=== PATIENT | female | born 1945 | race Caucasian/White ===

== ENCOUNTER → 2018-07-17 | Outpatient (CLI) | payer MEDICARE ==
[2018-07-17 17:42] LABS: HEMATOCRIT 35.7 % (36.0-47.0); HEMOGLOBIN 11.3 g/dl (12.0-15.5); MEAN CORPUSCULAR HEMOGLOBIN 26.2 pg (27.0-33.0); MEAN CORPUSCULAR HGB CONC 31.7 g/dl (32.0-36.5); MEAN CORPUSCULAR VOLUME 82.8 fl (80.0-96.0); PLATELET COUNT, AUTOMATED 365 10^3/uL (150-450); RED BLOOD COUNT 4.31 10^6/uL (4.00-5.40); WHITE BLOOD COUNT 11.2 10^3/uL (4.0-10.0)
[2018-07-17 18:04] LABS: CALCIUM LEVEL 9.7 MG/DL (8.8-10.2); CREATININE FOR GFR 1.3 MG/DL (0.55-1.30); GLOMERULAR FILTRATION RATE 42.9 (>39); POTASSIUM SERUM 4.8 MEQ/L (3.5-5.1)
[2018-07-17 18:23] LABS: EOSINOPHILS 4 % (0-5); LYMPHOCYTES 46 % (16-52); MONOCYTES 4 % (0-8); NEUTROPHILS 46 % (35-75); PLATELET ESTIMATE NORMAL (NORMAL)
== END ==
LOC: M LAB 16:28
PROVIDERS: ATTEND Surgery Vascular Surgery
DX: I70.213 Atherosclerosis of native arteries of extremities with intermittent claudication, bilateral legs (principal)

== ENCOUNTER → 2018-08-02 | Outpatient (CLI) | payer MEDICARE ==
[~2018-08-02] MED LIST: HEPARIN 1,000 UNITS/ML 10ML VIAL (FOR RADIOLOGY& DIALYSIS ONLY) As Ordered ONE; ISOVUE-300 61% 50ML VIAL (Q9967) As Ordered ONE; LIDOCAINE 2% MDV 20 ML VIAL As Ordered ONE; MIDAZOLAM INJ 2 MG/2 ML VIAL (J2250) As Ordered ONE; fentaNYL 100 MCG/2 ML INJECTION (J3010) As Ordered ONE
--- NOTE | 2018-08-30 08:07 | REPIR ---
DATE OF PROCEDURE: 08/16/2018 ATTENDING SURGEON: Dr. Madi Peralta CHIEF CLERK: Bouchra Almonte and Hafsa Seth PREOPERATIVE DIAGNOSES: Left lower extremity claudication. Chronic renal insufficiency, stage III. 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 Previous tobacco abuse. POSTOPERATIVE DIAGNOSES: Left lower extremity claudication. Chronic renal insufficiency, stage III. 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 Previous tobacco abuse. PROCEDURE: Aortogram. Iliofemoral angiogram. Selective left common femoral artery catheter placement with left lower extremity angiogram. Selective left superficial femoral artery catheter placement with left lower extremity angiogram. MYNX closure of the right common femoral arteriotomy. INDICATION: Patient is a 73-year-old female with previous angioplasty and stenting of her left superficial femoral artery and popliteal artery who has continued claudication in the left lower extremity. The patient will undergo a left lower extremity angiogram with possible angioplasty, stent and/or atherectomy. Risks, benefits and alternative treatment options were discussed with the patient. ANESTHESIA: Local with 10 mL of 2% lidocaine. FLUORO TIME: 1.7 minutes. CONTRAST: 6 mL of ISOVUE-300. HEPARIN: None. COMPLICATIONS: None. DRAINS: None. SPECIMENS: None. IMPLANTS: Right common femoral arteriotomy. Closure with a MYNX closure device. PROCEDURE: The patient was taken to the angiography suite, placed supine on the angiography room table and then prepped and draped in a standard surgical fashion. The right common femoral artery was cannulated with a micropuncture needle. The micropuncture wire was advanced through the micropuncture needle, which was upsized to a micropuncture sheath. A Bentson wire was advanced through the micropuncture sheath, which was upsized to a #5 [place] sheath. An Omni Flush catheter was placed in the aorta and aortogram performed. Catheter was pulled down to the bifurcation of the iliac arteries and iliofemoral angiogram was performed. Catheter was directed over the bifurcation of the iliac arteries, placed in the left common femoral artery and a left lower extremity angiogram was performed. Catheter was advanced into the left superficial femoral artery and a selective left lower extremity angiogram was performed. Catheters and wires were removed. A MYNX closure device was used to close the arteriotomy in the right common femoral artery with an additional 10 minutes of adjunctive pressure applied for hemostasis. Dressings were then applied. The patient tolerated procedure well. All instrument, sponge, and needle counts were correct at the end of the case. There were no complications. Dr. Peralta was present for directed the entire case. The patient was transferred to the holding area and subsequently discharged in stable condition. RADIOLOGIC SUPERVISION INTERPRETATION: The aortogram showed the aorta be widely patent with good filling of the celiac and superior mesenteric artery. The renal arteries were patent. The infrarenal aorta was patent with good filling of lumbar vessel. The inferior mesenteric artery was not visualized. The common iliac, external, and internal iliac arteries were patent bilaterally. The catheter was advanced into the left common femoral artery and angiogram was performed showing no significant disease with some atherosclerotic plaquing. The catheter was advanced into the superficial femoral artery and an angiogram performed showing the previously stented superficial femoral and popliteal arteries to be patent as well as some diffuse disease in the tibial vessels. A MYNX closure device was used close the arteriotomy in the right common femoral artery.
== END | disposition home or self-care (01) ==
LOC: M IRPRO 07:01
PROVIDERS: ATTEND Surgery Vascular Surgery
DX: I70.212 Atherosclerosis of native arteries of extremities with intermittent claudication, left leg (principal); N18.3 Chronic kidney disease, stage 3 (moderate); Z87.891 Personal history of nicotine dependence
CPT/HCPCS: 36247; 75625; 75716; 75774; C1760; C1769; C1887; C1894; G0269; Q9967

== ENCOUNTER → 2018-08-14 | Outpatient (CLI) | payer MEDICARE ==
[2018-08-14 14:23] LABS: BASO # 0.1 10^3/uL (0.0-0.2); BASO % 0.6 % (0.0-1.0); EOS # 0.2 10^3/uL (0.0-0.50); EOS % 1.7 % (0.0-3.0); HEMATOCRIT 36.7 % (36.0-47.0); HEMOGLOBIN 11.6 g/dl (12.0-15.5); LYMPH # 3.9 10^3/uL (1.5-4.5); MEAN CORPUSCULAR HEMOGLOBIN 26.4 pg (27.0-33.0); MEAN CORPUSCULAR HGB CONC 31.6 g/dl (32.0-36.5); MEAN CORPUSCULAR VOLUME 83.4 fl (80.0-96.0); MONO # 0.6 10^3/uL (0.0-0.8); MONO % 4.8 % (0.0-5.0); NEUTROPHILS # 7.8 10^3/uL (1.8-7.7); NEUTROPHILS % 61.6 % (36.0-66.0); PLATELET COUNT, AUTOMATED 375 10^3/uL (150-450); WHITE BLOOD COUNT 12.7 10^3/uL (4.0-10.0)
[2018-08-14 14:49] LABS: CALCIUM LEVEL 9.8 MG/DL (8.8-10.2); CREATININE FOR GFR 1.53 MG/DL (0.55-1.30); GLOMERULAR FILTRATION RATE 35.5 (>39); POTASSIUM SERUM 5.2 MEQ/L (3.5-5.1)
== END ==
LOC: M LAB 14:00
PROVIDERS: ATTEND Surgery Vascular Surgery
DX: I70.213 Atherosclerosis of native arteries of extremities with intermittent claudication, bilateral legs (principal)

== ENCOUNTER → 2018-08-16 | Outpatient (CLI) | payer MEDICARE ==
[~2018-08-16] MED LIST changes: +PROTAMINE SULF INJ 50 MG/5 ML VIAL (J2720) As Ordered ONE; +diphenhydrAMINE INJ 50MG/ML VIAL (J1200) As Ordered ONE
--- NOTE | 2018-08-30 09:44 | REPIR ---
DATE OF PROCEDURE: 08/16/2018 PREOPERATIVE DIAGNOSES: Left lower extremity claudication, chronic renal insufficiency stage III. POSTOPERATIVE DIAGNOSES: Left lower extremity claudication, chronic renal insufficiency stage III. PROCEDURE: Right common femoral arterial cannulation, selective left common femoral artery catheter placed with angiogram, selective left superficial femoral artery catheter placed with angiogram, selective left popliteal artery catheter placement angiogram, left popliteal artery angioplasty and stent with a 6 x 120 Uma drug-eluding stent postdilated with a 5 x 200 balloon, left superficial femoral artery angioplasty and stent with a 6 x 120 balloon Uma drug-eluding stent postdilated with a 5 x 200 balloon, left common femoral artery angioplasty with a 5 x 200 balloon, MYNX closure of the right common femoral arteriotomy. SURGEON: Dr. Donta Peralta. POWDERMAN: Bouchra Almonte and Hafsa Seth. ANESTHESIA: Local with sedation 1 mg Versed, 50 mcg of fentanyl and 10 mL of 2% lidocaine. SEDATION TIME: From 08:17 a.m. to 09:15 a.m. for a total of 58 minutes. Sedation and cardiopulmonary monitoring were performed under my direct supervision. I was present for and directed the entire case. FLUORO TIME: 5.2 minutes. CONTRAST: 2 mL of Isovue-300. Heparin 6000 units, protamine 50 mg, Benadryl 50 mg. COMPLICATIONS: None. DRAINS: None. SPECIMENS: None. IMPLANTS: Left popliteal artery stent with 6 x 120 Uma drug-eluding stent, left superficial femoral artery stent with a 6 x 120 Uma drug-eluding stent. MYNX closure device used close the arteriotomy in the right common femoral artery. INDICATION: The patient is a 73-year-old female with left lower extremity claudication and atherosclerotic arterial occlusive disease in her left common femoral superficial femoral and popliteal arteries. The patient will undergo a left lower extremity angiogram with possible angioplasty stent and/or atherectomy. Risks, benefits and alternative options were discussed with the patient. DESCRIPTION OF PROCEDURE: The patient was taken to the angiography suite, placed supine on the angiography room table and then prepped and draped in a standard surgical fashion. The right common femoral artery was cannulated. Catheter advanced up over the bifurcation and angiogram performed showing stenosis in the common femoral, superficial femoral and popliteal artery. The popliteal artery was angioplastied and stented with 6 x 120 Uma drug-eluting stent postdilated with 5 x 200 balloon. The superficial femoral artery was angioplastied and stenting with 6 x 120 drug-eluding Uma stent postdilated with a 5 x 200 balloon. The left common femoral artery was angioplastied with a 5 x 200 balloon. A completion angiogram showed resolution of the stenosis with good flow through the common femoral, superficial femoral and popliteal artery into the tibial vessels. A MYNX closure device was used close the arteriotomy in the right common femoral artery.
== END | disposition home or self-care (01) ==
LOC: M IRPRO 06:30
PROVIDERS: ATTEND Surgery Vascular Surgery
DX: I70.212 Atherosclerosis of native arteries of extremities with intermittent claudication, left leg (principal); N18.3 Chronic kidney disease, stage 3 (moderate)
CPT/HCPCS: 37226; 75710; C1725; C1760; C1769; C1874; C1887; C1894; J1200; J2250; J2720; J3010; Q9967

== ENCOUNTER 2019-07-10 14:01 | Inpatient (IN) | payer MEDICARE ==
[~2019-07-10] VITALS: Ht 162.6 cm; Wt 61.7 kg
[2019-07-10] MEDS ORDERED: OMEP-221 PO (14:35)
[2019-07-10] MEDS ORDERED: ATEN50TA2 PO (15:07)
[2019-07-10] MEDS ORDERED: NITR100C2 PO (15:07)
[2019-07-10] MEDS ORDERED: CLOP75TA2 PO (15:07)
[2019-07-10] MEDS ORDERED: AMLO10TA5 PO (15:07)
[2019-07-10] MEDS ORDERED: METF500T13 PO ×2 (15:07→18:18)
[2019-07-10] MEDS ORDERED: PARO20TA4 PO (15:07)
[2019-07-10] MEDS ORDERED: WARF05TA PO (15:07)
[2019-07-10] MEDS ORDERED: CLONI1TA PO (15:07)
[2019-07-10] MEDS ORDERED: METF-877 PO (15:07)
[2019-07-10] MEDS ORDERED: AMIT25TA PO (15:07)
[2019-07-10] MEDS ORDERED: GLIP10TA PO (15:07)
[2019-07-10] MEDS ORDERED: ENAL20TA PO (15:07)
[2019-07-10] MEDS ORDERED: LORA-674 PO (15:07)
[2019-07-10] MEDS ORDERED: LABETALOL HCL 100 MG/20 ML VIAL IV STA (17:14)
[2019-07-10] MEDS ORDERED: HumaLOG INSULIN (NovoLOG) PER UNIT SC STA ×2 (17:48→19:07)
[2019-07-10] MEDS ORDERED: NS 1,000 ML IV ONE (18:00)
--- NOTE | 2019-07-10 18:08 | REP ---
Clinical: Diabetic ketoacidosis . Comparison: None . Findings: The mediastinum and cardiac silhouette are stable and within normal limits for portable technique. The lung mejía are clear without acute consolidation, effusion, or pneumothorax. Skeletal structures are intact. Impression: No acute cardiopulmonary process appreciated. Electronically Signed by Eliseo Tanner MD 07/10/2019 05:59 P
[2019-07-10 18:52] LABS: HEMOGLOBIN A1c 12.8 %
[2019-07-10 18:57] LABS: ACETONE/KETONE 15.41 MG/DL (<2.81); CK-MB VALUE MASS 3.4 NG/ML (<3.6); CPK CREATINE PHOSPHOKINASE 77 U/L (26-192); MB/CK RELATIVE INDEX 4.42 (< OR =4); TROPONIN I < 0.02 NG/ML (< 0.10)
[2019-07-10 19:12] LABS: OSMOLALITY SERUM 302 MOSM/KG (280-301)
[2019-07-10] MEDS ORDERED: niCARdipine IV 40 MG in IV 1 EA IV SCH (21:04)
[2019-07-10] MEDS ORDERED: HEPARIN SOD (PORCINE) 5000 UNITS/ML VIAL (J1644 PER 1000UNITS) SC SCH (21:15)
[2019-07-10] MEDS ORDERED: GLUCOSE 4 GM CHEW TABLET PO PRN (21:15)
[2019-07-10] MEDS ORDERED: OMEPRAZOLE 20 MG CAP PO ONE (21:15)
[2019-07-10] MEDS ORDERED: DEXTROSE 50% 50 ML SYRINGE IV PRN (21:15)
[2019-07-10] MEDS ORDERED: GLUCAGON FOR INJ 1 MG VIAL (J1610) SC PRN (21:15)
[2019-07-10] MEDS ORDERED: LEVEMIR (INSULIN DETEMIR) 1 UNITS/0.01ML SC ONE (21:30)
--- NOTE | 2019-07-10 21:38 | HPEPDOC ---
General Date of Admission 07/10/19 Date of Service: Jul 10, 2019 Chief Complaint The patient is a 74-year-old female admitted with a reason for visit of Low Blood Sugar. Source: Patient Exam Limitations: No limitations, Mild cognitive slowing Timing/Duration: Day(s) Severity: Mild, Moderate History of Present Illness Patient is 74 years old female with past medical history of hypertension, poorly controlled diabetes mellitus type 2 not on the insulin, PVD status post left popliteal stent placement in 2018 presented hospital with left leg discomfort, hyperglycemia and hypertensive emergency. Today in the morning patient was in the vascular surgery office for left leg ischemia. Dr. Finney who is vascular surgeon planned to proceed with CTA, however patient was found to have the high hyperglycemia, hypertensive emergency and acute renal failure. Patient is very poor historian, I couldn't find any previous records to clarify her medical history. In emergency room patient was found to have hypertensive emergency with blood pressure of 220/110, elevated creatinine and glucose level up to 600 with no anion gap elevation. Patient received subcutaneous insulin and IV labetalol. Patient denied fever, chills, nausea, vomiting chest pain, diarrhea or dysuria Home Medications Scheduled Amitriptyline HCl (Amitriptyline HCl) 25 Mg Tablet, 25 MG PO QHS, (Reported) Amlodipine Besylate (Amlodipine Besylate) 10 Mg Tablet, 10 MG PO QHS, (Reported) Atenolol (Atenolol) 50 Mg Tablet, 50 MG PO QHS, (Reported) Clonidine Hcl (Clonidine HCl) 0.1 Mg Tablet, 0.2 MG PO DAILY, (Reported) Clopidogrel Bisulfate (Clopidogrel) 75 Mg Tablet, 75 MG PO QHS, (Reported) Enalapril Maleate (Enalapril Maleate) 20 Mg Tablet, 40 MG PO DAILY, (Reported) Glipizide (Glipizide) 10 Mg Tablet, 15 MG PO BID, (Reported) Loratadine (Loratadine) 10 Mg Tablet, 10 MG PO DAILY for allergy symptoms, (Reported) Metformin HCl (Metformin HCl) 500 Mg Tablet, 1,500 MG PO QHS, (Reported) Metformin HCl (Metformin HCl) 500 Mg Tablet, 1,000 MG PO DAILY, (Reported) Nitrofurantoin Monohyd/M-Cryst (Nitrofurantoin [place]-Mcr 100 mg) 100 Mg Capsule, 100 MG PO BID, (Reported) DAY 5 OF 7 Omeprazole (Omeprazole) 40 Mg Capsule.dr, 40 MG PO DAILY, (Reported) Paroxetine HCl (Paroxetine) 20 Mg Tablet, 20 MG PO DAILY, (Reported) Warfarin Sod (Coumadin) 1 Mg Tablet, 2 MG PO QPM, (Reported) 1700 Allergies Coded Allergies: Sulfa (Sulfonamide Antibiotics) (Verified Allergy, Unknown, hives, 07/10/19) Past Medical History Medical History Hypertension, hyperlipidemia, peripheral vascular diseases, type 2 diabetes Surgical History Left popliteal stent placement in 2018 Family History I personally REVIEWED FAMILY HISTORY AND FOUND NOT PERTINENT Social History * Smoker: Denies Alcohol: Denies Drugs: denies A-FIB/CHADSVASC A-FIB History Current/History of A-Fib/PAF?: Yes Current PO Anticoag Therapy: Yes Review of Systems Constitutional: Denies: Chills, Fever Eyes: Denies: Pain ENT: Denies: Head Aches Skin: Denies: Rash, Lesions Pulmonary: Denies: Dyspnea Cardiovascular: Denies: Chest Pain Gastrointestinal: Denies: Nausea Genitourinary: Denies: Dysuria Hematologic: Denies: Bruising Endocrine: Reports: Polydipsia, Polyuria; Denies: Polyphagia Musculoskeletal: Denies: Neck Pain Neurological: Denies: Numbness Psych: Reports: Mood Normal Physical Examination General Exam: Positive: Alert, Cooperative Eye Exam: Positive: PERRLA ENT Exam: Positive: Atraumatic Neck Exam: Positive: Supple; Negative: JVD Heart Exam: Positive: Irregular Rhythm Telemetry: Positive: Atrial fibrillation Abdomen Exam: Positive: Normal bowel sounds Extremity Exam: Positive: Cyanosis (cyanosis of left toe, absence of dorsalis pedis pulsation); Negative: Clubbing Skin Exam: Positive: Other skin issue (cyanosis of left foot); Negative: Nl turgor and temperature Neuro Exam: Positive: Normal Gait, Strength at 5/5 X4 ext, Cranial Nerves 3-12 NL Psych Exam: Positive: Mental status NL Vital Signs Vital Signs Date Time Temp Pulse Resp B/P (MAP) Pulse Ox O2 Delivery O2 Flow Rate FiO2 07/10/19 21:00 82 220/98 (138) 98 Room Air 07/10/19 19:09 97.9 20 Laboratory Data Labs 24H Laboratory Tests 2 07/10/19 16:03: Urine Color STRAW, Urine Appearance CLEAR, Urine pH 5.0, Urine Specific [place] 1.026, Urine Protein 2+H, Urine Glucose (UA) 3+H, Urine Ketones TRACEH, Urine Blood 1+H, Urine Nitrite NEGATIVE, Urine Bilirubin NEGATIVE, Urine Urobilinogen 0.2, Urine Leukocyte Esterase NEGATIVE, Urine WBC (Auto) 3, Urine RBC (Auto) 3, Urine Hyaline Casts (Auto) 0, Urine Bacteria (Auto) 1+H, Urine Squamous Epithelial Cells 0, Urine Sperm (Auto) 07/10/19 17:58: Estimated Mean Plasma Glucose 321H, Hemoglobin A1c 12.8, Osmolality 302H, Total Creatine Kinase 77, Creatine Kinase MB 3.4, Creatine Kinase MB Relative Index 4.42H, Troponin I < 0.02, B-Hydroxybutyrate 15.41H 07/10/19 18:23: POC Glucose (Misc Panel) 421H, POC Sodium (Misc Panel) 130L, POC Potassium (Misc Panel) 4.9, POC Chloride (Misc Panel) 106, POC Total CO2 (Misc Panel) 16.0L, POC Blood Urea Nitrogen (Misc Panel 25, POC Ionized Calcium (Misc Panel) 4.9, POC Creatinine (Misc Panel) 1.2, POC Hematocrit (Misc Panel) 43.0 07/10/19 19:05: Bedside Glucose (Misc Panel) 412H 07/10/19 20:38: Bedside Glucose (Misc Panel) 310H Assessment/Plan Patient is 74 years old female with past medical history of hypertension, poorly controlled diabetes mellitus type 2 not on the insulin, PVD status post left popliteal stent placement in 2018 presented hospital with left leg discomfort, hyperglycemia and hypertensive emergency. Today in the morning patient was in the vascular surgery office for left leg ischemia. Dr. Finney who is vascular surgeon planned to proceed with CTA, however patient was found to have the high hyperglycemia, hypertensive emergency and acute renal failure. Patient is very poor historian, I couldn't find any previous records to clarify her medical history. In emergency room patient was found to have hypertensive emergency with blood pressure of 220/110, elevated creatinine and glucose level up to 600 with no anion gap elevation. Problems (1) Hypertensive emergency Status: Acute Problem Text: Nicardipine drip with parameters Restarted home meds EKG Echo (2) ARF (acute renal failure) Status: Acute Problem Text: Secondary to dehydration secondary to hyperglycemia continue to monitor Gentle IV fluid (3) Ischemia of left lower extremity Status: Acute Problem Text: Secondary to advanced atherosclerosis or restenosis of previous stents I discussed the case with Dr. Finney, patient is not medical stable for surgery Patient has significantly ischemia of left foot with cyanosis, absence of dorsalis pedis pulsation She will see patient in the morning (4) Type 2 diabetes mellitus Status: Chronic Problem Text: Poorly controlled diabetes Insulin sliding scale and detemir 10 units twice a day Diabetes diet Bmp every 4 hours, glucose level every 2 hours (5) Atrial fibrillation Status: Chronic Problem Text: I did not find history of atrial fibrillation, but patient is on oral anticoagulation. Denied history of PE Heart rate is under control She is a very poor historian EKG Telemetry Plan / VTE VTE Prophylaxis Ordered?: Yes LINDA GOODMAN DO Jul 10, 2019 21:38
[2019-07-10] MEDS ORDERED: NS 1,000 ML IV SCH (21:45)
[2019-07-10] MEDS: CLOPIDOGREL 75 MG TAB PO SCH (21:53)
[2019-07-10] MEDS: amLODIPine 10 MG TAB PO SCH (21:54)
[2019-07-10] MEDS: atenoloL 50 MG TAB PO SCH (21:54)
[2019-07-10] MEDS: HumaLOG INSULIN (NovoLOG) PER UNIT SC SCH (21:55)
[2019-07-10 22:28] VITALS: BP 173/80
[2019-07-10 22:37] LABS: INR 2.42; PROTHROMBIN TIME 26.2 SECONDS (11.8-14.0)
[2019-07-10 22:43] LABS: CALCIUM LEVEL 9.7 MG/DL (8.8-10.2); CREATININE FOR GFR 1.43 MG/DL (0.55-1.30); GLOMERULAR FILTRATION RATE 38.3 (>39)
[2019-07-10 22:45] VITALS: BP 173/80
[2019-07-10 23:00] VITALS: BP 163/71
[2019-07-10 23:30] VITALS: BP 161/74
[2019-07-10] MEDS: WARFARIN SOD 2 MG TAB PO SCH (23:31)
[2019-07-10] MEDS: AMITRIPTYLINE 25 MG TAB PO SCH (23:32)
[2019-07-11] VITALS (34 sets, daily range): BP systolic 117–218; BP diastolic 59–128
[2019-07-11] MEDS ORDERED: HumaLOG INSULIN (NovoLOG) PER UNIT SC ONE ×2 (00:30→02:30)
[2019-07-11 03:09] LABS: CALCIUM LEVEL 9.3 MG/DL (8.8-10.2); CREATININE FOR GFR 1.43 MG/DL (0.55-1.30); GLOMERULAR FILTRATION RATE 38.3 (>39); POTASSIUM SERUM 4.1 MEQ/L (3.5-5.1)
[2019-07-11] MEDS ORDERED: HumaLOG INSULIN (NovoLOG) PER UNIT SC STA (03:43)
[2019-07-11 05:34] LABS: APPEARANCE, URINE CLOUDY (CLEAR); BACTERIA, URINE AUTO 1+ (NEGATIVE); BILIRUBIN, URINE AUTO NEGATIVE (NEGATIVE); BLOOD, URINE BLOOD 1+ (NEGATIVE); COLOR, URINE YELLOW (YELLOW); GLUCOSE, URINE (UA) AUTO 3+ mg/dL (NEGATIVE); KETONE, URINE AUTO NEGATIVE (NEGATIVE); LEUKOCYTE ESTERASE, URINE AUTO 1+ (NEGATIVE); MUCUS, URINE SMALL (NEGATIVE); NITRITE, URINE AUTO NEGATIVE (NEGATIVE); PROTEIN, URINE AUTO 1+ mg/dL (NEGATIVE); RBC, URINE AUTO 3 /HPF (0-3); SPECIFIC GRAVITY URINE AUTO 1.017 (1.002-1.035); SQUAMOUS EPITHELIAL CELL UR AU 0 /HPF (0-6); UROBILINOGEN, URINE AUTO 0.2 mg/dL (0.0-2.0); WBC, URINE AUTO 71 /HPF (0-3)
[2019-07-11] MEDS ORDERED: PNEUMOCOCCAL VACCINE 0.5ML SYRINGE(90732) PNEUMOVAX 23 IM SCH (06:00)
[2019-07-11 06:05] LABS: HEMATOCRIT 37.6 % (36.0-47.0); HEMOGLOBIN 12.3 g/dl (12.0-15.5); MEAN CORPUSCULAR HEMOGLOBIN 26.2 pg (27.0-33.0); MEAN CORPUSCULAR HGB CONC 32.7 g/dl (32.0-36.5); PLATELET COUNT, AUTOMATED 490 10^3/uL (150-450); WHITE BLOOD COUNT 16.6 10^3/uL (4.0-10.0)
[2019-07-11 06:38] LABS: ALBUMIN 3.1 GM/DL (3.2-5.2); BILIRUBIN,TOTAL 0.1 MG/DL (0.2-1.0); CALCIUM LEVEL 9.7 MG/DL (8.8-10.2); CREATININE FOR GFR 1.13 MG/DL (0.55-1.30); GLOMERULAR FILTRATION RATE 50.2 (>39); MAGNESIUM LEVEL 1.4 MG/DL (1.8-2.4); POTASSIUM SERUM 4.1 MEQ/L (3.5-5.1); TOTAL PROTEIN 7.2 GM/DL (6.4-8.2)
[2019-07-11] MEDS: LEVEMIR (INSULIN DETEMIR) 1 UNITS/0.01ML SC SCH ×2 (08:08→20:52)
[2019-07-11] MEDS: HumaLOG INSULIN (NovoLOG) PER UNIT SC SCH ×4 (08:09→20:52)
[2019-07-11] MEDS: PARoxetine 20 MG TAB PO SCH (08:09)
[2019-07-11] MEDS: ENALAPRIL MALEATE 10 MG TAB PO SCH (08:10)
[2019-07-11] MEDS: LORATADINE 10 MG TAB PO SCH (08:10)
[2019-07-11] MEDS: cloNIDine 0.1 MG TAB PO SCH (08:10)
[2019-07-11] MEDS ORDERED: LEVEMIR (INSULIN DETEMIR) 1 UNITS/0.01ML SC SCH (09:00)
--- NOTE | 2019-07-11 11:32 | REP ---
Bilateral lower extremity arterial Doppler ultrasound: History: Peripheral arterial disease. History of stent and angioplasty left lower extremity. Left foot pain. Findings: The ankle brachial indices measurements could not be accomplished due to patient tolerance and pain. Moderate to severe plaquing is noted diffusely. The left superficial femoral artery is seen to be occluded. Monophasic waveforms are noted above and distal to the occlusion. Very slow arterial velocities are observed below the knee on the left. Biphasic waveforms are noted on the right. Arterial Doppler velocity chart right lower extremity: CF A 122 cm/S Profunda 99 Proximal SFA 94 Mid SFA 65 Distal SFA 95 Popliteal 185 Proximal AT A 50 Tibioperoneal trunk 73 Proximal FLIGHT SERVICE AGENT 68 Distal FLIGHT SERVICE AGENT 70 Distal AT A 30 Arterial Doppler velocity chart left lower extremity: CF A 113 cm/S Profunda 127 Proximal SFA 82 Mid SFA occluded Distal SFA occluded Popliteal occluded Proximal AT A seven Tibioperoneal trunk five Proximal FLIGHT SERVICE AGENT eight Distal FLIGHT SERVICE AGENT four Distal AT A 1.3 Electronically Signed by Sam Herring MD 07/11/2019 11:24 A
--- NOTE | 2019-07-11 13:37 | IPNPDOC ---
Subjective Date Seen The patient was seen on 07/11/19. Subjective Chief Complaint/HPI Patient is comfortable in no distress. Offers no new complaints will be transferred to PCU today General: Denies: ROS Unobtainable, Chills, Night Sweats, Fatigue, Malaise, Normal Appetite, Other Symptoms Constitutional: Denies: Chills, Fever, Malaise, Night Sweats, Weakness, Fatigue, Weight Loss, Lethargy, Other Eyes: Denies: Pain, Vision change, Conjunctivae inflammation, Eyelid inflammation, Redness, Other Pulmonary: Denies: Dyspnea, Cough, Pleuritic Chest Pain, Other Symptoms Cardiovascular: Denies: Chest Pain, Palpitations, Orthopnea, Paroxysmal Noc. Dyspnea, Edema, Lt Headedness, Other Symptoms Gastrointestinal: Denies: Nausea, Vomiting, Abdominal Pain, Diarrhea, Constipation, Melena, Hematochezia, Other Symptoms Musculoskeletal: Denies: Neck Pain, Back Pain, Shoulder Pain, Arm Pain, Hand Pain, Leg Pain, Foot Pain, Joint Pain, Muscle Pain, Spasms, Other Symptoms Neurological: Denies: Weakness, Numbness, Incoordination, Change in speech, Confusion, Seizures, Other Symptoms Objective Physical Examination ENT Exam: Positive: Atraumatic Neck Exam: Positive: Supple; Negative: JVD Heart Exam: Positive: Irregular Rhythm Telemetry: Positive: Atrial fibrillation Abdomen Exam: Positive: Normal bowel sounds Extremity Exam: Positive: Cyanosis (cyanosis of left toe, absence of dorsalis pedis pulsation) Skin Exam: Positive: Other skin issue (cyanosis of left foot) Neuro Exam: Positive: Normal Gait, Strength at 5/5 X4 ext, Cranial Nerves 3-12 NL Psych Exam: Positive: Mental status NL Assessment /Plan Problems (1) Hypertensive emergency Status: Acute Problem Text: Blood pressure well under control now systolic is 140 Continue amlodipine visit of August. Metoprolol and clonidine Transfer patient to PCU where she'll be observed for any changes in the meds Continue telemetry monitoring A.m. labs (2) Type 2 diabetes mellitus Status: Chronic Problem Text: Blood sugar is under control at present time Fingerstick blood sugar every before meals and at bedtime with coverage Continue home meds (3) Atrial fibrillation Status: Chronic Problem Text: Atrial fibrillation I did not find history of atrial fibrillation, but patient is on oral anticoagulation. Denied history of PE Heart rate is under control She is a very poor historian Continue telemetry monitoring (4) Ischemia of left lower extremity Status: Acute Problem Text: Patient is scheduled to be seen by Dr. Finney from vascular surgery Further recommendation as per vascular At the present meds (5) ARF (acute renal failure) Status: Acute Problem Text: Secondary to dehydration, which is improving. IV hydration Continue gentle IV hydration Repeat labs in a.m. Plan/VTE VTE Prophylaxis Ordered?: Yes VS, I&O, 24H, Fishbone Vital Signs/I&O Vital Signs Date Time Temp Pulse Resp B/P (MAP) Pulse Ox O2 Delivery O2 Flow Rate FiO2 07/11/19 08:10 144/67 07/11/19 07:50 98.6 66 16 99 Room Air I&O- Last 24 Hours up to 6 AM 07/11/19 06:00 Intake Total 1625 ml Output Total 300 ml Balance 1325 ml Laboratory Data 24H LABS Laboratory Tests 2 07/10/19 16:03: Urine Color STRAW, Urine Appearance CLEAR, Urine pH 5.0, Urine Specific [place] 1.026, Urine Protein 2+H, Urine Glucose (UA) 3+H, Urine Ketones TRACEH, Urine Blood 1+H, Urine Nitrite NEGATIVE, Urine Bilirubin NEGATIVE, Urine Urobilinogen 0.2, Urine Leukocyte Esterase NEGATIVE, Urine WBC (Auto) 3, Urine RBC (Auto) 3, Urine Hyaline Casts (Auto) 0, Urine Bacteria (Auto) 1+H, Urine Squamous Epithelial Cells 0, Urine Sperm (Auto) 07/10/19 17:58: Estimated Mean Plasma Glucose 321H, Hemoglobin A1c 12.8, Osmolality 302H, Total Creatine Kinase 77, Creatine Kinase MB 3.4, Creatine Kinase MB Relative Index 4.42H, Troponin I < 0.02, B-Hydroxybutyrate 15.41H 07/10/19 18:23: POC Glucose (Misc Panel) 421H, POC Sodium (Misc Panel) 130L, POC Potassium (Misc Panel) 4.9, POC Chloride (Misc Panel) 106, POC Total CO2 (Misc Panel) 16.0L, POC Blood Urea Nitrogen (Misc Panel 25, POC Ionized Calcium (Misc Panel) 4.9, POC Creatinine (Misc Panel) 1.2, POC Hematocrit (Misc Panel) 43.0 07/10/19 19:05: Bedside Glucose (Misc Panel) 412H 07/10/19 20:38: Bedside Glucose (Misc Panel) 310H 07/10/19 22:10: Prothrombin Time 26.2H, Prothromb Time International Ratio 2.42, Anion Gap 12, Glomerular Filtration Rate 38.3L, Calcium Level 9.7 07/10/19 22:30: Bedside Glucose (Misc Panel) 373H 07/11/19 00:02: Bedside Glucose (Misc Panel) 379H 07/11/19 02:11: Bedside Glucose (Misc Panel) 379H, Anion Gap 12, Glomerular Filtration Rate 38.3L, Calcium Level 9.3 07/11/19 04:06: Bedside Glucose (Misc Panel) 211H 07/11/19 05:15: Urine Color YELLOW, Urine Appearance CLOUDYH, Urine pH 5.0, Urine Specific [place] 1.017, Urine Protein 1+H, Urine Glucose (Auto)(UA) 3+H, Urine Ketones (Auto) NEGATIVE, Urine Blood 1+H, Urine Nitrite NEGATIVE, Urine Bilirubin NEGATIVE, Urine Urobilinogen 0.2, Urine Leukocyte Esterase (Auto) 1+H, Urine WBC (Auto) 71H, Urine RBC (Auto) 3, Urine Hyaline Casts (Auto) 0, Urine Bacteria (Auto) 1+H, Urine Squamous Epithelial Cells 0, Urine Mucus (Auto) SMALL, Urine Sperm (Auto) 07/11/19 05:44: Anion Gap 9, Glomerular Filtration Rate 50.2, Calcium Level 9.7, Nucleated Red Blood Cells % (auto) 0.0, Magnesium Level 1.4L, Total Bilirubin 0.1L, Aspartate Amino Transf (AST/SGOT) 15, Alanine Aminotransferase (ALT/SGPT) 18, Alkaline Phosphatase 88, Total Protein 7.2, Albumin 3.1L, Albumin/Globulin Ratio 0.76L 07/11/19 11:53: Bedside Glucose (Misc Panel) 475H CBC/BMP Laboratory Tests 07/10/19 22:10 07/11/19 02:11 07/11/19 05:44 JENNIFER LIU MD Jul 11, 2019 13:37
--- NOTE | 2019-07-11 14:42 | CR.PDOC ---
General Date of Consultation: Jul 11, [address] Finney. HPI: 74 year old F with a past medical history significant for PAD, previously followed by Dr. Peralta, last seen in the office 09/11/18, known to have history of left lower extremity angioplasty/stent placement. Angiogram left lower extremity as per Dr. Peralta 08/02/18 with no intervention. Angiogram left lower extremity 08/16/[address] Peralta with popliteal angioplasty/stent, left SFA angioplasty/stent and left common femoral angioplasty. The patient had last had lower extremity arterial ultrasound August [address] [facility]. The patient returned for vascular surgery follow-up appt 07/10/19. She had reported following her last arteriogram she continued to have pain in the left foot however over the past 3-4 weeks her symptoms have been worsening. The patient states initially it began with increasing left foot pain and then achy pain in the lower leg below the knee. Her left foot has been darker in color. She denies any wounds. If she walks for a very short distance she gets pain in the left foot and left lower leg. Her leg feels weak. She has numbness and tingling in the lower leg. Additional testing was planned and in preparation for this a medical profile was requested indicating blood sugar of 601, elevated renal function and the patient was noted to have an elevated blood pressure in the office therefore she was referred to the emergency department for evaluation where she was admitted by Hospitalist with hyperglycemia, acute renal failure and hypertensive emergency. The patient admitted that she had not been taking her medications and she had not taken her blood pressure medications yesterday morning and that she was on a pill for her diabetes which she had also not taken. Vascular surgery is consulted regarding left lower extremity pain. PMHx: PAD Hypertension History of recurrent UTI Diabetes GERD Depression PSHX: Cholecystectomy Hysterectomy Abdominal hernia repair Angiogram lower extremity SOCHX: Former smoker, quit 1965 ROS: As noted in HPI, otherwise 11pt ROS of systems reviewed and remarkable for recent UTI, patient reported she was on antibiotics currently. PE: GEN: 74 yo F, appears stated age. No acute distress. Alert and oriented x 3. HEENT: Normocephalic, atraumatic. Moist mucous membranes. CHEST: Regular rate and rhythm, +S1, +S2 LUNGS: Clear to auscultation bilaterally. ABD: Round, soft, non-tender, non-distended. +Bowel sounds throughout. EXT: Purplish discoloration of the toes of the left foot is less pronounced today. The foot is warmer to touch however her toes are still cool to touch. Faint monophasic signals are obtainable with Doppler left DP/PT. Monophasic left popliteal. Left femoral pulse is palpable. The patient is moving her toes, sensation to light touch is intact. NEURO: Alert and oriented x 3. No focal deficits appreciated. A&P: 1. PAD/history of left common femoral angioplasty, left SFA angioplasty/stent and left popliteal angioplasty/stent 08/16/18. Coolness and discoloration of the left foot is less pronounced this morning. Faint Monophasic DP/PT left foot, monophasic left popliteal with Doppler. Plan to request bilateral lower extremity arterial ultrasound to further assess, results to be reviewed by Dr. Finney for further recommendations. Possibly consider angiogram left lower extremity. Serum creatinine is improved this morning at 1.13, GFR 50.2 status post IV fluids. Thank you for your consultation. We will continue to follow along with you. Vital Signs/I&O Vital Signs Date Time Temp Pulse Resp B/P (MAP) Pulse Ox O2 Delivery O2 Flow Rate FiO2 07/11/19 14:00 98.0 59 19 131/62 (85) 97 Room Air I&O- Last 24 Hours up to 6 AM 07/11/19 05:59 Intake Total 1205 ml Balance 1205 ml Laboratory Data Labs 24H Laboratory Tests 2 07/10/19 16:03: Urine Color STRAW, Urine Appearance CLEAR, Urine pH 5.0, Urine Specific Peculiar 1.026, Urine Protein 2+H, Urine Glucose (UA) 3+H, Urine Ketones TRACEH, Urine Blood 1+H, Urine Nitrite NEGATIVE, Urine Bilirubin NEGATIVE, Urine Urobilinogen 0.2, Urine Leukocyte Esterase NEGATIVE, Urine WBC (Auto) 3, Urine RBC (Auto) 3, Urine Hyaline Casts (Auto) 0, Urine Bacteria (Auto) 1+H, Urine Squamous Epithelial Cells 0, Urine Sperm (Auto) 07/10/19 17:58: Estimated Mean Plasma Glucose 321H, Hemoglobin A1c 12.8, Osmolality 302H, Total Creatine Kinase 77, Creatine Kinase MB 3.4, Creatine Kinase MB Relative Index 4 .42H, Troponin I < 0.02, B-Hydroxybutyrate 15.41H 07/10/19 18:23: POC Glucose (Misc Panel) 421H, POC Sodium (Misc Panel) 130L, POC Potassium (Misc Panel) 4.9, POC Chloride (Misc Panel) 106, POC Total CO2 (Misc Panel) 16.0L, POC Blood Urea Nitrogen (Misc Panel 25, POC Ionized Calcium (Misc Panel) 4.9, POC Creatinine (Misc Panel) 1.2, POC Hematocrit (Misc Panel) 43.0 07/10/19 19:05: Bedside Glucose (Misc Panel) 412H 07/10/19 20:38: Bedside Glucose (Misc Panel) 310H 07/10/19 22:10: Prothrombin Time 26.2H, Prothromb Time International Ratio 2.42, Anion Gap 12, Glomerular Filtration Rate 38.3L, Calcium Level 9.7 07/10/19 22:30: Bedside Glucose (Misc Panel) 373H 07/11/19 00:02: Bedside Glucose (Misc Panel) 379H 07/11/19 02:11: Bedside Glucose (Misc Panel) 379H, Anion Gap 12, Glomerular Filtration Rate 38.3L, Calcium Level 9.3 07/11/19 04:06: Bedside Glucose (Misc Panel) 211H 07/11/19 05:15: Urine Color YELLOW, Urine Appearance CLOUDYH, Urine pH 5.0, Urine Specific Peculiar 1.017, Urine Protein 1+H, Urine Glucose (Auto)(UA) 3+H, Urine Ketones (Auto) NEGATIVE, Urine Blood 1+H, Urine Nitrite NEGATIVE, Urine Bilirubin NEGATIVE, Urine Urobilinogen 0.2, Urine Leukocyte Esterase (Auto) 1+H, Urine WBC (Auto) 71H, Urine RBC (Auto) 3, Urine Hyaline Casts (Auto) 0, Urine Bacteria (Auto) 1+H, Urine Squamous Epithelial Cells 0, Urine Mucus (Auto) SMALL, Urine Sperm (Auto) 07/11/19 05:44: Anion Gap 9, Glomerular Filtration Rate 50.2, Calcium Level 9.7, Nucleated Red Blood Cells % (auto) 0.0, Magnesium Level 1.4L, Total Bilirubin 0.1L, Aspartate Amino Transf (AST/SGOT) 15, Alanine Aminotransferase (ALT/SGPT) 18, Alkaline Phosphatase 88, Total Protein 7.2, Albumin 3.1L, Albumin/Globulin Ratio 0.76L 07/11/19 11:53: Bedside Glucose (Misc Panel) 475H CBC/BMP Laboratory Tests 07/10/19 22:10 07/11/19 02:11 07/11/19 05:44 Allergies Coded Allergies: Sulfa (Sulfonamide Antibiotics) (Verified Allergy, Unknown, hives, 07/10/19) Home Medications Scheduled Amitriptyline HCl (Amitriptyline HCl) 25 Mg Tablet, 25 MG PO QHS, (Reported) Amlodipine Besylate (Amlodipine Besylate) 10 Mg Tablet, 10 MG PO QHS, (Reported) Atenolol (Atenolol) 50 Mg Tablet, 50 MG PO QHS, (Reported) Clonidine Hcl (Clonidine HCl) 0.1 Mg Tablet, 0.2 MG PO DAILY, (Reported) Clopidogrel Bisulfate (Clopidogrel) 75 Mg Tablet, 75 MG PO QHS, (Reported) Enalapril Maleate (Enalapril Maleate) 20 Mg Tablet, 40 MG PO DAILY, (Reported) Glipizide (Glipizide) 10 Mg Tablet, 15 MG PO BID, (Reported) Loratadine (Loratadine) 10 Mg Tablet, 10 MG PO DAILY for allergy symptoms, (Repo rted) Metformin HCl (Metformin HCl) 500 Mg Tablet, 1,500 MG PO QHS, (Reported) Metformin HCl (Metformin HCl) 500 Mg Tablet, 1,000 MG PO DAILY, (Reported) Nitrofurantoin Monohyd/M-Cryst (Nitrofurantoin Jay-Mcr 100 mg) 100 Mg Capsule, 100 MG PO BID, (Reported) DAY 5 OF 7 Omeprazole (Omeprazole) 40 Mg Capsule.dr, 40 MG PO DAILY, (Reported) Paroxetine HCl (Paroxetine) 20 Mg Tablet, 20 MG PO DAILY, (Reported) Warfarin Sod (Coumadin) 1 Mg Tablet, 2 MG PO QPM, (Reported) 1700 Angelina Baumann Jul 11, 2019 14:42
--- NOTE | 2019-07-11 16:25 | IPNPDOC ---
Text Note Date of Service The patient was seen on 07/11/19. NOTE Patient seen this afternoon. She is doing well with some continued pain in the foot but maybe a little improved. Labs and BP are much better with meds. Reviewed the arterial ultrasound. Left SFA stents are occluded as anticipated. Plan for angiogram tomorrow in IR. I did order an INR in the AM. NPO after MN. VS,Fishbone, I+O VS, Fishbone, I+O Laboratory Tests 07/10/19 22:10 07/11/19 02:11 07/11/19 05:44 Vital Signs Date Time Temp Pulse Resp B/P (MAP) Pulse Ox O2 Delivery O2 Flow Rate FiO2 07/11/19 14:00 98.0 59 19 131/62 (85) 97 Room Air I&O- Last 24 Hours up to 6 AM 07/11/19 06:00 Intake Total 1625 ml Output Total 300 ml Balance 1325 ml VENESSA DURAN MD Jul 11, 2019 16:25
[2019-07-11] MEDS: WARFARIN SOD 2 MG TAB PO SCH (17:00)
--- NOTE | 2019-07-11 17:42 | REPVR ---
PROCEDURE INFORMATION: Exam: US Duplex Left Lower Extremity Veins, Limited Exam date and time: 07/11/2019 5:11 PM Age: 74 years old Clinical indication: Other: Need for graft; Additional info: Vein mapping lle TECHNIQUE: Imaging protocol: Real-time Duplex ultrasound of the Left Lower Extremity with 2-D diaz scale, color Doppler flow and spectral waveform analysis with image documentation. Limited exam focused on the left lower extremity veins. COMPARISON: No relevant prior studies available. FINDINGS: Left deep veins: Unremarkable. The common femoral, femoral, proximal profunda femoral and popliteal veins are patent without thrombus. Normal Doppler waveforms. Normal compressibility and/or augmentation response. Left superficial veins: Unremarkable. Saphenofemoral junction is patent without thrombus. Vein mapping: Proximal greater saphenous vein measures 4.3 mm, mid greater saphenous vein measures 3.5 mm, distal greater saphenous vein measures 3.8 mm, proximal infrapopliteal segment of the greater saphenous vein measures 4.3 mm, greater saphenous vein at mid calf level measures 1.2 mm. Lesser saphenous vein in the proximal calf measures 3 mm. Lesser saphenous vein in the mid calf measures 3.1 mm, and distal lesser saphenous vein measures 2.1 mm. Soft tissues: Unremarkable. IMPRESSION: No DVT. Measurements of the greater and lesser saphenous veins have been provided as indicated above. Electronically signed by: Ryan Esqueda On 07/11/2019 17:41:44 PM
[2019-07-11] MEDS: CLOPIDOGREL 75 MG TAB PO SCH (20:47)
[2019-07-11] MEDS: atenoloL 50 MG TAB PO SCH (20:51)
[2019-07-11] MEDS: AMITRIPTYLINE 25 MG TAB PO SCH (20:51)
[2019-07-11] MEDS: amLODIPine 10 MG TAB PO SCH (20:51)
[2019-07-11] MEDS ORDERED: **hydrALAZINE HCL** 25 MG TAB PO ONE (23:00)
[2019-07-11] MEDS ORDERED: PILL CUTTER 1 EACH XX PRN (23:15)
[2019-07-12] VITALS (14 sets, daily range): BP systolic 122–221; BP diastolic 58–102
[2019-07-12 05:07] LABS: BASO # 0.1 10^3/uL (0.0-0.2); BASO % 0.8 % (0.0-1.0); EOS # 0.4 10^3/uL (0.0-0.5); EOS % 3.5 % (0.0-3.0); HEMATOCRIT 36.5 % (36.0-47.0); HEMOGLOBIN 11.6 g/dl (12.0-15.5); LYMPH # 3.9 10^3/uL (1.5-5.0); LYMPH % 31.2 % (24.0-44.0); MEAN CORPUSCULAR HEMOGLOBIN 25.9 pg (27.0-33.0); MEAN CORPUSCULAR HGB CONC 31.8 g/dl (32.0-36.5); MEAN CORPUSCULAR VOLUME 81.5 fl (80.0-96.0); MONO # 0.6 10^3/uL (0.0-0.8); MONO % 5.1 % (0.0-5.0); NEUTROPHILS # 7.3 10^3/uL (1.5-8.5); NEUTROPHILS % 58.5 % (36.0-66.0); RED BLOOD COUNT 4.48 10^6/uL (4.00-5.40); WHITE BLOOD COUNT 12.5 10^3/uL (4.0-10.0)
[2019-07-12 05:17] LABS: PLATELET COUNT, AUTOMATED 386 10^3/uL (150-450)
[2019-07-12 05:18] LABS: INR 2.13; PROTHROMBIN TIME 23.6 SECONDS (11.8-14.0)
[2019-07-12 05:52] LABS: ALBUMIN 2.9 GM/DL (3.2-5.2); BILIRUBIN,TOTAL 0.2 MG/DL (0.2-1.0); CALCIUM LEVEL 9.8 MG/DL (8.8-10.2); CREATININE FOR GFR 1.17 MG/DL (0.55-1.30); GLOMERULAR FILTRATION RATE 48.3 (>39); MAGNESIUM LEVEL 1.4 MG/DL (1.8-2.4); POTASSIUM SERUM 4.7 MEQ/L (3.5-5.1); TOTAL PROTEIN 6.6 GM/DL (6.4-8.2)
[2019-07-12] MEDS ORDERED: HumaLOG INSULIN (NovoLOG) PER UNIT SC ONE (06:15)
--- NOTE | 2019-07-12 06:40 | ECHO ---
DATE OF PROCEDURE: 07/11/2019 DATE OF : 1945 AGE: 74 HEIGHT: 64 inches WEIGHT: 136 pounds BODY SURFACE AREA: 1.67 meters ROOM: 3210 REFERRING PHYSICIAN: Deny Becerril MD INDICATIONS: Congestive heart failure (CHF). MEASUREMENTS: 2-D MEASUREMENTS: RV - 3.4 cm LV - 4.2 cm Septum 1.2 cm Posterior wall 1.2 cm Aortic root 2.6 cm LA - 3.9 cm LVEF 75-80% DOPPLER MEASUREMENTS: AV - 1.56 m/s LVOT - 0.96 m/s LVOT diameter 1.9 cm MV-E 54, A 69, E/A ratio 0.8 Early mitral deceleration time 221 ms E prime medial 5, A prime medial 8.7, E prime lateral 5.1 Average E/E prime ratio 10.7/PCWP 15.7 mmHg PV - 0.8 m/s Pulmonary artery acceleration time 106 ms RVSP 38 mmHg IVC - 1.60 cm COMMENTS: Normal sinus rhythm without intraventricular conduction disturbance. M-mode and two-dimensional echocardiography was performed with pulsed, continuous wave, color flow and tissue Doppler studies. Borderline concentric left ventricle hypertrophy with hyperkinetic wall motion. Borderline left atrial enlargement with grade 1 LV diastolic dysfunction and mildly elevated estimated mean left atrial pressure. Normal right heart chamber sizes and motion with Doppler evidence of mild pulmonary hypertension. Normal IVC size against an elevated central venous pressure. Mild aortic valvular sclerosis without functional abnormality. Normal aortic root and ascending aortic diameters. Mild degenerative changes of her mitral valvular apparatus with very mild insufficiency. Normal appearing tricuspid valve with mild insufficiency. No apparent intracardiac mass or pericardial effusion.
[2019-07-12] MEDS: cloNIDine 0.1 MG TAB PO SCH (07:50)
[2019-07-12] MEDS: ENALAPRIL MALEATE 10 MG TAB PO SCH (07:51)
[2019-07-12] MEDS: LEVEMIR (INSULIN DETEMIR) 1 UNITS/0.01ML SC SCH ×2 (08:46→20:17)
[2019-07-12] MEDS: PARoxetine 20 MG TAB PO SCH (08:47)
[2019-07-12] MEDS: LORATADINE 10 MG TAB PO SCH (08:47)
[2019-07-12] MEDS: HumaLOG INSULIN (NovoLOG) PER UNIT SC SCH ×4 (08:47→20:17)
--- NOTE | 2019-07-12 11:01 | IPNPDOC ---
Subjective Date Seen The patient was seen on 07/12/19. Subjective Chief Complaint/HPI Patient comfortable in no distress. Offers no new complaints at the present time General: Denies: ROS Unobtainable, Chills, Night Sweats, Fatigue, Malaise, Normal Appetite, Other Symptoms Skin: Denies: Rash, Lesions, Jaundice, Bruising, Itching, Dry, Breakdown, Nail Changes, Other Pulmonary: Denies: Dyspnea, Cough, Pleuritic Chest Pain, Other Symptoms Cardiovascular: Denies: Chest Pain, Palpitations, Orthopnea, Paroxysmal Noc. Dyspnea, Edema, Lt Headedness, Other Symptoms Gastrointestinal: Denies: Nausea, Vomiting, Abdominal Pain, Diarrhea, Constipation, Melena, Hematochezia, Other Symptoms Musculoskeletal: Denies: Neck Pain, Back Pain, Shoulder Pain, Arm Pain, Hand Pain, Leg Pain, Foot Pain, Joint Pain, Muscle Pain, Spasms, Other Symptoms Neurological: Denies: Weakness, Numbness, Incoordination, Change in speech, Confusion, Seizures, Other Symptoms Objective Physical Examination ENT Exam: Positive: Atraumatic Neck Exam: Positive: Supple Heart Exam: Positive: Irregular Rhythm Telemetry: Positive: Atrial fibrillation Abdomen Exam: Positive: Normal bowel sounds Extremity Exam: Positive: Cyanosis (cyanosis of left toe, absence of dorsalis pedis pulsation) Skin Exam: Positive: Other skin issue (cyanosis of left foot) Neuro Exam: Positive: Normal Gait, Strength at 5/5 X4 ext, Cranial Nerves 3-12 NL Psych Exam: Positive: Mental status NL Assessment /Plan Problems (1) Hypertensive emergency Status: Acute Problem Text: Patient. Blood pressure this morning was high, but right now is 122/58 Continue amlodipine 10 mg by mouth daily, atenolol 50 mg by mouth daily at bedtime, enalapril 40 mg by mouth daily and change clonidine to clonidine patches 0.2 mg every weekly DC telemetry. Patient can be transferred to [facility] floor Possible discharge in a.m. if blood pressure is under control (2) Type 2 diabetes mellitus Status: Chronic Problem Text: Medication blood sugars are not under tight control We will increase Lantus to 12 units subcutaneous twice a day Monitor the Blood sugar fingerstick blood sugar with coverage (3) Atrial fibrillation Status: Chronic Problem Text: Atrial fibrillation I did not find history of atrial fibrillation, but patient is on oral anticoagulation. Denied history of PE Heart rate is under control DC telemetry. Continue all present home meds (4) Ischemia of left lower extremity Status: Acute Problem Text: Patient is scheduled to be seen by Dr. Finney from vascular surgery Is scheduled for angiogram today Further recommendation as per (5) ARF (acute renal failure) Status: Acute Problem Text: Secondary to dehydration, renal functions improved Continue IV fluids To be labs in a.m. Plan/VTE VTE Prophylaxis Ordered?: Yes VS, I&O, 24H, Fishbone Vital Signs/I&O Vital Signs Date Time Temp Pulse Resp B/P (MAP) Pulse Ox O2 Delivery O2 Flow Rate FiO2 07/12/19 10:00 96.7 56 17 122/58 (79) 97 Room Air I&O- Last 24 Hours up to 6 AM 07/12/19 06:00 Intake Total 1340 ml Balance 1340 ml Laboratory Data 24H LABS Laboratory Tests 2 07/11/19 11:53: Bedside Glucose (Misc Panel) 475H 07/11/19 17:24: Bedside Glucose (Misc Panel) 326H 07/11/19 20:21: Bedside Glucose (Misc Panel) 388H 07/12/19 04:24: Immature Granulocyte % (Auto) 0.9, Neutrophils (%) (Auto) 58.5, Lymphocytes (%) (Auto) 31.2, Monocytes (%) (Auto) 5.1H, Eosinophils (%) (Auto) 3.5H, Basophils (%) (Auto) 0.8, Neutrophils # (Auto) 7.3, Lymphocytes # (Auto) 3.9, Monocytes # (Auto) 0.6, Eosinophils # (Auto) 0.4, Basophils # (Auto) 0.1, Nucleated Red Blood Cells % (auto) 0.0, Prothrombin Time 23.6H, Prothromb Time International Ratio 2.13, Anion Gap 8, Glomerular Filtration Rate 48.3, Calcium Level 9.8, Magnesium Level 1.4L, Total Bilirubin 0.2#, Aspartate Amino Transf (AST/SGOT) 11, Alanine Aminotransferase (ALT/SGPT) 16, Alkaline Phosphatase 84, Total Protein 6.6, Albumin 2.9L, Albumin/Globulin Ratio 0.78L 07/12/19 07:07: Bedside Glucose (Misc Panel) 380H CBC/BMP Laboratory Tests 07/12/19 04:24 JENNIFER LIU MD Jul 12, 2019 11:01
[2019-07-12] MEDS ORDERED: LIDOCAINE 1% MDV 20ML VIAL As Ordered ONE (14:01)
[2019-07-12] MEDS ORDERED: ISOVUE-300 61% 50ML VIAL (Q9967) As Ordered ONE ×2 (14:01→15:04)
[2019-07-12] MEDS ORDERED: fentaNYL 100 MCG/2 ML INJECTION (J3010) As Ordered ONE (14:03)
[2019-07-12] MEDS ORDERED: diphenhydrAMINE INJ 50MG/ML VIAL (J1200) As Ordered ONE (14:03)
[2019-07-12] MEDS ORDERED: HEPARIN 1,000 UNITS/ML 10ML VIAL (FOR RADIOLOGY& DIALYSIS ONLY)(J1644-10) As Ordered ONE (14:04)
[2019-07-12] MEDS ORDERED: MIDAZOLAM INJ 2 MG/2 ML VIAL (J2250) As Ordered ONE (14:04)
--- NOTE | 2019-07-12 16:48 | POST-OPPD ---
Postoperative Procedure Note PREOPERATIVE DIAGNOSIS: [ 1. Peripheral arterial disease 2. Left foot ischemia 3. Uncontrolled Diabetes 4. Uncontrolled hypertension] POSTOPERATIVE DIAGNOSIS: [same] FINDINGS: [ 1. Left common and external iliac arteries are patent without significant disease. No flow limiting stenosis or lesions 2. The common femoral and profunda femoral artery is patent. The SFA occludes about 5-10cm past the origin and the entire stented portion of artery is occlude d. 3. The proximal popliteal artery is occluded but reconstitutes via collaterals from the profunda around the knee joint. The below knee popliteal and TP trunk and tibials are small but patent. 4. There is 2 vessel runoff to the foot but the foot is not heavily perfused likely pertaining to microvascular disease. ] PROCEDURE: [ 1. Right common femoral artery access using ultrasound guidance 2. Left lower extremity angiogram 3. Left tibial artery catherization and angiogram 4. Left SFA and popliteal artery angioplasty with 4mm x 200mm predilation 5. Left SFA stent placement with 6 x 100mm Viabahn stent 6. Left SFA and popliteal artery stent placement with 6 x 150mm Viabahn stent 7. Postdilatation of the SFA and popliteal arteries with 6 x 200mm balloon 8. Completion angiogram left lower extremity] SURGEON: [Sharmin] ANESTHESIA: [local, moderate sedation with Versed 0.5mg, Fentanyl 50mcg and Benedryl 50mg] ESTIMATED BLOOD LOSS: [<5mL] COMPLICATIONS: [none] POSTOPERATIVE CONDITION: [stable to recovery and then to the floor] VENESSA DURAN MD Jul 12, 2019 16:48
[2019-07-12] MEDS: NS 0.45% 1,000 ML IV SCH (17:43)
[2019-07-12] MEDS: WARFARIN SOD 2 MG TAB PO SCH (18:07)
[2019-07-12] MEDS: AMITRIPTYLINE 25 MG TAB PO SCH (20:15)
[2019-07-12] MEDS: amLODIPine 10 MG TAB PO SCH (20:15)
[2019-07-12] MEDS: CLOPIDOGREL 75 MG TAB PO SCH (20:15)
[2019-07-12] MEDS: atenoloL 50 MG TAB PO SCH (20:16)
[2019-07-12] MEDS ORDERED: ACETAMINOPHEN TAB 650MG DOSE (2X325MG) PO PRN (21:45)
[2019-07-13 06:00] VITALS: BP 172/81
[2019-07-13] MEDS: PARoxetine 20 MG TAB PO SCH (08:11)
[2019-07-13] MEDS: ENALAPRIL MALEATE 10 MG TAB PO SCH (08:11)
[2019-07-13] MEDS: LORATADINE 10 MG TAB PO SCH (08:11)
[2019-07-13] MEDS: HumaLOG INSULIN (NovoLOG) PER UNIT SC SCH ×2 (08:12→12:38)
[2019-07-13] MEDS: LEVEMIR (INSULIN DETEMIR) 1 UNITS/0.01ML SC SCH (08:12)
[2019-07-13 08:14] VITALS: BP 161/82
[2019-07-13] MEDS: NS 0.45% 1,000 ML IV SCH (08:20)
[2019-07-13] MEDS ORDERED: cloNIDine HCL 0.2 MG/24 HR PATCH TOP SCH (09:00)
--- NOTE | 2019-07-13 09:48 | IPNPDOC ---
Text Note Date of Service The patient was seen on 07/13/19. NOTE Patient seen this morning lying in bed sleeping. Angiogram performed yesterday afternoon. Was able to open up the occluded SFA and popliteal artery stents and new stents placed. Flow was restored to the foot. This morning she is doing well. States no issues overnight. States her foot feels much better with less pain but still with some numbness present. VS,Fishbone, I+O VS, Fishbone, I+O Vital Signs Date Time Temp Pulse Resp B/P (MAP) Pulse Ox O2 Delivery O2 Flow Rate FiO2 07/13/19 08:14 161/82 07/13/19 06:00 98.1 75 17 99 Room Air 07/12/19 15:50 2 I&O- Last 24 Hours up to 6 AM 07/13/19 06:00 Intake Total 1678 ml Output Total 0 ml Balance 1678 ml PE: Left foot - warm and pink now, toes are still a little cyanotic in color but improving. palpable pulse PT and doppler DP Right groin - soft, no evidence of hematoma Assessment/Plan 1. Left foot critical limb ischemia 2. Peripheral arterial disease 3. Uncontrolled diabetes 4. Uncontrolled hypertension Plan: - may restart coumadin and plavix - would continue to monitor renal function since she was given contrast yesterday - ok for discharge from surgery standpoint once medical issues are stable - discussed the importance of follow up with her this morning. She should follow up in clinic in 2 weeks to get scheduled for ultrasound at 1 month CC TO: Primary Care Provider: PCP,Unknown Referring Provider: Problems: (1) Ischemia of left lower extremity VENESSA DURAN MD Jul 13, 2019 09:48
[2019-07-13] MEDS ORDERED: INSUDET SC ×2 (12:17→14:44)
[2019-07-13] MEDS ORDERED: AMLO10TA5 PO ×2 (12:17→14:57)
[2019-07-13] MEDS ORDERED: INSU1MIS20 SC ×2 (12:17→14:57)
[2019-07-13] MEDS ORDERED: INSUHUMDS SC ×2 (12:17)
[2019-07-13] MEDS ORDERED: ATEN50TA2 PO ×2 (12:17→14:57)
[2019-07-13] MEDS ORDERED: LANC30MI XX ×2 (12:17→14:57)
[2019-07-13] MEDS ORDERED: CLON0.2D6 TOP (12:17)
[2019-07-13] MEDS ORDERED: GLUC1TES2 XX ×2 (12:17→14:57)
[2019-07-13] MEDS ORDERED: BLOOKIT21 XX ×2 (12:17→14:57)
[2019-07-13] MEDS ORDERED: ALCOPAD25 TOP ×2 (12:17→14:57)
--- NOTE | 2019-07-13 13:08 | DS.PDOC ---
Discharge Summary General Date of Admission Jul 10, 2019 at 21:04 Date of Discharge 07/13/19 Discharge Summary PROCEDURES PERFORMED DURING STAY: None. ADMITTING DIAGNOSES: 1. Hypertensive emergency. Uncontrolled diabetes mellitus. Acute renal failure, ischemia of left lower extremity. DISCHARGE DIAGNOSES: 1. Hypertensive emergency. Uncontrolled diabetes mellitus. Acute renal failure, ischemia of left lower extremity. COMPLICATIONS/CHIEF COMPLAINT: Arf;Hypertensive Emergency;Ischemia Of Lle. HISTORY OF PRESENT ILLNESS: Patient is 74 years old female with past medical history of hypertension, poorly controlled diabetes mellitus type 2 not on the insulin, PVD status post left popliteal stent placement in 2018 presented hospital with left leg discomfort, hyperglycemia and hypertensive emergency. Today in the morning patient was in the vascular surgery office for left leg ischemia. Dr. Finney who is vascular surgeon planned to proceed with CTA, however patient was found to have the high hyperglycemia, hypertensive emergency and acute renal failure. Patient is very poor historian, I couldn't find any previous records to clarify her medical history. In emergency room patient was found to have hypertensive emergency with blood pressure of 220/110, elevated creatinine and glucose level up to 600 with no anion gap elevation. Patient received subcutaneous insulin and IV labetalol. Patient denied fever, chills, nausea, vomiting chest pain, diarrhea or dysuria. HOSPITAL COURSE: Hypertensive emergency/poorly controlled hypertension Patient's meds were changed hours were changed. Also formulation was changed, which she has responded very well. Her blood pressure was between 140 160 on discharge, she will probably need further adjustment in her dosage of medication by her PCP once she is discharged home today Continue amlodipine 10 mg by mouth daily, atenolol 50 mg by mouth daily at bedtime, enalapril 40 mg by mouth daily and change clonidine to clonidine patches 0.2 mg every weekly Patient medically stable and cleared to be discharged home today Type 2 diabetes mellitus/poorly controlled diabetes mellitus Medication blood sugars are not under tight control pt will be discharged home on Lantus 20 units subcutaneous twice a day All supplies and fingerstick blood sugar coverage has been ordered and she feel follow with her PCP for the change in dosage and monitoring her fingerstick blood sugar Atrial fibrillation I did not find history of atrial fibrillation, but patient is on oral anticoagulation. Denied history of PE Heart rate is under control Continue all home meds on discharge Critical Ischemia of left lower extremity Patient is scheduled to be seen by Dr. Finney from vascular surgery Angiogram was done yesterday and Dr. Finney was able to open up the occluded SFA and popliteal artery stents and new stents placed. Flow was restored to the foot. This morning she is doing well. States no issues overnight. States her foot feels much better with less pain but still with some numbness present. And has been cleared by vascular surgery for discharge and if she'll follow with Dr. Finney is an outpatient Acute renal failure Secondary to dehydration, renal functions improved Oral hydration recommended on discharge . DISCHARGE MEDICATIONS: Please see below. ALLERGIES: Please see below. PHYSICAL EXAMINATION ON DISCHARGE: VITAL SIGNS: Please see below. GENERAL: Within normal limits HEENT: PERRLA. Extraocular muscles intact NECK: Supple. Negative JVD, negative lymphadenopathy CARDIOVASCULAR EXAMINATION: S1, S2, regular RESPIRATORY EXAMINATION: Clear to A&P ABDOMINAL EXAMINATION: Benign EXTREMITIES: No clubbing, cyanosis, edema SKIN: Normal NEUROLOGICAL EXAMINATION: . No focal motor sensory deficit PSYCHIATRIC EXAMINATION: Normal LABORATORY DATA: Please see below. IMAGING: Vascular sonogram:IMPRESSION: No DVT. Measurements of the greater and lesser saphenous veins have been provided as indicated above. PROGNOSIS: Good ACTIVITY: As tolerated. DIET: Consistent carbohydrate DISCHARGE PLAN: As per discharge instructions and follow with PCP in one week DISPOSITION: .home DISCHARGE INSTRUCTIONS: 1. As per discharge instructions. ITEMS TO FOLLOWUP ON ON OUTPATIENT: 1. Follow PCP in one week. DISCHARGE CONDITION: Stable. TIME SPENT ON DISCHARGE:45 minutes. Vital Signs/I&Os Vital Signs Date Time Temp Pulse Resp B/P (MAP) Pulse Ox O2 Delivery O2 Flow Rate FiO2 07/13/19 08:14 161/82 07/13/19 06:00 98.1 75 17 99 Room Air 07/12/19 15:50 2 I&O- Last 24 Hours up to 6 AM 07/13/19 06:00 Intake Total 1678 ml Output Total 0 ml Balance 1678 ml Laboratory Data Labs 24H Laboratory Tests 2 07/12/19 14:16: Bedside Glucose (Misc Panel) 119H 07/12/19 18:22: Bedside Glucose (Misc Panel) 188H 07/12/19 20:07: Bedside Glucose (Misc Panel) 320H 07/13/19 07:28: Bedside Glucose (Misc Panel) 309H 07/13/19 11:23: Bedside Glucose (Misc Panel) 397H FSBS Laboratory Tests Test 07/12/19 14:16 07/12/19 18:22 07/12/19 20:07 07/13/19 07:28 Range/Units Bedside Glucose (Misc Panel) 119 188 320 309 83-110 MG/DL Test 07/13/19 11:23 Range/Units Bedside Glucose (Misc Panel) 397 83-110 MG/DL Discharge Medications Scheduled Amitriptyline HCl (Amitriptyline HCl) 25 Mg Tablet, 25 MG PO QHS, (Reported) Amlodipine Besylate (Amlodipine Besylate) 10 Mg Tablet, 10 MG PO QHS Atenolol (Atenolol) 50 Mg Tablet, 50 MG PO QHS Blood Sugar Diagnostic (Advanced Glucose Test Strips) 1 Each Strip, 1 STRIP XX ASDIRECTED Clonidine (Clonidine) 0.2 Mg Patch.tdwk, 1 EA TOP Fr@0900 Clopidogrel Bisulfate (Clopidogrel) 75 Mg Tablet, 75 MG PO QHS, (Reported) Enalapril Maleate (Enalapril Maleate) 20 Mg Tablet, 40 MG PO DAILY, (Reported) Insulin Detemir (Levemir) 100 Unit/1 Ml Vial, 12 UNITS SC BID Insulin Human Lispro (Humalog) 100 Unit/1 Ml Vial, 0 UNITS SC AC Insulin Human Lispro (Humalog) 100 Unit/1 Ml Vial, 0 UNITS SC QHS Loratadine (Loratadine) 10 Mg Tablet, 10 MG PO DAILY for allergy symptoms, (Reported) Omeprazole (Omeprazole) 40 Mg Capsule.dr, 40 MG PO DAILY, (Reported) Paroxetine HCl (Paroxetine) 20 Mg Tablet, 20 MG PO DAILY, (Reported) Warfarin Sod (Coumadin) 1 Mg Tablet, 2 MG PO QPM, (Reported) 1700 Allergies Coded Allergies: Sulfa (Sulfonamide Antibiotics) (Verified Allergy, Unknown, hives, 07/10/19) JENNIFER LIU MD Jul 13, 2019 13:08
[2019-07-13 14:00] VITALS: BP 134/95
[2019-07-13] MEDS ORDERED: CLON0.1D3 TOP (14:44)
[2019-07-13] MEDS ORDERED: INSU100V2 SQ (14:57)
--- NOTE | 2019-07-15 15:42 | ROOPDOC ---
[facility] Report Of Operation Report of Operation DATE OF PROCEDURE: 07/15/19 PREOPERATIVE DIAGNOSIS: 1. Peripheral arterial disease 2. Left foot ischemia 3. Uncontrolled Diabetes 4. Uncontrolled hypertension POSTOPERATIVE DIAGNOSIS: same FINDINGS: 1. Left common and external iliac arteries are patent without significant disease. No flow limiting stenosis or lesions 2. The common femoral and profunda femoral artery is patent. The SFA occludes about 5-10cm past the origin and the entire stented portion of artery is occluded. 3. The proximal popliteal artery is occluded but reconstitutes via collaterals from the profunda around the knee joint. The below knee popliteal and TP trunk and tibials are small but patent. 4. There is 2 vessel runoff to the foot but the foot is not heavily perfused likely pertaining to microvascular disease. PROCEDURE: 1. Right common femoral artery access using ultrasound guidance 2. Left lower extremity angiogram 3. Left tibial artery catherization and angiogram 4. Left SFA and popliteal artery angioplasty with 4mm x 200mm predilation 5. Left SFA stent placement with 6 x 100mm Viabahn stent 6. Left SFA and popliteal artery stent placement with 6 x 150mm Viabahn stent 7. Postdilatation of the SFA and popliteal arteries with 6 x 200mm balloon 8. Completion angiogram left lower extremity SURGEON: Sharmin ANESTHESIA: local, moderate sedation with Versed 0.5mg, Fentanyl 50mcg and Benedryl 50mg ESTIMATED BLOOD LOSS: <5mL COMPLICATIONS: none POSTOPERATIVE CONDITION: stable to recovery and then to the floor PROCEDURE IN DETAIL: Informed consent was obtained from the patient prior to bringing her to the IR suite. All risks and benefits of the procedure were explained. She was taken to the interventional suite and placed in the supine position on the table. Moderate sedation was begun and IV sedation was given. Using ultrasound guidance, the right common femoral artery was accessed. A micropuncture needle was placed in the artery and the wire and catheter placed. A 5 Welsh sheath was placed. A Horowitz wire and Omni flush catheter was placed up into the aorta. Using the catheter and wire, the left lower extremity arteries were accessed. The catheter was placed down into the left external iliac artery and an angiogram was performed. Findings listed above. An advantage wire was then placed in the omni flush catheter and placed down into the SFA. The catheter was removed and a 6French destination catheter was placed into the proximal SFA. A V18 wire was then passed through the occluded stents and placed down into the posterior tibial artery. A catheter was placed in the distal popliteal artery. An angiogram was performed insuring placement into the lumen. The wire was introduced back into the posterior tibial artery. Using a 4mm balloon, predilatation of the occlusion was performed. A Viabahn stent was placed proximal to the start of the old stents at the level of the occlusion. An additional Viabahn stent was placed distal to this. This resulted in flow throughout the stented SFA and popliteal. The stents were postdilated with a 6mm balloon. On completion angiogram, there was good flow all the way to the flow with no evidence of emboli. The wire was removed and sheath brought back over to the right side. A final angiogram of the right groin showed good placement of the sheath. A mynx device was used in the arterotomy and pressure was held. Patient tolerated the procedure well. She was transported to recovery and then back to her hospital room. VENESSA DURAN MD Jul 15, 2019 15:42
== END 2019-07-13 16:45 | disposition home health service (06) | DRG 253 ==
LOC: M ED 14:01 → M ED INP 21:04 → ENRESERV 21:24 → M ICU 22:23 → M MSPAV 07-12 06:30
PROVIDERS: ADMIT Internal Medicine; ATTEND Internal Medicine
PROC: 047 Lower Arteries, Dilation (ICD-10-PCS; principal; 2019-07-12 15:00)
DX: T82.856A Stenosis of peripheral vascular stent, initial encounter (principal); I16.1 Hypertensive emergency; N17.9 Acute kidney failure, unspecified; I48.20 Chronic atrial fibrillation, unspecified; I70.202 Unspecified atherosclerosis of native arteries of extremities, left leg; E11.65 Type 2 diabetes mellitus with hyperglycemia; Z79.899 Other long term (current) drug therapy; Z79.4 Long term (current) use of insulin; Z88.2 Allergy status to sulfonamides; Y83.8 Other surgical procedures as the cause of abnormal reaction of the patient, or of later complication, without mention of misadventure at the time of the procedure

== ENCOUNTER → 2019-07-10 | Outpatient (CLI) | payer MEDICARE ==
[~2019-07-10] MED LIST changes: +AMIT25TA PO; +AMLO10TA5 PO; +ATEN50TA2 PO; +CLONI1TA PO; +CLOP75TA2 PO; +ENAL20TA PO; +GLIP10TA PO; -HEPARIN 1,000 UNITS/ML 10ML VIAL (FOR RADIOLOGY& DIALYSIS ONLY) As Ordered ONE; -ISOVUE-300 61% 50ML VIAL (Q9967) As Ordered ONE; -LIDOCAINE 2% MDV 20 ML VIAL As Ordered ONE; +LORA-674 PO; +METF-877 PO; +METF500T13 PO; -MIDAZOLAM INJ 2 MG/2 ML VIAL (J2250) As Ordered ONE; +NITR100C2 PO; +OMEP-221 PO; +PARO20TA4 PO; -PROTAMINE SULF INJ 50 MG/5 ML VIAL (J2720) As Ordered ONE; +WARF05TA PO; -diphenhydrAMINE INJ 50MG/ML VIAL (J1200) As Ordered ONE; -fentaNYL 100 MCG/2 ML INJECTION (J3010) As Ordered ONE
[2019-07-10 12:48] LABS: HEMATOCRIT 42.1 % (36.0-47.0); HEMOGLOBIN 13.7 g/dl (12.0-15.5); MEAN CORPUSCULAR HEMOGLOBIN 26.2 pg (27.0-33.0); MEAN CORPUSCULAR HGB CONC 32.5 g/dl (32.0-36.5); MEAN CORPUSCULAR VOLUME 80.7 fl (80.0-96.0); PLATELET COUNT, AUTOMATED 535 10^3/uL (150-450); RED BLOOD COUNT 5.22 10^6/uL (4.00-5.40); WHITE BLOOD COUNT 13.4 10^3/uL (4.0-10.0)
[2019-07-10 13:33] LABS: CALCIUM LEVEL 10.4 MG/DL (8.8-10.2); CREATININE FOR GFR 1.76 MG/DL (0.55-1.30); GLOMERULAR FILTRATION RATE 30.1 (>39); POTASSIUM SERUM 5.2 MEQ/L (3.5-5.1)
== END ==
LOC: M RAD 12:08
PROVIDERS: ATTEND Physician Assistant
DX: I70.213 Atherosclerosis of native arteries of extremities with intermittent claudication, bilateral legs (principal); M79.606 Pain in leg, unspecified

== ENCOUNTER 2019-08-27 08:38 | Inpatient (IN) | payer MEDICARE ==
[2019-08-27] VITALS (12 sets, daily range): BP systolic 139–208; BP diastolic 62–88
[~2019-08-27] VITALS: Ht 162.6 cm; Wt 66.1 kg
[~2019-08-27 08:38] MED LIST changes: +ALCOPAD25 TOP; +BLOOKIT21 XX; +CLON0.1D3 TOP; +CLON0.2D6 TOP; +GLUC1TES2 XX; +INSU100V2 SQ; +INSU1MIS20 SC; +INSUDET SC; +INSUHUMDS SC; +LANC30MI XX
[2019-08-27] MEDS: OMEPRAZOLE 20 MG CAP PO SCH ×2 (09:00→20:38)
[2019-08-27] MEDS ORDERED: ACET-683 PO (09:24)
[2019-08-27 09:25] LABS: HEMATOCRIT 34.4 % (36.0-47.0); HEMOGLOBIN 10.6 g/dl (12.0-15.5); MEAN CORPUSCULAR HEMOGLOBIN 26.3 pg (27.0-33.0); MEAN CORPUSCULAR HGB CONC 30.8 g/dl (32.0-36.5); MEAN CORPUSCULAR VOLUME 85.4 fl (80.0-96.0); PLATELET COUNT, AUTOMATED 407 10^3/uL (150-450); RED BLOOD COUNT 4.03 10^6/uL (4.00-5.40); WHITE BLOOD COUNT 11.3 10^3/uL (4.0-10.0)
[2019-08-27 09:36] LABS: INR 2.04; PROTHROMBIN TIME 22.8 SECONDS (11.8-14.0)
[2019-08-27 09:44] LABS: CALCIUM LEVEL 9.9 MG/DL (8.8-10.2); CREATININE FOR GFR 1.21 MG/DL (0.55-1.30); GLOMERULAR FILTRATION RATE 46.4 (>39); POTASSIUM SERUM 4.2 MEQ/L (3.5-5.1)
[2019-08-27] MEDS ORDERED: fentaNYL 100 MCG/2 ML INJECTION (J3010) As Ordered ONE ×3 (09:49→11:57)
[2019-08-27] MEDS ORDERED: MIDAZOLAM INJ 2 MG/2 ML VIAL (J2250) As Ordered ONE ×3 (09:49→11:58)
[2019-08-27] MEDS ORDERED: HEPARIN 1,000 UNITS/ML 10ML VIAL (FOR RADIOLOGY& DIALYSIS ONLY)(J1644-10) As Ordered ONE (09:49)
[2019-08-27] MEDS ORDERED: LIDOCAINE 1% MDV 20ML VIAL As Ordered ONE ×2 (09:50→11:57)
[2019-08-27] MEDS ORDERED: ISOVUE-300 61% 50ML VIAL (Q9967) As Ordered ONE ×2 (09:50→11:56)
[2019-08-27] MEDS ORDERED: ALTEPLASE 2 MG/2 ML VIAL (J2997 PER 1MG) As Ordered ONE (10:38)
[2019-08-27] MEDS ORDERED: hydrALAZINE INJ 20 MG/ML VIAL As Ordered ONE ×3 (10:55→11:07)
--- NOTE | 2019-08-27 11:32 | ROOPDOC ---
[facility] Report Of Operation Report of Operation DATE OF PROCEDURE: 08/27/19 PREPROCEDURE DIAGNOSES: Atherosclerosis of the point [place] ir[place] arteries with severe left foot pain POSTPROCEDURE DIAGNOSES: Same PROCEDURE: 1. US guided access right common femoral artery 2. Aortoiliofemoral arteriogram with left lower extremity runoff from SFA and popliteal selections 3. Cross occlusion left SFA stents and administer TPA and angioplasty SFA and popliteal artery with 5 x 200 Tesuque balloon 4. Completion arteriograms 5. Mynx closure right common femoral artery 6. US guided access right common femoral artery 7. Selection left femoral artery and left lower extremity arteriogram 8. Placement of a 40cm TPA thrombolysis infusion catheter 9. US guided access right jugular vein 10. Placement right jugular non tunneled triple lumen catheter SURGEON: Tila Castro MD ANESTHESIA: Local anesthesia 7mL lidocaine. Moderate intravenous conscious sedation was monitored by Dr Castro. The patient was independently monitored by a registered nurse assigned to the department of radiology using automated blood pressure, EKG, an dpulse oximetry. The detailed sedation record is permanently stored in the hospital information system. The following is the brief sedation record: Start time 10:20, stop time 12:58, fentanyl 200 mcg IV, versed 4 mg IV, heparin 5000 units IV + drip, TPA 8mg IV + drip, hydralazine 30mg IV. INDICATION FOR PROCEDURE: Ms. Nichole is a very pleasant 74-year-old patient with a history of bilateral lower extremity arterial disease status post endovascular interventions in the past by other providers, including redo superficial femoral artery stenting with Dr. Finney a month ago on the left. Initially, the patient said she felt a little better after the stent was placed, but subsequently her foot began to have increasing pain. This pain has gotten so bad that over the past week she has not been able to sleep at night. Every time she falls asleep, the pain wakes her up. Her perfusion on exam was poor, and we felt the best option was for a repeat arteriogram to see if there is anything we can provide endovascularly, or at least elicit a plan for a possible open surgical revascularization. Risks benefits and alternatives to a left lower extremity arteriogram potential intervention were explained to the patient. She is agreeable to proceed. Informed consent was obtained. INTERPRETATION: 1. The iliac arteries are calcified but patent. There is good runoff into the left common femoral artery and profunda, but the SFA occludes a few centimeters from its origin just proximal to the most proximal stent. There are stents throu ghout the SFA down to Kirit's canal. All of this is occluded, likely thrombosed. Her popliteal artery and tibials have little flow noted from collateral circulation from the profunda on initial arteriograms. After crossing the occlusion in the SFA and selecting the distal popliteal artery, we see that there is flow through the popliteal artery distally and there is three-vessel ti bial runoff to the foot. The tibial vessels are somewhat diminutive, somewhat ectatic, but overall patent with good flow. 2. After administration of 8 mg TPA and angioplasty of the popliteal and SFA with a 5 x 200 Tesuque balloon, there is flow through the stents with no embolization noted in the tibials and rapid flow in the tibial vessels. 3. After bringing the patient back for repeat arteriogram, we see reocclusion of the entire SFA stent, the popliteal artery, and some embolic thrombus is also noted in all 3 tibial vessels. 4. Successful placement of thrombolysis catheter from the proximal SFA to the peroneal artery. 5. Successful placement of a right jugular non-tunneled triple lumen catheter with the tip freely mobile and the SVC right atrial junction and no pneumothorax present. REPORT OF OPERATION: The patient was brought to the angiographic suite in stable condition. She immediately began complaining of severe pain in her left foot, which she had complained about since arrival. The patient had quite a bit of anxiety about her pain, and we tried to reassure her that after sedation, it may improve. We also assured her that if we could provide better or true flow, that also might help. I do feel some of her pain might be due to her lower back issues and neurogenic in nature, but I also feel this could be exacerbated by her poor arterial flow. Initially, the patient wasn't sure she could even proceed with the arteriogram due to such severe pain in her foot, but eventually she said she did want to proceed. We prepped and draped her bilateral groins in a sterile fashion. A timeout was performed and sedation was administered without complication. The patient was hypertensive with systolic blood pressure in the 200s, but we did not initially treat this thinking that it might somewhat improved with the sedation. However, along with the sedation during the procedure, we also administered hydralazine IV to manage the blood pressure. Local anesthesia was administered to the skin and subcutaneous tissue over the right groin and a microneedle was used to access the artery under ultrasound guidance. A wire was passed through this access under fluoroscopic guidance and 4 B[place] Gleich sheath was placed and flushed with saline. We then advanced a Glidewire and obviously flushed catheter into the aorta and aortoiliofemoral arteriograms were performed. We then went up and over the bifurcation and s elected the left common femoral artery and origin of the superficial femoral artery and left lower extremity arteriograms were performed. Please interpretation above. We did not get good pictures distally due to occlusion of the SFA from a few centimeters distal to the origin all the way to the mid popliteal artery. What collateral flow the patient had did not fill the distal popliteal artery her tibials well. We therefore navigated the Glidewire with a wide cath through to the distal popliteal artery. From this selection, we were able to perform a tibial runoff. Please interpretation above. We exchange the sheath for 6 B[place]an 45 destination sheath over the bifurcation and flushed the sheath with saline. We utilize the glide cath to administer 8 mg of TPA to what I suspected was clot within the SFA stent. We then angioplastied with a 5 x 200 Tesuque balloon along the length of the artery from the origin of the SFA to the mid popliteal artery. This provided luminal flow although not perfect through the stent. At this point, I discussed with the patient an option for thrombolysis procedure to further treat the clot burden and provide a more long lasting solution but the patient said she could not tolerate any further procedure and wanted to be done for the day. She was very anxious despite a large amount of sedation, and it was difficult to help her manage her anxiety and left lower extremity pain. At this point, we had flow through the SFA and tibial outflow, no embolization noted. Her foot was warm and pink and I thought perhaps with her daily doses of Plavix and Coumadin, this might stay open for a week or two while we plan to bypass. I certainly did not think it would stay open for long. I also discussed with the option with the patient to work a little longer to try to improve flow through the popliteal artery which I felt needed angioplasty and stenting in the proximal aspect after our initial angioplasty. The patient was so adamant that she wanted to end the procedure, we agreed and no further intervention was performed. We exchange the sheath for a short 6 B[place]wanan sheath in the Mynx closure device was deployed with good hemostasis and pressure was held and sterile dressings were applied. The patient was taken to recovery in stable condition. A few minutes after this, I went to check her groin access site in her foot, and her left foot appear mottled and cool. This was not the condition it was 1 week end of the procedure nor was it the condition it was then prior to the procedure. I discussed with the patient t jyothi I felt she likely had rethrombosed her SFA, and possibly embolized to the tibial vessels. At that point I discussed with her the need to urgently returned back to the interventional suite to perform imaging and likely thrombolysis. She was agreeable to this plan. Upon returning back to the angiographic suite a second timeout was performed after prepping both groins in a sterile fashion. Local anesthesia was again administered to the skin and subcutaneous tissue over the right common femoral artery and a microneedle was used to access the artery under ultrasound guidance. A wire was passed through this access and a 4 Botswanan sheath was placed and flushed with saline. We then went up and over the bifurcation with a Glidewire and obviously flushed catheter and selected the left superficial femoral artery. We then exchange the sheath for a 7 Botswanan destination sheath, 45 cm, and flushed the sheath with saline. We then navigated the wire through to the distal SFA. Arteriograms were performed and we did in fact find thrombus had recurred within the SFA stent and embolized distally to the origin of the tibial vessels. Over the wire, we placed a 40 cm TPA thrombolysis catheter with the tip in the origin of the peroneal artery and the proximal aspect in the SFA proximal to the area of thrombosis. We flushed the catheter with copious amounts of saline. We secured the sheath and the catheter to the thigh with copious amounts of Tegaderm dressings. Before starting the TPA thrombolysis, we attempted to gain additional IV access. The patient's preprocedure IV was small and tenuous, and I felt additional IV access would be helpful. Unfortunately, the nurses were not able to place additional peripheral IV access due to very small and fragile veins in the bilateral upper extr emities. I examined her arms with ultrasound to see if I might place a PICC line, but I could not identify a basilic or cephalic vein in either upper extremity, and the brachial veins were extremely small. I do not think any of these veins were suitable for PICC line placement. Therefore, I prepped and draped the patient's right neck in a sterile fashion for central line placement. Local anesthesia was administered to the skin over the right jugular vein and a microneedle was used to access the jugular vein under ultrasound guidance. A wire was passed through this access under fluoroscopic guidance and the needle was removed. A dilator was passed over the wire using a Seldinger technique and then exchanged for the catheter over the wire. All 3 ports randall back and flushed easily. The catheter was secured to the neck with silk suture in four places after confirming the tip was freely mobile in the SVC right atrial junction. Sterile dressings were applied. Final imaging confirmed the catheter to be in good position and no pneumothorax present. It is okay to use the catheter for dialysis. We then began a heparin drip through the 7 Botswanan sheath, 400 units an hour with no titration. We then also began to TPA drip through the TPA thrombolysis catheter, 1 mg an hour, to drip over the next 24 hours. The patient was then taken to recovery and then subsequently to the ICU in stable condition. We will closely monitor her CBC and fibrinogen overnight, and plan for a return to the interventional suite tomorrow. ESTIMATED BLOOD LOSS: Approximately 5 mL. COMPLICATIONS: Embolic event and recurrent thrombosis left lower extremity following attempt to revascularize chronic occlusion left SFA. PLAN: ICU for monitoring during thrombolysis, and we appreciate hospitalist assistance with admission. Plan for repeat arteriogram and possible intervention tomorrow, but I think long-term the patient will need a left femoral to below knee popliteal artery bypass for perfusion. She has had multiple stent failures in the left lower extremity by other providers, despite full anticoagulation and coumadin. I discussed this plan with the patient and her daughter, and they are agreeable. Hold Plavix and Coumadin for now. Continue TPA at 1 mg an hour and heparin at 400 units per hour. Closely monitor fibrinogen and CBC overnight, and bleeding precautions with bed rest have been ordered. Okay for a diabetic diet tonight but nothing by mouth after midnight. TILA CASTRO MD Aug 27, 2019 11:32
[2019-08-27] MEDS ORDERED: HEPARIN 25,000 UNITS/250 ML D5W BAG (100 UNITS/ML) (J1644 PER 1000UNITS) As Ordered ONE (11:58)
[2019-08-27] MEDS ORDERED: ceFAZolin 1GM VIAL (J0690 PER 500MG) As Ordered ONE (12:06)
[2019-08-27] MEDS: HEPARIN DRIP 25,000 UNITS in IV 1 EA IV SCH (13:00)
[2019-08-27] MEDS: ALTEPLASE RECOMBINANT 25 MG in NS 225 ML IV SCH ×2 (13:00→15:27)
[2019-08-27] MEDS ORDERED: PERCOCET 5MG/325MG TAB As Ordered ONE (13:41)
[2019-08-27] MEDS ORDERED: diazePAM 5 MG TAB As Ordered ONE (13:41)
[2019-08-27] MEDS: PERCOCET 5MG/325MG TAB PO PRN ×2 (13:45→21:15)
[2019-08-27] MEDS ORDERED: CLOPIDOGREL 75 MG TAB PO ONE (14:00)
[2019-08-27] MEDS ORDERED: PERCOCET 5MG/325MG TAB PO PRN (14:00)
[2019-08-27] MEDS ORDERED: diazePAM 5 MG TAB PO PRN (14:00)
[2019-08-27] MEDS ORDERED: ONDANSETRON 4MG/2ML VIAL (J2405) IV PRN (14:00)
[2019-08-27] MEDS ORDERED: NS 1,000 ML IV SCH (15:00)
[2019-08-27] MEDS ORDERED: MORPHINE 2 MG/ML 1ML VIAL (J2270) IV PRN (15:30)
[2019-08-27] MEDS: ACETAMINOPHEN TAB 650MG DOSE (2X325MG) PO SCH ×3 (15:49→20:38)
[2019-08-27 15:52] LABS: HEMATOCRIT 35.8 % (36.0-47.0); HEMOGLOBIN 11.3 g/dl (12.0-15.5); MEAN CORPUSCULAR HGB CONC 31.6 g/dl (32.0-36.5); MEAN CORPUSCULAR VOLUME 82.3 fl (80.0-96.0); RED BLOOD COUNT 4.35 10^6/uL (4.00-5.40)
[2019-08-27 15:53] LABS: PLATELET COUNT, AUTOMATED 378 10^3/uL (150-450)
--- NOTE | 2019-08-27 15:55 | HPEPDOC ---
General Date of Admission Aug 27, 2019 at 14:55 Date of Service: Aug 27, 2019 Chief Complaint The patient is a 74-year-old female admitted with a reason for visit of Atherosclerosis W/ Claudication Left Leg. Source: Patient Exam Limitations: No limitations Timing/Duration: Day(s) History of Present Illness Patient is 74 years old female with past medical history of hypertension, poorly controlled diabetes mellitus type 2 not on the insulin, PVD status post left popliteal stent placement in 2018, presented to the hospital with left leg discomfort. 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 Dr Bellamy proceeded with aortoiliofemoral arteriogram with left lower extremity runoff from SFA and popliteal selections. Patient was found to have cross occlusion left SFA stents and administer TPA and angioplasty SFA and popliteal artery. After procedure patient was transferred to the ICU. She has had multiple stent failures in the left lower extremity by other providers, despite full anticoagulation and coumadin. When I saw the patient she complains of distal left leg pain. Blood pressure was elevated to 180/90. Patient denies fever, chills, nausea, vomiting, diarrhea or dysuria Home Medications Scheduled Amitriptyline HCl (Amitriptyline HCl) 25 Mg Tablet, 25 MG PO QHS, (Reported) Amlodipine Besylate (Amlodipine Besylate) 10 Mg Tablet, 10 MG PO QHS Amlodipine Besylate (Amlodipine Besylate) 10 Mg Tablet, 1 TAB PO QHS Atenolol (Atenolol) 50 Mg Tablet, 50 MG PO QHS Atenolol (Atenolol) 50 Mg Tablet, 50 MG PO QHS Blood Sugar Diagnostic (Advanced Glucose Test Strips) 1 Each Strip, 1 STRIP XX ASDIRECTED Blood Sugar Diagnostic (Advanced Glucose Test Strips) 1 Each Strip, 1 STRIP XX ASDIRECTED Clopidogrel Bisulfate (Clopidogrel) 75 Mg Tablet, 75 MG PO QHS, (Reported) Enalapril Maleate (Enalapril Maleate) 20 Mg Tablet, 40 MG PO DAILY, (Reported) Insulin Detemir (Levemir) 100 Unit/1 Ml Vial, 12 UNITS SC BID Insulin Detemir (Levemir) 100 Unit/1 Ml Vial, 12 UNITS SC BID Insulin Human Lispro (Humalog) 100 Unit/1 Ml Vial, 0 UNITS SC AC Insulin Human Lispro (Humalog) 100 Unit/1 Ml Vial, 0 UNITS SC QHS Insulin Lispro (Insulin Lispro) 100 Unit/1 Ml Vial, 100 UNIT SQ ASDIRECTED Loratadine (Loratadine) 10 Mg Tablet, 10 MG PO DAILY for allergy symptoms, (Reported) Omeprazole (Omeprazole) 40 Mg Capsule.dr, 40 MG PO DAILY, (Reported) Paroxetine HCl (Paroxetine) 20 Mg Tablet, 20 MG PO DAILY, (Reported) Warfarin Sod (Coumadin) 1 Mg Tablet, 2 MG PO QPM, (Reported) 1700 Scheduled PRN Acetaminophen (Acetaminophen) 500 Mg Tablet, 500 MG PO Q6H PRN for PAIN, (Reported) Allergies Coded Allergies: Sulfa (Sulfonamide Antibiotics) (Verified Allergy, Unknown, hives, 07/10/19) Past Medical History Medical History Hypertension, hyperlipidemia, peripheral vascular diseases, type 2 diabetes Surgical History Surgical History Left popliteal stent placement in 2018 Social History * Smoker: Denies Alcohol: Denies Drugs: denies A-FIB/CHADSVASC A-FIB History Current/History of A-Fib/PAF?: Yes Current PO Anticoag Therapy: Yes Review of Systems Constitutional: Denies: Chills, Fever Eyes: Denies: Pain, Vision change Skin: Reports: Other (cyanotic changes of left foot); Denies: Lesions, Breakdown Pulmonary: Denies: Dyspnea Cardiovascular: Denies: Palpitations Gastrointestinal: Denies: Nausea, Vomiting Genitourinary: Denies: Dysuria, Frequency Hematologic: Denies: Bleeding Excessively Endocrine: Denies: Polydipsia, Polyphagia Musculoskeletal: Reports: Leg Pain; Denies: Neck Pain, Back Pain Neurological: Denies: Weakness, Change in speech Psych: Reports: Mood Normal Physical Examination General Exam: Positive: Alert, Cooperative Eye Exam: Positive: PERRLA, Conjunctiva & lids normal ENT Exam: Positive: Atraumatic Neck Exam: Positive: Supple; Negative: JVD Chest Exam: Positive: Clear to auscultation Heart Exam: Positive: Irregular Rhythm Telemetry: Positive: Atrial fibrillation Abdomen Exam: Positive: Normal bowel sounds Extremity Exam: Positive: Cyanosis (left foot); Negative: Clubbing, Normal pulses Skin Exam: Positive: Other skin issue (cyanotic changes of left foot) Neuro Exam: Positive: Strength at 5/5 X4 ext Psych Exam: Positive: Mental status NL Vital Signs Vital Signs Date Time Temp Pulse Resp B/P (MAP) Pulse Ox O2 Delivery O2 Flow Rate FiO2 08/27/19 14:30 86 26 100 Room Air 08/27/19 13:00 3 08/27/19 09:00 97.3 Laboratory Data Labs 24H Laboratory Tests 2 08/27/19 09:00: Nucleated Red Blood Cells % (auto) 0.0, Prothrombin Time 22.8H, Prothromb Time International Ratio 2.04, Anion Gap 7L, Glomerular Filtration Rate 46.4, Calcium Level 9.9 08/27/19 09:34: Bedside Glucose (Misc Panel) 170H CBC/BMP Laboratory Tests 08/27/19 09:00 Assessment/Plan Patient is 74 years old female with past medical history of hypertension, poorly controlled diabetes mellitus type 2 not on the insulin, PVD status post left popliteal stent placement in 2018, presented to the hospital with left leg discomfort. 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 Dr Bellamy proceeded with aortoiliofemoral arteriogram with left lower extremity runoff from SFA and popliteal selections. Patient was found to have cross occlusion left SFA stents and administer TPA and angioplasty SFA and popliteal artery. After procedure patient was transferred to the ICU. When I saw the patient she complains of distal left leg pain. Blood pressure was elevated to 180/90. Patient denies fever, chills, nausea, vomiting, diarrhea or dysuria Problems (1) Ischemia of left lower extremity Status: Acute Problem Text: Management per vascular surgeon team. Plan for repeat arteriogram and possible intervention tomorrow (2) Type 2 diabetes mellitus Status: Chronic Problem Text: Type 2 diabetes mellitus Insulin sliding scale detemir twice a day Diabetes diet (3) Atrial fibrillation Status: Chronic Problem Text: Cardiac is under control Patient receives anticoagulation per vascular team (4) Hypertensive urgency Status: Acute Problem Text: Will restart her home medications Hydralazine 10 mg IV when necessary Plan / VTE VTE Prophylaxis Ordered?: Yes VTE Exclusion Pharmacological: IV Heparin Therapy LINDA GOODMAN DO Aug 27, 2019 15:55
[2019-08-27] MEDS ORDERED: INSUDET SC (16:18)
[2019-08-27] MEDS ORDERED: ATEN50TA2 PO (16:18)
[2019-08-27] MEDS ORDERED: PARO5TAB PO (16:18)
[2019-08-27] MEDS ORDERED: INSUHUMDS SC (16:18)
[2019-08-27] MEDS ORDERED: CLON0.2T PO (16:18)
[2019-08-27] MEDS ORDERED: AMLO10TA5 PO (16:18)
[2019-08-27] MEDS ORDERED: WARF4TAB51 PO (16:18)
[2019-08-27] MEDS ORDERED: DEXTROSE 50% 50 ML SYRINGE IV PRN (16:45)
[2019-08-27] MEDS ORDERED: GLUCAGON FOR INJ 1 MG VIAL (J1610) SC PRN (16:45)
[2019-08-27] MEDS ORDERED: GLUCOSE 4 GM CHEW TABLET PO PRN (16:45)
[2019-08-27] MEDS ORDERED: MORPHINE 2 MG/ML 1ML VIAL (J2270) IV ONE (17:15)
[2019-08-27] MEDS: hydrALAZINE INJ 20 MG/ML VIAL IV PRN (17:29)
[2019-08-27] MEDS: HumaLOG INSULIN (NovoLOG) PER UNIT SC SCH ×2 (17:30→20:51)
[2019-08-27] MEDS: oxyCODONE 5MG TAB PO PRN (19:03)
[2019-08-27] MEDS: cloNIDine 0.2 MG TAB PO SCH (20:37)
[2019-08-27] MEDS: AMITRIPTYLINE 25 MG TAB PO SCH (20:37)
[2019-08-27] MEDS: diazePAM 5 MG TAB PO PRN (20:38)
[2019-08-27] MEDS: MORPHINE 2 MG/ML 1ML VIAL (J2270) IV PRN (20:39)
[2019-08-27 21:00] LABS: MEAN CORPUSCULAR HEMOGLOBIN 25.9 pg (27.0-33.0); MEAN CORPUSCULAR HGB CONC 31.4 g/dl (32.0-36.5); MEAN CORPUSCULAR VOLUME 82.5 fl (80.0-96.0); PLATELET COUNT, AUTOMATED 394 10^3/uL (150-450); RED BLOOD COUNT 4.24 10^6/uL (4.00-5.40); WHITE BLOOD COUNT 16.2 10^3/uL (4.0-10.0)
[2019-08-27] MEDS: LEVEMIR (INSULIN DETEMIR) 1 UNITS/0.01ML SC SCH (21:03)
[2019-08-27] MEDS ORDERED: PREVNAR 13 VACCINE SYRINGE (CPT CODE:90670) IM PRN (23:30)
[2019-08-28] VITALS (37 sets, daily range): BP systolic 105–209; BP diastolic 53–91
[2019-08-28] MEDS: ACETAMINOPHEN TAB 650MG DOSE (2X325MG) PO SCH ×6 (02:29→22:10)
[2019-08-28] MEDS: PERCOCET 5MG/325MG TAB PO PRN ×2 (02:30→07:18)
[2019-08-28] MEDS: MORPHINE 2 MG/ML 1ML VIAL (J2270) IV PRN ×4 (02:34→22:09)
[2019-08-28 03:36] LABS: HEMATOCRIT 32.3 % (36.0-47.0); MEAN CORPUSCULAR HEMOGLOBIN 25.9 pg (27.0-33.0); MEAN CORPUSCULAR VOLUME 83.7 fl (80.0-96.0); PLATELET COUNT, AUTOMATED 329 10^3/uL (150-450); RED BLOOD COUNT 3.86 10^6/uL (4.00-5.40); WHITE BLOOD COUNT 13.5 10^3/uL (4.0-10.0)
[2019-08-28 04:03] LABS: ALBUMIN 2.8 GM/DL (3.2-5.2); BILIRUBIN,TOTAL 0.2 MG/DL (0.2-1.0); CALCIUM LEVEL 9.2 MG/DL (8.8-10.2); CREATININE FOR GFR 0.97 MG/DL (0.55-1.30); GLOMERULAR FILTRATION RATE 59.9 (>39); MAGNESIUM LEVEL 1.1 MG/DL (1.8-2.4); POTASSIUM SERUM 3.7 MEQ/L (3.5-5.1); TOTAL PROTEIN 6.9 GM/DL (6.4-8.2)
[2019-08-28] MEDS: MAG SULF 1GM/100ML (MAG RUN) 1 GM in IV 1 EA IV SCH ×5 (05:30→16:28)
[2019-08-28] MEDS: diazePAM 5 MG TAB PO PRN (06:27)
[2019-08-28] MEDS: oxyCODONE 5MG TAB PO PRN (06:28)
[2019-08-28] MEDS: hydrALAZINE INJ 20 MG/ML VIAL IV PRN (07:09)
[2019-08-28] MEDS: ALTEPLASE RECOMBINANT 25 MG in NS 225 ML IV SCH (07:13)
[2019-08-28] MEDS ORDERED: MORPHINE 2 MG/ML 1ML VIAL (J2270) IV ONE ×2 (07:30→10:00)
[2019-08-28] MEDS: HumaLOG INSULIN (NovoLOG) PER UNIT SC SCH ×4 (07:30→22:08)
[2019-08-28] MEDS: LEVEMIR (INSULIN DETEMIR) 1 UNITS/0.01ML SC SCH ×2 (07:43→22:08)
[2019-08-28] MEDS: LORATADINE 10 MG TAB PO SCH (08:32)
[2019-08-28] MEDS: OMEPRAZOLE 20 MG CAP PO SCH ×2 (08:32→22:08)
[2019-08-28] MEDS: amLODIPine 10 MG TAB PO SCH (08:32)
[2019-08-28] MEDS: ENALAPRIL MALEATE 10 MG TAB PO SCH (08:32)
[2019-08-28] MEDS: PARoxetine 10MG TABLET PO SCH (08:32)
[2019-08-28] MEDS: cloNIDine 0.2 MG TAB PO SCH ×2 (08:32→22:10)
[2019-08-28] MEDS ORDERED: CLOPIDOGREL 75 MG TAB PO SCH (09:00)
[2019-08-28] MEDS ORDERED: atenoloL 50 MG TAB PO SCH (09:00)
[2019-08-28 09:26] LABS: HEMATOCRIT 33.2 % (36.0-47.0); HEMOGLOBIN 10.5 g/dl (12.0-15.5); MEAN CORPUSCULAR HEMOGLOBIN 26.6 pg (27.0-33.0); MEAN CORPUSCULAR HGB CONC 31.6 g/dl (32.0-36.5); MEAN CORPUSCULAR VOLUME 84.3 fl (80.0-96.0); PLATELET COUNT, AUTOMATED 332 10^3/uL (150-450); RED BLOOD COUNT 3.94 10^6/uL (4.00-5.40); WHITE BLOOD COUNT 16.9 10^3/uL (4.0-10.0)
[2019-08-28] MEDS ORDERED: HEPARIN 1,000 UNITS/ML 10ML VIAL (FOR RADIOLOGY& DIALYSIS ONLY)(J1644-10) As Ordered ONE (11:17)
[2019-08-28] MEDS ORDERED: LIDOCAINE 1% MDV 20ML VIAL As Ordered ONE ×2 (11:17→19:26)
[2019-08-28] MEDS ORDERED: MIDAZOLAM INJ 2 MG/2 ML VIAL (J2250) As Ordered ONE ×3 (11:17→20:44)
[2019-08-28] MEDS ORDERED: fentaNYL 100 MCG/2 ML INJECTION (J3010) As Ordered ONE ×3 (11:17→20:44)
[2019-08-28] MEDS ORDERED: ISOVUE-300 61% 50ML VIAL (Q9967) As Ordered ONE ×3 (11:18→20:19)
[2019-08-28] MEDS ORDERED: ALTEPLASE 2 MG/2 ML VIAL (J2997 PER 1MG) As Ordered ONE ×2 (11:19→12:05)
--- NOTE | 2019-08-28 11:28 | IPNPDOC ---
Date Seen The patient was seen on 08/28/19. Progress Note Pt seen and examined this morning. She still has duskiness of the left foot, but the calf and thigh are warm. She has motor and sensory function in the foot, but I cannot doppler PT or AT signals. The left foot is still warm and well perfused. The RN from overnight said she did have PT signals most of the night with improvement in pain, but it is worse this morning with no signals. Her fibrinogen is slowly declining as expected, but is still 245 with stable Hgb and vital signs, no bleeding episodes and groin access c/d/i, so we can continue thrombolysis a bit longer. We need better tibial recovery, and I discussed with her that instead of waiting until this afternoon for her planned repeat arteriogram, we will try to squeeze her in this morning instead, with possibly another arteriogram this afternoon or in the morning. Risks benefits and alternatives to a planned repeat arteriogram, possible repositioning of the TPA thrombolysis catheter, possible angioplasty, possible stent, possible removal TPA lysis catheter were explained to the patient and she is agreeable to proceed. Informed consent obtained. VS, [facility] V[facility] Signs/I&O Vital Signs Date Time Temp Pulse Resp B/P (MAP) Pulse Ox O2 Delivery O2 Flow Rate FiO2 08/28/19 10:40 18 08/28/19 09:25 90 131/63 (85) 99 Room Air 08/28/19 07:00 98.9 08/27/19 13:00 3 I&O- Last 24 Hours up to 6 AM 08/28/19 06:00 Intake Total 1230 ml Output Total 575 ml Balance 655 ml Laboratory Data 24H LABS Laboratory Tests 2 08/27/19 15:38: Nucleated Red Blood Cells % (auto) 0.0, Fibrinogen 430 08/27/19 17:20: Bedside Glucose (Misc Panel) 106 08/27/19 20:42: Bedside Glucose (Misc Panel) 156H 08/27/19 20:46: Nucleated Red Blood Cells % (auto) 0.0, Fibrinogen 377 08/28/19 03:28: Nucleated Red Blood Cells % (auto) 0.0, Fibrinogen 320, Anion Gap 6L, Glomerular Filtration Rate 59.9, Calcium Level 9.2, Magnesium Level 1.1L, Total Bilirubin 0.2, Aspartate Amino Transf (AST/SGOT) 22, Alanine Aminotransferase (ALT/SGPT) 16, Alkaline Phosphatase 91, Total Protein 6.9, Albumin 2.8L, Albumin/Globulin Ratio 0.68L 08/28/19 09:11: Nucleated Red Blood Cells % (auto) 0.0, Fibrinogen 245 CBC/BMP Laboratory Tests 08/27/19 15:38 08/27/19 20:46 08/28/19 03:28 08/28/19 09:11 HORTENCIA GREENBERG MD Aug 28, 2019 11:28
[2019-08-28] MEDS ORDERED: LR 1,000 ML IV SCH (11:30)
[2019-08-28] MEDS ORDERED: ceFAZolin 1GM VIAL (J0690 PER 500MG) As Ordered ONE (11:53)
--- NOTE | 2019-08-28 12:00 | IPNPDOC ---
Date Seen The patient was seen on 08/28/19. Progress Note SUBJECTIVE: Patient seen and examined at the bedside this morning. She reports that she is still in a lot of pain in her left leg and foot. She describes it as the feeling that her left foot "has rubber bands wrapped around it." . Otherwise, she has no complaints. She was able to eat yesterday and does not have any diarrhea or constipation. She denies any nausea. No shortness of breath or chest pain. She was seen by Dr. Castro this morning who plans to take the patient to IR for further studies given that the patient's left foot pulses are weak and skin appears dusky. In addition, the patient's BP was elevated overnight but has responded to IV antihypertensives this morning. OBJECTIVE PHYSICAL EXAMINATION: VITAL SIGNS: Please see below. GENERAL APPEARANCE: Laying in bed, appears stated age, no acute distress, calm, cooperative HEENT: EOMI, PERRLA, neck is supple with no thyromegaly or lymphadenopathy, central venous catheter in place in neck, area is clean/dry/intact RESPIRATORY: Lungs are clear to auscultation bilaterally with no adventitious breath sounds appreciated CARDIOVASCULAR: no JVD, RRR, no murmurs/rubs/gallops ABDOMEN: Soft, nontender to palpation in all four quadrants, no masses/organomegaly EXTREMITIES: left foot appears dusky compared to R foot. Pulses on Left foot are heard with use of doppler. Posterior tibial pulse is 2+, dorsalis pedis is very faint and 1+. Pulses in R foot are 3+ skin appears warm, well-perfused. GROIN: tpa catheter in place in R groin. Clean/dry/intact NEUROLOGICAL: No obvious focal deficits. Patient moves all extremities well and no decreased sensation on exam PSYCHIATRIC: normal mood/affect Skin: No rashes or ulcers. LN: No significant cervical or inguinal lymphadenopathy LABORATORY DATA, IMAGING STUDIES, MICROBIOLOGY: Please see below. Echocardiogram: none ordered DVT prophylaxis ordered?: patient is on heparin drip ASSESSMENT AND PLAN: This is a 74 YO F with history of HTN, T2DM, PVD and atherosclerosis who presents with left foot pain. She is POD #1 s/p aortofemoral arteriogram found to have occlusion of the SFA and is currently recieving tPA. She will go to IR today for repeat arteriogram and possible angioplasty/stent placement. PROBLEMS: 1. Peripheral vascular disease and acute occlusion of SFA in Left leg: -Dr. Castro consulted. POD #1 s/p thrombolysis of SFA given reocclusion of SFA stent, popliteal artery, and embolic thrombi noted in 3 tibial vessels -Continue heparin drip, tPA -Continue trending fibrinogen, which has been decreasing, but hgb stable -Pain management with Tylenol, Valium, Morphine, Percocet 2. Acute non anion gap metabolic acidosis: -Patient found to have elevated Chloride and low bicarb in setting of recent NS fluid administration -NS IVF changed to LR. Will recheck BMP tomorrow 3. Hypomagnesemia: -Magrun x3 ordered. Will recheck Mg tomorrow 4. Severe asymptomatic hypertension: BP better controlled this AM -Continue IV hydralazine with hold parameters -Continue Norvasc, clonidine 5. T2DM: -Levemir 12U BID + SSI with hypoglycemic protocol 6. Atrial fibrillation: HR controlled at this point in time -Atenolol will be changed to Metoprolol -Currently anticoagulated with heparin drip DISPOSITION: Pending arteriogram and possible repeat procedure today. Recommendations per Vascular surgery team. Attending Addendum: I discussed the care/management of this patient with Resident in detail and agree with the plan above. VS, I&O, 24H, Fishbone Vital Signs/I&O Vital Signs Date Time Temp Pulse Resp B/P (MAP) Pulse Ox O2 Delivery O2 Flow Rate FiO2 08/28/19 10:40 18 08/28/19 09:25 90 131/63 (85) 99 Room Air 08/28/19 07:00 98.9 08/27/19 13:00 3 I&O- Last 24 Hours up to 6 AM 08/28/19 05:59 Intake Total 846 ml Output Total 575 ml Balance 271 ml Laboratory Data 24H LABS Laboratory Tests 2 08/27/19 15:38: Nucleated Red Blood Cells % (auto) 0.0, Fibrinogen 430 08/27/19 17:20: Bedside Glucose (Misc Panel) 106 08/27/19 20:42: Bedside Glucose (Misc Panel) 156H 08/27/19 20:46: Nucleated Red Blood Cells % (auto) 0.0, Fibrinogen 377 08/28/19 03:28: Nucleated Red Blood Cells % (auto) 0.0, Fibrinogen 320, Anion Gap 6L, Glomerular Filtration Rate 59.9, Calcium Level 9.2, Magnesium Level 1.1L, Total Bilirubin 0.2, Aspartate Amino Transf (AST/SGOT) 22, Alanine Aminotransferase (ALT/SGPT) 16, Alkaline Phosphatase 91, Total Protein 6.9, Albumin 2.8L, Albumin/Globulin Ratio 0.68L 08/28/19 09:11: Nucleated Red Blood Cells % (auto) 0.0, Fibrinogen 245 CBC/BMP Laboratory Tests 08/27/19 15:38 08/27/19 20:46 08/28/19 03:28 08/28/19 09:11 GME ATTESTATION GME ATTESTATION My faculty preceptor for this patient encounter was physically present during the encounter and was fully available. All aspects of the patient interview, examination, medical decision making process, and medical care plan development were reviewed and approved by the faculty preceptor. The faculty preceptor is aware and concurs with the plan as stated in the body of this note and will attest to such by his/her cosignature. ERNESTO VILLA MD Aug 28, 2019 11:04 JOSE RAMON WADE MD Aug 29, 2019 20:21
--- NOTE | 2019-08-28 13:27 | ROOPDOC ---
[facility] Report Of Operation Report of Operation DATE OF PROCEDURE: 08/28/19 PREPROCEDURE DIAGNOSES: Atherosclerosis of the [place] and [place] vessels with chronic reocclusion of pre-existing left superficial femoral artery stents and severe worsening rest pain, status post TPA thrombolysis catheter placement POSTPROCEDURE DIAGNOSES: Same PROCEDURE: 1. Left lower extremity arteriogram 2. Selection of left posterior tibial artery and administration of TPA 3. Selection of left anterior tibial artery and administration of TPA 4. Selection of left peroneal artery and administration of TPA 5. Replacement of TPA thrombolysis catheter left posterior tibial artery SURGEON: Hortencia Castro MD ANESTHESIA: Monitored intravenous conscious sedation was supervised by Dr. Castro. The patient was independently monitored by registered nurse assigned to the Department of radiology using automated blood pressure, EKG, and pulse oximetry. The detailed sedation record is probably stored in the hospital information system. The following is a brief sedation record: Start time 11:50, stop time 12:40, Ancef 2 g IV, fentanyl 50 g IV, Versed 1 mg IV, tPA 18 mg IV, heparin 3000 units IV. INDICATION FOR PROCEDURE: Ms. Nichole is a very pleasant 74-year-old patient with severe bilateral peripheral vascular disease with recurrence thrombosis of stents placed in the left SFA by other providers, now 24 hours status post TPA thrombolysis catheter left lower extremity to treat thrombosed stents with tibial embolization. We return for a planned arteriogram of the left lower extremity and potential intervention, potential repositioning of the TPA lysis catheter, possible removal of TPA thrombolysis catheter. The patient was thoroughly counseled about the risks benefits alternatives, including high bleeding risk associated with ongoing TPA use. So far, she has had no signs of bleeding and her right groin access site is clean dry and intact with no significant hematoma or bruising noted. Her mental status has remained clear. She is agreeable to proceed. Informed consent was obtained. INTERPRETATION: 1. The left SFA stent are still occluded despite TPA infusion. I suspect this is due to chronic thrombus rather than acute thrombosis. With injection through the sheath just proximal to the TPA thrombolysis catheter infusion ports, there is no flow through the SFA stents. With injection through the thrombolysis catheter, we see a little bit of contrast exuding into the thrombus through the stents, and much improved flow through the proximal tibial vessels. The peroneal artery is open to the ankle, but the anterior tibial and posterior tibial artery are intermittently occluded by persistent thrombus. 2. After selection of the left posterior tibial artery, contrast injection co nfirmed correct placement and TPA was administered and arteriogram following that showed patency in the vessel. 3. After selection of the left anterior tibial artery, contrast injection showed a small amount of proximal extravasation, but after manual pressure this resolve. We then selected the distal AT near the DP and contrast confirmed we were in the true lumen. After TPA, there was improved flow through the anterior tibial artery but also new thrombus was noted in the posterior tibial artery. 4. After selection of the left peroneal artery, contrast injection confirmed correct placement and after TPA, there is improved flow through the peroneal artery, but recurrent thrombus noted in the other 2 tibials. 5. Selection of the left posterior tibial artery was performed to the TPA thrombolysis catheter was successfully advanced into the distal posterior tibial artery. REPORT OF OPERATION: The patient was brought to the angiographic suite in stable condition. Her right groin, sheath, TPA thrombolysis catheter were all prepped and draped in a sterile fashion. A timeout was performed. Antibiotics and sedation were administered without complication. Through the sheath, a left lower extremity arteriogram was performed, please interpretation above. Through the TPA thrombolysis catheter, a left lower extremity arteriogram was performed, please see interpretation above. Glidewire was advanced through the TPA lysis catheter into the posterior tibial artery under fluoroscopic guidance. After selection of the left posterior tibial artery, contrast injection confirmed we were in the true lumen and 4 mg TPA was directly administered. Following this, there was good flow through the vessel. We then redirected and selected the anterior tibial artery. Initially, we could not navigate the wire distally into the artery and it continued selecting a very small branch. Contrast confirmed there was a small amount of extravasation there. We held pressure for 5 minutes over the area and repeat contrast injection did not show extravasation. We then were able to navigate the wire successfully down into the anterior tibial artery and 4 mg TPA was injected after confirming we were in the true lumen. Following this, we noted improved flow in the anterior tibial artery, but now new thrombus in the posterior tibial artery. Unfortunately, without pentecostal of inflow, and possibly due to ongoing embolic event from above, we continued to struggle to improve patency in the tibial vessels. We then selected the peroneal artery and confirmed we were in the distal true lumen with contrast, and then administered 5 mg of TPA. This did improve flow but we still noted thrombus in the ATN PT. An additional 5 mg of TPA was injected into the distal popliteal artery into all 3 tibials. We then navigated the Glidewire again into the distal posterior tibial artery and advanced the TPA thrombolysis catheter across the posterior tibial artery from ongoing thrombolysis. The posterior tibial artery appears to be the largest and best of the 3 tibials, thus it will be the most important for outflow. I think it is unlikely that we will be able to successfully open all 3 tibials with ongoing issues with occlusion of the SFA above. The patient will definitely need a femoral-popliteal bypass, but she is at risk for limb loss due to the severe end-stage nature of her arterial disease. I think it is worthwhile to try a little more TPA directly into the tibial to see if we can effectively clear and get flow to the foot, even if that flow is only collaterals from the profunda. It is possible we could angioplasty the SFA again, but I feel after we did that yesterday post TPA administration, the patient embolized her tibials and I do not want to repeat that today. Therefore for now, we will continue ongoing TPA thrombolysis until this afternoon or tomorrow morning. ESTIMATED BLOOD LOSS: Approximately 2 mL. COMPLICATIONS: None. PLAN: Continue TPA thrombolysis at 1 mg an hour with 400 units of heparin an hour through the sheath. The tip of the catheter is in the distal posterior tibial artery and the proximal aspect is in the mid SFA. I do not anticipate clearance of the clot in the SFA stents due to chronicity. It is likely too chronic to clear with TPA thrombolysis. We will closely watch the patient's fibrinogen, as it is started to decrease over the last hours. We will try to plan for left lower extremity bypass, possibly on this admission depending on status of her foot. She did have very limited perfusion prior to the procedure, and significant pain in the left lower extremity prior to intervention yesterday, and at this point we have not been able to improve upon that with endovascular efforts. Surgical intervention for left femoral to below-knee popliteal bypass is definitely indicated, but it is just a question of how soon. The patient will need a vein mapping of the lower extremities. HORTENCIA CASTRO MD Aug 28, 2019 13:27
[2019-08-28 15:20] LABS: HEMOGLOBIN 9.4 g/dl (12.0-15.5); MEAN CORPUSCULAR HEMOGLOBIN 26.5 pg (27.0-33.0); MEAN CORPUSCULAR HGB CONC 31.3 g/dl (32.0-36.5); MEAN CORPUSCULAR VOLUME 84.5 fl (80.0-96.0); PLATELET COUNT, AUTOMATED 293 10^3/uL (150-450); RED BLOOD COUNT 3.55 10^6/uL (4.00-5.40); WHITE BLOOD COUNT 14.4 10^3/uL (4.0-10.0)
[2019-08-28] MEDS ORDERED: HEPARIN 25,000 UNITS/250 ML D5W BAG (100 UNITS/ML) (J1644 PER 1000UNITS) As Ordered ONE (19:57)
[2019-08-28] MEDS ORDERED: CLOPIDOGREL 75 MG TAB PO ONE (20:15)
[2019-08-28] MEDS ORDERED: CLOPIDOGREL 75 MG TAB As Ordered ONE (20:20)
[2019-08-28] MEDS: NS 1,000 ML IV SCH (21:15)
--- NOTE | 2019-08-28 21:26 | ROOPDOC ---
[facility] Report Of Operation Report of Operation DATE OF PROCEDURE: 08/28/19 PREPROCEDURE DIAGNOSES: Severe atherosclerosis of the arteries with recurrent thrombosis of left SFA stents status post TPA thrombolysis POSTPROCEDURE DIAGNOSES: Same PROCEDURE: 1. Left lower extremity arteriogram and runoff 2. Angioplasty posterior tibial artery and plantar artery left with 2.5 x 220 Sandoval balloon 3. Angioplasty anterior tibial artery with 2.5 x 220 Sandoval balloon 4. Stenting distal SFA popliteal artery with 5 x 150 Innova stent and post- dilation with 5 x 200 [place] balloon 5. Completion arteriograms 6. Mynx closure right common femoral artery SURGEON: Hortencia Castro MD ANESTHESIA: Monitored anesthesia care was supervised by Dr. Castro. The patient was independently monitored by registered nurse assigned to the Department of radiology using automated blood pressure, EKG, and pulse oximetry. The detailed sedation record is permanently stored in the hospital information system. The following is a brief sedation record: Start time 20:00, stop time 20:55, Versed 3 mg IV, fentanyl 150 g IV, heparin 4000 units IV. CONTRAST: 50 mL Isovue-300 INDICATION FOR PROCEDURE: This very pleasant 74-year-old patient with severe end-stage lower extremity arterial disease status post multiple failed interventions by other providers in the left lower extremity including extensive left SFA stenting. We bring her back today status post TPA thrombolysis for occluded thrombosed stents and tibial embolization. She's had 24 hours of TPA, she is status post 1 repeat arteriogram this morning, and we bring her back tonight to see if there is anything we can do to improve her perfusion and possibly remove the TPA thrombolysis catheter versus reposition it. At this point, I would like to remove it as I believe her fibrinogen on the next check will be less than 150, which is my usual threshold for removing TPA thrombolysis. Risk benefits alternatives to repeat arteriogram potential intervention The patient she is agreeable to proceed. Informed consent was obtained. INTERPRETATION: 1. On imaging this afternoon, the left superficial femoral artery, popliteal artery, and tibial vessels are patent at their baseline. There is some 30% focal stenoses within the distal SFA within the stented areas, and there is diffuse irregular plaque in the proximal popliteal artery with some mild focal dissections noted and ectasia. There is still distal occlusion of the anterior tibial artery with some collateralization to the foot although I do not see reconstitution of the dorsal pedis artery, which I believe is chronic. The main tibial outflow is the posterior tibial artery which is somewhat stenotic distally, but is the main runoff to the foot. 2. After angioplasty of the posterior tibial artery for three-minute inflations along the length of the vessel, there is still some stenosis noted at the distal aspect near the ankle and foot. A repeat angioplasty across the distal posterior tibial artery into the plantar vessel was performed for three-minute inflations and following this there was much improved flow into the foot. 3. After angioplasty of the anterior tibial artery, we still do not have good outflow since the main outflow from this vessel is collaterals. I do not believe this angioplasty made a significant difference, but it was worthwhile to try and see if anything opened up distally that we could connect to the dorsal pedis artery, but this was not the case. 4. After stenting and post-dilating the popliteal artery with a 5 x 150 Innova stent, there is much improved flow through the distal SFA and popliteal artery. Previous areas noted to be mildly stenotic and the SFA and irregular stenotic plaque in the popliteal proximally were now widely patent with no flow-limiting limitations. REPORT OF OPERATION: Patient was brought to the angiographic suite in stable condition and placed supine on the fluoroscopic table. Her right groin including her sheath and TPA catheter were prepped and draped in a sterile fashion. A t imeout was performed. Sedation was administered without complication. A left lower extremity arteriogram was performed, please see findings above. Following this, we advanced an O18 Glidewire advantage into the posterior tibial artery under fluoroscopic guidance. We navigated distally into the distal posterior tibial artery. A 2.5 x 220 Sandoval balloon was advanced over the wire distally first and three-minute inflations was performed, then more proximally to the origin of the vessel in the three-minute inflation was performed. Following this, there was a marked improvement in flow, but still limited flow across the ankle to the foot. We therefore advance the wire into the plantar vessels and angioplasty across the distal posterior tibial artery into the plantar artery for three-minute inflation. Following this the patient had marked improvement to her foot and the foot was warm and pink with the nurse checked. We then attempted to cross through the distal occlusion in the anterior tibial artery and find flow into the dorsal pedis, but were unsuccessful. We were able to cross through the anterior tibial to the ankle. Angioplasty with the Sandoval balloon 2.5 x 220 was performed for three-minute inflation. Following this, the vessel was dilated and more patent, but still had no outflow significant except for some collaterals at the calf and ankle, so flow was limited. The peroneal artery is patent although diminutive. We then turned our attention to the popliteal artery a 5 x 150 Innova stent was selected and placed across the proximal popliteal artery distal SFA. This was postdilated with a 5 x 200 balloon and widely patent flow was noted with no further stenoses or dissections noted. No extravasation was noted. No embolization was noted. Following this, we exchange the sheath over an O35 wire for short 7 Greek sheath and applied a Mynx closure device with good hemostasis. Pressure was held at the right groin for 20 minutes and sterile dressings were applied. The patient tolerated the procedure well. She will return to the ICU on a heparin drip and Plavix tonight, and we will decide future interventions based on her exam tonight and tomorrow. ESTIMATED BLOOD LOSS: Approximately 5 mL. COMPLICATIONS: None. PLAN: The patient is high risk for re-thrombosis of the left SFA stents and embolization to the tibials. She has had this happen multiple times in the past. We will give her Plavix postprocedure and restarted her on her normal dosing at 9 AM. We will start heparin drip and titrate this per protocol. We will follow the patient's exam. I still believe a lot of her pain is neuropathic, as her vascular disease is chronic. Now with improved flow, the patient still has quite a bit of pain, which we would expect to be somewhat resolve her complaints were secondary to vascular insufficiency. Her calf is soft and I do not see signs of compartment syndrome. She has full motor and sensory function of her foot. I believe she will need a left femoral to below-knee popliteal bypass, likely on this admission, but we will see how she does. He would twice a day illicit patient could have some time to recover at home prior to surgery, but unfortunately we may not have that luxury if she rethromboses her stents. Hopefully we'll be able to maintain patency with Plavix and full ant icoagulation, although she has thrombosed or stents despite full anticoagulation and Plavix in the past. HORTENCIA CASTRO MD Aug 28, 2019 21:26
[2019-08-28] MEDS: AMITRIPTYLINE 25 MG TAB PO SCH (22:09)
[2019-08-29] VITALS (34 sets, daily range): BP systolic 84–142; BP diastolic 41–101
[2019-08-29] MEDS: ACETAMINOPHEN TAB 650MG DOSE (2X325MG) PO SCH ×3 (01:14→10:00)
[2019-08-29] MEDS: oxyCODONE 5MG TAB PO PRN (01:16)
[2019-08-29] MEDS: MORPHINE 2 MG/ML 1ML VIAL (J2270) IV PRN ×3 (04:19→20:13)
[2019-08-29 05:44] LABS: HEMATOCRIT 25.8 % (36.0-47.0); MEAN CORPUSCULAR HEMOGLOBIN 26.2 pg (27.0-33.0); MEAN CORPUSCULAR VOLUME 84.6 fl (80.0-96.0); PLATELET COUNT, AUTOMATED 248 10^3/uL (150-450); RED BLOOD COUNT 3.05 10^6/uL (4.00-5.40); WHITE BLOOD COUNT 13.2 10^3/uL (4.0-10.0)
[2019-08-29 05:55] LABS: INR 1.83
[2019-08-29 06:10] LABS: CALCIUM LEVEL 8.6 MG/DL (8.8-10.2); CREATININE FOR GFR 1.03 MG/DL (0.55-1.30); GLOMERULAR FILTRATION RATE 55.9 (>39); MAGNESIUM LEVEL 2.6 MG/DL (1.8-2.4); POTASSIUM SERUM 3.8 MEQ/L (3.5-5.1)
[2019-08-29] MEDS: PERCOCET 5MG/325MG TAB PO PRN ×2 (06:33→19:17)
[2019-08-29 06:45] LABS: PARTIAL THROMBOPLASTIN TIME 183.1 SECONDS (25.0-38.4)
[2019-08-29] MEDS: HumaLOG INSULIN (NovoLOG) PER UNIT SC SCH ×4 (07:30→20:21)
--- NOTE | 2019-08-29 08:06 | IPNPDOC ---
Date Seen The patient was seen on 08/29/19. Progress Note Patient seen and examined. Doing much better today. Her left foot is hot and hyperemic. Her calf is soft. She has intact sensory motor function in the left foot. She has strong PT Doppler signal and monophasic DP Doppler signal. Her right foot perfusion is intact. Her right groin access site has some blood on the dressing but no significant hematoma is noted. We will change that dressing today, and I discussed this with the nurses and they will do it when she returns from ultrasound. I did change the patient's right internal jugular Dressing and no significant bruising is noted, however, I think we will hold the Plavix today since she is still a bit supratherapeutic on her heparin drip until that equalizes and we will likely restart the Plavix tomorrow. The patient will need full anticoagulation and Plavix at discharge. The question now is whether or not to do a femoropopliteal bypass or see how she does with treatment of the popliteal disease noted after thrombolysis. It's possible by treating the popliteal disease, her stents will be able to stay open and not rethrombosed, it is also possible that she will rethrombosed her stents. She has done this multiple times despite full anticoagulation and Plavix. I like to think that by treating the distal disease, we have eliminated that the reason for her clotting, but I am not sure about this. Her outflow is adequate but not perfect, and this also could be contributing. She has been through a lot, and she is a little weak from everything, so ideally if we were going to do a bypass we would wait give her a chance to recover. However, my fear is if she does clot of the stents we may be in the exact same position a week or month from now. I will discuss this with the patient and her daughter later today after I view her vein mapping. We will go over the risks and benefits of doing a bypass now versus waiting and seeing how she does. Further recommendations on this to follow. For now, continue heparin drip and hold Plavix until tomorrow. Continue to monitor right groin and right neck for hematoma. I think it would be helpful to get physical therapy and occupational therapy to see the patient at least for standing at the bedside and transferring to the chair to help her get some of her strength back. I discussed this with the nurses. We appreciate the opportunity to participate in the care of this patient. VS, I&O, 24H, Fishbone Vital Signs/I&O Vital Signs Date Time Temp Pulse Resp B/P (MAP) Pulse Ox O2 Delivery O2 Flow Rate FiO2 08/29/19 07:39 66 24 110/51 Room Air 08/29/19 07:00 98 08/29/19 05:01 99.6 08/28/19 20:15 2 I&O- Last 24 Hours up to 6 AM 08/29/19 06:00 Intake Total 1757.5 ml Output Total 1350 ml Balance 407.5 ml Laboratory Data 24H LABS Laboratory Tests 2 08/28/19 09:11: Nucleated Red Blood Cells % (auto) 0.0, Fibrinogen 245 08/28/19 13:20: Bedside Glucose (Misc Panel) 178H 08/28/19 15:04: Nucleated Red Blood Cells % (auto) 0.0, Fibrinogen 186L 08/28/19 17:57: Bedside Glucose (Misc Panel) 171H 08/28/19 21:58: Bedside Glucose (Misc Panel) 180H 08/28/19 22:00: Activated Partial Thromboplast Time > 240.0*H 08/29/19 05:33: Activated Partial Thromboplast Time 183.1*H, Nucleated Red Blood Cells % (auto) 0.0, Prothrombin Time 21.0H, Prothromb Time International Ratio 1.83, Anion Gap 8, Glomerular Filtration Rate 55.9, Calcium Level 8.6L, Magnesium Level 2.6H CBC/BMP Laboratory Tests 08/28/19 09:11 08/28/19 15:04 08/29/19 05:33 HORTENCIA GREENBERG MD Aug 29, 2019 08:06
[2019-08-29] MEDS: CLOPIDOGREL 75 MG TAB PO SCH (08:07)
[2019-08-29] MEDS: ENALAPRIL MALEATE 10 MG TAB PO SCH (09:00)
[2019-08-29] MEDS: LEVEMIR (INSULIN DETEMIR) 1 UNITS/0.01ML SC SCH ×2 (09:00→20:39)
[2019-08-29] MEDS: amLODIPine 10 MG TAB PO SCH (09:00)
--- NOTE | 2019-08-29 10:09 | REP ---
Duplex extremity venous ultrasound: Bilateral lower extremity. History: Vein mapping study. Preop. Left fem-pop bypass. Findings: The deep veins are anechoic and fully compressible from the groin to the popliteal fossa in the left and right lower extremity. Color flow imaging is homogeneous. Spectral Doppler interrogation demonstrates intact respiratory variation in flow and normal manual augmentation of flow. There is no evidence of deep vein thrombosis. Right lower extremity superficial system vein diameter chart: Greater saphenous vein proximal junction 5.7 mm Proximal thigh 3.5 mm Mid thigh 3.3 mm Distal thigh 3.1 mm Proximal calf 3.2 mm [place] 2.0 mm Lesser saphenous vein proximal calf 2.5 mm Lesser saphenous vein mid calf 2.8 mm Left lower extremity superficial system vein diameter chart: Greater saphenous vein proximal junction 6.0 mm Proximal thigh 4.8 mm Mid thigh 4.4 mm Distal thigh 0.3 mm Proximal calf 3.8 mm [place] 1.3 mm Lesser saphenous vein proximal calf 4.2 mm Lesser saphenous vein midcalf 3.1 mm Impression: Negative bilateral lower extremity duplex venous ultrasound. No evidence of deep vein thrombosis. Saphenous vein diameters as above. Electronically Signed by Sam Herring MD 08/29/2019 10:00 A
[2019-08-29] MEDS: cloNIDine 0.2 MG TAB PO SCH ×2 (10:29→20:16)
[2019-08-29] MEDS: PARoxetine 10MG TABLET PO SCH (10:29)
[2019-08-29] MEDS: LORATADINE 10 MG TAB PO SCH (10:30)
[2019-08-29] MEDS: OMEPRAZOLE 20 MG CAP PO SCH ×2 (10:30→20:17)
[2019-08-29] MEDS: METOPROLOL TART 50 MG TAB PO SCH ×2 (10:30→20:17)
--- NOTE | 2019-08-29 16:05 | IPNPDOC ---
Date Seen The patient was seen on 08/29/19. Progress Note SUBJECTIVE: Patient seen and examined at bedside. Patient still with some left lower extremity pain, but otherwise feeling better. Patient denies fever, chills, chest pain, difficulty breathing, nausea, vomiting, abdominal pain, dysuria, diarrhea. OBJECTIVE PHYSICAL EXAMINATION: VITAL SIGNS: Please see below. GENERAL: Laying in bed in no acute distress, pleasant on interview CARDIOVASCULAR: Irregularly irregular, normal S1, S2, + murmur, no or RG RESPIRATORY: CTA B/L, no W/R/R ABDOMINAL: Soft, nontender, nondistended EXTREMITIES: Nonpalpable distal pulses, + bilateral lower extremity edema SKIN: No rashes, skin breakdown appreciated. NEUROLOGICAL: No focal deficits, normal speech PSYCHOLOGICAL: AAO 3, appropriate LABORATORY DATA, IMAGING STUDIES, MICROBIOLOGY: Please see below. ASSESSMENT AND PLAN: This is a 74 YO F with history of HTN, T2DM, PVD and atherosclerosis who presents with left foot pain. She is POD #2 s/p aortofemoral arteriogram found to have occlusion of the SFA status post tPA. Patient doing well. Plan to discuss possible bypass surgery with patient and family. PROBLEMS: 1. Peripheral vascular disease and acute occlusion of SFA in Left leg: -Dr. Castro consulted. POD #2 s/p thrombolysis of SFA given reocclusion of SFA stent, popliteal artery, and embolic thrombi noted in 3 tibial vessels -Continue heparin drip -Continue trending fibrinogen, which has been decreasing, but hgb stable -Pain management with Tylenol, Valium, Morphine, Percocet 2. Acute non anion gap metabolic acidosis: -Patient found to have elevated Chloride and low bicarb in setting of recent NS fluid administration -NS IVF changed to LR. Trend BMP 3. Hypomagnesemia: Resolved -Mag stable 4. Severe asymptomatic hypertension: Resolved -Continue IV hydralazine with hold parameters -Continue Norvasc, clonidine 5. T2DM: -Levemir 12U BID + SSI with hypoglycemic protocol 6. Atrial fibrillation: HR controlled at this point in time -Continue Metoprolol -Currently anticoagulated with heparin drip DISPOSITION: Pending discussion regarding possible bypass surgery as per vascular surgery VS, I&O, 24H, Fishbone Vital Signs/I&O Vital Signs Date Time Temp Pulse Resp B/P (MAP) Pulse Ox O2 Delivery O2 Flow Rate FiO2 08/29/19 14:00 53 100/51 (67) 08/29/19 12:00 99.6 18 98 Room Air 08/28/19 20:15 2 I&O- Last 24 Hours up to 6 AM 08/29/19 06:00 Intake Total 1757.5 ml Output Total 1350 ml Balance 407.5 ml Laboratory Data 24H LABS Laboratory Tests 2 08/28/19 17:57: Bedside Glucose (Misc Panel) 171H 08/28/19 21:58: Bedside Glucose (Misc Panel) 180H 08/28/19 22:00: Activated Partial Thromboplast Time > 240.0*H 08/29/19 05:33: Activated Partial Thromboplast Time 183.1*H, Nucleated Red Blood Cells % (auto) 0.0, Prothrombin Time 21.0H, Prothromb Time International Ratio 1.83, Anion Gap 8, Glomerular Filtration Rate 55.9, Calcium Level 8.6L, Magnesium Level 2.6H 08/29/19 12:01: Bedside Glucose (Misc Panel) 156H 08/29/19 13:15: Activated Partial Thromboplast Time 69.3H CBC/BMP Laboratory Tests 08/29/19 05:33 CYNTHIA GALLEGOS MD Aug 29, 2019 16:05
[2019-08-29] MEDS: NS 1,000 ML IV SCH (17:35)
[2019-08-29] MEDS ORDERED: WARFARIN SOD 5 MG TAB PO ONE (19:30)
[2019-08-29] MEDS: AMITRIPTYLINE 25 MG TAB PO SCH (20:16)
[2019-08-30] VITALS (24 sets, daily range): BP systolic 87–174; BP diastolic 46–74
[2019-08-30] MEDS: PERCOCET 5MG/325MG TAB PO PRN ×4 (03:46→23:32)
[2019-08-30] MEDS: HEPARIN DRIP 25,000 UNITS in IV 1 EA IV SCH (04:48)
[2019-08-30 05:34] LABS: HEMOGLOBIN 7.1 g/dl (12.0-15.5); MEAN CORPUSCULAR HEMOGLOBIN 26.7 pg (27.0-33.0); MEAN CORPUSCULAR HGB CONC 30.9 g/dl (32.0-36.5); MEAN CORPUSCULAR VOLUME 86.5 fl (80.0-96.0); PLATELET COUNT, AUTOMATED 202 10^3/uL (150-450); RED BLOOD COUNT 2.66 10^6/uL (4.00-5.40)
[2019-08-30 05:47] LABS: CALCIUM LEVEL 8.7 MG/DL (8.8-10.2); CREATININE FOR GFR 1.2 MG/DL (0.55-1.30); GLOMERULAR FILTRATION RATE 46.9 (>39); POTASSIUM SERUM 3.8 MEQ/L (3.5-5.1)
[2019-08-30 05:48] LABS: INR 1.51; PROTHROMBIN TIME 17.9 SECONDS (11.8-14.0)
[2019-08-30] MEDS: MORPHINE 2 MG/ML 1ML VIAL (J2270) IV PRN (06:42)
[2019-08-30] MEDS: HumaLOG INSULIN (NovoLOG) PER UNIT SC SCH ×4 (07:30→20:09)
[2019-08-30] MEDS: OMEPRAZOLE 20 MG CAP PO SCH ×2 (08:03→20:08)
[2019-08-30] MEDS: LORATADINE 10 MG TAB PO SCH (08:04)
[2019-08-30] MEDS: METOPROLOL TART 50 MG TAB PO SCH (08:04)
[2019-08-30] MEDS: cloNIDine 0.2 MG TAB PO SCH (08:04)
[2019-08-30] MEDS: HEPARIN SOD (PORCINE) 5000 UNITS/ML VIAL (J1644 PER 1000UNITS) IV PRN ×2 (08:05→21:05)
[2019-08-30] MEDS: PARoxetine 10MG TABLET PO SCH (08:05)
[2019-08-30] MEDS: amLODIPine 10 MG TAB PO SCH (09:00)
[2019-08-30] MEDS: ENALAPRIL MALEATE 10 MG TAB PO SCH (09:00)
[2019-08-30] MEDS: LEVEMIR (INSULIN DETEMIR) 1 UNITS/0.01ML SC SCH (09:00)
--- NOTE | 2019-08-30 10:00 | IPNPDOC ---
Date Seen The patient was seen on 08/30/19. Progress Note Patient seen and examined. She is doing well today. Her left lower extremity as well perfused, as is her right. Both feet are warm pink and good Doppler signals are noted. On the left, the posterior tibial signals biphasic in the DP is monophasic but both are strong. Her right groin access site has minimal bruising and minimal blood on the dressing. Her right jugular central line is no longer b leeding either. The dressing from yesterday is relatively clean and dry. No signs of active bleeding elsewhere. The patient's hemoglobin has drifted down over the past few days, I think this is multifactorial from the thrombolysis procedure, some bleeding she experienced after the third procedure upon removal of her right sheath and from her jugular access site. Per the nurses these blood losses were not significant, but they were probably I estimate about 100 mL. Additionally, the patient has not had much of an appetite, is somewhat debilitated, and I do not think this is helping either. Hospitalist ordered 1 unit of blood this morning, I ordered a second one to be given as well. I think this will make her feel better and perk her up a bit. She also is a bit short of breath upon any exertion, so I think a second unit will be helpful. Would like her to be a little more active today. I'd like her to get up in the chair for her meals. I think this will help with her low back and left leg pain, which I still feel is largely neurogenic pain and not secondary to arterial insufficiency, although arterial insufficiency certainly contributed to her pain when it was insufficient. We will continue with PT and OT after her transfusions. From a vascular standpoint, it is okay for the patient to transfer to the floor if it is okay with the medical team. Her INR is 1.5 today and we gave 5 mg of Coumadin last night, we will likely restart her at her normal dose of 2 mg today. We will continue the heparin drip until her Coumadin is therapeutic. I like it to be between 2.5 and 3.5 if possible. We will also restart her Plavix today. Further recommendations to follow. VS, I&O, 24H, Fishbone Vital Signs/I&O Vital Signs Date Time Temp Pulse Resp B/P (MAP) Pulse Ox O2 Delivery O2 Flow Rate FiO2 08/30/19 08:44 99.2 60 24 174/70 99 Room Air 08/28/19 20:15 2 I&O- Last 24 Hours up to 6 AM 08/30/19 06:00 Intake Total 1640 ml Output Total 300 ml Balance 1340 ml Laboratory Data 24H LABS Laboratory Tests 2 08/29/19 12:01: Bedside Glucose (Misc Panel) 156H 08/29/19 13:15: Activated Partial Thromboplast Time 69.3H 08/29/19 17:11: Bedside Glucose (Misc Panel) 127H 08/29/19 19:23: Activated Partial Thromboplast Time 70.2H 08/29/19 20:21: Bedside Glucose (Misc Panel) 200H 08/30/19 05:13: Nucleated Red Blood Cells % (auto) 0.0, Prothrombin Time 17.9H, Prothromb Time International Ratio 1.51, Activated Partial Thromboplast Time 56.4H, Anion Gap 6L, Glomerular Filtration Rate 46.9, Calcium Level 8.7L, Magnesium Level 2.0 CBC/BMP Laboratory Tests 08/30/19 05:13 HORTENCIA GREENBERG MD Aug 30, 2019 10:00
[2019-08-30] MEDS: NS 1,000 ML IV SCH (13:15)
[2019-08-30] MEDS: CLOPIDOGREL 75 MG TAB PO SCH (13:28)
--- NOTE | 2019-08-30 14:18 | IPNPDOC ---
Date Seen The patient was seen on 08/30/19. Progress Note SUBJECTIVE: Patient seen and examined at bedside. Patient as well as morning only complaining of ankle and left thigh pain. Denies any fevers, chills, dizziness, chest pain or shortness of breathing, nausea, vomiting, abdominal pain, dysuria, diarrhea. OBJECTIVE PHYSICAL EXAMINATION: VITAL SIGNS: Please see below. GENERAL: Laying in bed in no acute distress, pleasant on interview, IJ line in place CARDIOVASCULAR: Irregularly irregular, normal S1, S2, + murmur, no or RG RESPIRATORY: CTA B/L, no W/R/R ABDOMINAL: Soft, nontender, nondistended EXTREMITIES: Nonpalpable distal pulses, + bilateral lower extremity edema SKIN: No rashes, skin breakdown appreciated. NEUROLOGICAL: No focal deficits, normal speech PSYCHOLOGICAL: AAO 3, appropriate LABORATORY DATA, IMAGING STUDIES, MICROBIOLOGY: Please see below. DVT prophylaxis ordered?: Yes on heparin and Coumadin ASSESSMENT AND PLAN: This is a 74 YO F with history of HTN, T2DM, PVD and atherosclerosis who presents with left foot pain. She is POD #2 s/p aortofemoral arteriogram found to have occlusion of the SFA status post tPA. Patient doing well. Plan discussed with patient regarding bypass surgery and decision made to delay surgery for now. Coumadin and Plavix restarted. Patient will be bridged on heparin drip. Patient also with soft BPs in the setting of HTN medication as well as pain medication. Will adjust HTN medications down and trend BP. Patient also with adequate glucose fingersticks. Therefore, we will transition to Levemir 12 units once daily. PROBLEMS: #Peripheral vascular disease and acute occlusion of SFA in Left leg: -Dr. Castro consulted. POD #3 s/p thrombolysis of SFA given reocclusion of SFA stent, popliteal artery, and embolic thrombi noted in 3 tibial vessels -Continue heparin drip while transitioning to coumadin (goal 2.5-3.5) -Continue trending fibrinogen, which has been decreasing, but hgb stable -Pain management with Tylenol, Valium, Morphine, Percocet -plan to delay bypass surgery until pt stronger #anemia -consider blood loss anemia -transfuse two units -repeat CBC after transfusion to ensure appropriate bump -will cont. to monitor #Hypotension -BPs soft in the setting of BP meds, beta cynthia therapy and pain medications -will stop lisinopril and amlodipine and decrease metoprolol to 25mg BID down from 50mg BID as well as decrease catapres to 0.1 from 0.2 -Trend BP #Acute non anion gap metabolic acidosis: -Patient found to have elevated Chloride and low bicarb in setting of recent NS fluid administration -NS IVF changed to LR. Trend BMP #Hypomagnesemia: Resolved -Mag stable #Severe asymptomatic hypertension: Resolved -Continue IV hydralazine with hold parameters -Continue Norvasc, clonidine #T2DM: - Transition to Levemir 12U qHS + SSI due to consistently in range FSG with only evening doses of levemir. Suspect pt not eating what she eats at home leading to lower blood sugars #Atrial fibrillation: HR controlled at this point in time -Continue Metoprolol -Currently anticoagulated with heparin drip DISPOSITION: Plan to transition to floor likely tomorrow once BPs improved and hemoglobin stable VS, I&O, 24H, Fishbone Vital Signs/I&O Vital Signs Date Time Temp Pulse Resp B/P (MAP) Pulse Ox O2 Delivery O2 Flow Rate FiO2 08/30/19 10:37 97.8 49 14 90/50 96 Room Air 08/28/19 20:15 2 I&O- Last 24 Hours up to 6 AM 08/30/19 06:00 Intake Total 1640 ml Output Total 300 ml Balance 1340 ml Laboratory Data 24H LABS Laboratory Tests 2 08/29/19 17:11: Bedside Glucose (Misc Panel) 127H 08/29/19 19:23: Activated Partial Thromboplast Time 70.2H 08/29/19 20:21: Bedside Glucose (Misc Panel) 200H 08/30/19 05:13: Activated Partial Thromboplast Time 56.4H, Nucleated Red Blood Cells % (auto) 0.0, Prothrombin Time 17.9H, Prothromb Time International Ratio 1.51, Anion Gap 6L, Glomerular Filtration Rate 46.9, Calcium Level 8.7L, Magnesium Level 2.0 08/30/19 12:37: Bedside Glucose (Misc Panel) 211H CBC/BMP Laboratory Tests 08/30/19 05:13 CYNTHIA GALLEGOS MD Aug 30, 2019 14:18
[2019-08-30] MEDS ORDERED: WARFARIN SOD 2 MG TAB PO SCH (17:00)
[2019-08-30] MEDS ORDERED: PERCOCET 5MG/325MG TAB PO PRN (17:15)
[2019-08-30] MEDS: METOPROLOL TART 25 MG TABLET PO SCH (20:07)
[2019-08-30] MEDS: cloNIDine 0.1 MG TAB PO SCH (20:08)
[2019-08-30] MEDS: AMITRIPTYLINE 25 MG TAB PO SCH (20:08)
[2019-08-30 20:30] LABS: HEMATOCRIT 32.9 % (36.0-47.0); MEAN CORPUSCULAR HEMOGLOBIN 27.7 pg (27.0-33.0); MEAN CORPUSCULAR HGB CONC 32.2 g/dl (32.0-36.5); MEAN CORPUSCULAR VOLUME 86.1 fl (80.0-96.0); PLATELET COUNT, AUTOMATED 228 10^3/uL (150-450); RED BLOOD COUNT 3.82 10^6/uL (4.00-5.40); WHITE BLOOD COUNT 12.2 10^3/uL (4.0-10.0)
[2019-08-30 20:33] LABS: HEMOGLOBIN 10.6 g/dl (12.0-15.5)
[2019-08-30] MEDS ORDERED: LEVEMIR (INSULIN DETEMIR) 1 UNITS/0.01ML SC SCH (21:00)
[2019-08-31] VITALS (10 sets, daily range): BP systolic 127–198; BP diastolic 59–91
[2019-08-31] MEDS: ACETAMINOPHEN TAB 650MG DOSE (2X325MG) PO PRN ×2 (01:48→13:08)
[2019-08-31] MEDS: hydrALAZINE INJ 20 MG/ML VIAL IV PRN (02:01)
[2019-08-31 03:40] LABS: HEMATOCRIT 30.5 % (36.0-47.0); HEMOGLOBIN 9.9 g/dl (12.0-15.5); MEAN CORPUSCULAR HEMOGLOBIN 27.4 pg (27.0-33.0); MEAN CORPUSCULAR HGB CONC 32.5 g/dl (32.0-36.5); MEAN CORPUSCULAR VOLUME 84.5 fl (80.0-96.0); PLATELET COUNT, AUTOMATED 228 10^3/uL (150-450); RED BLOOD COUNT 3.61 10^6/uL (4.00-5.40); WHITE BLOOD COUNT 10.4 10^3/uL (4.0-10.0)
[2019-08-31 03:54] LABS: INR 1.92; PROTHROMBIN TIME 21.7 SECONDS (11.8-14.0)
[2019-08-31 03:56] LABS: PARTIAL THROMBOPLASTIN TIME 92.7 SECONDS (25.0-38.4)
[2019-08-31 04:31] LABS: CALCIUM LEVEL 8.8 MG/DL (8.8-10.2); CREATININE FOR GFR 1.01 MG/DL (0.55-1.30); GLOMERULAR FILTRATION RATE 57.2 (>39); POTASSIUM SERUM 4.1 MEQ/L (3.5-5.1)
[2019-08-31] MEDS: HEPARIN DRIP 25,000 UNITS in IV 1 EA IV SCH (06:10)
[2019-08-31] MEDS: PARoxetine 10MG TABLET PO SCH (08:13)
[2019-08-31] MEDS: LORATADINE 10 MG TAB PO SCH (08:14)
[2019-08-31] MEDS: PERCOCET 5MG/325MG TAB PO PRN (08:14)
[2019-08-31] MEDS: METOPROLOL TART 25 MG TABLET PO SCH (08:15)
[2019-08-31] MEDS: CLOPIDOGREL 75 MG TAB PO SCH (08:16)
[2019-08-31] MEDS: OMEPRAZOLE 20 MG CAP PO SCH (08:16)
[2019-08-31] MEDS: cloNIDine 0.1 MG TAB PO SCH (08:16)
[2019-08-31] MEDS: HumaLOG INSULIN (NovoLOG) PER UNIT SC SCH ×2 (08:54→12:32)
--- NOTE | 2019-08-31 09:55 | IPNPDOC ---
Date Seen The patient was seen on 08/31/19. Progress Note Patient seen and examined this morning. She is doing well and her foot is warm hyperemic and well perfused. Biphasic signals are noted at the left PT and DP. Her calf is soft. She still complaining of leg pain, shooting burning down to her foot which we have felt was neurogenic, but exacerbated by arterial insufficiency prior to revascularization. Yesterday, I placed an order for the patient to be out of bed for meals 3 times a day, but she was not gotten up to a chair even one time, so we reiterated with the nurses this morning that this is a very important. I think this might help her lower back as she has been in bed for days, and I think repositioning might help some of her pain. I also think we should continue with physical therapy and other her hemoglobin has improved status post 2 units of blood yesterday. Her platelet count has remained stable throughout in the 200 to 230 range, so I do not think she has had any significant active bleeding, but I do think she was equilibrating after her thrombolysis procedure. We will continue with 2 mg a day of Coumadin since her INR seems to be coming up nicely, with an ultimate goal of 2.5-3.5. Hopefully we'll be able to stop her heparin drip tomorrow if she is greater than 2.2, and she can come up the rest of the way at home. She would like to go home, that I think she needs a little more physical therapy and occupational therapy. The nurses have told me that she is able to walk to the commode and able to stand on her left leg without any difficulties, which is a good sign that she will recover nicely. I do think it is fine to transfer her to the floor today if desired. I do recommend that she see someone for her lower back problems and her neuropathic pain in the left leg as an outpatient now that her arterial deficiency has been removed as a confounding factor, and we talked about that at length again today. Unfortunately, with the coronavirus, this may be put on hold for a bit. We will see how she does overnight, with physical therapy and occupational therapy, getting out of bed to the chair, with pain control, with her INR, and with her left lower extremity perfusion and possibly home tomorrow. VS, I&O, 24H, Fishbone Vital Signs/I&O Vital Signs Date Time Temp Pulse Resp B/P (MAP) Pulse Ox O2 Delivery O2 Flow Rate FiO2 08/31/19 08:54 15 08/31/19 08:16 198/91 08/31/19 08:15 72 08/31/19 08:14 Room Air 08/31/19 08:00 97.7 98 08/28/19 20:15 2 I&O- Last 24 Hours up to 6 AM 08/31/19 05:59 Intake Total 2460 ml Output Total 1275 ml Balance 1185 ml Laboratory Data 24H LABS Laboratory Tests 2 08/30/19 12:37: Bedside Glucose (Misc Panel) 211H 08/30/19 14:12: Activated Partial Thromboplast Time 86.1H 08/30/19 16:59: Bedside Glucose (Misc Panel) 98 08/30/19 20:00: Activated Partial Thromboplast Time 55.3H, Nucleated Red Blood Cells % (auto) 0.0 08/30/19 20:05: Bedside Glucose (Misc Panel) 202H 08/31/19 03:00: Nucleated Red Blood Cells % (auto) 0.0, Prothrombin Time 21.7H, Prothromb Time International Ratio 1.92, Activated Partial Thromboplast Time 92.7H, Anion Gap 5L, Glomerular Filtration Rate 57.2, Calcium Level 8.8 08/31/19 07:29: Bedside Glucose (Misc Panel) 159H 08/31/19 08:47: Activated Partial Thromboplast Time 65.1H CBC/BMP Laboratory Tests 08/30/19 20:00 08/31/19 03:00 HORTENCIA GREENBERG MD Aug 31, 2019 09:55
--- NOTE | 2019-08-31 10:28 | IPNPDOC ---
Date Seen The patient was seen on 08/31/19. Progress Note SUBJECTIVE: She seen examined at bedside. Patient plains of left leg pain but otherwise denies fever, chills, chest pain, difficulty breathing, nausea, vomiting, abdominal pain, dysuria, diarrhea. Patient otherwise feeling well today. OBJECTIVE PHYSICAL EXAMINATION: VITAL SIGNS: Please see below. GENERAL: sitting up in chair in no acute distress, pleasant on interview, LIJ line in place CARDIOVASCULAR: Irregularly irregular, normal S1, S2, + murmur, no or RG RESPIRATORY: CTA B/L, no W/R/R ABDOMINAL: Soft, nontender, nondistended EXTREMITIES: Nonpalpable distal pulses, + bilateral lower extremity edema SKIN: No rashes or skin breakdown appreciated. NEUROLOGICAL: No focal deficits, normal speech PSYCHOLOGICAL: AAO 3, appropriate LABORATORY DATA, IMAGING STUDIES, MICROBIOLOGY: Please see below. DVT prophylaxis ordered?: on heparin drip ASSESSMENT AND PLAN: This is a 74 YO F with history of HTN, T2DM, PVD and atherosclerosis who presents with left foot pain. She is POD #2 s/p aortofemoral arteriogram found to have occlusion of the SFA status post tPA. Patient doing well. Plan discussed with patient regarding bypass surgery and decision made to delay surgery for now. Coumadin and Plavix restarted. Patient will be bridged on heparin drip. Patient also with soft BPs in the setting of HTN medication as well as pain medication. BP meds adjusted with improvement in BP. Pt recieved 2U PRBCs in the setting of blood loss anemia after procedure with good effect. INR elevating n icely so will cont. coumadin with goal 2.5-3.5. Given improvement pt may be able to be discharged home tomorrow pending PT evaluation. PROBLEMS: #Peripheral vascular disease and acute occlusion of SFA in Left leg: - appreciate Dr. Castro consult. POD #4 s/p thrombolysis of SFA given reocclusion of SFA stent, popliteal artery, and embolic thrombi noted in 3 tibial vessels -Continue heparin drip while transitioning to coumadin (goal 2.5-3.5), check INR daily -Pain management with Tylenol, Valium, Morphine, Percocet -plan to delay bypass surgery until pt stronger #blood loss anemia -in the setting of recent procedure -s/p two units PRBCs -repeat CBC shows appropriate bump -will cont. to monitor #Hypotension -BPs had been soft in the setting of BP meds, beta cynthia therapy and pain m edications -BP now elevated therefore will increase catapres back to 0.2 BID and cont. to monitor -Trend BP #Acute non anion gap metabolic acidosis: -Patient found to have elevated Chloride and low bicarb in setting of recent NS fluid administration -NS IVF changed to LR. Trend BMP #Hypomagnesemia: Resolved -Mag stable #Severe asymptomatic hypertension: Resolved -Continue IV hydralazine with hold parameters -Continue Norvasc, clonidine #T2DM: - Transition to Levemir 12U qHS + SSI due to consistently in range FSG with only evening doses of levemir. Suspect pt not eating what she eats at home leading to lower blood sugars #Atrial fibrillation: HR controlled at this point in time -Continue Metoprolol -Currently anticoagulated with heparin drip DISPOSITION: Transition to floor today with plan for possible discharge tomorrow pending evaluation by PT VS, I&O, [facility] Vital Signs/I&O Vital Signs Date Time Temp Pulse Resp B/P (MAP) Pulse Ox O2 Delivery O2 Flow Rate FiO2 08/31/19 08:54 15 08/31/19 08:16 198/91 08/31/19 08:15 72 08/31/19 08:14 Room Air 08/31/19 08:00 97.7 98 08/28/19 20:15 2 I&O- Last 24 Hours up to 6 AM 08/31/19 06:00 Intake Total 2407 ml Output Total 1275 ml Balance 1132 ml Laboratory Data 24H LABS Laboratory Tests 2 08/30/19 12:37: Bedside Glucose (Misc Panel) 211H 08/30/19 14:12: Activated Partial Thromboplast Time 86.1H 08/30/19 16:59: Bedside Glucose (Misc Panel) 98 08/30/19 20:00: Activated Partial Thromboplast Time 55.3H, Nucleated Red Blood Cells % (auto) 0.0 08/30/19 20:05: Bedside Glucose (Misc Panel) 202H 08/31/19 03:00: Nucleated Red Blood Cells % (auto) 0.0, Prothrombin Time 21.7H, Prothromb Time International Ratio 1.92, Activated Partial Thromboplast Time 92.7H, Anion Gap 5L, Glomerular Filtration Rate 57.2, Calcium Level 8.8 08/31/19 07:29: Bedside Glucose (Misc Panel) 159H 08/31/19 08:47: Activated Partial Thromboplast Time 65.1H CBC/BMP Laboratory Tests 08/30/19 20:00 08/31/19 03:00 CYNTHIA GALLEGOS MD Aug 31, 2019 10:28
[2019-08-31] MEDS ORDERED: cloNIDine 0.1 MG TAB PO ONE (10:30)
[2019-08-31] MEDS: NS 1,000 ML IV SCH (11:42)
[2019-08-31] MEDS ORDERED: INSUHUMDS SC (13:10)
[2019-08-31] MEDS ORDERED: DIAZ5TAB PO (13:10)
[2019-08-31] MEDS ORDERED: HEPA1INJ81 IV (13:10)
[2019-08-31] MEDS ORDERED: METO1TAB87 PO (13:10)
[2019-08-31] MEDS ORDERED: PERCOCET PO (13:10)
[2019-08-31] MEDS ORDERED: INSUDET SC (13:10)
[2019-08-31] MEDS ORDERED: PREVINJ2 IM (13:10)
[2019-08-31] MEDS ORDERED: COUM2TAB22 PO (13:10)
[2019-08-31] MEDS ORDERED: cloNIDine 0.2 MG TAB PO SCH (21:00)
[2019-09-04] MEDS ORDERED: OXYC-517 PO (11:31)
[2019-09-04] MEDS ORDERED: AMIT25TA PO (11:31)
[2019-09-04] MEDS ORDERED: OMEP-218 PO (11:31)
[2019-09-04] MEDS ORDERED: ENAL10TA2 PO (11:31)
[2019-09-04] MEDS ORDERED: CATA0.2T PO (11:31)
[2019-09-04] MEDS ORDERED: CLAR10TA7 PO (11:31)
[2019-09-04] MEDS ORDERED: METO1TAB87 PO (11:31)
[2019-09-04] MEDS ORDERED: INSUDET SC (11:31)
[2019-09-04] MEDS ORDERED: ADVA230A INH (11:31)
[2019-09-04] MEDS ORDERED: PARO5TAB PO (11:31)
[2019-09-04] MEDS ORDERED: CLOP75TA2 PO (11:31)
[2019-09-04] MEDS ORDERED: COUM2TAB22 PO (11:31)
[2019-09-04] MEDS ORDERED: INSUHUMDS SC (11:31)
== END 2019-08-31 14:54 | DRG 253 ==
LOC: M IRPRO 08:38 → M ICU 14:55
PROVIDERS: ADMIT Surgery Vascular Surgery; ATTEND Surgery Vascular Surgery
PROC: 047N3ZZ Dilation of Left Popliteal Artery, Percutaneous Approach (ICD-10-PCS; 2019-08-27)
PROC: 3E05317 Introduction of Other Thrombolytic into Peripheral Artery, Percutaneous Approach (ICD-10-PCS; 2019-08-27)
PROC: B41D1ZZ Fluoroscopy of Aorta and Bilateral Lower Extremity Arteries using Low Osmolar Contrast (ICD-10-PCS; 2019-08-27)
PROC: 02HV33Z Insertion of Infusion Device into Superior Vena Cava, Percutaneous Approach (ICD-10-PCS; 2019-08-27)
PROC: B548ZZA Ultrasonography of Superior Vena Cava, Guidance (ICD-10-PCS; 2019-08-27)
PROC: B41D1ZZ Fluoroscopy of Aorta and Bilateral Lower Extremity Arteries using Low Osmolar Contrast (ICD-10-PCS; 2019-08-27)
PROC: 3E05317 Introduction of Other Thrombolytic into Peripheral Artery, Percutaneous Approach (ICD-10-PCS; 2019-08-27)
PROC: 047L3ZZ Dilation of Left Femoral Artery, Percutaneous Approach (ICD-10-PCS; principal; 2019-08-27 09:30)
PROC: 047S3ZZ Dilation of Left Posterior Tibial Artery, Percutaneous Approach (ICD-10-PCS; 2019-08-28)
PROC: 047Q3ZZ Dilation of Left Anterior Tibial Artery, Percutaneous Approach (ICD-10-PCS; 2019-08-28)
PROC: 047L3DZ Dilation of Left Femoral Artery with Intraluminal Device, Percutaneous Approach (ICD-10-PCS; 2019-08-28)
PROC: 047N3DZ Dilation of Left Popliteal Artery with Intraluminal Device, Percutaneous Approach (ICD-10-PCS; 2019-08-28)
PROC: B41G1ZZ Fluoroscopy of Left Lower Extremity Arteries using Low Osmolar Contrast (ICD-10-PCS; 2019-08-28)
PROC: 3E05317 Introduction of Other Thrombolytic into Peripheral Artery, Percutaneous Approach (ICD-10-PCS; 2019-08-28)
PROC: B41G1ZZ Fluoroscopy of Left Lower Extremity Arteries using Low Osmolar Contrast (ICD-10-PCS; 2019-08-28)
PROC: 30233N1 Transfusion of Nonautologous Red Blood Cells into Peripheral Vein, Percutaneous Approach (ICD-10-PCS; 2019-08-30)
DX: T82.856A Stenosis of peripheral vascular stent, initial encounter (principal); I74.3 Embolism and thrombosis of arteries of the lower extremities; E87.2 Acidosis; D62 Acute posthemorrhagic anemia; I10 Essential (primary) hypertension; Z79.01 Long term (current) use of anticoagulants; E11.9 Type 2 diabetes mellitus without complications; Z79.899 Other long term (current) drug therapy; Z79.4 Long term (current) use of insulin; Z88.2 Allergy status to sulfonamides; E78.5 Hyperlipidemia, unspecified; I48.91 Unspecified atrial fibrillation; I16.0 Hypertensive urgency; E83.42 Hypomagnesemia; Y83.8 Other surgical procedures as the cause of abnormal reaction of the patient, or of later complication, without mention of misadventure at the time of the procedure

== ENCOUNTER → 2019-10-19 | Outpatient (CLI) | payer MEDICARE ==
[~2019-10-19] MED LIST changes: +ACET-683 PO; +ADVA230A INH; +CATA0.2T PO; +CLAR10TA7 PO; +CLON0.2T PO; +COUM2TAB22 PO; +DIAZ5TAB PO; +ENAL10TA2 PO; +HEPA1INJ81 IV; +METO1TAB87 PO; +OMEP-218 PO; +OXYC-517 PO; +PARO5TAB PO; +PERCOCET PO; +PREVINJ2 IM; +WARF4TAB51 PO
--- NOTE | 2019-10-19 16:14 | REP ---
REASON: Atherosclerosis with recent stent placement on the left. RIGHT SIDE: The ankle-brachial index is 0.9. 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 ON THE LEFT: The ankle-brachial index is 0.9. PEAK SYSTOLIC VELOCITY PHASICITY RURAL MAIL CONTRACTOR 147.1 cm/s Biphasic SFA proximal 123.7 cm/s Biphasic SFA mid 69.4 cm/s Biphasic SFA distal 51.4 cm/s Biphasic Popliteal 64.8 cm/s Biphasic KT proximal 59.6 cm/s Biphasic Tibioperoneal trunk 64.3 cm/s Biphasic PEDIATRIC DENTAL HYGIENIST proximal 61.8 cm/s Biphasic PEDIATRIC DENTAL HYGIENIST distal 111.3 cm/s Biphasic KT distal 49.6 cm/s Biphasic Stents were seen in the mid and distal superficial femoral artery and in the popliteal artery. The technologist has made note on the worksheet that moderate plaque was seen bilaterally. Electronically Signed by Rafy Sanchez DO 10/19/2019 05:22 P
== END ==
LOC: M RAD 14:32
PROVIDERS: ATTEND Physician Assistant
DX: I70.213 Atherosclerosis of native arteries of extremities with intermittent claudication, bilateral legs (principal)

== ENCOUNTER 2019-12-10 12:45 | Inpatient (IN) | payer MEDICARE ==
[~2019-12-10] VITALS: Ht 162.6 cm; Wt 63.6 kg
[2019-12-10] MEDS ORDERED: D5W/0.45% SODIUM CHLORIDE 1,000 ML IV SCH (15:04)
[2019-12-10] MEDS ORDERED: ACETAMINOPHEN TAB 650MG DOSE (2X325MG) PO PRN (15:15)
--- NOTE | 2019-12-10 15:24 | CR.PDOC ---
General Date of Consultation: Dec 10, [address] Castro HISTORY OF PRESENT ILLNESS: The patient is a 74-year-old female who returns for follow-up of PAD. The patient is S/P Angiogram left lower extremity 08/16/[address] Peralta with popliteal angioplasty/stent, left SFA angioplasty/stent and left common femoral angioplasty. The patient was noted to have recurrent thrombosis of left SFA stents/status post thrombolysis 08/28/[address] 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 The patient returns today for a follow-up appointment with her daughter, she reports she has been having some recurrent left lower extremity pain.. Patient here for aching left leg pain. She states there has been no swelling. Pain tends to radiate to her knee. Sh is concerned about the stents in the left lower extremity. Her daughter states that her foot has been cooler at times than the other. This has been going on for about three weeks now. She states she is taking Tylenol most of the time to manage the pain. The pain does go away when she is laying down, her leg only bothers her when she is up walking around. The pt is a former smoker The pt is on Coumadin/Plavix The pt denies rest pain, TIA, amaurosis fugax, paralysis or paresis of extremities, nausea, vomiting, fever, chills, SOB, chest pain, abdominal pain, back pain. Peripheral Artery Disease /Pad Pulmonary Embolism Anxiety Depression hyperlipidemia Diabetes Hypertension Deep Vein Thrombosis Atrial Fibrillation Surgical Hx: Removal of Gallbladder - 1999 Total Abdominal Hysterectomy - 1995 Hernia Repair - ABDOMINAL 07/30/17 Angiogram - ABDOMINAL [facility] AT [facility] 08/12/17, LEFT LEG 07/2018; LLE 08/28/2019 Arterial Stenting Bilateral Lower Extremities - 07/2017 Left Sfa Stent, Aortoiliofemoral Arteriogram W/ Lle Runoff From Sfa & Popliteal Selec, Angioplasty Sfa And Popliteal Artery FAMILY HISTORY: PAD Hypertension Diabetes SOCIAL HISTORY: Nonsmoker REVIEW OF SYSTEMS: ROS: Const: Denies weight gain and weight loss. Eyes: No vision changes ENMT: Denies hearing loss. Denies congestion. Denies dysphagia. CV: Denies palpitations. Resp: Denies cough and hemoptysis. GI: Denies abdominal pain, constipation, diarrhea, nausea and vomiting. Musculo: Denies myalgia, pain and trouble walking. Skin: Denies skin cancer, rash and wound. Neuro: Denies focal deficit, headache and seizures. Psych: Denies anxiety and depression. Endocrine: Denies change in appetite, hair loss and tremor. Atif/Lymph: Denies anemia and excessive bruising. PHYSICAL EXAMINATION: Exam: Const: Appears healthy and well developed. No signs of apparent distress present. Head/Face: Normal on inspection. ENMT: Tympanic membranes: intact. External nose WNL. Neck: Supple, Resp: No wheezing. Clear to auscultation bilaterally. CV: Rate is regular. Rhythm is regular. Toes of the left foot are slightly cool to touch, there are no wounds. Monophasic DP/PT left lower extremity, popliteal monophasic. Abdomen: Soft, NT, ND, no guarding, rigidity, rebound. No organomegaly or palpable mass/aneurysm. Lymph: No palpable or visible regional lymphadenopathy. Musculo:Gait steady Skin:No rashes or lesions Neuro:Alert and oriented x3, moves all extremities equally, no focal neurologic deficits noted. Psych: Pleasant and cooperative Admission vital signs pending. Admission labs pending. ASSESSMENT/PLAN: Atherosclerosis of [place] arteries of extremities with intermittent claudication, bbilateral legs The patient is S/P Angiogram left lower extremity 08/16/[address] Peralta with popliteal angioplasty/stent, left SFA angioplasty/stent and left common femoral angioplasty. The patient was noted to have recurrent thrombosis of left SFA stents/status post thrombolysis 08/28/[address] 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 Bilateral lower extremity arterial ultrasound 10/19/19 indicated diffusely biphasic waveforms bilaterally, ANGELIC 0.9 bilaterally. Patent stents bilaterally. Over the past few weeks the patient has noted recurrent left lower extremity pain and arranged an appointment today for reevaluation. On exam the patient is noted to have monophasic signals at the left DP/PT and popliteal. Would again recommend consideration of statin therapy, will defer to the patient's PCP. The placenta was sent for stat arterial ultrasound this morning is reviewed with Dr. Castro. This is compared with her last study from 10/19/19 indicating diffusely biphasic waveforms and patent stents in the left lower extremity. Today's study indicates triphasic at the common femoral and profunda, biphasic at the proximal SFA, occlusion at the mid and distal SFA and monophasic from the popliteal distally. This indicates reocclusion of the patient's SFA stents. The patient has been on Coumadin, her daughter states her INR has been therapeutic. Usually her INR runs 2-3, it was up to 5.1 there was a dose adjustment and on 12/04 was 1.5 according to records provided by the patient's daughter. The patient has also been on Plavix. Tentative plan is to arrange for hospitalist admission this afternoon and begin continuous heparin drip. Since the patient is already on Coumadin with therapeutic INR will begin with a lower bolus, 2000 units, then continue with continuous heparin drip per protocol. PTT per protocol. Tentative plan is to proceed with left lower extremity arteriogram this afternoon, possible thrombolysis catheter placement, possible angioplasty/stent. The procedure, risks, benefits and alternatives are reviewed with the patient as per Dr. Castro. Informed consent is obtained and placed with the chart. Transfusion consent is obtained and placed in chart. The patient had a small amount of soup and sandwich for lunch today at [facility] Dr. Castro is aware. NPO currently. Aspirin 81 mg daily. Hold Plavix and Coumadin for now. Admission labs to include CBC, BMP, PTT, INR, type and screen, hemoglobin A1c, ESR, CRP, MOLLY. Vital Signs/I&O Vital signs on admission pending. Laboratory Data Labs 24H Labs on admission pending. Allergies Coded Allergies: Sulfa (Sulfonamide Antibiotics) (Verified Allergy, Unknown, hives, 07/10/19) Home Medications Scheduled Amitriptyline HCl (Amitriptyline HCl) 25 Mg Tablet, 25 MG PO QHS, (Reported) Clonidine HCl (Clonidine HCl) 0.2 Mg Tablet, 0.2 MG PO BID, (Reported) Clopidogrel Bisulfate (Clopidogrel) 75 Mg Tablet, 75 MG PO DAILY, (Reported) Enalapril Maleate (Enalapril Maleate) 10 Mg Tablet, 40 MG PO DAILY, #120 Fluticasone Propion/Salmeterol (Advair Hfa 230-21 Mcg Inhaler) 12 Gm Hfa.aer.ad, 2 PUFF INH BID, #1 Insulin Detemir (Levemir) 100 Unit/1 Ml Vial, 12 UNITS SC QHS for 7 Days, #10 Insulin Human Lispro (Humalog) 100 Unit/1 Ml Vial, 1 DOSE SC AC, (Reported) SLIDING SCALE Loratadine (Loratadine) 10 Mg Tablet, 10 MG PO DAILY for allergy symptoms, (Reported) Metoprolol Tartrate (Metoprolol Tartrate) 25 Mg Tablet, 75 MG PO BID, #180 Omeprazole (Omeprazole) 20 Mg Capsule.dr, 20 MG PO BID, #60 Paroxetine (Paroxetine HCl) 10 Mg Tablet, 10 MG PO DAILY, (Reported) Warfarin Sodium (Coumadin) 2 Mg Tablet, 4.5 MG PO DAILY@1700, #25 Scheduled PRN Acetaminophen (Acetaminophen) 500 Mg Tablet, 500 MG PO Q6H PRN for PAIN, (Reported) Oxycodone HCl (Oxycodone HCl) 5 Mg Tablet, 5 MG PO Q4HP PRN for PAIN, #30 Angelina Baumann Dec 10, 2019 15:24
[2019-12-10] MEDS ORDERED: HEPARIN DRIP 25,000 UNITS in IV 1 EA IV SCH (15:26)
[2019-12-10] MEDS ORDERED: HEPARIN SOD (PORCINE) 5000UNITS/ML VIAL (J1644 PER 1000UNITS) IV ONE (15:30)
[2019-12-10] MEDS ORDERED: HEPARIN SOD (PORCINE) 5000UNITS/ML VIAL (J1644 PER 1000UNITS) IV PRN (15:30)
[2019-12-10 15:57] LABS: HEMATOCRIT 40.3 % (36.0-47.0); HEMOGLOBIN 12.7 g/dl (12.0-15.5); MEAN CORPUSCULAR HEMOGLOBIN 26.4 pg (27.0-33.0); MEAN CORPUSCULAR HGB CONC 31.5 g/dl (32.0-36.5); MEAN CORPUSCULAR VOLUME 83.8 fl (80.0-96.0); PLATELET COUNT, AUTOMATED 320 10^3/uL (150-450); RED BLOOD COUNT 4.81 10^6/uL (4.00-5.40); WHITE BLOOD COUNT 9.8 10^3/uL (4.0-10.0)
[2019-12-10 16:11] LABS: INR 1.6; PARTIAL THROMBOPLASTIN TIME 28.4 SECONDS (25.0-38.4); PROTHROMBIN TIME 18.8 SECONDS (11.8-14.0)
[2019-12-10 16:18] LABS: C REACTIVE PROTEIN QUANTITATIV < 0.30 MG/DL (0.00-0.30)
[2019-12-10] MEDS ORDERED: DEXTROSE 50% 50 ML SYRINGE As Ordered ONE (17:02)
[2019-12-10 17:04] LABS: BLOOD UREA NITROGEN 41 MG/DL (7-18); CALCIUM LEVEL 10.5 MG/DL (8.8-10.2); CARBON DIOXIDE LEVEL 24 MEQ/L (21-32); CHLORIDE LEVEL 109 MEQ/L (98-107); CREATININE FOR GFR 1.31 MG/DL (0.55-1.30); GLOMERULAR FILTRATION RATE 42.4 (>39); GLUCOSE, FASTING 62 MG/DL (70-100); POTASSIUM SERUM 4.4 MEQ/L (3.5-5.1); SODIUM LEVEL 140 MEQ/L (136-145)
[2019-12-10] MEDS ORDERED: LIDOCAINE 1% MDV 20ML VIAL As Ordered ONE ×2 (17:10→17:20)
[2019-12-10] MEDS ORDERED: ISOVUE-300 61% 50ML VIAL As Ordered ONE (17:10)
[2019-12-10] MEDS ORDERED: fentaNYL 100 MCG/2 ML INJECTION (J3010) As Ordered ONE (17:12)
[2019-12-10] MEDS ORDERED: MIDAZOLAM INJ 2MG/2ML VIAL (J2250 PER 1MG) As Ordered ONE (17:12)
[2019-12-10] MEDS ORDERED: VANCOMYCIN 500MG/10ML VIAL As Ordered ONE (18:01)
[2019-12-10] MEDS ORDERED: hydrALAZINE 20MG/ML 1ML VIAL (J0360 PER 20MG) As Ordered ONE (18:05)
[2019-12-10] MEDS: ALTEPLASE RECOMBINANT 25 MG in NS 225 ML IV SCH (18:30)
[2019-12-10] MEDS ORDERED: HEPARIN 25,000 UNITS/250 ML D5W BAG (100 UNITS/ML) (J1644 PER 1000UNITS) As Ordered ONE (18:31)
[2019-12-10] MEDS: HEPARIN DRIP 25,000 UNITS in IV 1 EA IV SCH (18:57)
[2019-12-10] MEDS: NS 1,000 ML IV SCH (19:00)
[2019-12-10] MEDS ORDERED: ONDANSETRON 4MG/2ML VIAL IV PRN (19:15)
--- NOTE | 2019-12-10 19:24 | ROOPDOC ---
[facility] Report Of Operation Report of Operation DATE OF PROCEDURE: 12/10/19 PREPROCEDURE DIAGNOSES: 1. Atherosclerosis of the [place] arteries with recurrent thrombosis left lower extremity 2. Poor IV access POSTPROCEDURE DIAGNOSES: Same PROCEDURE: 1. Ultrasound-guided access left basilic vein 2. Placement of a 42 cm dual lumen PICC line left basilic vein 3. Ultrasound-guided access right common femoral artery 4. Aortoiliofemoral arteriogram 5. Selection left common femoral artery and left lower extremity runoff 6. Selection left popliteal artery and arteriogram 7. Placement of a 50 cm tPA infusion catheter for thrombolysis left common femoral artery to left tibioperoneal trunk SURGEON: Hortencia Castro MD ANESTHESIA: Local anesthesia 19 mL lidocaine. Moderate intravenous conscious sedation was supervised by Dr. Castro. The patient was independent we Mond[place] by registered nurse assigned to the Department of radiology using automated blood pressure, EKG, and pulse oximetry. The details sedation record is permanently stored in the hospital information system. The following is a presedation record: Start time 17:36, stop time 18:39, Versed 1 mg IV, fentanyl 50 g IV, hydralazine 10 mg IV, vancomycin 1 g IV. INDICATION FOR PROCEDURE: This is a very pleasant 74-year-old patient with severe peripheral vascular disease with a history of left lower extremity thrombosis status post thrombolysis, status post angioplasty and stenting, now returning to clinic for follow-up and noted to have occlusion of the left superficial femoral artery. We suspect thrombosis of her stents. Risks benefits and alternatives to a TPA thrombolysis overnight, as well as the PICC line placement for better IV access were explained to the patient. She is agreeable to proceed. Informed consent was obtained. We plan to bring the patient back tomorrow for repeat arteriogram and possible intervention after TPA. INTERPRETATION: 1. Successful placement of left basilic vein PICC line with the tip were freely mobile at the SVC right atrial junction. 2. The aortoiliofemoral segments are widely patent. On the left, the common femoral artery runs off through the profunda, with minimal flow at the origin of the left SFA. The entire SFA is occluded, and reconstitutes below the knee with 3 vessel runoff. The anterior tibial artery does have some thrombus at the origin so runoff is suboptimal through the anterior tibial artery. The main runoff is through the per Posterior tibial artery. REPORT OF OPERATION: The patient was brought to the angiographic suite in stable condition. Her bilateral groins and left upper extremity were prepped and draped in a sterile fashion. A timeout was performed. Sedation and antibiotics were administered without complication. Her left upper extremity was examined with an ultrasound. The basilic vein was selected for PICC line placement. Local anesthesia was a gas station attendant to the skin and subcutaneous tissue. A microneedle was used to access the vein under ultrasound guidance. A wire was passed through this access into the central system under fluoroscopic guidance. Following this, the needle was removed and a peel-away sheath was placed over the wire using a Seldinger technique. The inner cannula was removed after cutting the PICC line to 42 cm. We then placed the PICC line over the wire through the peel-away sheath into the central system under fluoroscopic guidance. The wire was removed and both PICC line ports randall back and flushed easily. They were heparin locked and appropriate caps were placed. The catheter was secured into place and dressed with a sterile dressing. It is okay to use the PICC line. Next, the right groin was anesthetized with local anesthesia and a microneedle was used to access the right common femoral artery under ultrasound guidance. A wire was passed through this access and the needle was removed. A 4 Portuguese sheath was placed and flushed with saline. A Glidewire and flushing catheter were advanced in the distal aorta. And aortoiliofemoral arteriogram was performed. Please see interpretation above. We then went up and over the bifurcation with the Glidewire and the catheter and selected the right common femoral artery. Arteriograms in the left lower extremity were performed. We then exchanged the catheter for a short Gleich cath over the wire and were able to navigate the wire carefully into the origin of the superficial femoral artery. We then utiliz ed a [place] catheter to navigate the wire through to the distal popliteal artery. An arteriogram was performed to confirm we were in the true lumen of the vessel. We then exchanged the sheath for a 45 cm 6 Portuguese destination sheath and flushed the sheath with saline. We then placed a 50 cm infusion catheter over the wire under fluoroscopic guidance until the tip was in the tibioperoneal trunk. Sterile dressings were applied to the catheter and the sheath taking care to secure it in a way that it will not become easily dislodged. We flushed the catheter and began a 1 mg an hour tPA infusion. Through the sheath, we began a 500 units per hour heparin drip infusion. The patient was then taken to the ICU in stable condition. She tolerated the procedure and the sedation well. ESTIMATED BLOOD LOSS: Approximately 5 ML. COMPLICATIONS: None. PLAN: Our plan is to bring the patient back for repeat arteriogram potential intervention tomorrow in the afternoon. We will follow her exam and labs closely. She will have analgesia as needed. She will be on bedrest until her procedure tomorrow. We appreciate the opportunity to participate in the care of this patient. HORTENCIA CASTRO MD Dec 10, 2019 19:24
[2019-12-10] MEDS ORDERED: PILL CUTTER 1 EACH XX PRN (19:45)
[2019-12-10 20:00] VITALS: BP 168/70
[2019-12-10] MEDS ORDERED: GLIP10TA6 PO (20:01)
[2019-12-10] MEDS ORDERED: INSUDET SC (20:01)
[2019-12-10] MEDS ORDERED: WARF4TAB52 PO (20:01)
[2019-12-10] MEDS ORDERED: AMLO10TA5 PO (20:01)
[2019-12-10] MEDS ORDERED: TRUL10IN SC ×2 (20:01)
[2019-12-10] MEDS ORDERED: METO50TA7 PO (20:01)
[2019-12-10] MEDS ORDERED: OMEP1CAP73 PO (20:01)
[2019-12-10] MEDS ORDERED: ENAL20TA PO (20:01)
[2019-12-10] MEDS: HYDROmorphone 2 MG TAB PO PRN (20:04)
--- NOTE | 2019-12-10 20:05 | IPNPDOC ---
Date Seen The patient was seen on 12/10/19. Progress Note POSTOP CHECK: Pt seen and examined. Doing well in ICU. LLE has some pain, pt is getting pain medication now. She was able to urinate no problem with bedpan. No bleeding from catheter sites. She is ready for a snack, and is otherwise doing fine. Went over the orders with the RN and answered all questions. Will check on the patient in the morning. VS, I&O, 24H, Fishbone Vital Signs/I&O Vital Signs Date Time Temp Pulse Resp B/P (MAP) Pulse Ox O2 Delivery O2 Flow Rate FiO2 12/10/19 18:35 63 16 100 Nasal Cannula 2 12/10/19 16:35 97.0 Laboratory Data 24H LABS Laboratory Tests 2 12/10/19 15:40: Nucleated Red Blood Cells % (auto) 0.0, Prothrombin Time 18.8H, Prothromb Time International Ratio 1.60, Activated Partial Thromboplast Time 27.6, Anion Gap 7L, Glomerular Filtration Rate 42.4, Estimated Mean Plasma Glucose 154H, Hemoglobin A1c 7.0, Calcium Level 10.5H, C-Reactive Protein, Quantitative < 0.30 12/10/19 16:57: Bedside Glucose (Misc Panel) 55L 12/10/19 16:59: Bedside Glucose (Misc Panel) 52L CBC/BMP Laboratory Tests 12/10/19 15:40 HORTENCIA GREENBERG MD Dec 10, 2019 20:05
[2019-12-10 21:00] VITALS: BP 153/70
[2019-12-10] MEDS: LEVEMIR (INSULIN DETEMIR) 1 UNITS/0.01ML SC SCH (21:00)
[2019-12-10] MEDS ORDERED: cloNIDine 0.2 MG TAB PO SCH (21:00)
[2019-12-10 22:00] VITALS: BP 179/79
[2019-12-10] MEDS: cloNIDine 0.1 MG TAB PO SCH (22:04)
[2019-12-10] MEDS: diazePAM 5 MG TAB PO PRN (22:04)
[2019-12-10] MEDS: METOPROLOL TART 50 MG TAB PO SCH (22:04)
[2019-12-10] MEDS: AMITRIPTYLINE 25 MG TAB PO SCH (22:10)
[2019-12-10 23:00] VITALS: BP 173/74
[2019-12-10] MEDS ORDERED: GLUCOSE 4GM CHEW TABLET PO PRN (23:15)
[2019-12-10] MEDS ORDERED: DEXTROSE 50% 50 ML SYRINGE IV PRN (23:15)
[2019-12-10] MEDS ORDERED: GLUCAGON INJ 1MG VIAL SC PRN (23:15)
[2019-12-10] MEDS: PERCOCET 5MG/325MG TAB PO PRN (23:30)
[2019-12-10 23:38] LABS: HEMATOCRIT 39.5 % (36.0-47.0); HEMOGLOBIN 12.8 g/dl (12.0-15.5); MEAN CORPUSCULAR HEMOGLOBIN 26.4 pg (27.0-33.0); MEAN CORPUSCULAR HGB CONC 32.4 g/dl (32.0-36.5); MEAN CORPUSCULAR VOLUME 81.4 fl (80.0-96.0); PLATELET COUNT, AUTOMATED 313 10^3/uL (150-450); RED BLOOD COUNT 4.85 10^6/uL (4.00-5.40); WHITE BLOOD COUNT 15.5 10^3/uL (4.0-10.0)
[2019-12-11] VITALS (15 sets, daily range): BP systolic 98–202; BP diastolic 53–86
--- NOTE | 2019-12-11 00:58 | REP ---
LEFT LOWER EXTREMITY DUPLEX DOPPLER ARTERIAL ULTRASOUND: Real-time ultrasound evaluation and duplex Doppler interrogation of left lower extremity arterial system is performed. Moderate plaquing is seen in the left common femoral artery. There is occlusion of the proximal superficial femoral artery just proximal to a stent in place. There is occlusion of the stent to the popliteal region, where there is revascularization via a collateral vessel just before the distal anastomosis with the [place] popliteal artery. Another collateral vessel revascularizes the [place] popliteal artery distal to the stent. There are very small calf arteries with very slow flow velocities. The distal anterior tibial artery is occluded. Posterior tibial artery appears to be the only vessel supplying the left foot. LEFT PEAK SYSTOLIC VELOCITY PHASICITY Common femoral artery 97 cm/s Triphasic Profunda 103 cm/s Triphasic Proximal SFA 37 cm/s Biphasic Mid SFA Occluded Distal SFA Occluded Popliteal 16 cm/s Monophasic Proximal KT 5 cm/s Monophasic Tibioperoneal trunk 16 cm/s Monophasic Proximal SHOTBLASTER 20 cm/s Monophasic Distal SHOTBLASTER 13 cm/s Monophasic Distal KT Occluded Electronically Signed by Master Davila MD 12/11/2019 11:32 P
[2019-12-11] MEDS ORDERED: BISACODYL 10 MG SUPP PR PRN (01:30)
[2019-12-11] MEDS: HYDROmorphone 2 MG TAB PO PRN (04:20)
[2019-12-11 05:42] LABS: HEMATOCRIT 36.4 % (36.0-47.0); HEMOGLOBIN 11.7 g/dl (12.0-15.5); MEAN CORPUSCULAR HEMOGLOBIN 26.8 pg (27.0-33.0); MEAN CORPUSCULAR HGB CONC 32.1 g/dl (32.0-36.5); MEAN CORPUSCULAR VOLUME 83.5 fl (80.0-96.0); PLATELET COUNT, AUTOMATED 282 10^3/uL (150-450); RED BLOOD COUNT 4.36 10^6/uL (4.00-5.40); WHITE BLOOD COUNT 12.1 10^3/uL (4.0-10.0)
[2019-12-11 06:06] LABS: CALCIUM LEVEL 9.7 MG/DL (8.8-10.2); CREATININE FOR GFR 1.16 MG/DL (0.55-1.30); GLOMERULAR FILTRATION RATE 48.8 (>39); POTASSIUM SERUM 4.5 MEQ/L (3.5-5.1)
[2019-12-11] MEDS: amLODIPine 10 MG TAB PO SCH (09:00)
[2019-12-11] MEDS: ENALAPRIL MALEATE 10 MG TAB PO SCH (09:00)
[2019-12-11] MEDS: LEVEMIR (INSULIN DETEMIR) 1 UNITS/0.01ML SC SCH ×2 (09:00→20:44)
[2019-12-11] MEDS: METOPROLOL TART 50 MG TAB PO SCH ×3 (09:00→23:08)
[2019-12-11] MEDS: cloNIDine 0.1 MG TAB PO SCH ×3 (09:00→23:09)
[2019-12-11] MEDS: LORATADINE 10 MG TAB PO SCH (09:07)
[2019-12-11] MEDS: PARoxetine 10MG TABLET PO SCH (09:07)
[2019-12-11] MEDS: ASPIRIN 81 MG ENTERIC TAB PO SCH (09:07)
[2019-12-11] MEDS: OMEPRAZOLE 20 MG CAP PO SCH (09:07)
[2019-12-11] MEDS: NS 1,000 ML IV SCH (09:56)
[2019-12-11 10:56] LABS: HEMATOCRIT 33.9 % (36.0-47.0); HEMOGLOBIN 10.8 g/dl (12.0-15.5); MEAN CORPUSCULAR HEMOGLOBIN 26.8 pg (27.0-33.0); MEAN CORPUSCULAR HGB CONC 31.9 g/dl (32.0-36.5); MEAN CORPUSCULAR VOLUME 84.1 fl (80.0-96.0); PLATELET COUNT, AUTOMATED 243 10^3/uL (150-450); RED BLOOD COUNT 4.03 10^6/uL (4.00-5.40); WHITE BLOOD COUNT 10.5 10^3/uL (4.0-10.0)
--- NOTE | 2019-12-11 13:16 | IPNPDOC ---
Text Note Date of Service The patient was seen on 12/11/19. NOTE Vascular surgery. Dr. Castro The patient is a 74-year-old female with history of Angiogram left lower extremity 08/16/[address] Peralta with popliteal angioplasty/stent, left SFA angioplasty/stent and left common femoral angioplasty. The patient was noted to have recurrent thrombosis of left SFA stents/status post thrombolysis 08/28/[address] Castro with stenting distal SFA, popliteal, angioplasty VP PRODUCTION, plantar artery, and KT. Admitted yesterday with recurrent left lower extremity pain, now undergoing thrombolysis left common femoral artery to left tibioperoneal trunk. Patient states she is having some left heel pain. The toes of the left foot are cool to touch. I'm able to get a Doppler signal at the left PT however I'm unable to obtain DP. Catheter right groin in place with no bleeding. Hemoglobin is 10.8, from baseline of 12.7. Continue to monitor. Plan is for angiogram left lower extremity as per Dr. Castro later today. Aspirin 81 mg. Coumadin/Plavix is on hold. Patient continues on IV heparin/alteplase. VS,Fishbone, I+O VS, Fishbone, I+O Laboratory Tests 12/10/19 15:40 12/10/19 23:19 12/11/19 05:30 12/11/19 10:44 Vital Signs Date Time Temp Pulse Resp B/P (MAP) Pulse Ox O2 Delivery O2 Flow Rate FiO2 12/11/19 12:00 98.0 63 18 118/59 (78) 96 Room Air 12/10/19 20:35 18.0 I&O- Last 24 Hours up to 6 AM 12/11/19 06:00 Intake Total 625 ml Output Total 850 ml Balance -225 ml Angelina Baumann Dec 11, 2019 13:16
[2019-12-11] MEDS ORDERED: ISOVUE-300 61% 50ML VIAL As Ordered ONE (13:40)
[2019-12-11] MEDS ORDERED: LIDOCAINE 1% MDV 20ML VIAL As Ordered ONE (13:40)
--- NOTE | 2019-12-11 13:45 | IPNPDOC ---
Text Note Date of Service The patient was seen on 12/11/19. NOTE Subjective: Patient does not offer any complaints this am. says her leg hurts only when she walks. At rest it feels ok. She did mention that it feels cooler sometimes. No fever ro chills, no chest pain ro sob, no abdominal pain, nausea or vomiting or diarrhea. Physical Exam: Vitals: As below Const: Appears healthy and well developed. No signs of apparent distress present. HEENT: Normocephalic, atraumatic, moist mucous membranes, External nose WNL. Neck: Supple, Resp: No wheezing. Clear to auscultation bilaterally. CV: Rate is regular. Rhythm is regular. Toes of the left foot are slightly cool to touch, there are no wounds. Abdomen: Soft, NT, ND, no guarding, rigidity, rebound. No organomegaly or palpable mass/aneurysm. Lymph: No palpable or visible regional lymphadenopathy. Skin:No rashes or lesions Neuro:Alert and oriented x3, moves all extremities equally, no focal neurologic deficits noted. Psych: Pleasant and cooperative Labs and radiology: reviewed. Assessment and Plan: 74 year old female with PMH of Peripheral Artery Disease with angioplasties and stents in bilateral lower extremities, with recurrent thrombosis of left SFA stents/status post thrombolysis 08/28/[address] Castro with stenting distal SFA, popliteal, angioplasty Post Tibial A, plantar artery, and Ant Tibial A. Also has H/O DVT and Pulmonary Embolism on coumadin, Anxiety, Depression, hyperlipidemia, Diabetes, Hypertension, chronic Atrial Fibrillation with chronic left leg claudication worse over the past 3 weeks with some what cooler left leg than the right. Came to see Dr Lew on 12/10/19 for this new symptoms. Urgent Arterial Doppler study showed triphasic at the common femoral and profunda, biphasic at the proximal SFA, occlusion at the mid and distal SFA and monophasic from the popliteal distally. This indicates reocclusion of the patient's SFA stents. Patient was admitted to the hospitalist service and taken to IR suite on 12/10/19 and had Aortoili ofemoral arteriogram and left leg arteriogram showed occlusion of the entire SFA, anterior tibial artery with some thrombus at the origin so runoff is suboptimal through the anterior tibial artery. She was started on intraarterial thrombolysis left common femoral artery to left tibioperoneal trunk with Plan to be taken back to OR in 24 hours for further intervention. PAD with Left SFA occlusion and an left anterior tibial thrombus on Intraarterial heparin and alteplase. Going to OR today for further intervention Management as per vascular. Hold coumadin percocet, asa. Plavix on hold. DM will hold glipizide and insulin this am as NPO for procedure. monitor FS. Chronic afib continue metoprolol. coumadin on hold. DVT/PE coumadin on hold as on heparin and alteplase will have to bridge with heparin / lovenox when restarting coumadin after cleared by vascular. PT /INR daily. Hypertension BP low normal today amlodipine, clonidine, enalapril on hold. continue metoprolol. Anxiety/depression paroxetine VS,Fishbone, I+O VS, Fishbone, I+O Laboratory Tests 12/10/19 15:40 12/10/19 23:19 12/11/19 05:30 12/11/19 10:44 Vital Signs Date Time Temp Pulse Resp B/P (MAP) Pulse Ox O2 Delivery O2 Flow Rate FiO2 12/11/19 12:00 98.0 63 18 118/59 (78) 96 Room Air 12/10/19 20:35 18.0 I&O- Last 24 Hours up to 6 AM 12/11/19 05:59 Intake Total 565 ml Output Total 750 ml Balance -185 ml GLENDY FLORES MD Dec 11, 2019 13:45
[2019-12-11] MEDS ORDERED: fentaNYL 100 MCG/2 ML INJECTION (J3010) As Ordered ONE (15:47)
[2019-12-11] MEDS ORDERED: MIDAZOLAM INJ 2MG/2ML VIAL (J2250 PER 1MG) As Ordered ONE (15:48)
--- NOTE | 2019-12-11 16:46 | ROOPDOC ---
[facility] Operation Report of Operation DATE OF PROCEDURE: 12/11/19 PREPROCEDURE DIAGNOSES: Atherosclerosis of the [place] arteries with subacute thrombosis of the left superficial femoral artery and proximal popliteal artery status post TPA thrombolysis catheter placement yesterday 12/10/2019 POSTPROCEDURE DIAGNOSES: Same PROCEDURE: 1. Planned repeat arteriogram left lower extremity 2. Continuation of TPA thrombolysis SURGEON: Hortencia Castro MD ANESTHESIA: No anesthesia was used for this procedure. We did the arteriogram through the existing sheath and no new access was placed. INDICATION FOR PROCEDURE: This is a very pleasant 74-year-old patient with a long-standing history of severe lower extremity peripheral vascular disease and a history of many failed revascularizations with other providers in the past, and a few months ago we did a thrombolysis of the left lower extremity with superficial femoral artery stent placement. The patient did very well until 2-3 weeks ago when she started developing increased claudication and pain in the left lower extremity. Unfortunately, she did not seek evaluation until yesterday, and we saw her in clinic and sent her for an urgent arterial duplex. That imaging revealed that the superficial femoral artery was occluded. Arteriogram confirmed this, but didn't give her some hope since the distal popliteal artery and the tibial vessels were patent. We placed a thrombolysis catheter from the left common femoral artery down to the left popliteal artery and she has been undergoing TPA thrombolysis for the past 24 hours. We bring her back today for a planned repeat arteriogram. Unfortunately, her foot does not look much better today than it did yesterday, so we may be only taking an art eriogram and then continuing the TPA thrombolysis. I discussed this with her and she is agreeable. Informed consent was obtained. INTERPRETATION: 1. Left lower extremity arteriogram reveals no improvement in the occlusion of the left superficial femoral artery and proximal popliteal artery, and likely the thrombus is more chronic than we suspected. There is still excellent runoff through the distal popliteal artery and the tibial vessels. REPORT OF OPERATION: The patient was brought to the angiographic suite in stable condition. Her right catheter ports were prepped and draped in a sterile fashion. A timeout was performed. No anesthesia was needed for the procedure. An arteriogram was performed first through the right femoral sheath which has selected the left common femoral artery. We then performed an arteriogram through the TPA thrombolysis catheter itself. Please see interpretation above. We then sterilely cleaned the ports and again hooked up to heparin drip to the sheath and the TPA to the thrombolysis catheter. The patient was then taken back to the ICU in stable condition. ESTIMATED BLOOD LOSS: None. COMPLICATIONS: None. PLAN: We will continue TPA thrombolysis overnight. We will continue to watch the patient's fibrinogen. I suspect the thrombus in her left superficial femoral artery is more chronic than we initially thought. It is possible TPA will not be successful. The patient does have an option for femoral to below-knee popliteal bypass. I discussed with her that if we are not able to open up the superficial femoral artery with thrombolysis, one option would be the bypass, the other option if she wanted to avoid surgery would be to continue with the limited blood flow she has through collateral circulation from her profunda. For now, we are hopeful that a little additional time with TPA thrombolysis will help dissolve the SFA thrombus. We will plan to bring the patient back tomorrow for repeat arteriogram and further recommendations to follow imaging. We appreciate the opportunity to participate in the care of this patient. HORTENCIA CASTRO MD Dec 11, 2019 16:46
[2019-12-11] MEDS: PERCOCET 5MG/325MG TAB PO PRN ×2 (16:55→20:43)
[2019-12-11] MEDS: ALTEPLASE RECOMBINANT 25 MG in NS 225 ML IV SCH (17:18)
[2019-12-11] MEDS: HEPARIN DRIP 25,000 UNITS in IV 1 EA IV SCH (17:19)
[2019-12-11] MEDS: AMITRIPTYLINE 25 MG TAB PO SCH (20:39)
[2019-12-11 23:30] LABS: HEMATOCRIT 34.3 % (36.0-47.0); HEMOGLOBIN 10.9 g/dl (12.0-15.5); MEAN CORPUSCULAR HEMOGLOBIN 26.8 pg (27.0-33.0); MEAN CORPUSCULAR HGB CONC 31.8 g/dl (32.0-36.5); MEAN CORPUSCULAR VOLUME 84.5 fl (80.0-96.0); PLATELET COUNT, AUTOMATED 226 10^3/uL (150-450); RED BLOOD COUNT 4.06 10^6/uL (4.00-5.40); WHITE BLOOD COUNT 10.3 10^3/uL (4.0-10.0)
[2019-12-12] VITALS (18 sets, daily range): BP systolic 142–196; BP diastolic 65–93
[2019-12-12] MEDS: NS 1,000 ML IV SCH (04:43)
[2019-12-12] MEDS: PERCOCET 5MG/325MG TAB PO PRN ×3 (05:29→20:09)
[2019-12-12 05:41] LABS: BASO # 0.1 10^3/uL (0.0-0.2); BASO % 0.7 % (0.0-1.0); EOS # 0.5 10^3/uL (0.0-0.5); EOS % 4.6 % (0.0-3.0); HEMATOCRIT 34.6 % (36.0-47.0); HEMOGLOBIN 10.8 g/dl (12.0-15.5); LYMPH # 4.6 10^3/uL (1.5-5.0); LYMPH % 47.1 % (24.0-44.0); MEAN CORPUSCULAR HEMOGLOBIN 26.5 pg (27.0-33.0); MEAN CORPUSCULAR HGB CONC 31.2 g/dl (32.0-36.5); MEAN CORPUSCULAR VOLUME 84.8 fl (80.0-96.0); MONO # 0.6 10^3/uL (0.0-0.8); MONO % 5.8 % (0.0-5.0); NEUTROPHILS % 41.6 % (36.0-66.0); PLATELET COUNT, AUTOMATED 209 10^3/uL (150-450); RED BLOOD COUNT 4.08 10^6/uL (4.00-5.40); WHITE BLOOD COUNT 9.7 10^3/uL (4.0-10.0)
[2019-12-12 05:56] LABS: INR 1.47; PROTHROMBIN TIME 17.6 SECONDS (11.8-14.0)
[2019-12-12 05:57] LABS: PARTIAL THROMBOPLASTIN TIME 35.9 SECONDS (25.0-38.4)
[2019-12-12 06:02] LABS: BLOOD UREA NITROGEN 22 MG/DL (7-18); CALCIUM LEVEL 9.5 MG/DL (8.8-10.2); CARBON DIOXIDE LEVEL 23 MEQ/L (21-32); CHLORIDE LEVEL 112 MEQ/L (98-107); CREATININE FOR GFR 0.92 MG/DL (0.55-1.30); GLOMERULAR FILTRATION RATE > 60.0 (>39); GLUCOSE, FASTING 116 MG/DL (70-100); POTASSIUM SERUM 4.7 MEQ/L (3.5-5.1); SODIUM LEVEL 143 MEQ/L (136-145)
--- NOTE | 2019-12-12 07:37 | HPE ---
DATE OF ADMISSION: 12/10/2019 CHIEF COMPLAINT: Left leg pain and cold leg. 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 Patient said that the pain never stopped, and about 2 weeks ago she noted that her leg on the left kept bothering her and unable to ambulate without significant pain. She has also noted that the foot and the leg turn very cold and bluish in color. When she gets out of bed, she has a significant amount of pain. She is able to go down stairs. She has been taking Tylenol every 4 hours. Her leg has been cold to touch. She otherwise usually walks unassisted outdoors and usually tends to her garden with her daughter. Her daughter and have recently moved in. She had recently moved in with her daughter and her son-in-law. On routine followup today, vascular surgery was concerned about stenosis of the recent stent. She was emergently admitted and sent to interventional radiology to evaluate for ischemic lower extremity. Patient has no other complaints. PAST MEDICAL HISTORY: 1. Deep vein thrombosis (DVT). 2. Atrial fibrillation. 3. Posterior-anterior (PA). 4. Pulmonary embolism (PE). 5. Anxiety and depression. 6. Hyperlipidemia. 7. Hyperlipidemia. 8. Diabetes. 9. Hypertension. PAST SURGICAL HISTORY: 1. Angioplasty of left lower extremity in July 2018. 2. Popliteal angioplasty and stent placement. 3. Left SFA angioplasty and stent. 4. Left common femoral angioplasty. 5. Total abdominal hysterectomy in 1995. 6. Cholecystectomy in 1999. ALLERGIES: SULFA. HOME MEDICATIONS: - acetaminophen 500 every 6 as needed - Plavix 75 daily - Lispro insulin - warfarin 3.5 every evening - Trulicity 0.75 mg subcutaneous weekly - glipizide 10 mg twice a day - amitriptyline 25 mg at bedtime - amlodipine 10 mg daily - clonidine 0.2 twice a day - enalapril 40 daily - Levemir 8 units subcutaneous twice a day - loratadine 10 daily - metoprolol 50 twice a day - omeprazole 20 daily - paroxetine 10 mg daily SOCIAL HISTORY: Patient said she quit smoking 53 years ago. Only smoked a pack a day for about a year. No alcohol use. She is retired. 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 Took care of her children. Healthcare proxies are daughters Laura and Tennille. Laura's phone number is . FAMILY HISTORY: Mother had breast cancer and at the age of 59. Father in his late 80s. Had problems with his veins. She currently has 11 children. Her sister in her 40s with coronary artery disease (CAD) and myocardial infarction ([place]). One brother got into an accident with a gunshot at the age of 16. Another brother with heart problems. REVIEW OF SYSTEMS: Per history of present illness (HPI). A 12-point system otherwise negative. PHYSICAL EXAMINATION: Temperature 97, pulse 59, respiratory rate 18, 97% on room air, blood pressure 179/79. GENERAL: Patient is awake, alert, oriented to person, place, and time, answering questions appropriately. No jugular venous distention (JVD). No thyromegaly. Poor dentition with missing teeth. Appears disheveled. No cervical lymphadenopathy. LUNGS: Clear to auscultation. No wheezes, rales, or rhonchi. HEART: S1, S2, sinus rhythm. No murmurs, rubs, or gallops. ABDOMEN: Soft, nontender, nondistended. Positive bowel sounds. EXTREMITIES: Patient's left foot is cool to touch. Diminished pulse, dorsalis pedis, posterior tibialis. No venous ulcers. LABORATORY DATA: White count 9.8, hemoglobin 12, hematocrit 40, platelet count 320. INR 1.6. Sodium 140, potassium 4.4, chloride 109, bicarbonate 24, BUN 41, creatinine 1.31, glucose 62. A1c of 7. Calcium of 10.5. C-reactive protein less then 0.3. MOLLY is pending. Glucose is 63. ASSESSMENT AND PLAN: This is a 74-year-old female with peripheral arterial disease who was found to have ischemic foot, brought to interventional radiology (IR) emergently due to concerns for occlusion of the prior stenting to distal SFA, popliteal, and underwent angiogram of the left lower extremity due to ischemia of the left lower extremity, status post ultrasound-guided access of the left basilic vein, placement of a 42 cm peripherally inserted central catheter (PICC) line, left basilic vein, aortofemoral arteriogram, placement of tissue plasminogen activator (tPA) infusion catheter for thrombolysis of the left common femoral artery to left tibioperoneal trunk with 5 mL blood loss and no complications. IMPRESSION: 1. Atherosclerosis of the left lower extremity due to peripheral arterial disease with recurrent thrombosis. Patient is status post PICC line placement of left basilic vein with a 50 cm tPA infusion catheter placement for thrombolysis of left common femoral artery to the left tibioperoneal trunk, managed by vascular surgery. Patient is to have a repeat arteriogram and possible intervention on 12/11/2019. She is on pain medications and bedrest for now. Valium as needed. She is resumed back on her dose of aspirin 81 mg daily, on tPA, hydromorphone, and Valium for pain as well as Percocet. 2. Hypertension, on chronic enalapril, which has been resumed, metoprolol, and clonidine twice a day with holding parameters. 3. Depression on chronic Paxil. 4. Type 2 diabetes, on Levemir insulin with holding parameters, insulin sliding scale, and hypoglycemic protocol.
[2019-12-12] MEDS: LEVEMIR (INSULIN DETEMIR) 1 UNITS/0.01ML SC SCH ×2 (09:00→20:17)
[2019-12-12] MEDS: ENALAPRIL MALEATE 10 MG TAB PO SCH (09:00)
[2019-12-12] MEDS: cloNIDine 0.1 MG TAB PO SCH ×2 (09:00→20:09)
[2019-12-12] MEDS: METOPROLOL TART 50 MG TAB PO SCH ×2 (09:00→20:10)
[2019-12-12] MEDS: amLODIPine 10 MG TAB PO SCH (09:00)
--- NOTE | 2019-12-12 09:08 | IPNPDOC ---
Date Seen The patient was seen on 12/12/19. Progress Note Pt seen and examined. POD#2 s/p thrombolysis catheter placement for subacute LLE SFA occlusion. Still no significant improvement LLE despite TPA. Imaging yesterday shows distal popliteal artery and tibials still patent from collateral circulation from profunda, but no clearance of SFA thrombus. It is likely more chronic than we suspected. We will bring her back this afternoon for a repeat arteriogram, and if no improvement, then we will d/c TPA thrombolysis. We will then plan for LLE fempop bypass, most likely as an outpatient. She has enough flow through colaterals for limb preservation short term, and we would like to have a stress test and clearance prior to open revascularization due to her comorbidities. She was hoping to avoid open surgery, but I feel this will likely be necessary even if we are able to open up the L SFA today. I worry that since her LLE re-thrombosed despite antiplatelet and therapeutic coumadin anticoagulation, she is at risk for the same thing to happen again, even if we can somehow restore patency. I have discussed this with the patient. She is agreeable. Informed consent was obtained for today's procedure. VS, I&O, 24H, Fishbone Vital Signs/I&O Vital Signs Date Time Temp Pulse Resp B/P (MAP) Pulse Ox O2 Delivery O2 Flow Rate FiO2 12/12/19 08:00 98.4 58 20 142/66 (91) 96 Room Air 12/11/19 16:17 2 I&O- Last 24 Hours up to 6 AM 12/12/19 06:00 Intake Total 1670 ml Output Total 800 ml Balance 870 ml Laboratory Data 24H LABS Laboratory Tests 2 12/11/19 10:38: Bedside Glucose (Misc Panel) 145H 12/11/19 10:44: Nucleated Red Blood Cells % (auto) 0.0, Fibrinogen 300 12/11/19 15:36: Bedside Glucose (Misc Panel) 111H 12/11/19 20:37: Bedside Glucose (Misc Panel) 125H 12/11/19 23:11: Nucleated Red Blood Cells % (auto) 0.0, Fibrinogen 322 12/12/19 05:23: Nucleated Red Blood Cells % (auto) 0.0, Fibrinogen 333, Immature Granulocyte % (Auto) 0.2, Neutrophils (%) (Auto) 41.6, Lymphocytes (%) (Auto) 47.1H, Monocytes (%) (Auto) 5.8H, Eosinophils (%) (Auto) 4.6H, Basophils (%) (Auto) 0.7, Neutrophils # (Auto) 4.0, Lymphocytes # (Auto) 4.6, Monocytes # (Auto) 0.6, Eosinophils # (Auto) 0.5, Basophils # (Auto) 0.1, Prothrombin Time 17.6H, Prothromb Time International Ratio 1.47, Activated Partial Thromboplast Time 35.9, Anion Gap 8, Glomerular Filtration Rate > 60.0, Calcium Level 9.5 CBC/BMP Laboratory Tests 12/11/19 10:44 12/11/19 23:11 12/12/19 05:23 Microbiology Microbiology 12/11/19 Stool Occult Blood (JACQUI) - Final, Complete HORTENCIA GREENBERG MD Dec 12, 2019 09:08
[2019-12-12] MEDS: PARoxetine 10MG TABLET PO SCH (09:41)
[2019-12-12] MEDS: ASPIRIN 81 MG ENTERIC TAB PO SCH (09:41)
[2019-12-12] MEDS: LORATADINE 10 MG TAB PO SCH (09:41)
[2019-12-12] MEDS: OMEPRAZOLE 20 MG CAP PO SCH (09:41)
[2019-12-12] MEDS ORDERED: LIDOCAINE 1% MDV 20ML VIAL As Ordered ONE (11:18)
[2019-12-12] MEDS ORDERED: MIDAZOLAM INJ 2MG/2ML VIAL (J2250 PER 1MG) As Ordered ONE ×2 (11:29→13:40)
[2019-12-12] MEDS ORDERED: fentaNYL 100 MCG/2 ML INJECTION (J3010) As Ordered ONE (11:29)
[2019-12-12] MEDS ORDERED: ALTEPLASE 2MG/2ML VIAL As Ordered ONE (11:44)
[2019-12-12] MEDS ORDERED: HEPARIN DRIP 25,000 UNITS in IV 1 EA IV SCH (12:10)
[2019-12-12] MEDS ORDERED: ISOVUE-300 61% 50ML VIAL As Ordered ONE (12:10)
[2019-12-12] MEDS ORDERED: HEPARIN SOD (PORCINE) 5000UNITS/ML VIAL (J1644 PER 1000UNITS) IV PRN (12:15)
--- NOTE | 2019-12-12 12:25 | ROOPDOC ---
[facility] Report Of Operation Report of Operation DATE OF PROCEDURE: 12/12/19 PREPROCEDURE DIAGNOSES: Atherosclerosis of the [place] arteries with subacute thrombosis of the left superficial femoral artery and proximal popliteal artery status post TPA thrombolysis catheter placement 12/10/2019 POSTPROCEDURE DIAGNOSES: Same PROCEDURE: 1. Planned repeat arteriogram left lower extremity 2. Discontinuation of TPA thrombolysis catheter SURGEON: Hortencia Castro MD ANESTHESIA: Monitored intravenous conscious sedation was supervised by Dr. Castro. The patient was independently monitored by registered nurse under the department of radiology using automated blood pressure, EKG, and pulse oximetry. The detailed sedation record is permanently stored in the hospital information system. The following is a brief sedation record: Start time 11:40, stop time 12:01, Versed 1 mg IV, fentanyl 50 g IV. INDICATION FOR PROCEDURE: This is a very pleasant 74-year-old patient with a long-standing history of severe lower extremity peripheral vascular disease and a history of many failed revascularizations with other providers in the past, and a few months ago we did a thrombolysis of the left lower extremity with superficial femoral artery stent placement due to acute thrombosis. The patient did very well until 2-3 weeks ago when she started developing increased claudic ation and pain in the left lower extremity. Unfortunately, she did not seek evaluation until this Tuesday, and we saw her in clinic and sent her for an urgent arterial duplex. That imaging revealed that the left superficial femoral artery was occluded. Arteriogram confirmed this, but the distal popliteal artery and the tibial vessels were patent. We placed a thrombolysis catheter from the left common femoral artery down to the left popliteal artery and she has been undergoing TPA thrombolysis for the past 48 hours. Arteriogram yesterday did not show significant improvement in flow through the SFA after 24 hours of TPA, so we elected to continue TPA overnight. We bring her back today for a planned repeat arteriogram. Unfortunately, her foot does not look much better today than it did yesterday, so I suspect we will only perform an arteriogram and then discontinue the TPA thrombolysis. If further revascularization as needed, it will likely have to be open surgery with the bypass. I discussed this with her and she is agreeable. Informed consent for the arteriogram today was obtained. INTERPRETATION: 1. Left lower extremity arteriogram reveals no improvement in the occlusion of the left superficial femoral artery and proximal popliteal artery, and likely the thrombus is significantly more chronic than we suspected, and there may be a component of intimal hyperplasia as well. There is still good collateral flow from the common femoral artery, proximal SFA, her fundi into the distal popliteal artery and tibial vessels. 2. The tibial outflow is intact through the posterior tibial artery, with a bit thready flow through the anterior tibial artery and peroneal artery today. I'm not sure if this is some thrombus migration versus spasm, but after injection of TPA into the peroneal and anterior tibial artery, there is intact runoff. It does appear there is still some spasm in the vessels, but flow to the foot is intact. REPORT OF OPERATION: The patient was brought to the angiographic suite in stable condition. Her right catheter ports and her right groin were prepped and draped in a sterile fashion. A timeout was performed. Sedation was administered without complication. An arteriogram was performed first through the right femoral sheath which has selected the left common femoral artery. We then performed an arteriogram through the TPA thrombolysis catheter itself. Please see interpretation above. With the assistance of a Glidewire, we're able to navigate the TPA catheter into the anterior tibial artery and 4 mg of additional TPA were injected, and then into the peroneal artery were 4 mg of TPA were injected. Following this, arteriogram showed good flow through the distal popliteal artery and 3 tibial vessels with runoff to the foot. The TPA lysis catheter was removed over the wire, and the sheath was exchanged over the Glidewire for a short 6 [place] sheath. A Mynx closure device was deployed with good hemostasis. Pressure was held for 10 minutes and good hemostasis was noted and sterile dressings were applied. The patient was then taken back to the ICU in stable condition. ESTIMATED BLOOD LOSS: None. COMPLICATIONS: None. PLAN: We will continue TPA thrombolysis overnight. We will continue to watch the patient's fibrinogen. I suspect the thrombus in her left superficial femoral artery is more chronic than we initially thought. It is possible TPA will not be successful. The patient does have an option for femoral to below-knee popliteal bypass. I discussed with her that if we are not able to open up the superficial femoral artery with thrombolysis, one option would be the bypass, the other option if she wanted to avoid surgery would be to continue with the limited blood flow she has through collateral circulation from her profunda. For now, we are hopeful that a little additional time with TPA thrombolysis will help dissolve the SFA thrombus. We will plan to bring the patient back tomorrow for repeat arteriogram and further recommendations to follow imaging. We appreciate the opportunity to participate in the care of this patient. HORTENCIA CASTRO MD Dec 12, 2019 12:25
--- NOTE | 2019-12-12 12:46 | IPNPDOC ---
Text Note Date of Service The patient was seen on 12/12/19. NOTE Subjective: Patient does not offer any complaints this am. says her leg hurts only when she walks. She went back to the IR today and the long thrombolysis catheter was removed and a short sheath was placed. Arteriogram today did not show any improvement. Physical Exam: Vitals: As below Const: Appears healthy and well developed. No signs of apparent distress present. HEENT: Normocephalic, atraumatic, moist mucous membranes, External nose WNL. Neck: Supple, Resp: No wheezing. Clear to auscultation bilaterally. CV: Rate is regular. Rhythm is regular. Toes of the left foot are slightly cool to touch, there are no wounds. Abdomen: Soft, NT, ND, no guarding, rigidity, rebound. No organomegaly or palpable mass/aneurysm. Lymph: No palpable or visible regional lymphadenopathy. Skin:No rashes or lesions Neuro:Alert and oriented x3, moves all extremities equally, no focal neurologic deficits noted. Psych: Pleasant and cooperative Labs and radiology: reviewed. Assessment and Plan: 74 year old female with PMH of Peripheral Artery Disease with angioplasties and stents in bilateral lower extremities, with recurrent thrombosis of left SFA stents/status post thrombolysis 08/28/[address] Castro with stenting distal SFA, popliteal, angioplasty Post Tibial A, p lantar artery, and Ant Tibial A. Also has H/O DVT and Pulmonary Embolism on coumadin, Anxiety, Depression, hyperlipidemia, Diabetes, Hypertension, chronic Atrial Fibrillation with chronic left leg claudication worse over the past 3 weeks with some what cooler left leg than the right. Came to see Dr Lew on 12/10/19 for this new symptoms. Urgent Arterial Doppler study showed triphasic at the common femoral and profunda, biphasic at the proximal SFA, occlusion at the mid and distal SFA and monophasic from the popliteal distally. This indicates reocclusion of the patient's SFA stents. Patient was admitted to the hospitalist service and taken to IR suite on 12/10/19 and had Aortoiliofemoral arteriogram and left leg arteriogram showed occlusion of the entire SFA, anterior tibial artery with some thrombus at the origin so runoff is suboptimal through the anterior tibial artery. She was started on intraarterial thrombolysis left common femoral artery to left tibioperoneal trunk she had the thrombolysis for 48 hours. Repeat Left lower extremity arteriogram reveals no improvement in the occlusion of the left superficial femoral artery and proximal popliteal artery, so Dr Lew felt the thrombus is significantly more chronic than suspected, and there may be a component of intimal hyperplasia as well. There is still good collateral flow from the common femoral artery, proximal SFA, profundi into the distal popliteal artery and tibial vessels. The tibial outflow is intact through the posterior tibial artery, with a bit thready flow through the anterior tibial artery and peroneal artery today felt to be due to spasm in the vessels. PAD with Left SFA and proximal popiteal artery occlusion and an left anterior tibial thrombus s/p Intraarterial thrombolysis Management as per vascular. percocet, asa. Plavix on hold. DM continue glipizide. Chronic afib continue metoprolol. coumadin to be restarted as per vascular on heparin infusion. DVT/PE will have to bridge with heparin / lovenox before restarting coumadin PT /INR daily. Hypertension Bp with some low values in the hospital. amlodipine, clonidine, enalapril on hold. continue metoprolol. Anxiety/depression paroxetine VS,Fishbone, I+O VS, Fishbone, I+O Laboratory Tests 12/11/19 23:11 12/12/19 05:23 Vital Signs Date Time Temp Pulse Resp B/P (MAP) Pulse Ox O2 Delivery O2 Flow Rate FiO2 12/12/19 12:14 74 18 98 Room Air 12/12/19 12:02 2 12/12/19 11:11 98.2 12/12/19 09:00 105/51 I&O- Last 24 Hours up to 6 AM 12/12/19 06:00 Intake Total 1670 ml Output Total 800 ml Balance 870 ml GLENDY FLORES MD Dec 12, 2019 12:46
[2019-12-12] MEDS ORDERED: fentaNYL 250 MCG/5 ML INJECTION (J3010) As Ordered ONE (13:41)
[2019-12-12] MEDS ORDERED: METOCLOPRAMIDE INJ 10MG/2ML VIAL (J2765 PER 1) As Ordered ONE (13:41)
[2019-12-12] MEDS ORDERED: ePHEDrine SULFATE 25 MG/5 ML(5MG/ML) SYRINGE As Ordered ONE (13:41)
[2019-12-12] MEDS ORDERED: dexameTHASONE 4 MG/ML 1ML VIAL (J1100 PER 1MG) As Ordered ONE (13:41)
[2019-12-12] MEDS ORDERED: PHENYLephrine HCL 500 MCG/5 ML (100MCG/ML) SYRINGE (J2370) As Ordered ONE (13:41)
[2019-12-12] MEDS ORDERED: ACETAMINOPHEN 1000MG 100ML IV BTL (OFIRMEV) (J0131 PER 10MG) As Ordered ONE (13:41)
[2019-12-12] MEDS ORDERED: ONDANSETRON 4MG/2ML VIAL As Ordered ONE (13:41)
[2019-12-12] MEDS ORDERED: ROCURONIUM BROMIDE 50 MG/5 ML VIAL As Ordered ONE (13:42)
[2019-12-12] MEDS ORDERED: propofoL 200 MG/20 ML VIAL As Ordered ONE (13:42)
[2019-12-12] MEDS ORDERED: SUGAMMADEX SODIUM 500 MG/5 ML VIAL (BRIDION) As Ordered ONE (13:42)
[2019-12-12] MEDS ORDERED: LIDOCAINE 2% 100MG/5ML SDV (FOR ANES.) As Ordered ONE (13:42)
[2019-12-12 14:13] LABS: ANTINUCLEAR ANTIBODIES DIRECT Negative (Negative)
--- NOTE | 2019-12-12 16:00 | IPNPDOC ---
Text Note Date of Service The patient was seen on 12/12/19. NOTE Spoke with Dr Lew after the procedure. 1 hour post procedure patients left leg was pale and painful. She thinks ther is acute ischemia going on now and patient will need bypass procedure emergently this afternoon to save the leg. She discussed this with patient and her daughter and after much deliberation patient and daughter decided they wanted to see overnight with the full heparin infusion if there is any improvement. If not they will think about procedure tomorrow. it was explained that the delay may lead to amputation of the leg as the leg may not be salvageable tomorrow. Patient said she has been dealing with this for several years and want to try the heparin for now. VS,Uchebone, I+O VS, Uchebone, I+O Laboratory Tests 12/11/19 23:11 12/12/19 05:23 Vital Signs Date Time Temp Pulse Resp B/P (MAP) Pulse Ox O2 Delivery O2 Flow Rate FiO2 12/12/19 15:00 62 18 142/65 (90) 95 Room Air 12/12/19 12:02 2 12/12/19 11:11 98.2 I&O- Last 24 Hours up to 6 AM 12/12/19 07:00 Intake Total 1670 ml Output Total 800 ml Balance 870 ml GLENDY FLORES MD Dec 12, 2019 16:00
--- NOTE | 2019-12-12 16:19 | IPNPDOC ---
Date Seen The patient was seen on 12/12/19. Progress Note Patient seen and examined postprocedure this afternoon. We were unable to open flow through the SFA on the left with TPA thrombolysis, but at the end of the case the patient had a tibial flow patent. However, by the time I saw her an hour later in the ICU, her foot was cool and pale. She could move her toes, but barely. I discussed with her that I was worried that she had thrombosed her tibial flow. We have the patient on a heparin drip, but typically she is on aspirin and Plavix and full Coumadin anticoagulation. And even with such extensive blood thinners, she still managed thrombosed her left superficial femoral artery. Therefore, I suspect she has thrombosed some of her collaterals from the profunda or her tibials. I discussed with her the option for an urgent left femoropopliteal bypass with tibial thrombectomy. 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 However, I do not feel that her foot will be salvageable without some t ype of urgent revascularization. The patient and her daughters were extensively counseled. They are concerned about the risk of vascular surgery for her, the risks that the bypass will not work since she has had multiple failed revascularizations by other providers in the past, and most recently a r ethrombosis of her left superficial femoral artery after thrombolysis by myself a few months ago. She feels that it is likely if she undergoes the bypass, it may not be successful, and she may have a poor outcome from surgery itself. I do not think this is unreasonable. The patient stated that she has made her peace with the thought she may need an amputation. She says she like to wait and see what happens with the blood thinners, but understands her leg might not be salvageable. Her daughters are in agreement with this. Therefore, we will not pursue a left femoropopliteal bypass today. We will see how the patient does with anticoagulation, but I expressed to her that at best she will have the level of malperfusion she had prior to thrombolysis, which was significant with rest pain. At worst, her foot will progress to gangrene. She and her daughters were extensively counseled and all questions were answered. It is okay for the patient to eat, and after 6 PM will be okay for her to get up out of bed with assist. She may not have the ability to bear full weight on her left lower extremity due to ischemia and care should be taken with transfers. We will see how she is doing in the morning and decide from there on possible left AKA. She is agreeable to this plan. We appreciate the hospitalist's excellent care of this patient. VS, I&O, 24H, Fishbone Vital Signs/I&O Vital Signs Date Time Temp Pulse Resp B/P (MAP) Pulse Ox O2 Delivery O2 Flow Rate FiO2 12/12/19 15:00 62 18 142/65 (90) 95 Room Air 12/12/19 12:15 2 12/12/19 11:11 98.2 I&O- Last 24 Hours up to 6 AM 12/12/19 06:00 Intake Total 1670 ml Output Total 800 ml Balance 870 ml Laboratory Data 24H LABS Laboratory Tests 2 12/11/19 20:37: Bedside Glucose (Misc Panel) 125H 12/11/19 23:11: Nucleated Red Blood Cells % (auto) 0.0, Fibrinogen 322 12/12/19 05:23: Nucleated Red Blood Cells % (auto) 0.0, Fibrinogen 333, Immature Granulocyte % (Auto) 0.2, Neutrophils (%) (Auto) 41.6, Lymphocytes (%) (Auto) 47.1H, Monocytes (%) (Auto) 5.8H, Eosinophils (%) (Auto) 4.6H, Basophils (%) (Auto) 0.7, Neutrophils # (Auto) 4.0, Lymphocytes # (Auto) 4.6, Monocytes # (Auto) 0.6, Eosinophils # (Auto) 0.5, Basophils # (Auto) 0.1, Prothrombin Time 17.6H, Prothromb Time International Ratio 1.47, Activated Partial Thromboplast Time 35.9, Anion Gap 8, Glomerular Filtration Rate > 60.0, Calcium Level 9.5 CBC/BMP Laboratory Tests 12/11/19 23:11 12/12/19 05:23 Microbiology Microbiology 12/12/19 Respiratory Virus Panel (PCR) ([facility]ACQUI) - Final, Complete 12/11/19 Stool Occult Blood (JACQUI) - Final, Complete HORTENCIA GREENBERG MD Dec 12, 2019 16:19
[2019-12-12] MEDS: diazePAM 5 MG TAB PO PRN (20:08)
[2019-12-12] MEDS: AMITRIPTYLINE 25 MG TAB PO SCH (20:09)
[2019-12-13] VITALS (7 sets, daily range): BP systolic 135–185; BP diastolic 61–81
[2019-12-13 05:52] LABS: BASO # 0.1 10^3/uL (0.0-0.2); BASO % 0.5 % (0.0-1.0); EOS # 0.6 10^3/uL (0.0-0.5); EOS % 5.5 % (0.0-3.0); HEMATOCRIT 33.4 % (36.0-47.0); HEMOGLOBIN 10.5 g/dl (12.0-15.5); LYMPH # 4.5 10^3/uL (1.5-5.0); LYMPH % 41.9 % (24.0-44.0); MEAN CORPUSCULAR HEMOGLOBIN 26.4 pg (27.0-33.0); MEAN CORPUSCULAR HGB CONC 31.4 g/dl (32.0-36.5); MEAN CORPUSCULAR VOLUME 84.1 fl (80.0-96.0); MONO # 0.7 10^3/uL (0.0-0.8); MONO % 6.1 % (0.0-5.0); NEUTROPHILS # 4.9 10^3/uL (1.5-8.5); NEUTROPHILS % 45.7 % (36.0-66.0); PLATELET COUNT, AUTOMATED 193 10^3/uL (150-450); RED BLOOD COUNT 3.97 10^6/uL (4.00-5.40); WHITE BLOOD COUNT 10.8 10^3/uL (4.0-10.0)
[2019-12-13 06:05] LABS: CALCIUM LEVEL 9.6 MG/DL (8.8-10.2); CREATININE FOR GFR 1.02 MG/DL (0.55-1.30); GLOMERULAR FILTRATION RATE 56.6 (>39); POTASSIUM SERUM 4.1 MEQ/L (3.5-5.1)
--- NOTE | 2019-12-13 07:39 | IPNPDOC ---
Date Seen The patient was seen on 12/13/19. Progress Note Patient seen and examined. Doing much better today. Her foot is warm pink and has excellent capillary refill. Still monophasic faint Doppler signals, but present. Right groin access site is clean dry and intact minimal bruising. I discussed possible discharge with the patient. She would like to go home and says her foot feels well enough to do so. We had a long discussion about an exercise program. Without bypass revascularization, the patient is at risk for limb loss. She has rest pain, and if she develops a wound on the foot and likely will not heal. From my standpoint, I feel like a bypass is a possibility, but because she has failed so many revascularizations in the past, it is possible it will not be successful. She then would have all of the risk without benefit. Because of this, she elected not to do bypass yesterday, but we can revisit this outpatient as an elective case. However, if the patient can commit to 30-60 minutes of lower extremity exercises today, she may be able to improve her collateral circulation enough to get her out of rest pain and improve her quality of life. This would be her best option for long-term limb salvage. We discussed options for a treadmill, ambulation around the house, ambulation outside, and stationary bike, etc. It is a slow process to improve collateral circulation, but the patient has baseline collateral flow from her profunda to the below-knee popliteal artery so with ongoing exercise, her exercise tolerance should improve and her perfusion should improve over the next 6 months. If she can avoid getting a wound or thrombosing what limited flow she has, she may be able to observe her limb. She is agreeable to try this. We like to see her back in a week to check her groin access site make sure she is doing okay with pain. I told her during the day it would be best if she could just manage her pain with Tylenol since she is up and her foot is dependent in her pain is lower. At night, before she goes to sleep, I think a single Percocet is warranted since she has rest pain. We will see how she does with this. We will restart the patient's Plavix, DC the heparin drip, and convert her to Lovenox and Coumadin. She gives herself trulicity shots, so I believe with teaching she will be able to do Lovenox shots twice a day. If she is able to do Lovenox, and if PT clears her to ambulate with a walker safely, I believe she is stable for discharge today. I have discussed this plan with our hospitalist team, and we appreciate the excellent care the hospitalist's have given our patient. VS, I&O, 24H, Fishbone Vital Signs/I&O Vital Signs Date Time Temp Pulse Resp B/P (MAP) Pulse Ox O2 Delivery O2 Flow Rate FiO2 12/13/19 06:00 71 18 148/68 (94) Room Air 12/13/19 04:00 98.0 94 12/12/19 12:15 2 I&O- Last 24 Hours up to 6 AM0 12/13/19 05:59 Intake Total 1460 ml Output Total 1000 ml Balance 460 ml Laboratory Data 24H LABS Laboratory Tests 2 12/12/19 17:50: Activated Partial Thromboplast Time 72.8H 12/12/19 20:05: Bedside Glucose (Misc Panel) 146H 12/12/19 23:40: Activated Partial Thromboplast Time 72.2H 12/13/19 05:30: Activated Partial Thromboplast Time 68.6H, Immature Granulocyte % (Auto) 0.3, Neutrophils (%) (Auto) 45.7, Lymphocytes (%) (Auto) 41.9, Monocytes (%) (Auto) 6.1H, Eosinophils (%) (Auto) 5.5H, Basophils (%) (Auto) 0.5, Neutrophils # (Auto) 4.9, Lymphocytes # (Auto) 4.5, Monocytes # (Auto) 0.7, Eosinophils # (Auto) 0.6H, Basophils # (Auto) 0.1, Nucleated Red Blood Cells % (auto) 0.0, Anion Gap 8, Glomerular Filtration Rate 56.6, Calcium Level 9.6 CBC/BMP Laboratory Tests 12/13/19 05:30 Microbiology Microbiology 12/12/19 Respiratory Virus Panel (PCR) ([facility]) - Final, Complete 12/11/19 Stool Occult Blood ([facility]ACQUI) - Final, Complete HORTENCIA GREENBERG MD Dec 13, 2019 07:39
[2019-12-13] MEDS ORDERED: LOVE0.4I2 SC (07:58)
[2019-12-13] MEDS: PERCOCET 5MG/325MG TAB PO PRN ×2 (08:10→17:12)
[2019-12-13] MEDS ORDERED: CLOPIDOGREL 75 MG TAB PO SCH (09:00)
[2019-12-13] MEDS ORDERED: ENOXAPARIN 60MG/0.6ML SYRINGE (J1650 PER 10MG) SC SCH (09:00)
[2019-12-13] MEDS: LEVEMIR (INSULIN DETEMIR) 1 UNITS/0.01ML SC SCH (09:22)
[2019-12-13] MEDS: PARoxetine 10MG TABLET PO SCH (09:22)
[2019-12-13] MEDS: LORATADINE 10 MG TAB PO SCH (09:22)
[2019-12-13] MEDS: OMEPRAZOLE 20 MG CAP PO SCH (09:23)
[2019-12-13] MEDS: METOPROLOL TART 50 MG TAB PO SCH (09:24)
[2019-12-13] MEDS: amLODIPine 10 MG TAB PO SCH (09:24)
[2019-12-13] MEDS: cloNIDine 0.1 MG TAB PO SCH (09:24)
[2019-12-13] MEDS: ENALAPRIL MALEATE 10 MG TAB PO SCH (09:25)
[2019-12-13] MEDS ORDERED: SODIUM CHLORIDE 0.9% INJ 10 ML SYR IV PRN (14:15)
[2019-12-13] MEDS ORDERED: PERCOCET PO (14:42)
[2019-12-13] MEDS ORDERED: ENOXAPARIN 30MG/0.3ML SYRINGE (J1650 PER 10MG) SC ONE (15:00)
[2019-12-13] MEDS ORDERED: WARFARIN SOD 1MG TAB PO SCH ×2 (17:00)
[2019-12-13] MEDS ORDERED: WARFARIN SOD 2.5MG TAB PO SCH (17:00)
[2019-12-13] MEDS ORDERED: SODIUM CHLORIDE 0.9% INJ 10 ML SYR IV SCH (18:00)
--- NOTE | 2019-12-14 20:56 | DS.PDOC ---
Discharge Summary General Date of Admission Dec 10, 2019 at 15:16 Discharge Summary PROCEDURES PERFORMED DURING STAY: Lower extremity angiogram with preference to left lower extremity x 3 on 12/09, 12/10 and 12/11, intraarterial thrombolysis. 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 SECONDARY DIAGNOSIS: Peripheral Artery Disease with angioplasties and stents in bilateral lower extremities, with recurrent thrombosis of left SFA, DVT and Pulmonary Embolism on coumadin, Anxiety, Depression, hyperlipidemia, Diabetes, Hypertension, chronic Atrial Fibrillation COMPLICATIONS/CHIEF COMPLAINT: Ischemia Of Left Lower Extremity. HOSPITAL COURSE: 74 year old female with PMH of Peripheral Artery Disease with angioplasties and stents in bilateral lower extremities, with recurrent thrombosis of left SFA stents/status post thrombolysis 08/28/[address] Castro with stenting distal SFA, popliteal, angioplasty Post Tibial A, plantar artery, and Ant Tibial A. Also has H/O DVT and Pulmonary Embolism on coumadin, Anxiety, Depression, hyperlipidemia, Diabetes, Hypertension, chronic Atrial Fibrillation with chronic left leg claudication worse over the past 3 weeks with some what cooler left leg than the right. Came to see Dr Lew on 12/10/19 for this new symptoms. Urgent Arterial Doppler study showed triphasic at the common femoral and profunda, biphasic at the proximal SFA, occlusion at the mid and distal SFA and monophasic from the popliteal distally. This indicates reocclusion of the patient's SFA stents. Patient was admitted to the hospitalist service and taken to IR suite on 12/10/19 and had Aortoiliofemoral arteriogram and left leg arteriogram showed occlusion of the entire SFA, anterior tibial artery with some thrombus at the origin so runoff is suboptimal through the anterior tibial artery. She was started on intraarterial thrombolysis left common femoral artery to left tibioperoneal trunk she had the thrombolysis for 48 hours. Repeat Left lower extremity arteriogram after 24 hours revealed no improvement in the occlusion of the left superficial femoral artery and proximal popliteal artery, so Dr Lew felt the thrombus is significantly more chronic than suspected, and there may be a component of intimal hyperplasia as well. The thrombolysis was extended for another 24 hours. After 48 hours of thromolysis still there was no improvement in her leg and arteriogram showed the SFA remained occluded. The catheter was removed. For details please see Dr Edmonds notes. 1 hour after the procedure in the ICU, her foot was cool and pale. She could move her toes, but barely. Dr Lew felt the she may have thrombosed some of her collaterals from the profunda or her tibials. She discussed with her the option for an urgent left femoropopliteal bypass with tibial thrombectomy. Patient did not want surgery then so she was put on full dose IV heparin infusion. Overnight fortunately her leg showed improvement became warm pink with good capillary refill and her pain was better. On the morning of 12/13/19 her left leg looked significantly better and Dr Lew felt as long as she could bear weight and walk she could go home. She was started on lovenox and coumadin and heparin infusion discontinued. She was seen by PT diana grigsby for dischrge. She was discharged home in a stable c ondition. PAD with Left SFA and proximal popiteal artery occlusion and an left anterior tibial thrombus s/p Intraarterial thrombolysis continue plavix, coumadin with lovenox bridging. percocet and tylenol for pain. DM continue glipizide. Chronic afib continue metoprolol. coumadin restarted with lovenox bridging. DVT/PE coumadin with lovenox bridging. Hypertension restarted home medications Anxiety/depression paroxetine DISCHARGE MEDICATIONS: Please see below. ALLERGIES: Please see below. PHYSICAL EXAMINATION ON DISCHARGE: VITAL SIGNS: Please see below. Const: Appears healthy and well developed. No signs of apparent distress present. HEENT: Normocephalic, atraumatic, moist mucous membranes, External nose WNL. Neck: Supple, Resp: No wheezing. Clear to auscultation bilaterally. CV: Rate is regular. Rhythm is regular. Toes of the left foot are slightly cool to touch, there are no wounds. Abdomen: Soft, NT, ND, no guarding, rigidity, rebound. No organomegaly or palpable mass/aneurysm. Lymph: No palpable or visible regional lymphadenopathy. Skin:No rashes or lesions Neuro:Alert and oriented x3, moves all extremities equally, no focal neurologic deficits noted. Psych: Pleasant and cooperative LABORATORY DATA: Please see below. ACTIVITY: [As tolerated]. DIET: Carb consistent DISPOSITION: 01 Home, Self-Care. DISCHARGE INSTRUCTIONS: Dr Lew in 1 week PMD in 2 weeks ITEMS TO FOLLOWUP ON ON OUTPATIENT: INR check in 3 days. DISCHARGE CONDITION: [Stable]. TIME SPENT ON DISCHARGE: 35 minutes. Vital Signs/I&Os Vital Signs Date Time Temp Pulse Resp B/P (MAP) Pulse Ox O2 Delivery O2 Flow Rate FiO2 12/13/19 17:12 18 12/13/19 09:24 64 139/61 12/13/19 09:10 97 Room Air 12/13/19 08:00 97.6 12/12/19 12:15 2 I&O- Last 24 Hours up to 6 AM 12/14/19 06:59 Intake Total 20 ml Balance 20 ml Microbiology Microbiology 12/12/19 Respiratory Virus Panel (PCR) (JACQUI) - Final, Complete 12/11/19 Stool Occult Blood (JACQUI) - Final, Complete Discharge Medications Scheduled Amitriptyline HCl (Amitriptyline HCl) 25 Mg Tablet, 25 MG PO QHS, (Reported) Amlodipine Besylate (Amlodipine Besylate) 10 Mg Tablet, 10 MG PO DAILY, (Reported) Clonidine HCl (Clonidine HCl) 0.2 Mg Tablet, 0.1 MG PO BID, (Reported) Clopidogrel Bisulfate (Clopidogrel) 75 Mg Tablet, 75 MG PO DAILY, (Reported) Dulaglutide (Trulicity) 0.75 Mg/0.5 Ml Pen.injctr, 0.75 MG SC QWEEK, (Reported) TUESDAY Enalapril Maleate (Enalapril Maleate) 20 Mg Tablet, 40 MG PO DAILY, (Reported) Enoxaparin Sodium (Lovenox) 60 Mg/0.6 Ml Syringe, 60 MG SC Q12H Glipizide (Glipizide) 10 Mg Tablet, 10 MG PO BID, (Reported) Insulin Detemir (Levemir) 100 Unit/1 Ml Vial, 8 UNITS SC BID, (Reported) Insulin Human Lispro (Humalog) 100 Unit/1 Ml Vial, 1 DOSE SC AC, (Reported) SLIDING SCALE Loratadine (Loratadine) 10 Mg Tablet, 10 MG PO DAILY, (Reported) Metoprolol Tartrate (Metoprolol Tartrate) 50 Mg Tablet, 50 MG PO BID, (Reported) Omeprazole (Omeprazole) 20 Mg Capsule.dr, 40 MG PO DAILY, (Reported) Paroxetine (Paroxetine HCl) 10 Mg Tablet, 10 MG PO DAILY, (Reported) Warfarin Sodium (Warfarin Sodium) 1 Mg Tablet, 3.5 MG PO QPM, (Reported) Scheduled PRN Acetaminophen (Acetaminophen) 500 Mg Tablet, 500 MG PO Q6H PRN for PAIN, (Reported) Oxycodone/Acetaminophen (Oxycodone-Acetaminophen 5-325) 1 Each Tablet, 1 TAB PO BIDP PRN for MILD/MODERATE PAIN (PS 1-7) Allergies Coded Allergies: Sulfa (Sulfonamide Antibiotics) (Verified Allergy, Unknown, hives, ) GLENDY FLORES MD Dec 14, 2019 20:56
== END 2019-12-13 17:15 | disposition home or self-care (01) | DRG 271 ==
LOC: M RAD 12:45 → M ICU 15:16
PROVIDERS: ADMIT General Practice; ATTEND Internal Medicine Nephrology
PROC: 04CL0ZZ Extirpation of Matter from Left Femoral Artery, Open Approach (ICD-10-PCS; 2019-12-10)
PROC: 04UL0JZ Supplement Left Femoral Artery with Synthetic Substitute, Open Approach (ICD-10-PCS; 2019-12-10)
PROC: 04UJ0JZ Supplement Left External Iliac Artery with Synthetic Substitute, Open Approach (ICD-10-PCS; 2019-12-10)
PROC: 04CJ0ZZ Extirpation of Matter from Left External Iliac Artery, Open Approach (ICD-10-PCS; principal; 2019-12-10 16:11)
DX: T82.868A Thrombosis due to vascular prosthetic devices, implants and grafts, initial encounter (principal); I48.20 Chronic atrial fibrillation, unspecified; E11.51 Type 2 diabetes mellitus with diabetic peripheral angiopathy without gangrene; I10 Essential (primary) hypertension; Z79.899 Other long term (current) drug therapy; Z79.01 Long term (current) use of anticoagulants; E78.5 Hyperlipidemia, unspecified; F41.9 Anxiety disorder, unspecified; F32.9 Major depressive disorder, single episode, unspecified; Z86.711 Personal history of pulmonary embolism; Z86.718 Personal history of other venous thrombosis and embolism; Y83.1 Surgical operation with implant of artificial internal device as the cause of abnormal reaction of the patient, or of later complication, without mention of misadventure at the time of the procedure

== ENCOUNTER 2020-02-25 08:49 | Inpatient (IN) | payer MEDICARE ==
--- NOTE | 2020-02-14 07:59 | HPEPDOC ---
[facility] Medical History & Physical Date of Admission Feb 25, 2020 Date of Service: Feb 25, 2020 History and Physical Vascular surgery. Dr. Castro HISTORY OF PRESENT ILLNESS: This is a very pleasant 74yo patient who was found to have reocclusion of her left superficial femoral artery and popliteal artery stents status post thrombolysis and intervention months ago. Repeat thrombolysis was attempted, but this was unsuccessful at recannulized in the superficial femoral artery. The patient has discussed the option of and wishes to proceed with left femoral below-knee popliteal bypass with Dr. Castro, she understands there are significant risks of failure as multiple revasculari zations with this patient have failed in the past with other providers, and now her interventional procedure recently has also failed. Also, Please refer to office note from Dr. Castro 01/21/20 for additional details. PAST MEDICAL HISTORY: Hypertension Peripheral Artery Disease History of DVT/Pulmonary Embolism Anxiety Depression hyperlipidemia IDDM Atrial Fibrillation, on Coumadin Surgical Hx: Cholecystectomy 1999 Total Abdominal Hysterectomy - 1995 Abdominal Hernia Repair 07/30/17 Multiple angiogram procedures, Arterial Stenting Bilateral Lower Extremities SOCIAL HISTORY: Former smoker 1 pack per day, quit 1965. FAMILY HISTORY: Hypertension, diabetes ALLERGIES: Please see below. REVIEW OF SYSTEMS: As noted in HPI otherwise 12 point review of system unremarkable. HOME MEDICATIONS: Please see below. PHYSICAL EXAMINATION: Const: No signs of apparent distress present. Head/Face: Normal on inspection. ENMT: Tympanic membranes: intact. External nose WNL. Neck: Supple Resp: No wheezing. Clear to auscultation bilaterally. CV: Rate is regular. Rhythm is irregular. Abdomen: Bowel sounds are positive. Abdomen is soft, nontender, and nondistended. Lymph: No palpable or visible regional lymphadenopathy. Musculo:Gait steady, distal pulses weak RLE, not palpable LLE with monophasic signals. Skin:No rashes or lesions Neuro:Alert and oriented x3, moves all extremities equally, no focal neurologic deficits noted. Psych: Pleasant and cooperative LABORATORY DATA: See below. ASSESSMENT/Plan 1. 74yo patient with severe LLE PVD with short distance lifestyle limiting claudication and mild rest pain, plan for left femoral to below-knee popliteal bypass with cadaver vein as per Dr. Castro. Informed consent has been obtained and placed with the chart. Transfusion consent has been obtained and placed with the chart. Medical clearance has been requested and placed with the chart. Cardiac clearance has been requested as well as stress study, this is placed with the chart. The patient was instructed to hold Plavix 5 days prior to surgery. The patient was instructed to hold Coumadin 3 days prior to the surgery. Admission CBC, BMP, INR, PTT, type and screen. Ancef 2 g IV preoperatively. IV fluids as per anesthesia. Vital Signs Admission Vital signs pending. Laboratory Data Labs 24H Admission labs pending. Home Medications Scheduled Amitriptyline HCl (Amitriptyline HCl) 25 Mg Tablet, 25 MG PO QHS Amlodipine Besylate (Amlodipine Besylate) 10 Mg Tablet, 10 MG PO DAILY Clonidine HCl (Clonidine HCl) 0.2 Mg Tablet, 0.1 MG PO BID Clopidogrel Bisulfate (Clopidogrel) 75 Mg Tablet, 75 MG PO DAILY Dulaglutide (Trulicity) 0.75 Mg/0.5 Ml Pen.injctr, 0.75 MG SC QWEEK TUESDAY Enalapril Maleate (Enalapril Maleate) 20 Mg Tablet, 40 MG PO DAILY Glipizide (Glipizide) 10 Mg Tablet, 10 MG PO BID Insulin Detemir (Levemir) 100 Unit/1 Ml Vial, 10 UNITS SC BID Loratadine (Loratadine) 10 Mg Tablet, 10 MG PO DAILY Metoprolol Tartrate (Metoprolol Tartrate) 50 Mg Tablet, 50 MG PO BID Omeprazole (Omeprazole) 20 Mg Capsule.dr, 40 MG PO DAILY Paroxetine (Paroxetine HCl) 10 Mg Tablet, 10 MG PO DAILY Warfarin Sodium (Warfarin Sodium) 1 Mg Tablet, 3.5 MG PO QPM Scheduled PRN Acetaminophen (Acetaminophen) 500 Mg Tablet, 500 MG PO Q6H PRN for PAIN Allergies Coded Allergies: Sulfa (Sulfonamide Antibiotics) (Verified Allergy, Unknown, hives, 07/10/19) A-FIB/CHADSVASC A-FIB History Current/History of A-Fib/PAF?: Yes Current PO Anticoag Therapy: Yes Angelina Baumann Feb 14, 2020 07:59
[~2020-02-25] VITALS: Ht 162.6 cm; Wt 60.8 kg
[2020-02-25] VITALS (8 sets, daily range): BP systolic 139–160; BP diastolic 69–81
[~2020-02-25 08:49] MED LIST changes: -AMLO10TA5 PO; +AMLO1TAB25 PO; +ENAL-36 PO; -ENAL10TA2 PO; -ENAL20TA PO; +ENAL20TA11 PO; +GLIP10TA6 PO; +LOVE0.4I2 SC; +LR 1,000 ML IV ONE; +METO50TA7 PO; +OMEP1CAP73 PO; +TRUL10IN SC; +WARF4TAB52 PO; +ceFAZolin SOD 2 GM in IV 1 EA IV ONE
[2020-02-25] MEDS ORDERED: THROMBIN SOLN 20,000 UNITS KIT As Ordered ONE (08:51)
[2020-02-25] MEDS ORDERED: ISOVUE-300 61% 50ML VIAL As Ordered ONE (08:52)
[2020-02-25] MEDS ORDERED: BUPIVACAINE/EPIN 0.5% 30 ML VIAL As Ordered ONE (08:52)
[2020-02-25] MEDS ORDERED: HEPARIN SOD (PORCINE) 5000UNITS/ML 1ML VIAL/SYRINGE As Ordered ONE ×4 (08:52→13:18)
[2020-02-25 09:18] LABS: HEMOGLOBIN 12.9 g/dl (12.0-15.5); MEAN CORPUSCULAR HEMOGLOBIN 27.4 pg (27.0-33.0); MEAN CORPUSCULAR HGB CONC 31.5 g/dl (32.0-36.5); MEAN CORPUSCULAR VOLUME 87.2 fl (80.0-96.0); PLATELET COUNT, AUTOMATED 406 10^3/uL (150-450); WHITE BLOOD COUNT 13.3 10^3/uL (4.0-10.0)
[2020-02-25] MEDS ORDERED: LOVE1INJ SC (09:25)
[2020-02-25 09:27] LABS: INR 0.94; PROTHROMBIN TIME 12.8 SECONDS (12.5-14.3)
[2020-02-25] MEDS ORDERED: ROCURONIUM BROMIDE 50 MG/5 ML VIAL As Ordered ONE ×2 (09:56→11:54)
[2020-02-25] MEDS ORDERED: LIDOCAINE 2% 100MG/5ML SDV (FOR ANES.) As Ordered ONE (09:56)
[2020-02-25] MEDS ORDERED: dexameTHASONE 4 MG/ML 1ML VIAL (J1100 PER 1MG) As Ordered ONE (09:56)
[2020-02-25] MEDS ORDERED: ONDANSETRON 4MG/2ML VIAL As Ordered ONE (09:56)
[2020-02-25] MEDS ORDERED: propofoL 200 MG/20 ML VIAL As Ordered ONE (09:56)
[2020-02-25] MEDS ORDERED: MIDAZOLAM INJ 2MG/2ML VIAL (J2250 PER 1MG) As Ordered ONE (09:56)
[2020-02-25] MEDS ORDERED: fentaNYL 100 MCG/2 ML INJECTION (J3010) As Ordered ONE ×2 (09:56→11:59)
[2020-02-25] MEDS ORDERED: PHENYLEPHRINE 10MG/ML 1ML VIAL (J2370 PER 1) As Ordered ONE (10:06)
[2020-02-25 10:08] LABS: CALCIUM LEVEL 10.8 MG/DL (8.8-10.2); CREATININE FOR GFR 1.21 MG/DL (0.55-1.30); GLOMERULAR FILTRATION RATE 46.4 (>39); POTASSIUM SERUM 4.8 MEQ/L (3.5-5.1)
[2020-02-25] MEDS ORDERED: SUGAMMADEX SODIUM 500 MG/5 ML VIAL (BRIDION) As Ordered ONE (11:38)
[2020-02-25] MEDS ORDERED: PHENYLephrine HCL 500 MCG/5 ML (100MCG/ML) SYRINGE (J2370) As Ordered ONE (11:59)
[2020-02-25] MEDS ORDERED: ACETAMINOPHEN 1000MG 100ML IV BTL (OFIRMEV) (J0131 PER 10MG) As Ordered ONE (11:59)
[2020-02-25] MEDS ORDERED: ePHEDrine SULFATE 25 MG/5 ML(5MG/ML) SYRINGE As Ordered ONE (11:59)
[2020-02-25] MEDS ORDERED: GLYCOPYRROLATE INJ 0.2 MG/ML 2 ML VIAL As Ordered ONE (12:13)
[2020-02-25] MEDS ORDERED: DESFLURANE 240 ML INHALANT As Ordered ONE (14:23)
--- NOTE | 2020-02-25 15:14 | ROOPDOC ---
[facility] Report Of Operation Report of Operation DATE OF PROCEDURE: 02/25/20 PREPROCEDURE DIAGNOSES: Atherosclerosis of the augustine arteries with lifestyle limiting claudication and rest pain left lower extremity POSTPROCEDURE DIAGNOSES: Same PROCEDURE: 1. Left common femoral endarterectomy with xenosure patch angioplasty 2. Left femoral to below-knee popliteal bypass with cadaver vein SURGEON: Hortencia Castro MD ANESTHESIA: Gen. anesthesia and local anesthesia INDICATION FOR PROCEDURE: This is a very pleasant 74-year-old patient with end- stage long-standing left lower extremity peripheral vascular disease status post multiple endovascular interventions and thrombolysis procedures that have failed, now presents for a left femoral to below-knee bypass with cadaver vein. Unfortunately, the patient does not have suitable autologous vein. We have exp lained to her that the cadaver vein is not quite as good as her own tissue, but it is our best option since her vessels are small and I believe she would have to great a size mismatch with PTFE graft. Risks benefits and alternatives were explained and she is agreeable to proceed. Informed consent was obtained. REPORT OF OPERATION: The patient was brought to the operating room in stable condition and placed supine on your table. General anesthesia and antibiotics were administered without complication. Her left groin and left lower extremity were prepped and draped in a sterile fashion. Ioban was placed over the skin. A timeout was performed. An oblique incision was made over the inguinal ligament carried down to the subcutaneous tissue with Bovie cautery. Bridging veins were suture ligated and divided. Continue Darvocet dissection down to the femoral sheath. This was opened longitudinally and the femoral vessels were skeletonized proximally and distally within the incision. There is a large amount of posteri or wall plaque that was palpable through the vessel. 5000 units of heparin was given and allowed to circulate. Vesseloops were placed her on the SFA, profunda, and the clamp was placed proximally on the common femoral artery. An arteriotomy was made and an endarterectomy was performed. The plaque and loose intima was removed from the common femoral artery, origin of the profunda, and origin of the SFA. This was sent for pathology. We then closed the arteriotomy with a patched with running 6-0 Prolene suture. Before the final sutures to place, we flushed inflow and outflow arteries and irrigated with heparinized saline. The final sutures are placed in good hemostasis was noted. We then turned our attention to the below-knee incision. A longitudinal incision was made on the medial calf and carried down through the subcutaneous tissues Bovie cautery. Bridging veins were suture ligated and divided. We continue down through the fascia and the posterior muscle was retracted to expose the popliteal vein and artery. These were skeletonized proximally and distally within the incision. Vesseloops were placed proximally and distally on the popliteal artery and as well as a medial branch. Additional heparin was given and allowed to circulate. The cadaver vein was appropriately thought and prepared. Was placed from the knee incision up to the groin incision along the medial thigh in the subcutaneou s tissue below the superficial fascia. We then attached the vein with a silk suture to the tunneler, after marking it for orientation. We then tunneled the vein from the groin to the knee and flushed the vein was saline to make sure it was not twisted in correct orientation. Next, the clamp was replaced on the common femoral artery, and the Vesseloops were resecured on the profunda in the SFA. An arteriotomy was made in the patch, and a beveled spatulated proximal end of the graft was anastomosed to the patch in a running fashion with 6-0 Prolene suture. Before the final sutures are placed, a bulldog clamp was placed on the graft and we flushed inflow and outflow arteries. We then irrigated with heparinized saline placed her final sutures and flow was restored. There was excellent flow through the profunda, known occlusion of the SFA is present. We then turned our attention to the distal anastomosis. The vein was again beveled and spatulated. It was cut to appropriate length for a tension-free anastomosis. We then secured the Vesseloops on the popliteal artery. An arteriotomy was made in the vein was anastomosed end-to-side fashion with running 6-0 Prolene suture. Before the final sutures are placed, we flushed inflow and outflow artery and flushed blood through the graft. Good flow was noted and we irrigated with heparinized saline in her final sutures are placed. We then restored flow through the popliteal vessels in the graft and there was an excellent signal distal to the bypass. Good hemostasis was noted. Both incisions were irrigated with copious amounts of saline. Doppler also confirmed good flow in the profunda in the proximal SFA. We then closed the knee incision with 3 layers of 2-0 Vicryl suture taking care not to kink or impede graft. We then approximated the deep dermal layer with interrupted 3-0 Vicryl sutures. The skin was closed with skin adali. Dry gauze and Tegaderm were placed over the incision. At the groin, we irrigated with copious amounts of saline. Local anesthesia was administered to the skin and subcutaneous tissue. The femoral sheath was approximated with Vicryl suture. The fascia was closed in 3 layers with 2-0 Vicryl suture. The deep dermal layer was approximated with 3-0 Vicryl interrupted sutures. The skin was closed with skin adali. Dry gauze and Tegaderm were placed over the incision. We confirmed flow throughout the graft with Doppler and marked this on the skin. We also confirmed flow at the foot and there was less than 1 second capillary refill. The foot was warm and pink. The patient was then allowed to awaken from anesthesia was taken to recovery in stable condition. She tolerated the anesthesia and the procedure well. SPECIMEN: Left femoral plaque sent for pathology ESTIMATED BLOOD LOSS: Approximately 50 mL. COMPLICATIONS: None. PLAN: Bed rest overnight, been out of bed with activity as tolerated with nurse assist starting tomorrow. We'll get PT OT. High-protein diet to help with wound healing. Analgesia when necessary. Hopefully home in 2-3 days. We appreciate the opportunity to purchase the care of this patient. HORTENCIA CASTRO MD Feb 25, 2020 15:14
[2020-02-25] MEDS ORDERED: fentaNYL 100 MCG/2 ML INJECTION (J3010) IV PRN (15:30)
[2020-02-25] MEDS ORDERED: diazePAM 5 MG TAB PO PRN (15:30)
[2020-02-25] MEDS ORDERED: METOCLOPRAMIDE INJ 10MG/2ML VIAL (J2765 PER 1) IV PRN (15:30)
[2020-02-25] MEDS ORDERED: ONDANSETRON 4MG/2ML VIAL IV PRN ×2 (15:30)
[2020-02-25] MEDS ORDERED: LR 1,000 ML IV SCH (15:30)
[2020-02-25] MEDS ORDERED: oxyCODONE 5MG TAB PO PRN (15:30)
[2020-02-25] MEDS: PERCOCET 5MG/325MG TAB PO PRN ×2 (15:44→20:49)
[2020-02-25] MEDS ORDERED: GLUCAGON INJ 1MG VIAL SC PRN (15:45)
[2020-02-25] MEDS ORDERED: GLUCOSE 4GM CHEW TABLET PO PRN (15:45)
[2020-02-25] MEDS ORDERED: DEXTROSE 50% 50 ML SYRINGE IV PRN (15:45)
--- NOTE | 2020-02-25 16:36 | HPEPDOC ---
[facility] Medical History & Physical Date of Admission Feb 25, 2020 Date of Service: Feb 25, 2020 History and Physical Chief complaint: Who presented to [facility] for an elective procedure with vas cular surgery History of present illness: Patient is a 74-year-old female with a PMHx of DVT / PE (2017), A. fib (on Coumadin), HTN, Peripheral vascular disease, DLP, IDDM2, Anxiety / Depression who presented to [facility] for an elective procedure with vascular surgery. Today the patient has received a left femoral endarterectomy with a left vbeirpi-sv-nzdsgayda bypass with Dr. Castro. Patient has received outpatient medical optimization for this procedure. Hospitalist service was called postoperatively. Currently, patient reports that they do not experience any headache, nausea, vomiting, chest pain, shortness breath, palpitations, abdominal pain, cons tipation, diarrhea, or urinary discomfort. Patient does not experience any recent fevers or chills. Reports that her appetite is fairly normal without any changes in her weight. Past Medical History: DVT / PE (2018), A. fib (on Coumadin), HTN, Peripheral vascular disease, DLP, IDDM2, Anxiety / Depression Past Surgical History: Angioplasty of left lower extremity 07/2018 Right popliteal angioplasty and stent placement Left superficial femoral artery angioplasty and stent Left common femoral angioplasty Total abdominal hysterectomy 1995 Cholecystectomy 1999 Partial thyroid resection, 2015 Allergies: See below Medications: See below Family History: - Mother with a history of breast cancer; sisters with a history of heart disease Social History: - Denies the use of alcohol or illicit drugs; patient reports that she quit smoking greater than 50 years ago - Denies recent travel or sick contacts - Lives with her daughterLaura at [phone] Review of Systems: 10 point review of systems complete, all negative otherwise stated in HPI Physical exam: - Vitals: BP [158/76], HR [70], RR [20], Sat [98%RA] Temp [96.8F] - General: Lying in bed, Speaking in full sentences, AAOx3 - HEENT: NC, AT, PERRLA - CVS: RRR, +S1S2 - Lungs: Fair air entry bilaterally, No appreciable wheezing / rales / rhonchi - Abdomen: Soft, Non-distended, Non-tender - Extremities: No lower extremity edema, No calf tenderness - Neuro: No focal motor or sensory deficit - Skin: No visible rashes Assessment and Plan: Left femoral endarterectomy and hbznodd-jj-aelzrkogb bypass (POD#0) - Extensive history of peripheral vascular disease with multiple interventions in the past - Patient has received outpatient medical optimization from their PCP - Patient has been started on pain control; on Percocet and Valium - Will have physical therapy starting tomorrow morning DVT / PE (2018) - c/w Coumadin and Lovenox bridge A. fib - Patient currently appears to be in sinus rhythm - INR subtherapeutic - Will continue with rate control with metoprolol - c/w Coumadin and Lovenox bridge HTN - Blood pressures currently moderately controlled - Continue with amlodipine, clonidine, enalapril and Metoprolol with holding parameters DLP - c/w IDDM2 - Will c/w Levemir and start ISS Anxiety / Depression - c/w Paroxetine and Amitriptyline GERD - c/w Omeprazole DVT prophylaxis - Will c/w full anticoagulation with Coumadin / Lovenox bridge Vital Signs Vital Signs Date Time Temp Pulse Resp B/P (MAP) Pulse Ox O2 Delivery O2 Flow Rate FiO2 02/25/20 16:00 96.8 70 20 158/76 (103) 98 Room Air Laboratory Data Labs 24H Laboratory Tests 2 02/25/20 09:06: Nucleated Red Blood Cells % (auto) 0.0, Prothrombin Time 12.8, Prothromb Time International Ratio 0.94, Anion Gap 3L, Glomerular Filtration Rate 46.4, Calcium Level 10.8H 02/25/20 09:31: Bedside Glucose (Misc Panel) 114H CBC/BMP Laboratory Tests 02/25/20 09:06 Home Medications Scheduled Amitriptyline HCl (Amitriptyline HCl) 25 Mg Tablet, 25 MG PO QHS Amlodipine Besylate (Amlodipine Besylate) 10 Mg Tablet, 10 MG PO DAILY Clonidine HCl (Clonidine HCl) 0.2 Mg Tablet, 0.1 MG PO BID Clopidogrel Bisulfate (Clopidogrel) 75 Mg Tablet, 75 MG PO DAILY Dulaglutide (Trulicity) 0.75 Mg/0.5 Ml Pen.injctr, 0.75 MG SC QWEEK TUESDAY Enalapril Maleate (Enalapril Maleate) 20 Mg Tablet, 40 MG PO DAILY Enoxaparin Sodium (Lovenox) 40 Mg/0.4 Ml Syringe, 0.4 ML SC DAILY Glipizide (Glipizide) 10 Mg Tablet, 10 MG PO BID Insulin Detemir (Levemir) 100 Unit/1 Ml Vial, 10 UNITS SC BID Loratadine (Loratadine) 10 Mg Tablet, 10 MG PO DAILY Metoprolol Tartrate (Metoprolol Tartrate) 50 Mg Tablet, 50 MG PO BID Omeprazole (Omeprazole) 20 Mg Capsule.dr, 40 MG PO DAILY Paroxetine (Paroxetine HCl) 10 Mg Tablet, 10 MG PO DAILY Warfarin Sodium (Warfarin Sodium) 1 Mg Tablet, 3.5 MG PO QPM Scheduled PRN Acetaminophen (Acetaminophen) 500 Mg Tablet, 500 MG PO Q6H PRN for PAIN Allergies Coded Allergies: Sulfa (Sulfonamide Antibiotics) (Verified Allergy, Unknown, hives, 07/10/19) NAVEED JUSTICE MD Feb 25, 2020 16:36
[2020-02-25] MEDS ORDERED: WARFARIN SOD 3MG TAB PO SCH (17:00)
[2020-02-25] MEDS: WARFARIN SOD 2.5MG TAB PO SCH (18:12)
[2020-02-25] MEDS: WARFARIN SOD 1MG TAB PO SCH (18:12)
[2020-02-25] MEDS: HumaLOG INSULIN (NovoLOG) PER UNIT SC SCH ×2 (18:13→20:38)
--- NOTE | 2020-02-25 18:14 | IPNPDOC ---
Date Seen The patient was seen on 02/25/20. Progress Note Patient seen and examined multiple times stay. She had a heroic attempt at endovascular revascularization of her right lower extremity today. She was completely occluded through the right SFA, popliteal, and all 3 tibials. Very little collateral flow provided flow to the leg and foot, but it was minimal and no named vessels were seen on initial arteriogram. She had tissue loss on arrival today with the pretibial wound, blistering of the skin over the pretibial area, cellulitis over the legs from the need of the foot, and dry gangrene over various aspects of the foot. It was unclear to me even if we were able to revascularize her how much success we would have improving this tissue due to late stage ischemia and chronic severe PVD. However, the family felt it was important that we try everything to preserve her limb, and this we underwent the procedure. We were somehow able to cross through the occlusion in the right SFA, popliteal, and all 3 tibials to the mid foot, but despite angioplasty and stenting of the SFA and popliteal and repeated angioplasty of all 3 tibials, there was no runoff at the end of the case. The tibials were heavy with calcified plaque, and re-occluding. Unfortunately, I did not feel that we restored adequate flow to improve her situation. I talked to her family postop about the fact that I felt she would need an above-knee amputation, and we scheduled this for . However, while following the patient postprocedure, her foot was painful and seemed to have further deterioration, and thus we decided to go ahead with the amputation today. Risks benefits and alternatives were explained to the patient's son and daughter who are her healthcare proxy is imperative attorneys, and informed consent was obtained. The patient is a Evangelical and a blood consent was not signed. The family does not wish for her to receive blood products. We will proceed with a right above-knee amputation today. While the patient is in the hospital, we will obtain an arterial duplex of the left lower extremity to evaluate and see if she has a similar situation eminent on the left. We appreciate the opportunity to participate in the care of this patient. VS, I&O, 24H, Fishbone Vital Signs/I&O Vital Signs Date Time Temp Pulse Resp B/P (MAP) Pulse Ox O2 Delivery O2 Flow Rate FiO2 02/25/20 17:00 96.8 67 18 145/70 (95) 97 Room Air Laboratory Data 24H LABS Laboratory Tests 2 02/25/20 09:06: Nucleated Red Blood Cells % (auto) 0.0, Prothrombin Time 12.8, Prothromb Time International Ratio 0.94, Anion Gap 3L, Glomerular Filtration Rate 46.4, Calcium Level 10.8H 02/25/20 09:31: Bedside Glucose (Misc Panel) 114H 02/25/20 16:39: Bedside Glucose (Misc Panel) 158H CBC/BMP Laboratory Tests 02/25/20 09:06 HORTENCIA GREENBERG MD Feb 25, 2020 18:14
[2020-02-25] MEDS: METOPROLOL TART 50 MG TAB PO SCH (18:58)
[2020-02-25] MEDS: AMITRIPTYLINE 25 MG TAB PO SCH (20:46)
[2020-02-25] MEDS: cloNIDine 0.1 MG TAB PO SCH (20:46)
[2020-02-25] MEDS: LEVEMIR (INSULIN DETEMIR) 1 UNITS/0.01ML SC SCH (20:47)
[2020-02-25] MEDS: ENOXAPARIN 40MG/0.4ML SYRINGE (J1650 PER 10MG) SC SCH (20:48)
[2020-02-26] MEDS: PERCOCET 5MG/325MG TAB PO PRN ×2 (01:09→08:51)
[2020-02-26 02:00] VITALS: BP 136/73
[2020-02-26 06:00] VITALS: BP 122/69
[2020-02-26 06:12] LABS: HEMATOCRIT 33.6 % (36.0-47.0); MEAN CORPUSCULAR HEMOGLOBIN 27.4 pg (27.0-33.0); MEAN CORPUSCULAR HGB CONC 32.1 g/dl (32.0-36.5); MEAN CORPUSCULAR VOLUME 85.3 fl (80.0-96.0); PLATELET COUNT, AUTOMATED 309 10^3/uL (150-450); RED BLOOD COUNT 3.94 10^6/uL (4.00-5.40); WHITE BLOOD COUNT 16.3 10^3/uL (4.0-10.0)
[2020-02-26 06:17] LABS: INR 0.98; PROTHROMBIN TIME 13.2 SECONDS (12.5-14.3)
[2020-02-26 06:21] LABS: HEMOGLOBIN 10.8 g/dl (12.0-15.5)
[2020-02-26 06:27] LABS: CALCIUM LEVEL 9.9 MG/DL (8.8-10.2); CREATININE FOR GFR 1.13 MG/DL (0.55-1.30); GLOMERULAR FILTRATION RATE 50.2 (>39); MAGNESIUM LEVEL 1.5 MG/DL (1.8-2.4); POTASSIUM SERUM 4.9 MEQ/L (3.5-5.1)
[2020-02-26] MEDS: HumaLOG INSULIN (NovoLOG) PER UNIT SC SCH ×4 (08:42→22:09)
[2020-02-26] MEDS: LEVEMIR (INSULIN DETEMIR) 1 UNITS/0.01ML SC SCH ×2 (08:43→22:10)
[2020-02-26] MEDS: ENOXAPARIN 40MG/0.4ML SYRINGE (J1650 PER 10MG) SC SCH ×2 (08:43→22:10)
[2020-02-26] MEDS ORDERED: fentaNYL 100 MCG/2 ML INJECTION (J3010) IV ONE (08:45)
[2020-02-26] MEDS ORDERED: PERCOCET 5MG/325MG TAB PO ONE (08:45)
[2020-02-26] MEDS: OMEPRAZOLE 20 MG CAP PO SCH (08:48)
[2020-02-26] MEDS: PARoxetine 10MG TABLET PO SCH (08:48)
[2020-02-26] MEDS: ENALAPRIL MALEATE 10 MG TAB PO SCH (08:50)
[2020-02-26] MEDS: cloNIDine 0.1 MG TAB PO SCH ×2 (08:50→22:08)
[2020-02-26] MEDS: LORATADINE 10 MG TAB PO SCH (08:51)
[2020-02-26] MEDS: CLOPIDOGREL 75 MG TAB PO SCH (08:52)
[2020-02-26] MEDS: METOPROLOL TART 50 MG TAB PO SCH ×2 (08:52→22:09)
[2020-02-26] MEDS: amLODIPine 10 MG TAB PO SCH (08:52)
[2020-02-26] MEDS ORDERED: MAG SULF 1GM/100ML (MAG RUN) 1 GM in IV 1 EA IV ONE (09:00)
[2020-02-26] MEDS ORDERED: MORPHINE 4 MG/ML 1ML VIAL/SYRINGE (J2270) IV ONE (09:30)
[2020-02-26 10:00] VITALS: BP 117/56
--- NOTE | 2020-02-26 11:47 | IPNPDOC ---
Date Seen The patient was seen on 02/26/20. Progress Note Hospitalist Attending Physician 02/26/20 Progress note dictated. Dictation job#[id number] If urgent written documentation is needed, please 1) call [facility] [phone] for STAT reclamation engineer, and 2)Medical Records [phone] to STAT scan into EMR. thank you. VS, I&O, 24H, Fishbone Vital Signs/I&O Vital Signs Date Time Temp Pulse Resp B/P (MAP) Pulse Ox O2 Delivery O2 Flow Rate FiO2 02/26/20 10:16 18 02/26/20 10:00 99.4 65 117/56 (76) 92 Room Air I&O- Last 24 Hours up to 6 AM 02/26/20 06:00 Intake Total 1720 ml Output Total 375 ml Balance 1345 ml Laboratory Data 24H LABS Laboratory Tests 2 02/25/20 16:39: Bedside Glucose (Misc Panel) 158H 02/25/20 19:43: Bedside Glucose (Misc Panel) 150H 02/26/20 05:44: Nucleated Red Blood Cells % (auto) 0.0, Prothrombin Time 13.2, Prothromb Time International Ratio 0.98, Anion Gap 6L, Glomerular Filtration Rate 50.2, Calcium Level 9.9, Magnesium Level 1.5L CBC/BMP Laboratory Tests 02/26/20 05:44 JEFF MCCARTHY MD Feb 26, 2020 11:39
[2020-02-26 14:00] VITALS: BP 121/55
--- NOTE | 2020-02-26 14:44 | IPNPDOC ---
Date Seen The patient was seen on 02/26/20. Progress Note Patient seen and examined postoperative day one status post left femoral to popliteal bypass. She is doing very well. She does complain of some soreness in her groin and her knee, but this is to be expected postoperative day one. Her pain is controlled with analgesia. She said she did not sleep well last night, but is can try a Valium tonight to help her rest. I think this is a good idea. She is tolerating a diet okay. She's been up to the chair with PTOT, but will need to ambulate tomorrow. On exam, she has an excellent signal over the bypass and the profunda. Her incisions are clean dry and intact. They were thoroughly cleaned and redressed with dry gauze and paper tape. Her foot is warm and well- perfused with biphasic signals. Her capillary refill is less than 1 second. She says her foot feels well-perfused. Continue with activity with assist as tolerated. Encourage high-protein diet to help with healing of her incisions. We appreciate the opportunity to participate in the care of this patient. VS, I&O, 24H, Fishbone Vital Signs/I&O Vital Signs Date Time Temp Pulse Resp B/P (MAP) Pulse Ox O2 Delivery O2 Flow Rate FiO2 02/26/20 14:00 98.1 58 16 121/55 (77) 94 Room Air I&O- Last 24 Hours up to 6 AM 02/26/20 06:00 Intake Total 1720 ml Output Total 375 ml Balance 1345 ml Laboratory Data 24H LABS Laboratory Tests 2 02/25/20 16:39: Bedside Glucose (Misc Panel) 158H 02/25/20 19:43: Bedside Glucose (Misc Panel) 150H 02/26/20 05:44: Nucleated Red Blood Cells % (auto) 0.0, Prothrombin Time 13.2, Prothromb Time International Ratio 0.98, Anion Gap 6L, Glomerular Filtration Rate 50.2, Calcium Level 9.9, Magnesium Level 1.5L 02/26/20 11:37: Bedside Glucose (Misc Panel) 128H CBC/BMP Laboratory Tests 02/26/20 05:44 HORTENCIA GREENBERG MD Feb 26, 2020 14:44
[2020-02-26] MEDS: MORPHINE 4 MG/ML 1ML VIAL/SYRINGE (J2270) IV PRN (16:46)
[2020-02-26] MEDS: WARFARIN SOD 2.5MG TAB PO SCH (17:53)
[2020-02-26] MEDS: WARFARIN SOD 1MG TAB PO SCH (17:53)
[2020-02-26 22:00] VITALS: BP 105/56
[2020-02-26] MEDS: AMITRIPTYLINE 25 MG TAB PO SCH (22:04)
[2020-02-26] MEDS ORDERED: RAMELTEON 8 MG TAB (ROZEREM) PO PRN (22:15)
[2020-02-27] MEDS: PERCOCET 5MG/325MG TAB PO PRN ×3 (00:18→22:35)
[2020-02-27] MEDS: MORPHINE 4 MG/ML 1ML VIAL/SYRINGE (J2270) IV PRN ×5 (01:45→18:34)
[2020-02-27 02:00] VITALS: BP 133/60
[2020-02-27 06:00] VITALS: BP 131/61
[2020-02-27 06:36] LABS: HEMATOCRIT 34.4 % (36.0-47.0); HEMOGLOBIN 10.7 g/dl (12.0-15.5); MEAN CORPUSCULAR HEMOGLOBIN 27.4 pg (27.0-33.0); MEAN CORPUSCULAR HGB CONC 31.1 g/dl (32.0-36.5); MEAN CORPUSCULAR VOLUME 88.2 fl (80.0-96.0); PLATELET COUNT, AUTOMATED 291 10^3/uL (150-450); WHITE BLOOD COUNT 13.1 10^3/uL (4.0-10.0)
[2020-02-27 06:47] LABS: INR 0.99; PROTHROMBIN TIME 13.3 SECONDS (12.5-14.3)
[2020-02-27 06:59] LABS: CALCIUM LEVEL 10.1 MG/DL (8.8-10.2); CREATININE FOR GFR 1.16 MG/DL (0.55-1.30); GLOMERULAR FILTRATION RATE 48.8 (>39); MAGNESIUM LEVEL 1.7 MG/DL (1.8-2.4); POTASSIUM SERUM 4.3 MEQ/L (3.5-5.1)
[2020-02-27] MEDS: LEVEMIR (INSULIN DETEMIR) 1 UNITS/0.01ML SC SCH ×2 (08:12→22:32)
[2020-02-27] MEDS: cloNIDine 0.1 MG TAB PO SCH ×2 (08:12→20:20)
[2020-02-27] MEDS: HumaLOG INSULIN (NovoLOG) PER UNIT SC SCH ×4 (08:13→21:00)
[2020-02-27] MEDS: PARoxetine 10MG TABLET PO SCH (08:13)
[2020-02-27] MEDS: ENOXAPARIN 40MG/0.4ML SYRINGE (J1650 PER 10MG) SC SCH ×2 (08:14→20:19)
[2020-02-27] MEDS: amLODIPine 10 MG TAB PO SCH (08:14)
[2020-02-27] MEDS: CLOPIDOGREL 75 MG TAB PO SCH (08:14)
[2020-02-27] MEDS: OMEPRAZOLE 20 MG CAP PO SCH (08:18)
[2020-02-27] MEDS: ENALAPRIL MALEATE 10 MG TAB PO SCH (08:19)
[2020-02-27] MEDS: METOPROLOL TART 50 MG TAB PO SCH ×2 (08:19→20:21)
[2020-02-27] MEDS: LORATADINE 10 MG TAB PO SCH (08:19)
--- NOTE | 2020-02-27 08:26 | IPNPDOC ---
Text Note Date of Service The patient was seen on 02/27/20. NOTE Vascular Surgery Dr. Castro Patient seen and examined POD2 status post left femoral to popliteal bypass. She reports she had sharp pain in the left leg and left foot last evening, she had been sitting on the side of the bed and then out of bed to the commode. She states the pain also woke her out of her sleep last evening. She states it is a intense aching throbbing pain. She states if she takes pain medication the pain is controlled and currently she does not have pain in the leg. She received morphine 3 mg IV at 5 AM. Yesterday it appears she did not take much for pain medication. She took 2 tablets of Percocet 10/25 at 8:51 AM and then it looks like she did not take any additional pain medication until 1645 when she took 3 mg IV morphine. I have encouraged her to take pain medication as needed for the discomfort and discussed with her that the first 1-2 days is the worst as far as pain. On exam today the left groin wound and left calf wound have no drainage on the dressings, no surrounding erythema or tenderness. Robin are intact. The areas were cleaned and dry dressing is reapplied. I am able to get biphasic signal over the left femoral and the bypass this AM. I am able to Doppler strong monophasic signal at the left BROADCAST CHIEF ENGINEER. I am unable to Doppler left DP, this is unchanged. The left foot is warm to touch, there is brisk capillary refill, it appears well-perfused at this time. Continue with activity with assist as tolerated. Encourage high-protein diet to help with healing of her incisions. Continue pain control. Continue PT/OT. Plavix/Coumadin. Would recommend consideration of statin. Continue to closely monitor. We appreciate the opportunity to participate in the care of this patient. VS,Fishbone, I+O VS, Fishbone, I+O Laboratory Tests 02/27/20 06:07 Vital Signs Date Time Temp Pulse Resp B/P (MAP) Pulse Ox O2 Delivery O2 Flow Rate FiO2 02/27/20 06:00 99.7 70 19 131/61 (84) 94 Room Air I&O- Last 24 Hours up to 6 AM 02/27/20 06:00 Intake Total 1470 ml Output Total 0 ml Balance 1470 ml Angelina Baumann Feb 27, 2020 08:26
[2020-02-27 10:20] VITALS: BP 139/72
[2020-02-27] MEDS ORDERED: MAG SULF 1GM/100ML (MAG RUN) 1 GM in IV 1 EA IV ONE (11:00)
[2020-02-27 13:40] VITALS: BP 128/69
[2020-02-27] MEDS: WARFARIN SOD 1MG TAB PO SCH (17:20)
[2020-02-27] MEDS: WARFARIN SOD 2.5MG TAB PO SCH (17:20)
[2020-02-27] MEDS: AMITRIPTYLINE 25 MG TAB PO SCH (20:20)
[2020-02-27 22:00] VITALS: BP 129/67
[2020-02-28 02:00] VITALS: BP 117/63
[2020-02-28 06:00] VITALS: BP 124/64
[2020-02-28 07:03] LABS: HEMATOCRIT 37.3 % (36.0-47.0); HEMOGLOBIN 11.6 g/dl (12.0-15.5); MEAN CORPUSCULAR HEMOGLOBIN 27.6 pg (27.0-33.0); MEAN CORPUSCULAR HGB CONC 31.1 g/dl (32.0-36.5); MEAN CORPUSCULAR VOLUME 88.6 fl (80.0-96.0); PLATELET COUNT, AUTOMATED 296 10^3/uL (150-450); RED BLOOD COUNT 4.21 10^6/uL (4.00-5.40)
[2020-02-28 07:14] LABS: INR 1.08; PROTHROMBIN TIME 14.2 SECONDS (12.5-14.3)
[2020-02-28 07:34] LABS: CALCIUM LEVEL 10.5 MG/DL (8.8-10.2); CREATININE FOR GFR 1.12 MG/DL (0.55-1.30); GLOMERULAR FILTRATION RATE 50.8 (>39); POTASSIUM SERUM 5.1 MEQ/L (3.5-5.1)
[2020-02-28] MEDS: PARoxetine 10MG TABLET PO SCH (09:22)
[2020-02-28] MEDS: OMEPRAZOLE 20 MG CAP PO SCH (09:22)
[2020-02-28] MEDS: LORATADINE 10 MG TAB PO SCH (09:22)
[2020-02-28] MEDS: CLOPIDOGREL 75 MG TAB PO SCH (09:24)
[2020-02-28] MEDS: cloNIDine 0.1 MG TAB PO SCH ×2 (09:24→21:00)
[2020-02-28] MEDS: amLODIPine 10 MG TAB PO SCH (09:25)
[2020-02-28] MEDS: ENALAPRIL MALEATE 10 MG TAB PO SCH (09:25)
[2020-02-28] MEDS: METOPROLOL TART 50 MG TAB PO SCH ×2 (09:26→21:00)
[2020-02-28] MEDS: ENOXAPARIN 40MG/0.4ML SYRINGE (J1650 PER 10MG) SC SCH ×2 (09:26→20:40)
[2020-02-28] MEDS: LEVEMIR (INSULIN DETEMIR) 1 UNITS/0.01ML SC SCH ×2 (09:27→20:41)
[2020-02-28] MEDS: HumaLOG INSULIN (NovoLOG) PER UNIT SC SCH ×4 (09:27→21:00)
[2020-02-28 10:00] VITALS: BP 124/67
[2020-02-28] MEDS ORDERED: MIRALAX *UNIT DOSE* 17GM PACKET PO PRN (10:00)
[2020-02-28] MEDS ORDERED: MOM 30ML SUSPENSION UDC PO PRN (10:00)
[2020-02-28] MEDS ORDERED: SENNA 8.6 MG TAB (SENOKOT) PO PRN (10:00)
--- NOTE | 2020-02-28 11:12 | IPNPDOC ---
Text Note Date of Service The patient was seen on 02/28/20. NOTE Vascular Surgery Dr. Castro Patient seen and examined POD3 status post left femoral to popliteal bypass. She reports pain has been reasonably controlled. Had vomitting x 1 this AM but states feels OK now, advised to eat something before taking pain meds on an empty stomach. On exam today the left groin wound and left calf wound have no drainage on the dressings, no surrounding erythema or tenderness. [place] are intact. The areas were cleaned and dry dressing is reapplied. I am able to get signal over the left femoral and the bypass. I am able to Doppler monophasic signal at the left ORAL SURGERY TECHNICIAN. I am unable to Doppler left DP, this is unchanged. The left foot is warm to touch, there is brisk capillary refill, it appears well-perfused at this time. Continue with activity with assist as tolerated. Encourage high-protein diet to help with healing of her incisions. Continue pain control. Continue PT/OT. Pt can shower today. Plavix/Coumadin. Would recommend consideration of statin. Continue to closely monitor. Possible D/C 02/29/20. We appreciate the opportunity to participate in the care of this patient. VS,Fishbone, I+O VS, Fishbone, I+O Laboratory Tests 02/28/20 06:34 Vital Signs Date Time Temp Pulse Resp B/P (MAP) Pulse Ox O2 Delivery O2 Flow Rate FiO2 02/28/20 10:00 97.4 75 19 124/67 (86) 97 Room Air I&O- Last 24 Hours up to 6 AM 02/28/20 06:00 Intake Total 300 ml Output Total 0 ml Balance 300 ml Angelina Baumann Feb 28, 2020 11:12
[2020-02-28] MEDS: PERCOCET 5MG/325MG TAB PO PRN ×2 (12:21→23:31)
[2020-02-28 14:00] VITALS: BP 88/50
[2020-02-28] MEDS ORDERED: NS 500 ML IV ONE (14:00)
[2020-02-28] MEDS: WARFARIN SOD 2.5MG TAB PO SCH (17:23)
[2020-02-28] MEDS: WARFARIN SOD 1MG TAB PO SCH (17:24)
--- NOTE | 2020-02-28 17:46 | IPN ---
DATE: 02/26/2020 SUBJECTIVE: Patient complains of 10/10 pain of the left lower extremity, however upon reevaluation by nursing at the bedside the patient says her pain is 3/10 when she does not move. No fever or chills over night. PHYSICAL EXAMINATION: VITAL SIGNS: Temperature 99.4, pulse 65, respiratory rate 20, blood pressure 117/56, 92% on room air. GENERAL: The patient appears her stated age, no respiratory distress. No cyanosis. No icterus or jaundice. HEENT: Dry mucous membranes. LUNGS: Clear to auscultation. No wheezes, rales or rhonchi. HEART: S1 and S2, sinus rhythm. No murmurs, rubs or gallops. ABDOMEN: Soft, nontender and nondistended. Positive bowel sounds x4 quadrants. No rebound or guarding. EXTREMITIES: No pitting edema. Postop changes noted with no signs of cellulitis, some erythema but no induration, slightly tender. LABORATORY DATA: White count 16.3, hemoglobin 10, hematocrit 33, platelet count 309,000. Sodium 137, potassium 4.9, chloride 106, bicarbonate 25, BUN 23, creatinine 1.13, glucose 120, magnesium of 1.5. Input of 1600, output of 375. CURRENT HOSPITAL MEDICATIONS: Plavix, Norvasc, Vasotec, loratadine, Prilosec, Paxil, Lovenox, Elavil, Clonidine, Levemir insulin, insulin sliding scale, metoprolol, warfarin, Humalog insulin sliding scale q. h.c. h.s., hypoglycemic protocol, Valium, Percocet, Zofran, ASSESSMENT AND PLAN: This is a 74-year-old female admitted on 02/14/2020 with a history of hypertension, peripheral arterial disease, anxiety, depression, hyperlipidemia, chronic atrial fibrillation, insulin dependent diabetes, found to have re-occlusion of the left superficial femoral and popliteal artery stents status post thrombolysis and intervention months ago with unsuccessful recannulization in the superficial femoral artery. The patient underwent left femoral below the knee popliteal bypass, left femoral endarterectomy with patching on 02/25/2020, angioplasty and stenting to the SFA and popliteal and repeated angioplasty of three tibials had no run-off at the end. Dr. Castro of Vascular Surgery did not feel that flow was restored post-procedure with a persistent painful foot. Has planned for amputation. Health care proxy is the daughter and the patients son have given consent. The patient is a Jehovah Witness and blood consent was not signed. Arterial Duplex of the left lower extremity to be done. IMPRESSION: 1. Peripheral arterial disease, left femoral endarterectomy, femoral to popliteal bypass, defer to Dr. Castro for further management, currently on Percocet and Valium with severe breakthrough pain, started on IV Morphine. 2. History of DVT, PE and chronic coumadin with Lovenox as a bridge. 3. Chronic atrial fibrillation, on metoprolol, Lovenox and coumadin. Once INR is therapeutic discontinue Lovenox. 4. Hypertension, holding parameters placed on her blood pressure medications. 5. Insulin dependent diabetes, on Levemir insulin, consistent carbohydrate diet and sliding scale with coverage. 6. Anxiety and depression, on paroxetine, amitriptyline. 7. Reflux, on Prilosec. 8. Dyslipidemia, chronic. MTDD
[2020-02-28] MEDS: AMITRIPTYLINE 25 MG TAB PO SCH (20:40)
[2020-02-28 22:00] VITALS: BP 101/50
[2020-02-29 02:00] VITALS: BP 105/62
[2020-02-29] MEDS: PERCOCET 5MG/325MG TAB PO PRN ×2 (04:36→20:37)
[2020-02-29 06:00] VITALS: BP 110/65
[2020-02-29] MEDS: LEVEMIR (INSULIN DETEMIR) 1 UNITS/0.01ML SC SCH ×2 (08:52→20:38)
[2020-02-29] MEDS: HumaLOG INSULIN (NovoLOG) PER UNIT SC SCH ×4 (08:53→20:29)
[2020-02-29] MEDS: ENOXAPARIN 40MG/0.4ML SYRINGE (J1650 PER 10MG) SC SCH ×2 (08:54→20:38)
[2020-02-29] MEDS: PARoxetine 10MG TABLET PO SCH (08:54)
[2020-02-29] MEDS: OMEPRAZOLE 20 MG CAP PO SCH (08:54)
[2020-02-29] MEDS: METOPROLOL TART 50 MG TAB PO SCH ×2 (08:54→21:00)
[2020-02-29] MEDS: CLOPIDOGREL 75 MG TAB PO SCH (08:54)
[2020-02-29] MEDS: LORATADINE 10 MG TAB PO SCH (08:55)
[2020-02-29] MEDS: amLODIPine 10 MG TAB PO SCH (08:55)
[2020-02-29] MEDS: cloNIDine 0.1 MG TAB PO SCH ×2 (08:55→20:38)
[2020-02-29] MEDS: ENALAPRIL MALEATE 10 MG TAB PO SCH (08:56)
[2020-02-29 10:00] VITALS: BP 128/57
--- NOTE | 2020-02-29 10:27 | IPN ---
DATE: 02/27/2020 SUBJECTIVE: Patient is seen and examined at the bedside. Chart has been reviewed. Patient says she does not feel well today, pain is 10/10. Unable to ambulate independently, usually requires 1-2 person assistance in getting up, even walking to the commode. No nausea, vomiting, chest pain, pressure, or tightness. OBJECTIVE: PHYSICAL EXAMINATION: Vital signs: Temperature 98.9, pulse 74, respiratory rate 16, blood pressure 139/72, 94% on room air. Generally: Patient is awake, alert, oriented to person, place, and time, answering questions appropriately, no respiratory distress. No jugular venous distension (JVD), thyromegaly, or cervical lymphadenopathy. Moist mucous membranes. Lungs: Clear to auscultation. No wheezing, rales, or rhonchi. Heart: S1, S2, sinus rhythm. Abdomen: Soft, nontender, nondistended. Normoactive bowel sounds. Extremities: No cyanosis or clubbing. Patients left lower extremity clean dressing. Pulses noted in the left medial thigh by Doppler. Patient has diminished pulses in the dorsum of the left foot, pink in color, no edema. LABORATORY DATA: White count 13, hemoglobin 10, hematocrit 34, platelet count 291, sodium 137, potassium 4.2, chloride 107, bicarbonate 25, BUN 23, creatinine 1.16, magnesium of 1.7. ASSESSMENT AND PLAN: This is a 74-year-old female admitted on 02/25/2020 status post left femoral-popliteal bypass with history of peripheral arterial disease, deep venous thrombosis (DVT), pulmonary embolus (PE), atrial fibrillation, hypertension, dyslipidemia, insulin-dependent diabetes, anxiety and depression status post left femoral endarterectomy, left femoral-popliteal bypass. IMPRESSION: 1. Peripheral arterial disease status post left femoral-popliteal bypass. 2. Chronic atrial fibrillation. 3. History of deep venous thrombosis (DVT) and pulmonary embolus (PE). 4. Peripheral vascular disease. 5. Dyslipidemia. 6. Anxiety and depression. 7. Insulin-dependent type 2 diabetes. PLAN: Postoperative management per vascular surgery, Dr. Castro. Patient was noted to have diminished pulses in the dorsum of the left foot, the color is pink. Per Dr. Castor, she had good collateral vessels and should be continued on her home dose of Plavix, warfarin. She is on Lopressor 50 twice a day for rate control atrial fibrillation, on 1-2 tablets of Percocet every 4 hours, and Valium for severe pain. Working with physical therapy but requiring one person assistance. Also, on morphine IV for severe pain. MTDD
--- NOTE | 2020-02-29 10:30 | IPN ---
DATE: 02/28/2020 SUBJECTIVE: Patient seen and examined at the bedside. Chart has been reviewed. Patient reports 7/10 pain, left lower extremity when she tries to ambulate and has been avoiding bearing weight on it, limiting her ambulation. She is currently requiring at least 1-person assistance on moving from bed to the bedside commode and with her walker. Has not cleared physical therapy. Patient has been encouraged to take advantage of her every 4 hour pain medications and has taken two tablets this morning. No fever or chills. No other issues per nursing overnight. OBJECTIVE: PHYSICAL EXAMINATION: VITAL SIGNS: Temperature 97.4, pulse 75, respiratory rate 19, blood pressure 124/67, 97% on room air. GENERAL: Awake, alert, oriented to person, place, and time, answering questions appropriately. LUNGS: Clear to auscultation. No wheezing, rales, or rhonchi. HEART: S1, S2, sinus rhythm. ABDOMEN: Soft, nontender, nondistended. Positive bowel sounds. EXTREMITIES: Left lower extremity: Surgical sites clean, dry, pink color, warm to touch. Left lower extremity dorsum of the foot has no palpable pulses, but skin is pink and well perfused. LABORATORY DATA: White count 13, hemoglobin 11, hematocrit 37, platelet count 296. Sodium 136, potassium 5, chloride 104, bicarbonate 29, BUN 21, creatinine 1.12, glucose 119, magnesium 2. ASSESSMENT AND PLAN: This is a 74-year-old female with peripheral arterial disease, admitted on 02/25/2020, status post left femoral-popliteal bypass, postoperative day #4 with the following acute issues. 1. Peripheral arterial disease, status post left femoral-popliteal bypass. Patient is not tolerating the pain well despite two tablets of Percocet every 4 hours as needed. She has been resumed back on her home dose of warfarin, Plavix. Postoperative management per vascular surgery. Patient has not passed home safety evaluation to be discharged home. Current INR is 1.08, target of 2-3. 2. Chronic atrial fibrillation, currently on warfarin and Coumadin. 3. Hypertension, currently controlled on her home medications. 4. Dyslipidemia, stable. DISPOSITION: Awaiting physical therapy (PT) clearance. [facility]
--- NOTE | 2020-02-29 11:05 | IPNPDOC ---
Text Note Date of Service The patient was seen on 02/29/20. NOTE Vascular Surgery Dr. Castro Patient seen and examined POD4 status post left femoral to popliteal bypass. She reports pain has been reasonably controlled. On exam today the left groin wound and left calf wound have no drainage on the dressings, no surrounding erythema or tenderness. [place] are intact. The areas were cleaned and dry dressing is reapplied. I am able to get signal over the left femoral. Signal over the bypass is diminished today as confirmed by Dr Castro as well. I am able to Doppler s mary monophasic signal at the left HONING MACHINE OPERATOR TOOL. I am unable to Doppler left DP, this is unchanged. The left foot is warm to touch, there is brisk capillary refill, it appears well-perfused at this time. Continue with activity with assist as tolerated. Encourage high-protein diet to help with healing of her incisions. Continue pain control. Continue PT/OT. Not safe for DC per last note. ARU approval pending, from vascular standpoint OK to transfer to ARU today. Pt can shower. Plavix/Coumadin. Would recommend consideration of statin. Continue to closely monitor. Dr Castro did discuss previously with the pt that there were significant risks of bypass failure as multiple revascularizations with this patient have failed in the past with other providers, and now her interventional procedure recently has also failed. It is possible that there is decreased flow through the bypass as she is known to have one vessel runoff, which may or may not be adequate to preserve flows from the bypass. Plaque was removed from the common femoral artery, origin of the profunda, and origin of the SFA and so we are hopeful that this will help to provide enough perfusion. Dr Castro also plans to discuss with the Pt's dtr Laura. We appreciate the opportunity to participate in the care of this patient. VS,Fishbone, I+O VS, Fishbone, I+O Vital Signs Date Time Temp Pulse Resp B/P (MAP) Pulse Ox O2 Delivery O2 Flow Rate FiO2 02/29/20 10:00 98.2 71 18 128/57 (80) 94 Room Air I&O- Last 24 Hours up to 6 AM 02/29/20 06:00 Intake Total 995 ml Output Total 1050 ml Balance -55 ml Angelina Baumann Feb 29, 2020 11:05
[2020-02-29 11:24] LABS: INR 1.13; PROTHROMBIN TIME 14.8 SECONDS (12.5-14.3)
--- NOTE | 2020-02-29 13:02 | IPNPDOC ---
Date Seen The patient was seen on 02/29/20. Progress Note SUBJECTIVE: Patient seen and examined at the bedside. Chart has been reviewed. Patient has been encouraged to take advantage of the every 4 hourly pain m edications. She continued to complain of discomfort of the left lower extremity. Unable to fully work with physical therapy. She is however saying that the pain is significantly improved when she takes pain medications. She is able to sleep well at night. She is currently being evaluated by acute rehabilitation unit. She was requiring now 1-2 person assistance. 2 days ago, but has improved since she otherwise denies any fever, chills, no signs of cellulitis at the incision site of the bypass. OBJECTIVE: PHYSICAL EXAMINATION: VITAL SIGNS:SEE BELOW GENERAL: Awake, alert, oriented to person, place, and time, answering questions appropriately. , No respiratory distress. HEENT: Face is symmetric. Tongue is midline. No cervical lymphadenopathy or thyromegaly LUNGS: Clear to auscultation. No wheezing, rales, or rhonchi. AIR ENTRY equal bilaterally, adventitious breath HEART: S1, S2, sinus rhythm. Nondisplaced point of maximal impulse. No murmurs noted ABDOMEN: Soft, nontender, nondistended. Positive bowel sounds. EXTREMITIES: Left lower extremity: Surgical sites clean, dry, pink color, warm to touch. Left lower extremity dorsum of the foot has no palpable pulses, but skin is pink and well perfused. LABORATORY DATA: See below ASSESSMENT AND PLAN: This is a 74-year-old female with peripheral arterial disease, admitted on 02/25/2020, status post left femoral-popliteal bypass, postoperative day #5 withthe following acute issues. 1. Peripheral arterial disease, status post left femoral-popliteal bypass. 2. Chronic atrial fibrillation. 3. Hypertension PLAN: Patient is currently medically stable. She is resume back on her antiplatelet and anticoagulant therapy and awaiting therapeutic level of warfarin to target goal of 2-3, at which point patient's Lovenox will be discontinued. Patient is currently being evaluated by acute rehabilitation unit. If she is not a candidate for the acute rehabilitation unit. Patient will be discharged home with home services. Postoperative instructions have been made by Dr. Lewis, as well as follow-up appointment. VS, I&O, 24H, Fishbone Vital Signs/I&O Vital Signs Date Time Temp Pulse Resp B/P (MAP) Pulse Ox O2 Delivery O2 Flow Rate FiO2 02/29/20 10:00 98.2 71 18 128/57 (80) 94 Room Air I&O- Last 24 Hours up to 6 AM 02/29/20 06:00 Intake Total 995 ml Output Total 1050 ml Balance -55 ml Laboratory Data 24H LABS Laboratory Tests 2 02/28/20 16:24: Bedside Glucose (Misc Panel) 111H 02/28/20 19:50: Bedside Glucose (Misc Panel) 148H 02/29/20 06:14: Bedside Glucose (Misc Panel) 139H 02/29/20 10:39: Prothrombin Time 14.8H, Prothromb Time International Ratio 1.13 02/29/20 11:36: Bedside Glucose (Misc Panel) 138H JEFF MCCARTHY MD Feb 29, 2020 13:02
--- NOTE | 2020-02-29 13:33 | IPNPDOC ---
Date Seen The patient was seen on 02/29/20. Progress Note Patient seen and examined. Long discussion with her and her daughter today regarding tenuous left lower extremity bypass due to limited tibial vessel ru noff due to chronic tibial disease with occlusion of the posterior tibial and anterior tibial artery, but reconstitution of the posterior tibial artery through collaterals from the peroneal artery which is diminutive in size and the only named blood vessel runoff in the lower leg. It's possible that bypass will stay open for a while, but I don't anticipate it to last long-term. The patient knew this was a risk when we did the surgery, but she felt she needed to try every possible option. I did encourage her somewhat by letting her know that we also did a femoral endarterectomy and profundoplasty at the time of the bypass which should somatically improve inflow through the profunda collaterals to the lower leg, which were the only runoff present prior to revascularization. With this additional blood flow, it may be enough to get the patient out of rest pain, even if the bypass were to fail at some point. I discussed with the patient and her daughter that this is kind of a [id number] process. Her foot is warm and perfused, better than before certainly, and we will see how she does over the next few weeks. We appreciate the hospitalist's excellent care of this patient. She has not cleared physical therapy, and may be going to acute rehabilitation, but if that doesn't happen and she goes home over the weekend, discharge instructions are as follows: Incision care- is okay for the patient to shower with dressings off. We would prefer her to shower every day. If she does not shower, she will need the old dressings removed, the incisions thoroughly cleaned and dried, and replaced dry gauze and paper tape. Activity-activity as tolerated with assistance. No lifting greater than 10 pounds for 2 weeks. No strenuous exercise, but okay to ambulate go up and down stairs and light activity as tolerated. Diet- resume Pre-Op diet, but we encourage high-protein to help with healing of her incisions. [id number] like to see the patient back in 1-2 weeks to discuss stable removal and check her incisions. Continue Plavix and warfarin daily. Encourage statin if the patient can tolerate. We appreciate the opportunity to participate in the care of this patient. VS, I&O, 24H, Julio Vital Signs/I&O Vital Signs Date Time Temp Pulse Resp B/P (MAP) Pulse Ox O2 Delivery O2 Flow Rate FiO2 02/29/20 10:00 98.2 71 18 128/57 (80) 94 Room Air I&O- Last 24 Hours up to 6 AM 02/29/20 06:00 Intake Total 995 ml Output Total 1050 ml Balance -55 ml Laboratory Data 24H LABS Laboratory Tests 2 02/28/20 16:24: Bedside Glucose (Misc Panel) 111H 02/28/20 19:50: Bedside Glucose (Misc Panel) 148H 02/29/20 06:14: Bedside Glucose (Misc Panel) 139H 02/29/20 10:39: Prothrombin Time 14.8H, Prothromb Time International Ratio 1.13 02/29/20 11:36: Bedside Glucose (Misc Panel) 138H HORTENCIA GREENBERG MD Feb 29, 2020 13:33
[2020-02-29 14:00] VITALS: BP 107/56
[2020-02-29] MEDS: WARFARIN SOD 2.5MG TAB PO SCH (17:14)
[2020-02-29] MEDS: WARFARIN SOD 1MG TAB PO SCH (17:15)
[2020-02-29 18:00] VITALS: BP 142/55
[2020-02-29] MEDS: AMITRIPTYLINE 25 MG TAB PO SCH (20:38)
[2020-02-29 22:00] VITALS: BP 135/57
[2020-03-01 02:00] VITALS: BP 127/63
[2020-03-01 06:00] VITALS: BP 145/64
[2020-03-01 07:13] LABS: INR 1.17; PROTHROMBIN TIME 15.1 SECONDS (12.5-14.3)
[2020-03-01] MEDS: OMEPRAZOLE 20 MG CAP PO SCH (08:17)
[2020-03-01] MEDS: amLODIPine 10 MG TAB PO SCH (08:19)
[2020-03-01] MEDS: cloNIDine 0.1 MG TAB PO SCH ×2 (08:19→21:29)
[2020-03-01] MEDS: CLOPIDOGREL 75 MG TAB PO SCH (08:20)
[2020-03-01] MEDS: METOPROLOL TART 50 MG TAB PO SCH ×2 (08:20→21:29)
[2020-03-01] MEDS: ENALAPRIL MALEATE 10 MG TAB PO SCH (08:20)
[2020-03-01] MEDS: LORATADINE 10 MG TAB PO SCH (08:20)
[2020-03-01] MEDS: ENOXAPARIN 40MG/0.4ML SYRINGE (J1650 PER 10MG) SC SCH ×2 (08:21→21:28)
[2020-03-01] MEDS: PARoxetine 10MG TABLET PO SCH (08:21)
[2020-03-01] MEDS: LEVEMIR (INSULIN DETEMIR) 1 UNITS/0.01ML SC SCH ×2 (08:22→21:29)
[2020-03-01] MEDS: HumaLOG INSULIN (NovoLOG) PER UNIT SC SCH ×4 (08:22→21:00)
[2020-03-01 10:00] VITALS: BP 135/57
--- NOTE | 2020-03-01 10:32 | IPNPDOC ---
Date Seen The patient was seen on 03/01/20. Progress Note SUBJECTIVE: Patient seen and examined at the bedside. Chart has been reviewed. Patient says that her pain is controlled with her current regimen of pain medications. She is cooperative with physical therapy were awaiting acceptance to that acute rehabilitation unit. She is currently back on her antiplatelet and anticoagulants. 4. Peripheral detail disease. No other issues per nursing overnight. No fevers or chills. No new complaints. OBJECTIVE: PHYSICAL EXAMINATION: VITAL SIGNS:SEE BELOW GENERAL: Awake, alert, oriented to person, place, and time, answering questions appropriately. , No respiratory distress. . Face is symmetric HEENT extraocular muscles are intact Tongue is midline. No cervical lymphadenopathy or thyromegaly LUNGS: No kyphosis Clear to auscultation. No wheezing, rales, or rhonchi. AIR ENTRY equal bilaterally, NO adventitious breath HEART: No rub S1, S2, sinus rhythm. Nondisplaced point of maximal impulse. No murmurs noted ABDOMEN: Soft, nontender, nondistended. Positive bowel sounds 4 quadrants. No rebound, guarding, no hepatosplenomegaly. EXTREMITIES: Left lower extremity: Surgical sites clean, dry, pink color, warm to touch. Left lower extremity dorsum of the foot has no palpable pulses, but skin is pink and well perfused. LABORATORY DATA: See below ASSESSMENT AND PLAN: This is a 74-year-old female with peripheral arterial disease, admitted on 02/25/2020, status post left femoral-popliteal bypass, postoperative day #5 withthe following acute issues. 1. Peripheral arterial disease, status post left femoral-popliteal bypass. 2. Chronic atrial fibrillation. 3. Hypertension PLAN: Patient has not had any acute medical issues. Her pain is well-controlled. Her atrial fibrillation is rate controlled. She is currently bridged with Lovenox and warfarin until we reach a therapeutic INR of 2-3. She is back ON her antiplatelet medications and currently has no complaints and does not want her pain medications to be changed where awaiting ARU acceptance if she passes physical therapy. She may be discharged home with services at any time VS, I&O, 24H, Fishbone Vital Signs/I&O Vital Signs Date Time Temp Pulse Resp B/P (MAP) Pulse Ox O2 Delivery O2 Flow Rate FiO2 03/01/20 08:19 91 145/72 03/01/20 06:00 98.6 15 95 Room Air 02/29/20 18:00 2.0 I&O- Last 24 Hours up to 6 AM 03/01/20 06:00 Intake Total 510 ml Output Total 750 ml Balance -240 ml Laboratory Data 24H LABS Laboratory Tests 2 02/29/20 10:39: Prothrombin Time 14.8H, Prothromb Time International Ratio 1.13 02/29/20 11:36: Bedside Glucose (Misc Panel) 138H 02/29/20 16:54: Bedside Glucose (Misc Panel) 147H 02/29/20 19:53: Bedside Glucose (Misc Panel) 136H 03/01/20 05:59: Prothrombin Time 15.1H, Prothromb Time International Ratio 1.17 03/01/20 06:36: Bedside Glucose (Misc Panel) 136H JEFF MCCARTHY MD Mar 01, 2020 10:27
[2020-03-01] MEDS: PERCOCET 5MG/325MG TAB PO PRN ×2 (11:03→20:59)
[2020-03-01 14:00] VITALS: BP 140/60
[2020-03-01] MEDS ORDERED: WARFARIN SOD 5MG TAB PO SCH (17:00)
[2020-03-01] MEDS: AMITRIPTYLINE 25 MG TAB PO SCH (21:30)
[2020-03-01 22:00] VITALS: BP 126/61
[2020-03-02 02:00] VITALS: BP 133/58
[2020-03-02 06:00] VITALS: BP 124/61
[2020-03-02 06:08] LABS: INR 1.21; PROTHROMBIN TIME 15.6 SECONDS (12.5-14.3)
[2020-03-02] MEDS: CLOPIDOGREL 75 MG TAB PO SCH (08:34)
[2020-03-02] MEDS: PARoxetine 10MG TABLET PO SCH (08:34)
[2020-03-02] MEDS: OMEPRAZOLE 20 MG CAP PO SCH (08:34)
[2020-03-02] MEDS: LORATADINE 10 MG TAB PO SCH (08:34)
[2020-03-02 08:35] VITALS: BP 150/71
[2020-03-02] MEDS: amLODIPine 10 MG TAB PO SCH (08:35)
[2020-03-02] MEDS: ENALAPRIL MALEATE 10 MG TAB PO SCH (08:35)
[2020-03-02] MEDS: cloNIDine 0.1 MG TAB PO SCH (08:36)
[2020-03-02] MEDS: METOPROLOL TART 50 MG TAB PO SCH (08:36)
[2020-03-02] MEDS: ENOXAPARIN 40MG/0.4ML SYRINGE (J1650 PER 10MG) SC SCH (08:36)
[2020-03-02] MEDS: LEVEMIR (INSULIN DETEMIR) 1 UNITS/0.01ML SC SCH (08:37)
[2020-03-02] MEDS: HumaLOG INSULIN (NovoLOG) PER UNIT SC SCH (08:37)
[2020-03-02 10:00] VITALS: BP 144/71
[2020-03-02] MEDS ORDERED: PERCOCET PO (10:03)
[2020-03-02] MEDS ORDERED: SENN18TA PO (10:03)
[2020-03-02] MEDS: PERCOCET 5MG/325MG TAB PO PRN (10:08)
--- NOTE | 2020-03-02 10:18 | DS.PDOC ---
Discharge Summary General Date of Admission Feb 25, 2020 at 08:49 Date of Discharge 03/02/20 Discharge Summary DISCHARGE DIAGNOSES: Peripheral arterial disease, status post femoral-popliteal bypass. Chronic atrial fibrillation on warfarin. Uncontrolled hypertension secondary to pain. DISCHARGE MEDICATIONS: See below HOSPITAL COURSE: 74-year-old female with history of severe peripheral arterial disease, chronic atrial fibrillation on warfarin and Plavix, hypertension, admitted for left femoral popliteal bypass. She has been resumed and her home dose of warfarin bridged with Lovenox to obtain therapeutic INR of 2-3. She has had significant difficulty with pain control and required several days of hospitalization in order to reach an adequate level of pain control and physical therapy clearance. Per vascular surgeon, Dr. Gonzales, "left lower extremity bypass due to limited tibial vessel runoff due to chronic tibial disease with occlusion of the posterior tibial and anterior tibial artery, but reconstitution of the posterior tibial artery through collaterals from the peroneal artery which is diminutive in size and the only named blood vessel runoff in the lower leg. It's possible that bypass will stay open for a while, but I don't anticipate it to last long- term. The patient knew this was a risk when we did the surgery, but she felt she needed to try every possible option. I did encourage her somewhat by letting her know that we also did a femoral endarterectomy and profundoplasty at the time of the bypass which should somatically improve inflow through the profunda collaterals to the lower leg, which were the only runoff present prior to revascularization. With this additional blood flow, it may be enough to get the patient out of rest pain, even if the bypass were to fail at some point." Discha thompsone instructions per vascular surgery, "Incision care- is okay for the patient to shower with dressings off. We would prefer her to shower every day. If she does not shower, she will need the old dressings removed, the incisions thoroughly cleaned and dried, and replaced dry gauze and paper tape. Activity-activity as tolerated with assistance. No lifting greater than 10 pounds for 2 weeks. No strenuous exercise, but okay to ambulate go up and down stairs and light activity as tolerated. Diet- resume Pre-Op diet, but we encourage high-protein to help with healing of her incisions. [id number] like to see the patient back in 1-2 weeks to discuss stable removal and check her incisions. Continue Plavix and warfarin daily. Encourage statin if the patient can t olerate." DISCHARGE PHYSICAL EXAMINATION: VITAL SIGNS:SEE BELOW GENERAL: Awake, alert, oriented to person, place, and time, answering questions appropriately. , No respiratory distress. . Face is symmetric HEENT extraocular muscles are intact Tongue is midline. No cervical lymphadenopathy or thyromegaly LUNGS: No kyphosis Clear to auscultation. No wheezing, rales, or rhonchi. AIR ENTRY equal bilaterally, NO adventitious breath HEART: No rub S1, S2, sinus rhythm. Nondisplaced point of maximal impulse. No murmurs noted ABDOMEN: Soft, nontender, nondistended. Positive bowel sounds 4 quadrants. No rebound, guarding, no hepatosplenomegaly. EXTREMITIES: Left lower extremity: Surgical sites clean, dry, pink color, warm to touch. Left lower extremity dorsum of the foot has no palpable pulses, but skin is pink and well perfused. DISCHARGE LABORATORY DATA: See below IMAGING STUDIES: LEFT LOWER EXTREMITY DUPLEX DOPPLER ARTERIAL ULTRASOUND: Real-time ultrasound evaluation and duplex Doppler interrogation of left lower extremity arterial system is performed. Moderate plaquing is seen in the left common femoral artery. There is occlusion of the proximal superficial femoral artery just proximal to a stent in place. There is occlusion of the stent to the popliteal region, where there is revascularization via a collateral vessel just before the distal anastomosis with the [place] popliteal artery. Another collateral vessel revascularizes the [place] popliteal artery distal to the stent. There are very small calf arteries with very slow flow velocities. The distal anterior tibial artery is occluded. Posterior tibial artery appears to be the only vessel supplying the left foot. LEFT PEAK SYSTOLIC VELOCITY PHASICITY Common femoral artery 97 cm/s Triphasic Profunda 103 cm/s Triphasic Proximal SFA 37 cm/s Biphasic Mid SFA Occluded Distal SFA Occluded Popliteal 16 cm/s Monophasic Proximal KT 5 cm/s Monophasic Tibioperoneal trunk 16 cm/s Monophasic Proximal TABLEAU DEVELOPER 20 cm/s Monophasic Distal TABLEAU DEVELOPER 13 cm/s Monophasic Distal KT Occluded Electronically Signed by Master Davila MD 12/11/2019 11:32 P TIME SPENT ON DISCHARGE: 30 MIN Vital Signs/I&Os Vital Signs Date Time Temp Pulse Resp B/P (MAP) Pulse Ox O2 Delivery O2 Flow Rate FiO2 03/02/20 10:08 18 03/02/20 08:35 150/71 03/02/20 08:35 72 03/02/20 06:00 97.7 99 Room Air 02/29/20 18:00 2.0 I&O- Last 24 Hours up to 6 AM 03/02/20 06:00 Intake Total 1620 ml Output Total 250 ml Balance 1370 ml Laboratory Data Labs 24H Laboratory Tests 2 03/01/20 11:36: Bedside Glucose (Misc Panel) 184H 03/01/20 16:27: Bedside Glucose (Misc Panel) 98 03/01/20 20:23: Bedside Glucose (Misc Panel) 124H 03/02/20 05:37: Prothrombin Time 15.6H, Prothromb Time International Ratio 1.21 03/02/20 06:46: Bedside Glucose (Misc Panel) 125H FSBS Laboratory Tests Test 03/01/20 11:36 03/01/20 16:27 03/01/20 20:23 03/02/20 06:46 Range/Units Bedside Glucose (Misc Panel) 184 98 124 125 83-110 MG/DL Discharge Medications Scheduled Amitriptyline HCl (Amitriptyline HCl) 25 Mg Tablet, 25 MG PO QHS, (Reported) Amlodipine Besylate (Amlodipine Besylate) 10 Mg Tablet, 10 MG PO DAILY, (Reported) Clonidine HCl (Clonidine HCl) 0.2 Mg Tablet, 0.1 MG PO BID, (Reported) Clopidogrel Bisulfate (Clopidogrel) 75 Mg Tablet, 75 MG PO DAILY, (Reported) Dulaglutide (Trulicity) 0.75 Mg/0.5 Ml Pen.injctr, 0.75 MG SC QWEEK, (Reported) TUESDAY Enalapril Maleate (Enalapril Maleate) 20 Mg Tablet, 40 MG PO DAILY, (Reported) Enoxaparin Sodium (Lovenox) 40 Mg/0.4 Ml Syringe, 0.4 ML SC DAILY, (Reported) Glipizide (Glipizide) 10 Mg Tablet, 10 MG PO BID, (Reported) Insulin Detemir (Levemir) 100 Unit/1 Ml Vial, 10 UNITS SC BID, (Reported) Loratadine (Loratadine) 10 Mg Tablet, 10 MG PO DAILY, (Reported) Metoprolol Tartrate (Metoprolol Tartrate) 50 Mg Tablet, 50 MG PO BID, (Reported) Omeprazole (Omeprazole) 20 Mg Capsule.dr, 40 MG PO DAILY, (Reported) Paroxetine (Paroxetine HCl) 10 Mg Tablet, 10 MG PO DAILY, (Reported) Warfarin Sodium (Warfarin Sodium) 1 Mg Tablet, 3.5 MG PO QPM, (Reported) Scheduled PRN Acetaminophen (Acetaminophen) 500 Mg Tablet, 500 MG PO Q6H PRN for PAIN, (Reported) Oxycodone/Acetaminophen (Oxycodone-Acetaminophen 5-325) 1 Each Tablet, 1 TAB PO Q4HP PRN for MILD/MODERATE PAIN (PS 1-7) Senna (Senna Lax) 8.6 Mg Tablet, 2 TAB PO BIDP PRN for BOWEL CARE Allergies Coded Allergies: Sulfa (Sulfonamide Antibiotics) (Verified Allergy, Unknown, hives, 07/10/19) JEFF MCCARTHY MD Mar 02, 2020 10:13
--- NOTE | 2020-03-02 10:19 | IPNPDOC ---
Date Seen The patient was seen on 03/02/20. Progress Note stable for discharge. pls see discharge summary. VS, I&O, 24H, Fishbone Vital Signs/I&O Vital Signs Date Time Temp Pulse Resp B/P (MAP) Pulse Ox O2 Delivery O2 Flow Rate FiO2 03/02/20 08:35 150/71 03/02/20 08:35 72 03/02/20 06:00 97.7 16 99 Room Air 02/29/20 18:00 2.0 I&O- Last 24 Hours up to 6 AM 03/02/20 06:00 Intake Total 1620 ml Output Total 250 ml Balance 1370 ml Laboratory Data 24H LABS Laboratory Tests 2 03/01/20 11:36: Bedside Glucose (Misc Panel) 184H 03/01/20 16:27: Bedside Glucose (Misc Panel) 98 03/01/20 20:23: Bedside Glucose (Misc Panel) 124H 03/02/20 05:37: Prothrombin Time 15.6H, Prothromb Time International Ratio 1.21 03/02/20 06:46: Bedside Glucose (Misc Panel) 125H JEFF MCCARTHY MD Mar 02, 2020 10:07
== END 2020-03-02 11:43 | disposition home health service (06) | DRG 253 ==
LOC: M OR 08:49 → M MSPAV 15:55
PROVIDERS: ADMIT Surgery Vascular Surgery; ATTEND General Practice
PROC: 04UL0KZ Supplement Left Femoral Artery with Nonautologous Tissue Substitute, Open Approach (ICD-10-PCS; 2020-02-25)
PROC: 041L0KL Bypass Left Femoral Artery to Popliteal Artery with Nonautologous Tissue Substitute, Open Approach (ICD-10-PCS; 2020-02-25)
PROC: 04CL0ZZ Extirpation of Matter from Left Femoral Artery, Open Approach (ICD-10-PCS; principal; 2020-02-25 10:00)
DX: I70.212 Atherosclerosis of native arteries of extremities with intermittent claudication, left leg (principal); I48.20 Chronic atrial fibrillation, unspecified; I70.222 Atherosclerosis of native arteries of extremities with rest pain, left leg; Z79.01 Long term (current) use of anticoagulants; I10 Essential (primary) hypertension; Z79.899 Other long term (current) drug therapy; Z88.2 Allergy status to sulfonamides; Z86.718 Personal history of other venous thrombosis and embolism; Z86.711 Personal history of pulmonary embolism; E78.5 Hyperlipidemia, unspecified; F41.9 Anxiety disorder, unspecified; F32.9 Major depressive disorder, single episode, unspecified; E11.9 Type 2 diabetes mellitus without complications; Z87.891 Personal history of nicotine dependence; K21.9 Gastro-esophageal reflux disease without esophagitis; Z79.4 Long term (current) use of insulin

== ENCOUNTER 2020-03-14 19:31 | Emergency (ER) | payer MEDICARE ==
[~2020-03-14] VITALS: Ht 162.6 cm; Wt 61.8 kg
[~2020-03-14 19:31] MED LIST changes: +LOVE1INJ SC; -LR 1,000 ML IV ONE; +SENN18TA PO; -ceFAZolin SOD 2 GM in IV 1 EA IV ONE
--- NOTE | 2020-03-14 20:02 | REPVR ---
PROCEDURE INFORMATION: Exam: CT Head Without Contrast Exam date and time: 03/14/2020 7:53 PM Age: 74 years old Clinical indication: Injury or trauma; Fall; Blunt trauma (contusions or hematomas); Additional info: Fall on blood thinner TECHNIQUE: Imaging protocol: Computed tomography of the head without contrast. Radiation optimization: All CT scans at this facility use at least one of these dose optimization techniques: automated exposure control; mA and/or kV adjustment per patient size (includes targeted exams where dose is matched to clinical indication); or iterative reconstruction. Other technique: STROKE PROTOCOL was implemented. COMPARISON: No relevant prior studies available. FINDINGS: Brain: There is age-related volume loss. There is white matter lucency consistent with chronic microvascular disease. There are old basal ganglia lacunar infarcts. No acute infarct is identified. There is no hemorrhage or extra-axial collection. There is no mass. Cerebral ventricles: No ventriculomegaly. Bones/joints: Unremarkable. No acute fracture. Paranasal sinuses: Visualized sinuses are unremarkable. No fluid levels. Mastoid air cells: Visualized mastoid air cells are well aerated. Soft tissues: Unremarkable. IMPRESSION: 1. 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 2. No acute intracranial lesion or injury. ASSESSMENT: ASPECTS ([place] Stroke Program Early CT Score) is 10. Electronically signed by: Kyle rOantes On 03/14/2020 20:02:20 PM
[2020-03-14 20:31] VITALS: BP 122/56
--- NOTE | 2020-03-17 11:00 | ED PDOC ---
Post-Departure Follow-Up ct head faxed to [facility] for [facility] Demond Fink MD Mar 17, 2020 11:00
== END 2020-03-14 20:47 | disposition home or self-care (01) ==
LOC: M ED 19:31
DX: S00.03XA Contusion of scalp, initial encounter (principal); W01.198A Fall on same level from slipping, tripping and stumbling with subsequent striking against other object, initial encounter; Y92.002 Bathroom of unspecified non-institutional (private) residence as the place of occurrence of the external cause; Y93.9 Activity, unspecified; M79.605 Pain in left leg; D32.9 Benign neoplasm of meninges, unspecified; I70.322 Atherosclerosis of unspecified type of bypass graft(s) of the extremities with rest pain, left leg; I48.91 Unspecified atrial fibrillation; E11.9 Type 2 diabetes mellitus without complications; I10 Essential (primary) hypertension; E78.5 Hyperlipidemia, unspecified; F33.9 Major depressive disorder, recurrent, unspecified; F41.9 Anxiety disorder, unspecified; Z79.02 Long term (current) use of antithrombotics/antiplatelets; Z79.899 Other long term (current) drug therapy

== ENCOUNTER 2020-03-17 11:07 | Inpatient (IN) | payer MEDICARE ==
[~2020-03-17] VITALS: Ht 162.6 cm; Wt 57.2 kg
[2020-03-17] MEDS: cloNIDine 0.1 MG TAB PO SCH ×2 (09:00→20:35)
[2020-03-17] MEDS: LEVEMIR (INSULIN DETEMIR) 1 UNITS/0.01ML SC SCH ×2 (09:00→20:35)
--- NOTE | 2020-03-17 11:31 | CR.PDOC ---
General Date of Consultation: Mar 17, 2020 Consultation REASON FOR CONSULTATION/CHIEF COMPLAINT: Chronic end-stage peripheral vascular disease, severe left lower extremity pain. HISTORY OF PRESENT ILLNESS: This is a very pleasant 74-year-old patient with severe peripheral vascular disease, end-stage, who has had multiple failed revascularizations with other providers prior to being seen at our practice, now with multiple failed revascularizations here as well. We have tried and exhausted every endovascular options, and eventually the patient elected to proceed with a tenuous left lower extremity bypass, despite my lack of optimism for success, due to very limited tibial vessel runoff. The patient has severe chronic tibial disease with occlusion of the posterior tibial and anterior tibial artery, but reconstitution of the posterior tibial artery through collaterals from the peroneal artery which is diminutive in size, and the only named blood vessel runoff in the lower leg. We were hopeful that bypass, performed at the end of January a few weeks ago, would be successful and stay open for a while, but I was completely transparent with the patient that I did not anticipate it to last long-term due to severe tibial disease and limited outflow. The patient knew this was a risk when we did the surgery, but she felt she needed to try every possible option to stave off potential amputation for worsening rest pain and tissue ischemia. I did encourage her somewhat by letting her know that we also did a femoral endarterectomy and profundoplasty at the time of the bypass which should somewhat improve inflow through the profunda collaterals to the lower leg, which were the only runoff present prior to revascularization. With this additional blood flow, it may be enough to get the patient out of rest pain, even if the bypass were to fail at some point. I discussed with the patient and her daughter that this is kind of a [id number] process. After her surgery, her foot was warm and perfused, better than before certainly, and she was discharged with an unclear prognosis for the bypass. She returns to clinic today, rest pain is now severe again, and I'm not able to Doppler flow over the bypass. She does have dopplerable signals in the popliteal artery, likely from collaterals from the profunda, but based on her symptoms, it is not enough to get her out of rest pain without the bypass. I do not think it is worthwhile to try ATP thrombolysis of the bypass, because I believe the reason it failed was due to inadequate tibial runoff, which was a concern preoperatively. Nevertheless, the patient was adamant she wanted everything done, and I feel we have exhausted all open surgical options for revascularization as well at this point. Her calf incision has purple ischemic changes on the posterior medial aspect, and I do not suspect she has enough blood flow to heal this incision now that the bypass has failed. She also has worsening ischemic changes of her left first toe, present before the bypass, now appearing somewhat worse. She had a recent fall from standing, which required an emergency room visit, and I suspect this was due to both pain and worsening ischemia making it challenging to bear weight and ambulate on the left leg. After a long discussion with the patient and her daughter, I have recommended a left above-knee amputation. I do not think waiting and seeing will be helpful. I think the patient is at risk for more tissue loss, which could deteriorate into an infection, which could make her prognosis significantly worse. I think we should admit her for pain control, as well as a monitored reversal of her anticoagulation since she is on Coumadin and Plavix. She did not take her Plavix today, we will hold it the next 2 days, and we will see if her INR comes down on its own, or we may need to give a unit of FFP prior to surgery if her INR remains elevated. Tentatively, we will plan for surgery on Tuesday. We will admit the patient to the hospitalist service, and we appreciate their assistance with this patient. ALLERGIES: Please see below. HOME MEDICATIONS: Please see below. PAST MEDICAL HISTORY: HTN, PAD, DVT, PE, anxiety and depression, HLD, DM, A. fib on Coumadin SURGICAL HISTORY: Cholecystectomy 1999 Total Abdominal Hysterectomy - 1995 Abdominal Hernia Repair 07/30/17 Multiple angiogram procedures, Arterial Stenting Bilateral Lower Extremities Left femoral to below-knee popliteal bypass with cadaver vein January 2020 SOCIAL HISTORY: Former smoker 1 pack per day, quit 1965. Denies alcohol or illicit drug use. Lives with her daughter. FAMILY HISTORY: HTN, DM, PAD REVIEW OF SYSTEMS: CONSTITUTIONAL: Denies fevers or chills positive malaise positive poor sleeping HEENT: Denies vision changes or acute hearing loss CARDIOVASCULAR: Positive palpitations positive hypertension positive A. fib RESPIRATORY: Denies shortness of breath or cough GENITOURINARY: Denies dysuria or hematuria MUSCULOSKELETAL: Positive left leg pain GASTROINTESTINAL: Denies nausea vomiting diarrhea or blood in her stool SKIN: Denies rashes positive ischemic changes left foot and left calf NEUROLOGICAL: Denies stroke or TIA denies focal deficits headache or seizure PSYCHIATRIC: Positive anxiety depression ENDOCRINE: Positive diabetes HEMATOLOGIC/LYMPHATIC: Positive easy bruising secondary to blood thinners ALLERGIC/IMMUNOLOGIC: Denies PHYSICAL EXAMINATION: VITAL SIGNS: Please see below. GENERAL APPEARANCE: Medically stable no acute distress HEENT: Normocephalic, vision grossly intact, wears glasses, hearing intact RESPIRATORY: Clear to auscultation CARDIOVASCULAR: Irregular ABDOMEN: Soft nontender EXTREMITIES: Left lower extremity toes dusky on the plantar aspect, left first toe over the metatarsal head and the distal toe has superficial ischemic changes, incision left calf has ischemic changes in the posterior medial aspect and a thin layer of erythema surrounding. Left lower extremity Doppler signal at the posterior tibial is monophasic. Monophasic flow also noted in the left popliteal artery. Triphasic flow noted at the left common femoral artery and profunda. Right lower extremity Doppler signals monophasic. NEUROLOGICAL: Alert and oriented 3, no focal deficits noted PSYCHIATRIC: Pleasant and cooperative LABORATORY DATA: Please see below. ASSESSMENT/PLAN: Very pleasant 74-year-old patient with severe end-stage left lower extremity peripheral vascular disease, with no further options for endovascular or open revascularization, worsening rest pain and ischemic changes, and planned admission for pain control, reversal of anticoagulation if needed, and above-knee amputation left lower extremity this coming Tuesday. 1. Hold Plavix. Hold Coumadin. Okay for Lovenox bridge if desired. We will follow INR. We would prefer not to give FFP if possible, but if her INR is greater than 1.5 on the day of surgery, we may consider FFP. 2. Analgesia as necessary. We appreciate the opportunity to produce speech care this patient. Allergies Coded Allergies: Sulfa (Sulfonamide Antibiotics) (Verified Allergy, Unknown, hives, 07/10/19) Home Medications Scheduled Amitriptyline HCl (Amitriptyline HCl) 25 Mg Tablet, 25 MG PO QHS, (Reported) Amlodipine Besylate (Amlodipine Besylate) 10 Mg Tablet, 10 MG PO DAILY, (Reported) Clonidine HCl (Clonidine HCl) 0.2 Mg Tablet, 0.1 MG PO BID, (Reported) Clopidogrel Bisulfate (Clopidogrel) 75 Mg Tablet, 75 MG PO DAILY, (Reported) Dulaglutide (Trulicity) 0.75 Mg/0.5 Ml Pen.injctr, 0.75 MG SC QWEEK, (Reported) TUESDAY Enalapril Maleate (Enalapril Maleate) 20 Mg Tablet, 40 MG PO DAILY, (Reported) Glipizide (Glipizide) 10 Mg Tablet, 10 MG PO BID, (Reported) Insulin Detemir (Levemir) 100 Unit/1 Ml Vial, 10 UNITS SC BID, (Reported) Loratadine (Loratadine) 10 Mg Tablet, 10 MG PO DAILY, (Reported) Metoprolol Tartrate (Metoprolol Tartrate) 50 Mg Tablet, 50 MG PO BID, (Reported) Omeprazole (Omeprazole) 20 Mg Capsule.dr, 40 MG PO DAILY, (Reported) Paroxetine (Paroxetine HCl) 10 Mg Tablet, 10 MG PO DAILY, (Reported) Warfarin Sodium (Warfarin Sodium) 1 Mg Tablet, 3.5 MG PO QPM, (Reported) Scheduled PRN Acetaminophen (Acetaminophen) 500 Mg Tablet, 500 MG PO Q6H PRN for PAIN, (Reported) Oxycodone/Acetaminophen (Oxycodone-Acetaminophen 5-325) 1 Each Tablet, 1 TAB PO Q4HP PRN for MILD/MODERATE PAIN (PS 1-7) for 4 Days, #24 HORTENCIA GREENBERG MD Mar 17, 2020 11:31
[2020-03-17 11:35] VITALS: BP 176/106
[2020-03-17] MEDS ORDERED: GLUCAGON INJ 1MG VIAL SC PRN (12:30)
[2020-03-17] MEDS ORDERED: DEXTROSE 50% 50 ML SYRINGE IV PRN (12:30)
[2020-03-17] MEDS ORDERED: GLUCOSE 4GM CHEW TABLET PO PRN (12:30)
[2020-03-17] MEDS ORDERED: GNP8.6TA PO (12:31)
[2020-03-17] MEDS ORDERED: CLONI1TA PO (12:31)
[2020-03-17 13:05] LABS: BASO # 0.1 10^3/uL (0.0-0.2); BASO % 0.8 % (0.0-1.0); EOS # 0.1 10^3/uL (0.0-0.5); EOS % 0.5 % (0.0-3.0); HEMATOCRIT 36.8 % (36.0-47.0); HEMOGLOBIN 11.4 g/dl (12.0-15.5); LYMPH # 2.1 10^3/uL (1.5-5.0); LYMPH % 16.6 % (24.0-44.0); MEAN CORPUSCULAR HEMOGLOBIN 26.8 pg (27.0-33.0); MEAN CORPUSCULAR VOLUME 86.6 fl (80.0-96.0); MONO # 0.4 10^3/uL (0.0-0.8); NEUTROPHILS # 9.8 10^3/uL (1.5-8.5); NEUTROPHILS % 78.6 % (36.0-66.0); PLATELET COUNT, AUTOMATED 543 10^3/uL (150-450); RED BLOOD COUNT 4.25 10^6/uL (4.00-5.40); WHITE BLOOD COUNT 12.4 10^3/uL (4.0-10.0)
[2020-03-17] MEDS: DOCUSATE SODIUM 100 MG CAP PO SCH ×2 (13:07→20:36)
[2020-03-17] MEDS: PERCOCET 5MG/325MG TAB PO PRN ×2 (13:08→20:36)
[2020-03-17 13:16] LABS: INR 2.12; PROTHROMBIN TIME 24.2 SECONDS (12.5-14.3)
[2020-03-17 13:31] LABS: ALBUMIN 3.6 GM/DL (3.2-5.2); BILIRUBIN,TOTAL 0.3 MG/DL (0.2-1.0); CREATININE FOR GFR 1.22 MG/DL (0.55-1.30); POTASSIUM SERUM 4.6 MEQ/L (3.5-5.1); TOTAL PROTEIN 8.4 GM/DL (6.4-8.2)
[2020-03-17 14:00] VITALS: BP 182/102
[2020-03-17] MEDS: OMEPRAZOLE 20 MG CAP PO SCH (15:12)
[2020-03-17] MEDS: amLODIPine 10 MG TAB PO SCH (15:13)
[2020-03-17] MEDS: LORATADINE 10 MG TAB PO SCH (15:13)
[2020-03-17] MEDS: PARoxetine 10MG TABLET PO SCH (15:13)
[2020-03-17] MEDS: MORPHINE 2 MG/ML 1ML VIAL (J2270) IV PRN ×2 (15:28→22:28)
--- NOTE | 2020-03-17 16:12 | HPEPDOC ---
General Date of Admission Mar 17, 2020 at 11:33 Date of Service: Mar 17, 2020 Chief Complaint The patient is a 74-year-old female admitted with a reason for visit of Failed Graft. Source: Patient, RN/MD History of Present Illness This is a 74-year-old patient with severe peripheral vascular disease, end- stage, who has had multiple failed revascularizations particularly of the left leg with left leg bypass in Jan 2020 was seen at the vascular clinic today with complaints of recurrence of severe rest pain. There was no dopplerable flow over the bypass. Dr Lew felt that she has exhausted all open surgical options for revascularization as well at this point. Her calf incision has purple ischemic changes on the posterior medial aspect, also has worsening ischemic changes of her left first toe, present before the bypass, now appearing somewhat worse. She had a recent fall from standing, which required an emergency room visit, which was probably both due to pain and worsening ischemia making it challenging to bear weight and ambulate on the left leg. At this point her only option to avoid further tissues loss and progressive infection is Left Above knee amputation. She is being admitted for pain control, reversal of coumadin with heparin bridging if needed and preparation for Left above knee amputation. Home Medications Scheduled Amitriptyline HCl (Amitriptyline HCl) 25 Mg Tablet, 25 MG PO QHS, (Reported) Amlodipine Besylate (Amlodipine Besylate) 10 Mg Tablet, 10 MG PO DAILY, (Reported) Clopidogrel Bisulfate (Clopidogrel) 75 Mg Tablet, 75 MG PO DAILY, (Reported) Dulaglutide (Trulicity) 0.75 Mg/0.5 Ml Pen.injctr, 0.75 MG SC QWEEK, (Reported) TUESDAY Enalapril Maleate (Enalapril Maleate) 20 Mg Tablet, 20 MG PO BID, (Reported) Glipizide (Glipizide) 10 Mg Tablet, 10 MG PO BID, (Reported) Insulin Detemir (Levemir) 100 Unit/1 Ml Vial, 10 UNITS SC BID, (Reported) Loratadine (Loratadine) 10 Mg Tablet, 10 MG PO DAILY, (Reported) Metoprolol Tartrate (Metoprolol Tartrate) 50 Mg Tablet, 50 MG PO BID, (Reported) Omeprazole (Omeprazole) 20 Mg Capsule.dr, 40 MG PO DAILY, (Reported) Paroxetine (Paroxetine HCl) 10 Mg Tablet, 10 MG PO DAILY, (Reported) Tramadol HCl (Tramadol HCl) 50 Mg Tablet, 50 MG PO BID Warfarin Sodium (Warfarin Sodium) 1 Mg Tablet, 3.5 MG PO QPM, (Reported) Scheduled PRN Acetaminophen (Acetaminophen) 500 Mg Tablet, 500 MG PO Q6H PRN for PAIN, (Reported) Oxycodone/Acetaminophen (Oxycodone-Acetaminophen 5-325) 1 Each Tablet, 1 TAB PO Q4HP PRN for MILD/MODERATE PAIN (PS 1-7) Sennosides (Senna Lax) 8.6 Mg Tablet, 8.6 MG PO BID PRN for CONSTIPATION, (Reported) Allergies Coded Allergies: Sulfa (Sulfonamide Antibiotics) (Verified Allergy, Unknown, hives, 07/10/19) Past Medical History Medical History Severe Peripheral Artery Disease with angioplasties and stents in bilateral lower extremities, Persistent Left leg ischemia with failed Bypass , DVT and Pulmonary Embolism on coumadin, Anxiety, Depression, hyperlipidemia, Diabetes, Hypertension, chronic Atrial Fibrillation Surgical History Cholecystectomy 1999 Total Abdominal Hysterectomy - 1995 Abdominal Hernia Repair 07/30/17 Multiple angiogram procedures, Arterial Stenting Bilateral Lower Extremities Left femoral to below-knee popliteal bypass with cadaver vein January 2020 Partial thyroid resection, 2015 Family History Mother with a history of breast cancer; sisters with a history of heart disease Social History * Smoker: former Smoker (quit 50 years ago.) Alcohol: Denies Drugs: denies A-FIB/CHADSVASC A-FIB History Current/History of A-Fib/PAF?: Yes Current PO Anticoag Therapy: Yes Review of Systems Constitutional: Reports: Weakness, Fatigue; Denies: Chills, Fever, Night Sweats Eyes: Denies: Pain, Vision change ENT: Denies: Head Aches, Ear Pain, Dysphagia Skin: Reports: Lesions, Bruising, Nail Changes Pulmonary: Denies: Dyspnea, Cough Cardiovascular: Denies: Chest Pain, Palpitations, Orthopnea, Paroxysmal Noc. Dyspnea, Lt Headedness Gastrointestinal: Denies: Nausea, Vomiting, Abdominal Pain, Diarrhea Genitourinary: Denies: Dysuria, Frequency, Incontinence, Retention Musculoskeletal: Reports: Leg Pain Neurological: Denies: Weakness, Numbness, Change in speech, Confusion Psych: Reports: Anxiety Physical Examination General Exam: Positive: Alert, Cooperative, No Acute Distress Eye Exam: Positive: PERRLA, Conjunctiva & lids normal, EOMI; Negative: Sclera icteric ENT Exam: Positive: Atraumatic, Mucous membr. moist/pink, Pharynx Normal Neck Exam: Positive: Supple; Negative: JVD, thyromegaly Chest Exam: Positive: Clear to auscultation, Normal air movement Heart Exam: Positive: Rate Normal, Regular Rhythm, Normal S1, Normal S2; Negative: Murmurs, Rubs Abdomen Exam: Positive: Normal bowel sounds, Soft; Negative: Tenderness, Hepatospenomegaly Extremity Exam: Positive: Tenderness (left leg), Other (left leg surgical incision black ); Negative: Clubbing, Cyanosis, Edema Skin Exam: Positive: Other skin issue (left toe red and early ulcer at the lat aspect of base of left first toe. Left groin incision with adali healing well. ) Neuro Exam: Positive: Normal Speech, Strength at 5/5 X4 ext, Normal Tone Vital Signs Vital Signs Label Value Date Time Patient Temperature 99.1 degrees F 03/17/20 1400 Temperature Source Oral 03/17/20 1400 Pulse 105 03/17/20 1400 Respiratory Rate 18 bpm 03/17/20 1400 Blood Pressure Assessment 182/102 (128) 03/17/20 1400 Bedside Pulse Oximetry 100 % 03/17/20 1400 Item Value Date Time Oxygen Delivery Method Room Air 03/17/20 1400 Assessment/Plan This is a 74-year-old patient with severe peripheral vascular disease, end- stage, who has had multiple failed revascularizations particularly of the left leg with left leg bypass in Jan 2020 was seen at the vascular clinic today with complaints of recurrence of severe rest pain. There was no dopplerable flow over the bypass. Dr Lew felt that she has exhausted all open surgical options for revascularization as well at this point. Her calf incision has purple ischemic changes on the posterior medial aspect, also has worsening ischemic changes of her left first toe, present before the bypass, now appearing somewhat worse. She had a recent fall from standing, which required an emergency room visit, which was probably both due to pain and worsening ischemia making it challenging to bear weight and ambulate on the left leg. At this point her only option to avoid further tissues loss and progressive infection is Left Above knee amputation. She is being admitted for pain control, reversal of coumadin with heparin bridging if needed and preparation for Left above knee amputation. Severe Left leg ischemia with failed recent Bypass planned for left above knee amputation on 03/19/20 pain control with percocet and morphine. hold plavix and coumadin. DVT and Pulmonary Embolism on coumadin will hold coumadin Once INR < 1.8 will start heparin gtt. Anxiety, Depression amitryptilline, paroxetine hyperlipidemia diet controlled. Diabetes FS, AC and HS, carb consistent diet. levemir and lispro will hold glipizide till after surgery Hypertension cont amlodipine, clonidine, enalapril, metoprolol will hold enalapril from tomorrow night in prep for surgery. Chronic Atrial Fibrillation metoprolol. GERD omeprazole Plan / VTE VTE Prophylaxis Ordered?: Yes GLENDY FLORES MD Mar 17, 2020 12:32
[2020-03-17] MEDS: HumaLOG INSULIN (NovoLOG) PER UNIT SC SCH ×2 (18:20→20:26)
[2020-03-17 20:00] VITALS: BP 172/97
[2020-03-17] MEDS: AMITRIPTYLINE 25 MG TAB PO SCH (20:36)
[2020-03-17] MEDS: METOPROLOL TART 50 MG TAB PO SCH (20:37)
[2020-03-17] MEDS: ENALAPRIL MALEATE 10 MG TAB PO SCH (20:37)
[2020-03-17 23:00] VITALS: BP 168/96
[2020-03-18 06:00] VITALS: BP 147/87
[2020-03-18] MEDS: HumaLOG INSULIN (NovoLOG) PER UNIT SC SCH ×4 (08:29→21:00)
[2020-03-18] MEDS: DOCUSATE SODIUM 100 MG CAP PO SCH ×2 (08:29→21:17)
[2020-03-18] MEDS: LEVEMIR (INSULIN DETEMIR) 1 UNITS/0.01ML SC SCH ×2 (08:29→21:17)
[2020-03-18] MEDS: PERCOCET 5MG/325MG TAB PO PRN ×2 (08:30→21:18)
[2020-03-18] MEDS: cloNIDine 0.1 MG TAB PO SCH ×3 (08:32→21:00)
[2020-03-18] MEDS: OMEPRAZOLE 20 MG CAP PO SCH (08:33)
[2020-03-18] MEDS: ENALAPRIL MALEATE 10 MG TAB PO SCH (08:33)
[2020-03-18] MEDS: METOPROLOL TART 50 MG TAB PO SCH ×2 (08:33→21:18)
[2020-03-18] MEDS: amLODIPine 10 MG TAB PO SCH (08:33)
[2020-03-18] MEDS: LORATADINE 10 MG TAB PO SCH (08:34)
[2020-03-18] MEDS: PARoxetine 10MG TABLET PO SCH (08:34)
[2020-03-18 08:50] LABS: BASO # 0.1 10^3/uL (0.0-0.2); EOS # 0.3 10^3/uL (0.0-0.5); EOS % 1.9 % (0.0-3.0); HEMATOCRIT 38.5 % (36.0-47.0); HEMOGLOBIN 12.3 g/dl (12.0-15.5); LYMPH # 4.8 10^3/uL (1.5-5.0); LYMPH % 35.6 % (24.0-44.0); MEAN CORPUSCULAR HEMOGLOBIN 27.5 pg (27.0-33.0); MEAN CORPUSCULAR HGB CONC 31.9 g/dl (32.0-36.5); MEAN CORPUSCULAR VOLUME 86.1 fl (80.0-96.0); MONO % 7.4 % (0.0-5.0); NEUTROPHILS # 7.2 10^3/uL (1.5-8.5); NEUTROPHILS % 53.7 % (36.0-66.0); PLATELET COUNT, AUTOMATED 629 10^3/uL (150-450); RED BLOOD COUNT 4.47 10^6/uL (4.00-5.40); WHITE BLOOD COUNT 13.4 10^3/uL (4.0-10.0)
[2020-03-18 09:12] LABS: INR 2.41; PROTHROMBIN TIME 26.8 SECONDS (12.5-14.3)
[2020-03-18 09:13] LABS: PARTIAL THROMBOPLASTIN TIME 43.5 SECONDS (24.2-38.5)
[2020-03-18 09:16] LABS: CALCIUM LEVEL 11.2 MG/DL (8.8-10.2); CREATININE FOR GFR 1.23 MG/DL (0.55-1.30); GLOMERULAR FILTRATION RATE 45.6 (>39); POTASSIUM SERUM 4.8 MEQ/L (3.5-5.1)
--- NOTE | 2020-03-18 09:39 | IPNPDOC ---
Text Note Date of Service The patient was seen on 03/18/20. NOTE Subjective: Pain is controlled at present. Patient reports that she was able to sleep well last night. Had a low grade fever last night. Physical Exam: Vitals: As below General Exam: Positive: Alert, Cooperative, No Acute Distress Eye Exam: Positive: PERRLA, Conjunctiva & lids normal, EOMI; Negative: Sclera icteric ENT Exam: Positive: Atraumatic, Mucous membr. moist/pink, Pharynx Normal Neck Exam: Positive: Supple; Negative: JVD, thyromegaly Chest Exam: Positive: Clear to auscultation, Normal air movement Heart Exam: Positive: Rate Normal, Regular Rhythm, Normal S1, Normal S2; Negative: Murmurs, Rubs Abdomen Exam: Positive: Normal bowel sounds, Soft; Negative: Tenderness, Hepatospenomegaly Extremity Exam: Positive: Tenderness (left leg), Other (left leg surgical incision black ); Negative: Clubbing, Cyanosis, Edema Skin Exam: Positive: Other skin issue (left toe red and early ulcer at the lat aspect of base of left first toe. Left groin incision with adali healing well. ) Neuro Exam: Positive: Normal Speech, Strength at 5/5 X4 ext, Normal Tone Labs and radiology: reviewed Assessment and plan: This is a 74-year-old patient with severe peripheral vascular disease, end-stage, who has had multiple failed revascularizations particularly of the left leg with left leg bypass in Jan 2020 was seen at the vascular clinic today with complaints of recurrence of severe rest pain. There was no dopplerable flow over the bypass. Dr Lew felt that she has exhausted all open surgical options for revascularization as well at this point. Her calf incision has purple ischemic changes on the posterior medial aspect, also has worsening ischemic changes of her left first toe, present before the bypass, now appearing somewhat worse. She had a recent fall from standing, which required an emergency room visit, which was probably both due to pain and worsening ischemia making it challenging to bear weight and ambulate on the left leg. At this point her only option to avoid further tissues loss and progressive infection is Left Above knee amputation. She is being admitted for pain control, reversal of coumadin with heparin bridging if needed and preparation for Left above knee amputation. Severe Left leg ischemia with failed recent Bypass planned for left above knee amputation on 03/19/20 pain control with percocet and morphine. hold plavix and coumadin. DVT and Pulmonary Embolism on coumadin DVT/UT> 5 years ago. will hold coumadin Once INR < 1.8 will start heparin gtt. Anxiety, Depression amitriptyline, paroxetine hyperlipidemia diet controlled. Diabetes FS, AC and HS, carb consistent diet. levemir and lispro will hold glipizide till after surgery Hypertension cont amlodipine, clonidine, metoprolol with hold parameters. will hold enalapril in prep for surgery. Chronic Atrial Fibrillation metoprolol. GERD omeprazole VS,Fishbone, I+O VS, Fishbone, I+O Laboratory Tests 03/17/20 12:38 03/18/20 08:31 Vital Signs Date Time Temp Pulse Resp B/P (MAP) Pulse Ox O2 Delivery O2 Flow Rate FiO2 03/18/20 09:03 18 Room Air 03/18/20 08:33 88 116/75 03/18/20 06:00 99.0 97 I&O- Last 24 Hours up to 6 AM 03/18/20 06:00 Intake Total 1060 ml Balance 1060 ml GLENDY FLORES MD Mar 18, 2020 09:39
--- NOTE | 2020-03-18 13:24 | IPNPDOC ---
Text Note Date of Service The patient was seen on 03/18/20. NOTE Vascular surgery. Dr. Castro The patient is a 74-year-old female with severe end-stage left lower extremity peripheral vascular disease, with no further options for endovascular or open revascularization, worsening rest pain and ischemic changes, and planned admission for pain control, reversal of anticoagulation if needed, and above- knee amputation left lower extremity 03/19/20. Plavix and Coumadin on hold. INR 2.41 this a.m. We would prefer not to give FFP if possible, but if her INR is greater than 1.5 on the day of surgery, we may consider FFP. Continue Analgesia as necessary, patient states pain is controlled. COVID screen requested. Nothing by mouth after midnight tonight for OR tomorrow. Ancef 2 g IV preoperatively. The procedure, risks, benefits and alternatives have been reviewed with the patient and her daughter, Informed consent for left AKA is placed with the chart. Transfusion consent is obtained and placed with the chart. Continue to follow. VS,[place], I+O VS, Fishbone, I+O Laboratory Tests 03/18/20 08:31 Vital Signs Date Time Temp Pulse Resp B/P (MAP) Pulse Ox O2 Delivery O2 Flow Rate FiO2 03/18/20 09:03 18 Room Air 03/18/20 08:33 88 116/75 03/18/20 06:00 99.0 97 I&O- Last 24 Hours up to 6 AM 03/18/20 06:00 Intake Total 1060 ml Balance 1060 ml Angelina Baumann Mar 18, 2020 13:24
[2020-03-18 14:00] VITALS: BP 136/72
[2020-03-18] MEDS: MORPHINE 2 MG/ML 1ML VIAL (J2270) IV PRN ×2 (14:18→23:54)
[2020-03-18] MEDS: AMITRIPTYLINE 25 MG TAB PO SCH (21:17)
[2020-03-18 22:00] VITALS: BP 141/75
[2020-03-19] VITALS (8 sets, daily range): BP systolic 142–168; BP diastolic 78–91
[2020-03-19] MEDS ORDERED: ceFAZolin SOD 2 GM in IV 1 EA IV ONE (06:00)
[2020-03-19 06:58] LABS: HEMATOCRIT 38.3 % (36.0-47.0); MEAN CORPUSCULAR HEMOGLOBIN 26.7 pg (27.0-33.0); MEAN CORPUSCULAR HGB CONC 31.3 g/dl (32.0-36.5); MEAN CORPUSCULAR VOLUME 85.3 fl (80.0-96.0); PLATELET COUNT, AUTOMATED 613 10^3/uL (150-450); RED BLOOD COUNT 4.49 10^6/uL (4.00-5.40)
[2020-03-19 07:08] LABS: INR 2.03; PROTHROMBIN TIME 23.4 SECONDS (12.5-14.3)
[2020-03-19 07:25] LABS: CALCIUM LEVEL 11.1 MG/DL (8.8-10.2); CREATININE FOR GFR 1.06 MG/DL (0.55-1.30); GLOMERULAR FILTRATION RATE 54.1 (>39); POTASSIUM SERUM 4.9 MEQ/L (3.5-5.1)
[2020-03-19] MEDS: HumaLOG INSULIN (NovoLOG) PER UNIT SC SCH ×5 (07:30→21:00)
[2020-03-19] MEDS: cloNIDine 0.1 MG TAB PO SCH ×2 (08:08→20:17)
[2020-03-19] MEDS: DOCUSATE SODIUM 100 MG CAP PO SCH ×2 (08:09→20:15)
[2020-03-19] MEDS: PARoxetine 10MG TABLET PO SCH (08:09)
[2020-03-19] MEDS: LEVEMIR (INSULIN DETEMIR) 1 UNITS/0.01ML SC SCH ×2 (08:09→23:52)
[2020-03-19] MEDS: LORATADINE 10 MG TAB PO SCH (08:09)
[2020-03-19] MEDS: METOPROLOL TART 50 MG TAB PO SCH ×2 (08:09→20:16)
[2020-03-19] MEDS: amLODIPine 10 MG TAB PO SCH (08:09)
[2020-03-19] MEDS: OMEPRAZOLE 20 MG CAP PO SCH (08:09)
--- NOTE | 2020-03-19 08:43 | IPNPDOC ---
Text Note Date of Service The patient was seen on 03/19/20. NOTE Vascular surgery. Dr. Castro The patient is a 74-year-old female with severe end-stage left lower extremity peripheral vascular disease, with no further options for endovascular or open revascularization, worsening rest pain and ischemic changes, and planned admission for pain control, reversal of anticoagulation if needed, and above- knee amputation left lower extremity 03/19/20. Plavix and Coumadin on hold. INR 2.03 this a.m. d/w Dr Castro, will order 1 u FFP. Recheck INR prior to OR. Continue Analgesia as necessary, patient states pain is controlled. COVID screen -03/18/20 Patient is currently nothing by mouth. Ancef 2 g IV preoperatively ordered. The procedure, risks, benefits and alternatives have been reviewed with the patient and her daughter, Informed consent for left AKA is placed with the chart. Transfusion consent is obtained and placed with the chart. Continue to follow. VS,Fishbone, I+O VS, Fishbone, I+O Laboratory Tests 03/18/20 08:31 03/19/20 06:37 Vital Signs Date Time Temp Pulse Resp B/P (MAP) Pulse Ox O2 Delivery O2 Flow Rate FiO2 03/19/20 00:04 18 03/18/20 22:00 99.5 82 141/75 (97) 97 Room Air I&O- Last 24 Hours up to 6 AM 03/19/20 06:00 Intake Total 1500 ml Output Total 0 ml Balance 1500 ml Angelina Baumann Mar 19, 2020 07:58
[2020-03-19] MEDS: NS 1,000 ML IV SCH (10:05)
[2020-03-19] MEDS: MORPHINE 2 MG/ML 1ML VIAL (J2270) IV PRN ×2 (10:06→20:15)
[2020-03-19] MEDS ORDERED: fentaNYL 100 MCG/2 ML INJECTION (J3010) As Ordered ONE ×4 (10:56→15:38)
[2020-03-19] MEDS ORDERED: LIDOCAINE 2% 100MG/5ML SDV (FOR ANES.) As Ordered ONE (10:57)
[2020-03-19] MEDS ORDERED: ROCURONIUM BROMIDE 50 MG/5 ML VIAL As Ordered ONE (10:58)
[2020-03-19] MEDS ORDERED: propofoL 200 MG/20 ML VIAL As Ordered ONE ×2 (11:01→14:30)
[2020-03-19] MEDS ORDERED: METOCLOPRAMIDE INJ 10MG/2ML VIAL (J2765 PER 1) As Ordered ONE (11:03)
--- NOTE | 2020-03-19 12:11 | IPNPDOC ---
Date Seen The patient was seen on 03/19/20. Progress Note Patient seen and examined this morning. We again discussed the indications for left above-knee amputation, as we have exhausted all options for left lower extremity revascularization, and the patient does not have adequate distal perfusion for a below-knee amputation. She has constant rest pain at this point, and thus after a long discussion with the patient and her family, all agree it is time to proceed with amputation. Risks benefits and alternatives have been explained and consent is in the chart. We admitted her on Tuesday for reversal of INR and her Coumadin has been held since then, but her INR was still greater than 2 today, we prefer to be approximately 1.5 for surgery, thus 1 unit of FFP was ordered. We will restart anticoagulation postoperative day 1 if no significant leading or hematoma is noted at her stump postop. The patient was extensively counseled today, her left leg has been marked, and all questions were answered. We'll proceed for left AKA. VS, I&O, 24H, Fishbone Vital Signs/I&O Vital Signs Date Time Temp Pulse Resp B/P (MAP) Pulse Ox O2 Delivery O2 Flow Rate FiO2 03/19/20 11:27 98.8 88 20 159/79 98 Room Air I&O- Last 24 Hours up to 6 AM 03/19/20 06:00 Intake Total 1500 ml Output Total 0 ml Balance 1500 ml Laboratory Data 24H LABS Laboratory Tests 2 03/18/20 16:56: Bedside Glucose (Misc Panel) 112H 03/18/20 19:36: Bedside Glucose (Misc Panel) 144H 03/19/20 06:37: Nucleated Red Blood Cells % (auto) 0.0, Prothrombin Time 23.4H, Prothromb Time International Ratio 2.03, Anion Gap 9, Glomerular Filtration Rate 54.1, Calcium Level 11.1H CBC/BMP Laboratory Tests 03/19/20 06:37 HORTENCIA GREENBERG MD Mar 19, 2020 12:11
--- NOTE | 2020-03-19 13:07 | IPNPDOC ---
Text Note Date of Service The patient was seen on 03/19/20. NOTE Subjective: Pain is controlled at present. No fever overnight. planned for OR today. Physical Exam: Vitals: As below General Exam: Positive: Alert, Cooperative, No Acute Distress Eye Exam: Positive: PERRLA, Conjunctiva & lids normal, EOMI; Negative: Sclera icteric ENT Exam: Positive: Atraumatic, Mucous membr. moist/pink, Pharynx Normal Neck Exam: Positive: Supple; Negative: JVD, thyromegaly Chest Exam: Positive: Clear to auscultation, Normal air movement Heart Exam: Positive: Rate Normal, Regular Rhythm, Normal S1, Normal S2; Negative: Murmurs, Rubs Abdomen Exam: Positive: Normal bowel sounds, Soft; Negative: Tenderness, Hepatospenomegaly Extremity Exam: Positive: Tenderness (left leg), Other (left leg surgical incision black ); Negative: Clubbing, Cyanosis, Edema Skin Exam: Positive: Other skin issue (left toe red and early ulcer at the lat aspect of base of left first toe. Left groin incision with adali healing well. ) Neuro Exam: Positive: Normal Speech, Strength at 5/5 X4 ext, Normal Tone Labs and radiology: reviewed Assessment and plan: This is a 74-year-old patient with severe peripheral vascular disease, end-stage, who has had multiple failed revascularizations particularly of the left leg with left leg bypass in Jan 2020 was seen at the vascular clinic today with complaints of recurrence of severe rest pain. There was no dopplerable flow over the bypass. Dr Lew felt that she has exhausted all open surgical options for revascularization as well at this point. Her calf incision has purple ischemic changes on the posterior medial aspect, also has worsening ischemic changes of her left first toe, present before the bypass, now appearing somewhat worse. She had a recent fall from standing, which required an emergency room visit, which was probably both due to pain and worsening ischemia making it challenging to bear weight and ambulate on the left leg. At this point her only option to avoid further tissues loss and progressive infection is Left Above knee amputation. She is being admitted for pain control, reversal of coumadin with heparin bridging if needed and preparation for Left above knee amputation. Severe Left leg ischemia with failed recent Bypass planned for left above knee amputation on 03/19/20 INR still > 1.5. FFP prior to surgery. Decision as per Dr Lew. pain control with percocet and morphine. hold plavix and coumadin. DVT and Pulmonary Embolism on coumadin DVT/AK> 5 years ago. will hold coumadin Last INR was at 2.0 Post op may need to be on heparin bridging. Anxiety, Depression amitriptyline, paroxetine hyperlipidemia diet controlled. Diabetes FS, AC and HS, carb consistent diet. levemir and lispro will hold glipizide till after surgery Hypertension cont amlodipine, clonidine, metoprolol with hold parameters. will hold enalapril in prep for surgery. Chronic Atrial Fibrillation metoprolol. GERD omeprazole DVT prophylaxis was on coumadin VS,Fishbone, I+O VS, Fishbone, I+O Laboratory Tests 03/18/20 08:31 Vital Signs Date Time Temp Pulse Resp B/P (MAP) Pulse Ox O2 Delivery O2 Flow Rate FiO2 03/19/20 00:04 18 03/18/20 22:00 99.5 82 141/75 (97) 97 Room Air I&O- Last 24 Hours up to 6 AM 03/19/20 07:00 Intake Total 1500 ml Output Total 0 ml Balance 1500 ml GLENDY FLORES MD Mar 19, 2020 06:52
[2020-03-19] MEDS ORDERED: BUPIVACAINE/EPIN 0.5% 30 ML VIAL As Ordered ONE (13:15)
[2020-03-19] MEDS ORDERED: ceFAZolin 2 GM/D5W 50 ML IV BAG (J0690 PER 500MG) As Ordered ONE (13:40)
[2020-03-19] MEDS ORDERED: PHENYLephrine HCL 500 MCG/5 ML (100MCG/ML) SYRINGE (J2370) As Ordered ONE (13:56)
[2020-03-19] MEDS ORDERED: ONDANSETRON 4MG/2ML VIAL As Ordered ONE (14:05)
[2020-03-19] MEDS ORDERED: SUGAMMADEX SODIUM 500 MG/5 ML VIAL (BRIDION) As Ordered ONE (14:05)
[2020-03-19] MEDS ORDERED: LABETALOL 100MG/20ML VIAL As Ordered ONE ×2 (14:57→15:32)
[2020-03-19] MEDS: LABETALOL 100MG/20ML VIAL IV SCH ×5 (15:30→16:15)
--- NOTE | 2020-03-19 15:32 | ROOPDOC ---
[facility] Report Of Operation Report of Operation DATE OF PROCEDURE: 03/19/20 PREPROCEDURE DIAGNOSES: End-stage peripheral vascular disease with ischemic rest pain left lower extremity POSTPROCEDURE DIAGNOSES: Same PROCEDURE: Left above-knee amputation SURGEON: Hortencia Castro MD ANESTHESIA: Gen. anesthesia and local anesthesia INDICATION FOR PROCEDURE: This is a very pleasant 74-year-old patient with severe peripheral vascular disease status post multiple failed revascu larizations in the left lower extremity with myself, now with no further options for left lower extremity revascularization and failure of most recent femoropopliteal bypass to relieve rest pain symptoms due to limited runoff, mostly collateral circulation below the knee, and preoperative ischemic changes. At this point, the patient is a near constant rest pain in the left lower ex tremity. We discussed the risks benefits and alternatives to a left above-knee amputation. She does not have adequate blood flow below the knee for a below- knee amputation. She is agreeable to this plan. Informed consent was obtained. REPORT OF OPERATION: Patient was brought to the operating room in stable condition. Anesthesia and antibiotics were administered without complication. Her left lower extremity was prepped and draped in a sterile fashion. A timeout was performed. The leg was exsanguinated with an Esmarch. A tourniquet was inflated to 275 mmHg pressure. A skin knife was used to make a fishmouth incision was fashioned at the knee with a longer posterior flap behind the knee. This was carried down to the subcutaneous tissue with Bovie cautery's. Bridging veins and vessels were suture ligated and divided. The left femoropopliteal bypass was suture ligated and divided. We continued the dissection to circumferentially free the periosteum from the femur. The popliteal artery and vein were suture ligated and divided. The majority of the superficial femoral artery stent was removed. Next, we continued dissection through the posterior soft tissue. We transected the femur high and beveled the anterior aspect slightly. A rasp was used to smooth the bone. Nerve structures were high ligated. The perineural tissues were injected with local anesthesia. The tourniquet was released. Bovie cautery was used for hemostasis. A stump was thoroughly irrigated with saline. The deep tissues were approximated over the bone with [id number] Vicryl sutures. The muscle fascia anteriorly and posteriorly were approximated with ebiddh-ly-nrhne Vicryl sutures. The fascia superficially was closed around the entire incision with uttafv-[id number] Vicryl sutures making sure there were in the suture. We then irrigated the subcutaneous tissue with saline. The skin edges were approximated with nylon mattress rios tures. We then closed between the mattress sutures with adali. The incision was clean and dry. Xeroform fluffs kerlix and a 4 inch Ranjan wrap replaced as the final dressing. The patient was allowed to awaken from anesthesia and taken to recovery in stable condition. She tolerated the procedure well. ESTIMATED BLOOD LOSS: Approximately 20 mL. COMPLICATIONS: None. SPECIMEN: Left leg sent for pathology. PLAN: We will resume the patient's preoperative diet and medications per the primary team. Physical and occupational therapy can begin in the morning, and we will work towards a rehabilitation admission postop. We will restart the patient's anticoagulation for atrial fibrillation tomorrow. We will hold the Plavix for a few days postop. Okay for aspirin daily. Okay to start full dose Lovenox in the morning to bridge Coumadin. INR checks daily. We appreciate the opportunity to participate in the care of this patient. HORTENCIA CASTRO MD Mar 19, 2020 15:32
[2020-03-19] MEDS: fentaNYL 100 MCG/2 ML INJECTION (J3010) IV PRN ×4 (15:35→15:55)
[2020-03-19] MEDS: oxyCODONE 5MG TAB PO PRN ×2 (15:35→16:24)
[2020-03-19] MEDS ORDERED: oxyCODONE 5MG TAB As Ordered ONE ×2 (15:38→16:22)
[2020-03-19] MEDS ORDERED: HYDROMORPHONE HCL 0.5 MG/ 0.5 ML SYRINGE (J1170 PER 1) IV PRN (15:45)
[2020-03-19] MEDS ORDERED: ONDANSETRON 4MG/2ML VIAL IV PRN ×2 (15:45)
[2020-03-19] MEDS: hydrALAZINE 20MG/ML 1ML VIAL (J0360 PER 20MG) IV SCH ×4 (15:45→16:00)
[2020-03-19] MEDS: PERCOCET 5MG/325MG TAB PO PRN (17:35)
[2020-03-19] MEDS: AMITRIPTYLINE 25 MG TAB PO SCH (20:16)
[2020-03-19 20:54] LABS: INR 1.57; PROTHROMBIN TIME 19.1 SECONDS (12.5-14.3)
[2020-03-20] MEDS: PERCOCET 5MG/325MG TAB PO PRN ×4 (01:35→22:21)
[2020-03-20 02:00] VITALS: BP 139/75
[2020-03-20] MEDS: MORPHINE 2 MG/ML 1ML VIAL (J2270) IV PRN ×2 (03:30→23:22)
[2020-03-20 06:00] VITALS: BP 121/81
[2020-03-20 06:30] LABS: HEMATOCRIT 37.2 % (36.0-47.0); HEMOGLOBIN 11.8 g/dl (12.0-15.5); MEAN CORPUSCULAR HEMOGLOBIN 27.2 pg (27.0-33.0); MEAN CORPUSCULAR HGB CONC 31.7 g/dl (32.0-36.5); MEAN CORPUSCULAR VOLUME 85.7 fl (80.0-96.0); RED BLOOD COUNT 4.34 10^6/uL (4.00-5.40); WHITE BLOOD COUNT 14.7 10^3/uL (4.0-10.0)
[2020-03-20 06:42] LABS: INR 1.35
[2020-03-20 07:01] LABS: PLATELET COUNT, AUTOMATED 430 10^3/uL (150-450)
[2020-03-20] MEDS: LEVEMIR (INSULIN DETEMIR) 1 UNITS/0.01ML SC SCH ×2 (08:15→20:58)
[2020-03-20] MEDS: HumaLOG INSULIN (NovoLOG) PER UNIT SC SCH ×4 (08:16→20:48)
[2020-03-20] MEDS: OMEPRAZOLE 20 MG CAP PO SCH (08:17)
[2020-03-20] MEDS: DOCUSATE SODIUM 100 MG CAP PO SCH ×2 (08:17→21:00)
[2020-03-20] MEDS: cloNIDine 0.1 MG TAB PO SCH ×2 (08:17→21:00)
[2020-03-20] MEDS: PARoxetine 10MG TABLET PO SCH (08:17)
[2020-03-20] MEDS: METOPROLOL TART 50 MG TAB PO SCH ×2 (08:18→21:00)
[2020-03-20] MEDS: LORATADINE 10 MG TAB PO SCH (08:18)
[2020-03-20] MEDS: ENALAPRIL MALEATE 10 MG TAB PO SCH ×2 (08:18→20:59)
[2020-03-20] MEDS: NS 1,000 ML IV SCH (08:25)
[2020-03-20] MEDS: diazePAM 5 MG TAB PO PRN ×2 (08:31→21:00)
--- NOTE | 2020-03-20 08:45 | IPNPDOC ---
Date Seen The patient was seen on 03/20/20. Progress Note Patient seen and examined postoperative day one status post left lower extremity above-knee amputation. Doing well. Complained of appropriate postop pain, well controlled with analgesia. Left AKA stump is clean dry and intact. Minimal serosanguineous drainage noted on the dressing. Cleaned thoroughly, Xeroform fluffs Kerlix and Ranjan wrap replaced. Patient tolerated dressing change well. Plan to start PT OT today. They are U consult pending. Encourage high-protein diabetic diet. High-protein will help with wound healing. We'll restart Coumadin today. We will add daily aspirin instead of Plavix for now, and will start Lovenox DVT prophylaxis. If the patient does not have significant sanguinous drainage with Lovenox prophylaxis dose, will increase to bridging dose tomorrow. We appreciate the hospitalist excellent care of this patient. Will follow closely. VS, I&O, 24H, Fishbone Vital Signs/I&O Vital Signs Date Time Temp Pulse Resp B/P (MAP) Pulse Ox O2 Delivery O2 Flow Rate FiO2 03/20/20 08:20 86 18 160/84 98 Room Air 03/20/20 06:00 97.8 0.5 I&O- Last 24 Hours up to 6 AM 03/20/20 06:00 Intake Total 1680 ml Output Total 850 ml Balance 830 ml Laboratory Data 24H LABS Laboratory Tests 2 03/19/20 16:42: Bedside Glucose (Misc Panel) 183H 03/19/20 20:05: Prothrombin Time 19.1H, Prothromb Time International Ratio 1.57 03/19/20 20:43: Bedside Glucose (Misc Panel) 210H 03/20/20 06:04: Prothrombin Time 17.0H, Prothromb Time International Ratio 1.35, Nucleated Red Blood Cells % (auto) 0.0 03/20/20 07:52: Bedside Glucose (Misc Panel) 172H CBC/BMP Laboratory Tests 03/20/20 06:04 HORTENCIA GREENBERG MD Mar 20, 2020 08:45
[2020-03-20] MEDS ORDERED: amLODIPine 5 MG TAB PO SCH (09:00)
[2020-03-20 10:00] VITALS: BP 132/70
[2020-03-20] MEDS: ASPIRIN 81 MG ENTERIC TAB PO SCH (10:53)
[2020-03-20] MEDS: ENOXAPARIN 40MG/0.4ML SYRINGE (J1650 PER 10MG) SC SCH ×2 (10:54→20:57)
--- NOTE | 2020-03-20 13:09 | IPNPDOC ---
Text Note Date of Service The patient was seen on 03/20/20. NOTE Subjective: Pain is controlled at present. No fever overnight. Post op day #1 Physical Exam: Vitals: As below General Exam: Positive: Alert, Cooperative, No Acute Distress Eye Exam: Positive: PERRLA, Conjunctiva & lids normal, EOMI; Negative: Sclera icteric ENT Exam: Positive: Atraumatic, Mucous membr. moist/pink, Pharynx Normal Neck Exam: Positive: Supple; Negative: JVD, thyromegaly Chest Exam: Positive: Clear to auscultation, Normal air movement Heart Exam: Positive: Rate Normal, Regular Rhythm, Normal S1, Normal S2; Negative: Murmurs, Rubs Abdomen Exam: Positive: Normal bowel sounds, Soft; Negative: Tenderness, Hepatospenomegaly Extremity Exam: Positive: Tenderness (left leg), Other (left leg surgical incision black ); Negative: Clubbing, Cyanosis, Edema Skin Exam: Positive: Other skin issue (left toe red and early ulcer at the lat aspect of base of left first toe. Left groin incision with adali healing well. ) Neuro Exam: Positive: Normal Speech, Strength at 5/5 X4 ext, Normal Tone Labs and radiology: reviewed Assessment and plan: This is a 74-year-old patient with severe peripheral vascular disease, end-stage, who has had multiple failed revascularizations particularly of the left leg with left leg bypass in Jan 2020 was seen at the vascular clinic today with complaints of recurrence of severe rest pain. There was no dopplerable flow over the bypass. Dr Lew felt that she has exhausted all open surgical options for revascularization as well at this point. Her calf incision has purple ischemic changes on the posterior medial aspect, also has worsening ischemic changes of her left first toe, present before the by pass, now appearing somewhat worse. She had a recent fall from standing, which required an emergency room visit, which was probably both due to pain and worsening ischemia making it challenging to bear weight and ambulate on the left leg. At this point her only option to avoid further tissues loss and progressive infection is Left Above knee amputation. She is being admitted for pain control, reversal of coumadin with heparin bridging if needed and preparation for Left above knee amputation. Severe Left leg ischemia with failed recent Bypass knee amputation on 03/19/20 pain control with percocet and morphine. hold plavix Restarted on coumadin with lovenox bridging and also ASA. DVT and Pulmonary Embolism on coumadin DVT/RI> 5 years ago. started on lovenox and coumadin bridging. Anxiety, Depression amitriptyline, paroxetine hyperlipidemia diet controlled. Diabetes FS, AC and HS, carb consistent diet. levemir and lispro will start glipizide Hypertension cont amlodipine, clonidine, metoprolol with hold parameters. restarted lower dose of enalapril. Has not been gtting any clonidine. Chronic Atrial Fibrillation metoprolol. GERD omeprazole DVT prophylaxis was on coumadin VS,Fishbone, I+O VS, Fishbone, I+O Laboratory Tests 03/20/20 06:04 Vital Signs Date Time Temp Pulse Resp B/P (MAP) Pulse Ox O2 Delivery O2 Flow Rate FiO2 03/20/20 10:33 18 Room Air 03/20/20 10:00 98.3 92 132/70 (90) 98 0.5 I&O- Last 24 Hours up to 6 AM 03/20/20 07:00 Intake Total 1680 ml Output Total 850 ml Balance 830 ml GLENDY FLORES MD Mar 20, 2020 13:09
[2020-03-20 14:00] VITALS: BP 145/84
[2020-03-20] MEDS ORDERED: WARFARIN SOD 5MG TAB PO ONE (17:00)
[2020-03-20] MEDS: AMITRIPTYLINE 25 MG TAB PO SCH (20:59)
[2020-03-20 22:00] VITALS: BP 145/84
[2020-03-21] VITALS (7 sets, daily range): BP systolic 130–162; BP diastolic 76–85
[2020-03-21] MEDS ORDERED: MORPHINE 2 MG/ML 1ML VIAL (J2270) IV ONE (01:15)
[2020-03-21] MEDS: diazePAM 5 MG TAB PO PRN ×3 (03:04→18:58)
[2020-03-21] MEDS: PERCOCET 5MG/325MG TAB PO PRN ×3 (05:18→23:33)
[2020-03-21 06:37] LABS: HEMATOCRIT 34.3 % (36.0-47.0); HEMOGLOBIN 10.9 g/dl (12.0-15.5); MEAN CORPUSCULAR HEMOGLOBIN 27.7 pg (27.0-33.0); MEAN CORPUSCULAR HGB CONC 31.8 g/dl (32.0-36.5); MEAN CORPUSCULAR VOLUME 87.3 fl (80.0-96.0); PLATELET COUNT, AUTOMATED 412 10^3/uL (150-450); RED BLOOD COUNT 3.93 10^6/uL (4.00-5.40); WHITE BLOOD COUNT 14.6 10^3/uL (4.0-10.0)
[2020-03-21 06:47] LABS: INR 1.66
[2020-03-21 07:01] LABS: BLOOD UREA NITROGEN 11 MG/DL (7-18); CALCIUM LEVEL 9.8 MG/DL (8.8-10.2); CARBON DIOXIDE LEVEL 24 MEQ/L (21-32); CHLORIDE LEVEL 105 MEQ/L (98-107); CREATININE FOR GFR 0.79 MG/DL (0.55-1.30); GLOMERULAR FILTRATION RATE > 60.0 (>39); GLUCOSE, FASTING 128 MG/DL (70-100); POTASSIUM SERUM 4.3 MEQ/L (3.5-5.1); SODIUM LEVEL 137 MEQ/L (136-145)
[2020-03-21] MEDS: ENOXAPARIN 40MG/0.4ML SYRINGE (J1650 PER 10MG) SC SCH ×2 (08:23→21:15)
[2020-03-21] MEDS: ASPIRIN 81 MG ENTERIC TAB PO SCH (08:23)
[2020-03-21] MEDS: LORATADINE 10 MG TAB PO SCH (08:23)
[2020-03-21] MEDS: PARoxetine 10MG TABLET PO SCH (08:23)
[2020-03-21] MEDS: OMEPRAZOLE 20 MG CAP PO SCH (08:23)
[2020-03-21] MEDS: ENALAPRIL MALEATE 10 MG TAB PO SCH ×2 (08:24→21:16)
[2020-03-21] MEDS: DOCUSATE SODIUM 100 MG CAP PO SCH ×2 (08:24→21:15)
[2020-03-21] MEDS: cloNIDine 0.1 MG TAB PO SCH ×2 (08:24→21:00)
[2020-03-21] MEDS: LEVEMIR (INSULIN DETEMIR) 1 UNITS/0.01ML SC SCH ×2 (08:25→21:15)
[2020-03-21] MEDS: METOPROLOL TART 50 MG TAB PO SCH ×2 (08:25→21:15)
[2020-03-21] MEDS: HumaLOG INSULIN (NovoLOG) PER UNIT SC SCH ×4 (08:26→21:00)
[2020-03-21] MEDS: MORPHINE 2 MG/ML 1ML VIAL (J2270) IV PRN ×2 (08:27→15:19)
[2020-03-21] MEDS: amLODIPine 5 MG TAB PO SCH (08:38)
--- NOTE | 2020-03-21 08:40 | IPNPDOC ---
Text Note Date of Service The patient was seen on 03/21/20. NOTE Vascular Surgery. Dr Castro. Patient seen and examined POD2 status post left lower extremity above-knee amputation. Doing well. Pain controlled with analgesia. Left AKA stump is clean dry and intact. No drainage noted on the dressing. Cleaned thoroughly, Xeroform fluffs Kerlix and Ranjan wrap replaced. Patient tolerated dressing change well. Robin removed from Left groin incision, healing well, cleaned and dry dressing placed. PT/OT, ARU CLt Encourage high-protein diabetic diet. High-protein will help with wound healing. Coumadin restarted. ASA 81mg, Lovenox DVT prophylaxis. We appreciate the hospitalist excellent care of this patient. Will follow closely. VS,Fishbone, I+O VS, Fishbone, I+O Laboratory Tests 03/21/20 06:17 Vital Signs Date Time Temp Pulse Resp B/P (MAP) Pulse Ox O2 Delivery O2 Flow Rate FiO2 03/21/20 08:27 18 03/21/20 08:25 88 166/93 03/21/20 06:09 96.7 95 Room Air I&O- Last 24 Hours up to 6 AM 03/21/20 05:59 Intake Total 550 ml Output Total 1225 ml Balance -675 ml Angelina Baumann Mar 21, 2020 08:39
--- NOTE | 2020-03-21 15:03 | IPNPDOC ---
Text Note Date of Service The patient was seen on 03/21/20. NOTE Subjective: Pain is controlled at present. No fever overnight. Post op day #2. waiting to hear from Insurance about ARU coverage. Physical Exam: Vitals: As below General Exam: Positive: Alert, Cooperative, No Acute Distress Eye Exam: Positive: PERRLA, Conjunctiva & lids normal, EOMI; Negative: Sclera icteric ENT Exam: Positive: Atraumatic, Mucous membr. moist/pink, Pharynx Normal Neck Exam: Positive: Supple; Negative: JVD, thyromegaly Chest Exam: Positive: Clear to auscultation, Normal air movement Heart Exam: Positive: Rate Normal, Regular Rhythm, Normal S1, Normal S2; Negative: Murmurs, Rubs Abdomen Exam: Positive: Normal bowel sounds, Soft; Negative: Tenderness, Hepatosplenomegaly Extremity Exam: Positive: left above knee amputation, stup with surgical dressing. Negative: Clubbing, Cyanosis, Edema Skin Exam: Positive: Other skin issue (left toe red and early ulcer at the lat aspect of base of left first toe. Left groin incision healing well. ) Neuro Exam: Positive: Normal Speech, Strength at 5/5 X4 ext, Normal Tone Labs and radiology: reviewed Assessment and plan: This is a 74-year-old patient with severe peripheral vascular disease, end-stage, who has had multiple failed revascularizations particularly of the left leg with left leg bypass in Jan 2020 was seen at the vascular clinic today with complaints of recurrence of severe rest pain. There was no dopplerable flow over the bypass. Dr Lew felt that she has exhaust ed all open surgical options for revascularization as well at this point. Her calf incision has purple ischemic changes on the posterior medial aspect, also has worsening ischemic changes of her left first toe, present before the bypass, now appearing somewhat worse. She had a recent fall from standing, which required an emergency room visit, which was probably both due to pain and worsening ischemia making it challenging to bear weight and ambulate on the left leg. At this point her only option to avoid further tissues loss and progressive infection is Left Above knee amputation. She is being admitted for pain control, reversal of coumadin with heparin bridging if needed and preparation for Left above knee amputation. Severe Left leg ischemia with failed recent Bypass S/P above knee amputation on 03/19/20 pain control with percocet and morphine. hold plavix Restarted on coumadin with lovenox bridging and also ASA. DVT and Pulmonary Embolism on coumadin DVT/MS> 5 years ago. started on lovenox and coumadin bridging. Anxiety, Depression amitriptyline, paroxetine hyperlipidemia diet controlled. Diabetes FS, AC and HS, carb consistent diet. levemir and lispro Stevie and glucerna Hypertension cont amlodipine, clonidine, metoprolol with hold parameters. restarted lower dose of enalapril. Has not been gtting any clonidine. Chronic Atrial Fibrillation metoprolol. GERD omeprazole DVT prophylaxis was on coumadin VS,Fishbone, I+O VS, Fishbone, I+O Laboratory Tests 03/21/20 06:17 Vital Signs Date Time Temp Pulse Resp B/P (MAP) Pulse Ox O2 Delivery O2 Flow Rate FiO2 03/21/20 14:00 98.2 79 16 130/76 (94) 95 Room Air 03/21/20 06:09 I&O- Last 24 Hours up to 6 AM 03/21/20 06:00 Intake Total 490 ml Output Total 1225 ml Balance -735 ml GLENDY FLORES MD Mar 21, 2020 15:03
[2020-03-21] MEDS: WARFARIN SOD 1MG TAB PO SCH (17:17)
[2020-03-21] MEDS: AMITRIPTYLINE 25 MG TAB PO SCH (21:15)
[2020-03-22 02:00] VITALS: BP 146/83
[2020-03-22 06:00] VITALS: BP 139/83
[2020-03-22 06:42] LABS: HEMATOCRIT 36.4 % (36.0-47.0); HEMOGLOBIN 11.4 g/dl (12.0-15.5); MEAN CORPUSCULAR HEMOGLOBIN 27.4 pg (27.0-33.0); MEAN CORPUSCULAR HGB CONC 31.3 g/dl (32.0-36.5); MEAN CORPUSCULAR VOLUME 87.5 fl (80.0-96.0); PLATELET COUNT, AUTOMATED 465 10^3/uL (150-450); RED BLOOD COUNT 4.16 10^6/uL (4.00-5.40); WHITE BLOOD COUNT 14.7 10^3/uL (4.0-10.0)
[2020-03-22 06:56] LABS: INR 1.77
[2020-03-22 06:59] LABS: BLOOD UREA NITROGEN 16 MG/DL (7-18); CALCIUM LEVEL 10.9 MG/DL (8.8-10.2); CARBON DIOXIDE LEVEL 26 MEQ/L (21-32); CHLORIDE LEVEL 106 MEQ/L (98-107); CREATININE FOR GFR 0.83 MG/DL (0.55-1.30); GLOMERULAR FILTRATION RATE > 60.0 (>39); GLUCOSE, FASTING 156 MG/DL (70-100); POTASSIUM SERUM 4.6 MEQ/L (3.5-5.1); SODIUM LEVEL 138 MEQ/L (136-145)
[2020-03-22] MEDS: LEVEMIR (INSULIN DETEMIR) 1 UNITS/0.01ML SC SCH ×2 (08:02→21:35)
[2020-03-22] MEDS: ENOXAPARIN 40MG/0.4ML SYRINGE (J1650 PER 10MG) SC SCH (08:02)
[2020-03-22] MEDS: MOM 30ML SUSPENSION UDC PO PRN (08:02)
[2020-03-22] MEDS: HumaLOG INSULIN (NovoLOG) PER UNIT SC SCH ×4 (08:03→21:00)
[2020-03-22] MEDS: PARoxetine 10MG TABLET PO SCH (08:04)
[2020-03-22] MEDS: LORATADINE 10 MG TAB PO SCH (08:04)
[2020-03-22] MEDS: cloNIDine 0.1 MG TAB PO SCH ×2 (08:04→21:00)
[2020-03-22] MEDS: DOCUSATE SODIUM 100 MG CAP PO SCH ×2 (08:04→21:35)
[2020-03-22] MEDS: ASPIRIN 81 MG ENTERIC TAB PO SCH (08:04)
[2020-03-22] MEDS: OMEPRAZOLE 20 MG CAP PO SCH (08:05)
[2020-03-22] MEDS: amLODIPine 5 MG TAB PO SCH (08:06)
[2020-03-22] MEDS: ENALAPRIL MALEATE 10 MG TAB PO SCH ×2 (08:06→21:00)
[2020-03-22] MEDS: PERCOCET 5MG/325MG TAB PO PRN ×3 (08:07→22:51)
[2020-03-22] MEDS: METOPROLOL TART 50 MG TAB PO SCH ×2 (08:08→21:36)
[2020-03-22] MEDS ORDERED: MORPHINE 2 MG/ML 1ML VIAL (J2270) IV PRN (09:30)
[2020-03-22 10:00] VITALS: BP 136/81
[2020-03-22] MEDS: traMADol 50 MG TAB PO SCH ×3 (10:43→21:35)
[2020-03-22] MEDS: diazePAM 5 MG TAB PO PRN (12:25)
[2020-03-22 14:00] VITALS: BP 136/79
--- NOTE | 2020-03-22 14:52 | IPNPDOC ---
Date Seen The patient was seen on 03/22/20. Progress Note Patient seen and examined postoperative day 3 status post left above-knee amputation. She is doing well today. Pain is well controlled. She got out of bed with physical therapy and felt chair for a while. Her incision is clean dry and intact today. I thoroughly cleaned and redressed the stump with Xeroform, 4 x 4's, Kerlix, and an Ranjan wrap. The patient tolerated this well. Continue to encourage high-protein diet and nutrition for wound healing. Continue checking INRs until Coumadin is therapeutic. It is slowly increasing daily. The patient is not having any bleeding or hematoma at her left stomach, so we can convert her twice a day DVT prophylaxis Lovenox to a full dose bridge with therapeutic Lovenox until her Coumadin is therapeutic. Continue aspirin instead of Plavix for now. Continue PT/OT and work towards a RU admission. We appreciate the opportunity to participate in the care of this patient. VS, I&O, 24H, Fishbone Vital Signs/I&O Vital Signs Date Time Temp Pulse Resp B/P (MAP) Pulse Ox O2 Delivery O2 Flow Rate FiO2 03/22/20 14:35 18 03/22/20 10:00 98.5 74 136/81 (99) 97 Room Air 03/21/20 06:09 I&O- Last 24 Hours up to 6 AM 03/22/20 06:00 Intake Total 690 ml Output Total 800 ml Balance -110 ml Laboratory Data 24H LABS Laboratory Tests 2 03/21/20 16:38: Bedside Glucose (Misc Panel) 113H 03/21/20 21:04: Bedside Glucose (Misc Panel) 167H 03/22/20 06:07: Nucleated Red Blood Cells % (auto) 0.0, Prothrombin Time 21.0H, Prothromb Time International Ratio 1.77, Anion Gap 6L, Glomerular Filtration Rate > 60.0, Calcium Level 10.9H 03/22/20 12:01: Bedside Glucose (Misc Panel) 111H CBC/BMP Laboratory Tests 03/22/20 06:07 HORTENCIA GREENBERG MD Mar 22, 2020 14:52
[2020-03-22] MEDS ORDERED: BISACODYL 10 MG SUPP PR ONE (16:00)
[2020-03-22] MEDS: WARFARIN SOD 1MG TAB PO SCH (17:32)
[2020-03-22] MEDS ORDERED: FLEET ENEMA PR PRN (18:45)
[2020-03-22] MEDS ORDERED: ENOXAPARIN 60MG/0.6ML SYRINGE (J1650 PER 10MG) SC SCH (21:00)
[2020-03-22] MEDS: AMITRIPTYLINE 25 MG TAB PO SCH (21:36)
[2020-03-22 22:00] VITALS: BP 130/79
[2020-03-23] MEDS: diazePAM 5 MG TAB PO PRN (01:28)
[2020-03-23 02:00] VITALS: BP 132/76
[2020-03-23] MEDS: PERCOCET 5MG/325MG TAB PO PRN ×3 (05:49→23:15)
[2020-03-23 06:00] VITALS: BP 138/78
[2020-03-23 06:18] LABS: HEMATOCRIT 35.1 % (36.0-47.0); HEMOGLOBIN 10.9 g/dl (12.0-15.5); MEAN CORPUSCULAR HEMOGLOBIN 26.8 pg (27.0-33.0); MEAN CORPUSCULAR HGB CONC 31.1 g/dl (32.0-36.5); MEAN CORPUSCULAR VOLUME 86.2 fl (80.0-96.0); PLATELET COUNT, AUTOMATED 481 10^3/uL (150-450); RED BLOOD COUNT 4.07 10^6/uL (4.00-5.40); WHITE BLOOD COUNT 17.3 10^3/uL (4.0-10.0)
[2020-03-23 06:29] LABS: INR 2.24; PROTHROMBIN TIME 25.3 SECONDS (12.5-14.3)
[2020-03-23 06:42] LABS: CALCIUM LEVEL 10.6 MG/DL (8.8-10.2); CREATININE FOR GFR 1.02 MG/DL (0.55-1.30); GLOMERULAR FILTRATION RATE 56.6 (>39); POTASSIUM SERUM 4.7 MEQ/L (3.5-5.1)
[2020-03-23] MEDS ORDERED: diazePAM 5 MG TAB PO PRN (07:45)
[2020-03-23] MEDS: amLODIPine 10 MG TAB PO SCH (08:01)
[2020-03-23] MEDS: LEVEMIR (INSULIN DETEMIR) 1 UNITS/0.01ML SC SCH ×2 (08:01→20:19)
[2020-03-23] MEDS: HumaLOG INSULIN (NovoLOG) PER UNIT SC SCH ×4 (08:01→21:00)
--- NOTE | 2020-03-23 08:01 | IPNPDOC ---
Text Note Date of Service The patient was seen on 03/22/20. NOTE Subjective: Pain is controlled at present. No fever overnight. Post op day #3. Waiting to hear from Insurance about ARU coverage. Physical Exam: Vitals: As below General Exam: Positive: Alert, Cooperative, No Acute Distress Eye Exam: Positive: PERRLA, Conjunctiva & lids normal, EOMI; Negative: Sclera icteric ENT Exam: Positive: Atraumatic, Mucous membr. moist/pink, Pharynx Normal Neck Exam: Positive: Supple; Negative: JVD, thyromegaly Chest Exam: Positive: Clear to auscultation, Normal air movement Heart Exam: Positive: Rate Normal, Regular Rhythm, Normal S1, Normal S2; Negative: Murmurs, Rubs Abdomen Exam: Positive: Normal bowel sounds, Soft; Negative: Tenderness, Hepatosplenomegaly Extremity Exam: Positive: left above knee amputation, stump with surgical dressing. Negative: Clubbing, Cyanosis, Edema Skin Exam: Positive: Other skin issue (left toe red and early ulcer at the lat aspect of base of left first toe. Left groin incision healing well. ) Neuro Exam: Positive: Normal Speech, Strength at 5/5 X4 ext, Normal Tone Labs and radiology: reviewed Assessment and plan: This is a 74-year-old patient with severe peripheral vascular disease, end-stage, who has had multiple failed revascularizations particularly of the left leg with left leg bypass in Jan 2020 was seen at the vascular clinic today with complaints of recurrence of severe rest pain. There was no dopplerable flow over the bypass. Dr Lew felt that she has exhaus emma all open surgical options for revascularization as well at this point. Her calf incision has purple ischemic changes on the posterior medial aspect, also has worsening ischemic changes of her left first toe, present before the bypass, now appearing somewhat worse. She had a recent fall from standing, which required an emergency room visit, which was probably both due to pain and worsening ischemia making it challenging to bear weight and ambulate on the left leg. At this point her only option to avoid further tissues loss and progressive infection is Left Above knee amputation. She is being admitted for pain control, and preparation for Left above knee amputation. She underwent Left above knee amputation on 03/19/20 and now awaiting to go to Rehab. Severe Left leg ischemia with failed recent Bypass S/P above knee amputation on 03/19/20 pain control with percocet and morphine. hold plavix Restarted on coumadin with lovenox bridging and also ASA. DVT and Pulmonary Embolism on coumadin DVT/CA> 5 years ago. started on lovenox and coumadin bridging. Anxiety, Depression amitriptyline, paroxetine hyperlipidemia diet controlled. Diabetes FS, AC and HS, carb consistent diet. levemir and lispro Stevie and glucerna Hypertension cont amlodipine, clonidine, metoprolol with hold parameters. restarted lower dose of enalapril. Chronic Atrial Fibrillation metoprolol. GERD omeprazole DVT prophylaxis in place VS,Fishbone, I+O VS, Fishbone, I+O Laboratory Tests 03/22/20 06:07 Vital Signs Date Time Temp Pulse Resp B/P (MAP) Pulse Ox O2 Delivery O2 Flow Rate FiO2 03/22/20 06:00 98.1 75 20 139/83 (101) 94 Room Air 03/21/20 06:09 I&O- Last 24 Hours up to 6 AM 03/22/20 07:00 Intake Total 690 ml Output Total 800 ml Balance -110 ml GLENDY FLORES MD Mar 22, 2020 07:52
[2020-03-23] MEDS: METOPROLOL TART 50 MG TAB PO SCH ×2 (08:02→20:17)
[2020-03-23] MEDS: PARoxetine 10MG TABLET PO SCH (08:02)
[2020-03-23] MEDS: ASPIRIN 81 MG ENTERIC TAB PO SCH (08:02)
[2020-03-23] MEDS: SENOKOT S TAB PO SCH ×2 (08:02→20:15)
[2020-03-23] MEDS: OMEPRAZOLE 20 MG CAP PO SCH (08:02)
[2020-03-23] MEDS: LORATADINE 10 MG TAB PO SCH (08:02)
[2020-03-23] MEDS: ENALAPRIL MALEATE 10 MG TAB PO SCH ×2 (08:03→20:16)
[2020-03-23] MEDS: cloNIDine 0.1 MG TAB PO SCH ×2 (08:03→20:16)
[2020-03-23] MEDS: traMADol 50 MG TAB PO SCH ×3 (09:00→20:18)
[2020-03-23 10:00] VITALS: BP 125/86
--- NOTE | 2020-03-23 11:32 | IPNPDOC ---
Text Note Date of Service The patient was seen on 03/23/20. NOTE Subjective: Pain is controlled at present. No fever overnight. Post op day #3. Waiting to hear from Insurance about ARU coverage. Had a bowel movement last night. As per nurses often falling asleep while talking, will reduce pain meds and diazepam. Physical Exam: Vitals: As below General Exam: Positive: Alert, Cooperative, No Acute Distress Eye Exam: Positive: PERRLA, Conjunctiva & lids normal, EOMI; Negative: Sclera icteric ENT Exam: Positive: Atraumatic, Mucous membr. moist/pink, Pharynx Normal Neck Exam: Positive: Supple; Negative: JVD, thyromegaly Chest Exam: Positive: Clear to auscultation, Normal air movement Heart Exam: Positive: Rate Normal, Regular Rhythm, Normal S1, Normal S2; Negative: Murmurs, Rubs Abdomen Exam: Positive: Normal bowel sounds, Soft; Negative: Tenderness, Hepatosplenomegaly Extremity Exam: Positive: left above knee amputation, stump with surgical dressing. Negative: Clubbing, Cyanosis, Edema Skin Exam: Positive: Other skin issue (left toe red and early ulcer at the lat aspect of base of left first toe. Left groin incision healing well. ) Neuro Exam: Positive: Normal Speech, Strength at 5/5 X4 ext, Normal Tone Labs and radiology: reviewed Assessment and plan: This is a 74-year-old patient with severe peripheral vascular disease, end-stage, who has had multiple failed revascularizations particularly of the left leg with left leg bypass in Jan 2020 was seen at the vascular clinic today with complaints of recurrence of severe rest pain. There was no dopplerable flow over the bypass. Dr Lew felt that she has exhausted all open surgical options for revascularization as well at this point. Her calf incision has purple ischemic changes on the posterior medial aspect, also has worsening ischemic changes of her left first toe, present before the bypass, now appearing somewhat worse. She had a recent fall from standing, which required an emergency room visit, which was probably both due to pain and worsening ischemia making it challenging to bear weight and ambulate on the left leg. At this point her only option to avoid further tissues loss and progressive infection is Left Above knee amputation. She is being admitted for pain control, and preparation for Left above knee amputation. She underwent Left above knee amputation on 03/19/20 and now awaiting to go to Rehab. Severe Left leg ischemia with failed recent Bypass S/P above knee amputation on 03/19/20 pain control with percocet, tramadol, diazepam prn for muscle spasms. stopped plavix Continue Coumadin and ASA. Stevie for wound healing. Dr Lew following. DVT and Pulmonary Embolism on coumadin DVT/VT> 5 years ago. Coumadin Anxiety, Depression amitriptyline, paroxetine hyperlipidemia diet controlled. Diabetes FS, AC and HS, carb consistent diet. levemir and lispro Stevie and glucerna Hypertension cont amlodipine, clonidine, metoprolol with hold parameters. restarted lower dose of enalapril. Chronic Atrial Fibrillation metoprolol. GERD omeprazole DVT prophylaxis in place VS,Julio, I+O VS, Julio, I+O Laboratory Tests 03/23/20 05:51 Vital Signs Date Time Temp Pulse Resp B/P (MAP) Pulse Ox O2 Delivery O2 Flow Rate FiO2 03/23/20 08:03 142/79 03/23/20 08:02 89 03/23/20 06:19 18 03/23/20 06:00 98.5 94 Room Air 03/21/20 06:09 I&O- Last 24 Hours up to 6 AM 03/23/20 06:00 Intake Total 690 ml Output Total 300 ml Balance 390 ml GLENDY FLORES MD Mar 23, 2020 08:47
--- NOTE | 2020-03-23 12:13 | IPNPDOC ---
Date Seen The patient was seen on 03/23/20. Progress Note Patient seen and examined postoperative day 4 status post left above-knee amputation. She is doing well today. Pain is well controlled by my assessment of her during our conversation despite her complaints of 10 out of 10 pain. She is calm, pleasantly conversive, does not wince or drawback when I change her dressing, so I think tapering down her analgesia is appropriate. She got out of bed with physical therapy and set her right leg is still pretty weak, thus I believe she will definitely benefit from a rehabilitation admission at discharge. Her incision is clean dry and intact today. I thoroughly cleaned and redressed the stump with Xeroform, 4 x 4's, Kerlix, and an Ranjan wrap. The patient tolerated this well. Continue to encourage high-protein diet and nutrition for wound healing. She is not eating very much per the nurses. We will continue to encourage nutrition to help with healing. Coumadin is therapeutic and Lovenox has been discontinued appropriately. Okay to resume Plavix instead of aspirin at this point. Continue PT/OT and work towards a RU admission. We appreciate the op portunity to participate in the care of this patient. VS, I&O, 24H, Fishbone Vital Signs/I&O Vital Signs Date Time Temp Pulse Resp B/P (MAP) Pulse Ox O2 Delivery O2 Flow Rate FiO2 03/23/20 11:34 18 03/23/20 10:00 97.8 76 125/86 (99) 98 Room Air 03/21/20 06:09 I&O- Last 24 Hours up to 6 AM 03/23/20 06:00 Intake Total 690 ml Output Total 300 ml Balance 390 ml Laboratory Data 24H LABS Laboratory Tests 2 03/22/20 17:12: Bedside Glucose (Misc Panel) 134H 03/22/20 19:54: Bedside Glucose (Misc Panel) 116H 03/23/20 05:51: Nucleated Red Blood Cells % (auto) 0.0, Prothrombin Time 25.3H, Prothromb Time International Ratio 2.24, Anion Gap 7L, Glomerular Filtration Rate 56.6, Calcium Level 10.6H CBC/BMP Laboratory Tests 03/23/20 05:51 HORTENCIA GREENBERG MD Mar 23, 2020 12:13
[2020-03-23 14:00] VITALS: BP 122/85
[2020-03-23] MEDS: WARFARIN SOD 1MG TAB PO SCH (17:16)
[2020-03-23 18:00] VITALS: BP 127/83
[2020-03-23] MEDS: AMITRIPTYLINE 25 MG TAB PO SCH (20:16)
[2020-03-23 22:00] VITALS: BP 167/88
[2020-03-24 02:00] VITALS: BP 135/78
[2020-03-24 06:00] VITALS: BP 137/78
[2020-03-24 06:23] LABS: HEMATOCRIT 35.9 % (36.0-47.0); HEMOGLOBIN 11.3 g/dl (12.0-15.5); MEAN CORPUSCULAR HEMOGLOBIN 27.4 pg (27.0-33.0); MEAN CORPUSCULAR HGB CONC 31.5 g/dl (32.0-36.5); MEAN CORPUSCULAR VOLUME 86.9 fl (80.0-96.0); PLATELET COUNT, AUTOMATED 453 10^3/uL (150-450); RED BLOOD COUNT 4.13 10^6/uL (4.00-5.40); WHITE BLOOD COUNT 13.2 10^3/uL (4.0-10.0)
[2020-03-24 06:40] LABS: CALCIUM LEVEL 10.4 MG/DL (8.8-10.2); CREATININE FOR GFR 0.98 MG/DL (0.55-1.30); GLOMERULAR FILTRATION RATE 59.2 (>39); POTASSIUM SERUM 4.6 MEQ/L (3.5-5.1)
[2020-03-24 06:43] LABS: INR 2.2; PROTHROMBIN TIME 24.9 SECONDS (12.5-14.3)
[2020-03-24] MEDS: SENOKOT S TAB PO SCH (08:31)
[2020-03-24] MEDS: cloNIDine 0.1 MG TAB PO SCH (08:32)
[2020-03-24] MEDS: LORATADINE 10 MG TAB PO SCH (08:32)
[2020-03-24 08:33] VITALS: BP 147/78
[2020-03-24] MEDS: PARoxetine 10MG TABLET PO SCH (08:33)
[2020-03-24] MEDS: METOPROLOL TART 50 MG TAB PO SCH (08:33)
[2020-03-24] MEDS: traMADol 50 MG TAB PO SCH (08:33)
[2020-03-24] MEDS: ENALAPRIL MALEATE 10 MG TAB PO SCH (08:34)
[2020-03-24] MEDS: OMEPRAZOLE 20 MG CAP PO SCH (08:34)
[2020-03-24] MEDS: amLODIPine 10 MG TAB PO SCH (08:34)
[2020-03-24] MEDS: HumaLOG INSULIN (NovoLOG) PER UNIT SC SCH ×2 (08:35→12:00)
[2020-03-24] MEDS: LEVEMIR (INSULIN DETEMIR) 1 UNITS/0.01ML SC SCH (08:35)
[2020-03-24] MEDS ORDERED: MIRALAX *UNIT DOSE* 17GM PACKET PO SCH (09:00)
[2020-03-24] MEDS ORDERED: CLOPIDOGREL 75 MG TAB PO SCH (09:00)
[2020-03-24] MEDS ORDERED: TRAM50TA2 PO (10:16)
[2020-03-24] MEDS: MOM 30ML SUSPENSION UDC PO PRN (12:00)
--- NOTE | 2020-03-24 13:08 | DS.PDOC ---
Discharge Summary General Date of Admission Mar 17, 2020 at 11:33 Date of Discharge 03/24/20 Discharge Summary PROCEDURES PERFORMED DURING STAY: [None]. DISCHARGE DIAGNOSES: S/p Left above knee amputation for persistent left leg ischemia with failed Bypass. SECONDARY DIAGNOSIS: Severe Peripheral Artery Disease with angioplasties and stents in bilateral lower extremities and Left femoral to below-knee popliteal bypass with cadaver vein January 2020 DVT and Pulmonary Embolism on coumadin, Anxiety, Depression, hyperlipidemia, Diabetes, Hypertension, chronic Atrial Fibrillation COMPLICATIONS/CHIEF COMPLAINT: Failed Graft,Atherosclerosis [place] Vessels.... HOSPITAL COURSE: This is a 74-year-old patient with severe peripheral vascular disease, end-stage, who has had multiple failed revascularizations particularly of the left leg with left leg bypass in Jan 2020 was seen at the vascular clinic today with complaints of recurrence of severe rest pain. There was no dopplerable flow over the bypass. Dr Lew felt that she has exhausted all open surgical options for revascularization as well at this point. Her calf incision has purple ischemic changes on the posterior medial aspect, also has worsening ischemic changes of her left first toe, present before the bypass, now appearing somewhat worse. She had a recent fall from standing, which required an emergency room visit, which was probably both due to pain and worsening ischemia making it challenging to bear weight and ambulate on the left leg. At this point her only option to avoid further tissues loss and progressive inf ection is Left Above knee amputation. She is being admitted for pain control, and preparation for Left above knee amputation. She underwent Left above knee amputation on 03/19/20 and now awaiting to go to Rehab. Severe Left leg ischemia with failed recent Bypass S/P above knee amputation on 03/19/20 pain control with percocet, tramadol. Continue Coumadin and plavix Stevie for wound healing. Dr Lew following. DVT and Pulmonary Embolism on coumadin DVT/PE> 5 years ago. Coumadin Anxiety, Depression amitriptyline, paroxetine hyperlipidemia diet controlled. Diabetes FS, AC and HS, carb consistent diet. levemir and lispro Stevie and glucerna Hypertension cont amlodipine, metoprolol and enalapril clonidine stopped Chronic Atrial Fibrillation metoprolol. GERD omeprazole DVT prophylaxis in place DISCHARGE MEDICATIONS: Please see below. ALLERGIES: Please see below. PHYSICAL EXAMINATION ON DISCHARGE: VITAL SIGNS: Please see below. General Exam: Positive: Alert, Cooperative, No Acute Distress Eye Exam: Positive: PERRLA, Conjunctiva & lids normal, EOMI; Negative: Sclera icteric ENT Exam: Positive: Atraumatic, Mucous membr. moist/pink, Pharynx Normal Neck Exam: Positive: Supple; Negative: JVD, thyromegaly Chest Exam: Positive: Clear to auscultation, Normal air movement Heart Exam: Positive: Rate Normal, Regular Rhythm, Normal S1, Normal S2; Negative: Murmurs, Rubs Abdomen Exam: Positive: Normal bowel sounds, Soft; Negative: Tenderness, Hepatosplenomegaly Extremity Exam: Positive: left above knee amputation, stump with surgical dressing. Negative: Clubbing, Cyanosis, Edema Skin Exam: Positive: Other skin issue (left toe red and early ulcer at the lat aspect of base of left first toe. Left groin incision healing well. ) Neuro Exam: Positive: Normal Speech, Strength at 5/5 X4 ext, Normal Tone LABORATORY DATA: Please see below. ACTIVITY: [As tolerated]. DIET: As tolerated. DISPOSITION: ARU DISCHARGE INSTRUCTIONS: Follow up Dr Lew. DISCHARGE CONDITION: [Stable]. TIME SPENT ON DISCHARGE: 35 minutes. Vital Signs/I&Os Vital Signs Date Time Temp Pulse Resp B/P (MAP) Pulse Ox O2 Delivery O2 Flow Rate FiO2 03/24/20 08:33 77 16 147/78 Room Air 03/24/20 06:00 96.7 90 03/21/20 06:09 I&O- Last 24 Hours up to 6 AM 03/24/20 05:59 Intake Total 1200 ml Output Total 775 ml Balance 425 ml Laboratory Data Labs 24H Laboratory Tests 2 03/23/20 16:35: Bedside Glucose (Misc Panel) 132H 03/23/20 19:39: Bedside Glucose (Misc Panel) 151H 03/24/20 06:00: Nucleated Red Blood Cells % (auto) 0.0, Prothrombin Time 24.9H, Prothromb Time International Ratio 2.20, Anion Gap 8, Glomerular Filtration Rate 59.2, Calcium Level 10.4H 03/24/20 11:22: Bedside Glucose (Misc Panel) 166H CBC/BMP Laboratory Tests 03/24/20 06:00 FSBS Laboratory Tests Test 03/23/20 16:35 03/23/20 19:39 03/24/20 11:22 Range/Units Bedside Glucose (Misc Panel) 132 151 166 83-110 MG/DL Discharge Medications Scheduled Amitriptyline HCl (Amitriptyline HCl) 25 Mg Tablet, 25 MG PO QHS, (Reported) Amlodipine Besylate (Amlodipine Besylate) 10 Mg Tablet, 10 MG PO DAILY, (Reported) Clopidogrel Bisulfate (Clopidogrel) 75 Mg Tablet, 75 MG PO DAILY, (Reported) Dulaglutide (Trulicity) 0.75 Mg/0.5 Ml Pen.injctr, 0.75 MG SC QWEEK, (Reported) TUESDAY Enalapril Maleate (Enalapril Maleate) 20 Mg Tablet, 20 MG PO BID, (Reported) Glipizide (Glipizide) 10 Mg Tablet, 10 MG PO BID, (Reported) Insulin Detemir (Levemir) 100 Unit/1 Ml Vial, 10 UNITS SC BID, (Reported) Loratadine (Loratadine) 10 Mg Tablet, 10 MG PO DAILY, (Reported) Metoprolol Tartrate (Metoprolol Tartrate) 50 Mg Tablet, 50 MG PO BID, (Reported) Omeprazole (Omeprazole) 20 Mg Capsule.dr, 40 MG PO DAILY, (Reported) Paroxetine (Paroxetine HCl) 10 Mg Tablet, 10 MG PO DAILY, (Reported) Tramadol HCl (Tramadol HCl) 50 Mg Tablet, 50 MG PO BID Warfarin Sodium (Warfarin Sodium) 1 Mg Tablet, 3.5 MG PO QPM, (Reported) Scheduled PRN Acetaminophen (Acetaminophen) 500 Mg Tablet, 500 MG PO Q6H PRN for PAIN, (Reported) Oxycodone/Acetaminophen (Oxycodone-Acetaminophen 5-325) 1 Each Tablet, 1 TAB PO Q4HP PRN for MILD/MODERATE PAIN (PS 1-7) Sennosides (Senna Lax) 8.6 Mg Tablet, 8.6 MG PO BID PRN for CONSTIPATION, (Reported) Allergies Coded Allergies: Sulfa (Sulfonamide Antibiotics) (Verified Allergy, Unknown, hives, 07/10/19) GLENDY FLORES MD Mar 24, 2020 13:08
--- NOTE | 2020-03-24 13:12 | IPNPDOC ---
Text Note Date of Service The patient was seen on 03/24/20. NOTE Vascular surgery. Dr. Castro Patient seen and examined postoperative day 5 status post left above-knee amputation. She states pain has been reasonably controlled. Her incision is clean dry and intact today. The incision was thoroughly cleaned and redressed the stump with Xeroform, 4 x 4's, Kerlix, and an Ranjan wrap. The patient tolerated this well. Continue to encourage high-protein diet and nutrition for wound healing. She is not eating very much per the nurses. We will continue to encourage nutrition to help with healing. Coumadin with therapeutic INR. Plavix has been restarted. Continue PT/OT and work towards ARU admission. Continue with daily dressing changes. Plan to remove adali in 2 weeks, sutures in 3 weeks. We appreciate the opportunity to participate in the care of this patient. VS,Fishbone, I+O VS, Fishbone, I+O Laboratory Tests 03/24/20 06:00 Vital Signs Date Time Temp Pulse Resp B/P (MAP) Pulse Ox O2 Delivery O2 Flow Rate FiO2 03/24/20 08:33 77 16 147/78 Room Air 03/24/20 06:00 96.7 90 03/21/20 06:09 I&O- Last 24 Hours up to 6 AM 03/24/20 06:00 Intake Total 1200 ml Output Total 625 ml Balance 575 ml Angelina Baumann Mar 24, 2020 13:12 HORTENCIA CASTRO MD Mar 25, 2020 13:33
== END 2020-03-24 14:30 | DRG 240 ==
LOC: M MSPAV 11:33
PROVIDERS: ADMIT Internal Medicine Nephrology; ATTEND Internal Medicine Nephrology
PROC: 0Y6J0Z1 Detachment at Left Lower Leg, High, Open Approach (ICD-10-PCS; principal; 2020-03-19 12:45)
DX: T82.898A Other specified complication of vascular prosthetic devices, implants and grafts, initial encounter (principal); I48.20 Chronic atrial fibrillation, unspecified; I70.322 Atherosclerosis of unspecified type of bypass graft(s) of the extremities with rest pain, left leg; E78.5 Hyperlipidemia, unspecified; E11.51 Type 2 diabetes mellitus with diabetic peripheral angiopathy without gangrene; I10 Essential (primary) hypertension; Z79.01 Long term (current) use of anticoagulants; F41.9 Anxiety disorder, unspecified; F32.9 Major depressive disorder, single episode, unspecified; Z79.899 Other long term (current) drug therapy; Z79.4 Long term (current) use of insulin; Z88.2 Allergy status to sulfonamides; Z86.711 Personal history of pulmonary embolism; Z86.718 Personal history of other venous thrombosis and embolism; K21.9 Gastro-esophageal reflux disease without esophagitis; Y83.2 Surgical operation with anastomosis, bypass or graft as the cause of abnormal reaction of the patient, or of later complication, without mention of misadventure at the time of the procedure

== ENCOUNTER 2020-03-24 10:54 | Inpatient (IN) | payer MEDICARE ==
[~2020-03-24] VITALS: Ht 162.6 cm; Wt 52.7 kg
[~2020-03-24 10:54] MED LIST changes: +GNP8.6TA PO; +TRAM50TA2 PO
[2020-03-24 15:00] VITALS: BP 119/74
[2020-03-24 16:19] LABS: INR 2.11; PROTHROMBIN TIME 24.1 SECONDS (12.5-14.3)
[2020-03-24] MEDS ORDERED: PERCOCET 5MG/325MG TAB PO ONE (16:30)
[2020-03-24] MEDS ORDERED: FLEET OIL RETENTION ENEMA PR ONE (16:45)
[2020-03-24] MEDS ORDERED: PILL CUTTER 1 EACH XX PRN (18:00)
[2020-03-24] MEDS ORDERED: FLEET OIL RETENTION ENEMA PR PRN (18:15)
--- NOTE | 2020-03-24 18:43 | HPEPDOC ---
Mother Helper Note DATE OF ADMISSION: 03/24/2020 DATE OF SERVICE: 03/24/2020 TIME OF ADMISSION: Please refer to physician's admission order. SOURCE OF ADMISSION INFORMATION: Medical chart and patient adequate historian ADMITTING DIAGNOSES: Status post Left above knee amputation. Severe peripheral vascular disease, status post multiple revascularization procedures History of DVT and PE on Coumadin. Hyperlipidemia. Diabetes. Hypertension. Chronic atrial fibrillation. Anxiety with depression Contusion right hip CHIEF COMPLAINT: Left AKA, postoperative pain, right hip pain, generalized weakness. HISTORY OF PRESENT ILLNESS: This is a 74-year-old patient with history of severe peripheral vascular disease, end-stage, status post multiple failed revascularizations including left leg bypass in Jan 2020, who was admitted for severe ischemic lower extremity pain at rest and no evidence of circulation in the distal extremity, noted during an outpatient evaluation. Patient had failed conservative measures and had recently fallen due to the increasing pain and inability to weight bear on the affected extremity. Due to severe compromise of the limb, aggressive treatment in the form of left above knee amputation ensued, 03/19/2020. Postoperatively, she has remained stable bridging from Lovenox to Coumadin underway as well as coordination of her complex medical care including diabetes, hyperlipidemia, hypertension, chronic A. fib, GERD and anxiety and depression. Patient is now felt stable to admit to the acute rehabilitation unit for comprehensive rehabilitation services. She has some grief over loss of her limb, coupled with recent loss of her of 55 years earlier this year, but is resigned to proceed as best she can to regain as much function as she can. REVIEW OF SYSTEMS: The following is a completed review of systems and has been reviewed. PAIN: Is able to tolerate a 7 running from 7-10 at this time EYES: No recent vision changes. EARS, NOSE, & THROAT: No throat pain, or dysphagia, or rhinorrhea. CARDIOVASCULAR: Denies chest pain or palpitations. PULMONARY: Denies shortness of breath. GASTROINTESTINAL: No severe constipation, requesting enema GENITOURINARY: Continent. MUSCULOSKELETAL: .Occasional mild right shoulder pain NEUROLOGICAL:. History noted for a peripheral neuropathy HEMATOLOGICAL: Easily bruises SKIN: Healing wound, otherwise intact PSYCHIATRIC: Notable for anxiety and depression on long-standing amitriptyline and paroxetine All other review of systems found to be negative. PAST MEDICAL HISTORY Severe Peripheral Artery Disease with angioplasties and stents in bilateral lower extremities, Persistent Left leg ischemia with failed Bypass leading to left AKA 03.19.2020 Hypertension, hyperlipidemia, Chronic Atrial Fibrillation History of DVT and Pulmonary Embolism on coumadin, Anxiety, Depression, Diabetes, History of Thyroid disorder , status post removal of nodule, nonmalignant PAST SURGICAL HISTORY Cholecystectomy 1999 Total Abdominal Hysterectomy - 1995 Abdominal Hernia Repair 2017 Multiple angiogram procedures, Arterial Stenting Bilateral Lower Extremities Left femoral to below-knee popliteal bypass with cadaver vein January 2020 Partial thyroid resection, 2016 ALLERGIES: Sulfa Please see below. MEDICATIONS: Please see below. FAMILY HISTORY: Mother at 59 with history of CHF, diabetes. Father in his 80s with history of peripheral vascular disease SOCIAL HISTORY: Former remote history Smoker, quit 50 years ago, no EtOH, lives in a 2 step entrance 1 story home with her daughter and son-in-law, apparently accessible bathroom available on the first floor. DIET: Regular. PHYSICAL EXAMINATION: VITAL SIGNS: Please see below. GENERAL: Pleasant and cooperative. Mild distress. Alert and oriented times three. HEENT: PERRL. Extraocular movements intact. Clear conjunctiva, no adenopathy or thyromegaly. Full cervical range of motion without tenderness or spasm. Poor dentition. CARDIOVASCULAR: Regular rate and rhythm. No murmurs, rubs, or gallops. LUNGS: Clear to auscultation bilaterally. No wheezes. No rhonchi. ABDOMEN: Soft, nontender, nondistended. Healed midline scar. Healing left inguinal diagonal scar femoral region. Positive bowel sounds. Normal active bowel sounds, no organomegaly. NEUROLOGICAL:. Cranial nerves II through XII intact. Sensation grossly intact. Sensation intact. Both upper extremities, right lower extremity EXTREMITIES: 5/5 immunohematologist, elbow flexion, elbow extension, right knee extension, foot dorsiflexion, eversion, plantar flexion. Right lower extremity, no increased pain on compression, Nuha, negative, straight leg raising to 60, dorsalis pedis faint, however obtainable with Doppler and the posterior tibialis, 1+. Toes cool but pink with good capillary refill. Skin intact. SKIN: Healing left above-knee amputation with 11 sutures multiple adali somewhat swollen, loosely wrapped. Rewrapped.Firm and indurated 4 x 5. Ecchymosis right tibial region. Tender. LABORATORY DATA: Please see below. FUNCTIONAL STATUS: Premorbid: Independent with all activities of daily life as well as mobility. On Admission: Total assistance for lower body dressing, toilet and shower transfers, stairs. Moderate assistance for bathing, upper body dressing, bed chair and wheelchair transfers. Minimum assistance for grooming. Supervision for memory and problem solving. Continent of bowel and bladder GOALS: Resumption of complete independence in self-care, mobility, activities, initially at a wheelchair level. Ultimately as a successful AKA prosthetic wearer. ASSESSMENT: 74-year-old hypertensive diabetic lady with past medical history of severe peripheral vascular disease. Failing conservative therapies who presents status post left above-knee amputation, for wound management, pain control, mobility and self-care skills. She also has grief reaction, pain and will require supportive counseling as well as comprehensive rehabilitative care to achieve goals of resumption of optimal functional capacity. PLAN: Cardio Vascular Status post right BKA for severe PVD Hypertension hyperlipidemia Important to obtain optimal postoperative and phantom limb pain control with appropriate medications to minimize strain on the cardio vascular system. Continue antihypertensives adjusted as indicated History of A.fib and prior DVT, now cleared to resume careful anticoagulation while monitoring wound healing. Education and maintenance of optimal dietary strategies for both cardiovascular and diabetic issues Anxiety, Depression Addition to chronic complex medical conditions now grief reaction of loss of limb. Continue with supportive counseling and focus on functional ventilatory strategies. Continue current medications consider change from amitryptilline to 2 different agent due to possible cardiac or other adverse side effects, continue paroxetine, will add low dose Ativan for agitated Depressive features,discussed with pharmacy, will monitor for interactions. Diabetes./Endocrine Monitor BS, low CHO diet, education. Usual med coverage Reassess decision on resuming glipizide based on level of intake, activity, and glucose monitoring . History of prior thyroid procedure. Well monitor GERD Omeprazole Dietary adjustments 1. Rehab- PT/OT pre-prosthetic residual limb care, wrapping, wound management, gait and ADls, strengthen/stretch/maintain ROM all 4 limbs 2. Neuro- History neuropathy, precautions for proprioceptive abnormalities, compensatory strategies 4. Cardiac- hx of PVD,CAD, maintain close observation of RLE, signs/symptoms of CP, or distress, continue medications for -HTN-Enalapril, meds, dietary adjustments -HLD- dietary adjustments 5. Resp -incentive spirometry, monitor for infection or distress as needed 6. Endo- hx of DM c/u insulin and ISS dietary education 7. GI ppx- protonix, Stevie,to help fluid and nutritional supplementation POST ADMISSION PHYSICIAN EVALUATION: Medical and functional status: Description of medical status, medical assess ment: As above. Rehabilitation diagnosis and current and prior cold morbid medical conditions as above. Risk of complications and plans to mitigate them as above. Description of functional status current status is as above. Prior status as above. Status compared to preadmission: There are no clinically significant differences between the patient's current status and the information described on the preadmission screening document. Treatment plan anticipated: Treatment plan is as described above. Required di sciplines including physical therapy, occupational therapy, others as noted above. Intensity of services: 3 hours a day, 6-7 days a week. Special considerations: There are no specific special or safety considerations that would likely preclude immediate implementation of an intensive rehabilitation program or subsequently influence the plan of care. ATTESTATION: Considering all the information above, it is my best judgment that this patient requires intensive rehabilitation therapy as described above and an inpatient hospital environment due to the complexity of nursing, medical, and rehabilitation needs required by the patient. Furthermore, this patient can reasonably be expected to participate in an benefit from an inpatient rehabilitation stay with an interdisciplinary team approach to the delivery of rehabilitation care under the direction and supervision of rehabilitation phys ician. PROGNOSIS: Excellent. ESTIMATED LENGTH OF STAY:10-14 days. PROJECTED DISCHARGE DESTINATION: Home with family support and any durable medical equipment required to increase functional safety and mobility. TIME SPENT COUNSELING AND COORDINATING INITIAL CARE: Greater than 60 minutes. Vital Signs Vital Sign - Last 24 Hours 03/24/20 03/24/20 03/24/20 15:00 16:30 17:00 Temp 96.9 Pulse 77 Resp 18 18 18 B/P (MAP) 119/74 (89) Pulse Ox 100 95 97 O2 Delivery Room Air Room Air Room Air Laboratory Data Labs 24H Laboratory Tests 2 03/24/20 15:52: Prothrombin Time 24.1H, Prothromb Time International Ratio 2.11 03/24/20 17:49: Bedside Glucose (Misc Panel) 136H FSBS Laboratory Tests Test 03/24/20 17:49 Range/Units Bedside Glucose (Misc Panel) 136 83-110 MG/DL Home Medications Scheduled Amitriptyline HCl (Amitriptyline HCl) 25 Mg Tablet, 25 MG PO QHS, (Reported) Amlodipine Besylate (Amlodipine Besylate) 10 Mg Tablet, 10 MG PO DAILY, (Reported) Clopidogrel Bisulfate (Clopidogrel) 75 Mg Tablet, 75 MG PO DAILY, (Reported) Dulaglutide (Trulicity) 0.75 Mg/0.5 Ml Pen.injctr, 0.75 MG SC QWEEK, (Reported) TUESDAY Enalapril Maleate (Enalapril Maleate) 20 Mg Tablet, 20 MG PO BID, (Reported) Glipizide (Glipizide) 10 Mg Tablet, 10 MG PO BID, (Reported) Insulin Detemir (Levemir) 100 Unit/1 Ml Vial, 10 UNITS SC BID, (Reported) Loratadine (Loratadine) 10 Mg Tablet, 10 MG PO DAILY, (Reported) Metoprolol Tartrate (Metoprolol Tartrate) 50 Mg Tablet, 50 MG PO BID, (Reported) Omeprazole (Omeprazole) 20 Mg Capsule.dr, 40 MG PO DAILY, (Reported) Paroxetine (Paroxetine HCl) 10 Mg Tablet, 10 MG PO DAILY, (Reported) Tramadol HCl (Tramadol HCl) 50 Mg Tablet, 50 MG PO BID Warfarin Sodium (Warfarin Sodium) 1 Mg Tablet, 3.5 MG PO QPM, (Reported) Scheduled PRN Acetaminophen (Acetaminophen) 500 Mg Tablet, 500 MG PO Q6H PRN for PAIN, (Reported) Oxycodone/Acetaminophen (Oxycodone-Acetaminophen 5-325) 1 Each Tablet, 1 TAB PO Q4HP PRN for MILD/MODERATE PAIN (PS 1-7) Sennosides (Senna Lax) 8.6 Mg Tablet, 8.6 MG PO BID PRN for CONSTIPATION, (Reported) Allergies Coded Allergies: Sulfa (Sulfonamide Antibiotics) (Verified Allergy, Unknown, hives, 07/10/19) A-FIB/CHADSVASC A-FIB History Current/History of A-Fib/PAF?: No Current PO Anticoag Therapy: Yes Age/Risk Factor Scoring CHADSVASC: CHADSVASC Response (Comments) Value Age Risk Factor Age < 65 years old 0 Hx of HTN Yes 1 Hx of Diabetes Yes 1 Hx of Vascular Disease Yes 1 Total 3 OUMAR PEDRO MD Mar 24, 2020 18:43
[2020-03-24] MEDS: WARFARIN SOD 1MG TAB PO SCH (18:50)
[2020-03-24 20:15] VITALS: BP 147/73
[2020-03-24] MEDS: LEVEMIR (INSULIN DETEMIR) 1 UNITS/0.01ML SC SCH (21:42)
[2020-03-24] MEDS: ENALAPRIL MALEATE 10 MG TAB PO SCH (21:43)
[2020-03-24] MEDS: AMITRIPTYLINE 25 MG TAB PO SCH (21:43)
[2020-03-24] MEDS: METOPROLOL TART 50 MG TAB PO SCH (21:43)
[2020-03-24] MEDS: traMADol 50 MG TAB PO SCH (21:44)
[2020-03-25] MEDS: PERCOCET 5MG/325MG TAB PO PRN ×3 (00:40→13:37)
[2020-03-25] MEDS: ACETAMINOPHEN 500 MG TAB PO PRN (02:04)
[2020-03-25] MEDS: clonazePAM 0.5 MG TAB PO PRN ×2 (04:44→15:04)
[2020-03-25 05:49] VITALS: BP 148/70
[2020-03-25 07:20] LABS: BASO # 0.1 10^3/uL (0.0-0.2); BASO % 0.8 % (0.0-1.0); EOS # 1.4 10^3/uL (0.0-0.5); EOS % 9.7 % (0.0-3.0); HEMOGLOBIN 11.4 g/dl (12.0-15.5); LYMPH # 5.7 10^3/uL (1.5-5.0); LYMPH % 39.6 % (24.0-44.0); MEAN CORPUSCULAR HEMOGLOBIN 26.6 pg (27.0-33.0); MEAN CORPUSCULAR HGB CONC 30.8 g/dl (32.0-36.5); MEAN CORPUSCULAR VOLUME 86.4 fl (80.0-96.0); MONO # 0.9 10^3/uL (0.0-0.8); MONO % 6.3 % (0.0-5.0); NEUTROPHILS # 6.2 10^3/uL (1.5-8.5); PLATELET COUNT, AUTOMATED 488 10^3/uL (150-450); RED BLOOD COUNT 4.28 10^6/uL (4.00-5.40)
[2020-03-25 07:41] LABS: WHITE BLOOD COUNT 14.4 10^3/uL (4.0-10.0)
[2020-03-25 07:46] LABS: ALT/SGPT 10 U/L (12-78); BILIRUBIN,TOTAL 0.2 MG/DL (0.2-1.0); BLOOD UREA NITROGEN 25 MG/DL (7-18); CALCIUM LEVEL 10.6 MG/DL (8.8-10.2); CARBON DIOXIDE LEVEL 25 MEQ/L (21-32); CHLORIDE LEVEL 104 MEQ/L (98-107); CREATININE FOR GFR 0.92 MG/DL (0.55-1.30); GLOMERULAR FILTRATION RATE > 60.0 (>39); GLUCOSE, FASTING 136 MG/DL (70-100); POTASSIUM SERUM 4.7 MEQ/L (3.5-5.1); SODIUM LEVEL 137 MEQ/L (136-145); TOTAL PROTEIN 7.2 GM/DL (6.4-8.2)
[2020-03-25] MEDS ORDERED: metFORMIN (GLUCOPHAGE) 500 MG TAB PO SCH (08:00)
--- NOTE | 2020-03-25 08:47 | IPNPDOC ---
PM&R Progress Note DATE OF SERVICE: Mar 25, 2020 Roller Stainer Progress Note DATE OF ADMISSION: Mar 24, 2020 at 15:00 INPATIENT REHABILITATION ADMISSION DAY: #1 CHIEF COMPLAINT: Left AKA, postoperative pain, right hip pain, generalized weakness. HISTORY OF PRESENT ILLNESS: This is a 74-year-old patient with history of severe peripheral vascular disease, end-stage, status post multiple failed revascularizations including left leg bypass in Jan 2020, who was admitted for severe ischemic lower extremity pain at rest and no evidence of circulation in the distal extremity, noted during an outpatient evaluation. Patient had failed conservative measures and had recently fallen due to the increasing pain and inability to weight bear on the affected extremity. Due to severe compromise of circulation despite attempts to revascularize the limb, aggressive treatment in the form of left above knee amputation ensued, 03/19/2020. Postoperatively, she has remained stable bridging from Lovenox to Coumadin underway as well as coordination of her complex medical care including diabetes, hyperlipidemia, hypertension, chronic A. fib, GERD and anxiety and depression. She has some grief over loss of her limb, coupled with recent loss of her of 55 years earlier this year, but is resigned to proceed as best she can to regain as much function as she can. Some evening altered mental status, pulling at dressings, general anxiety noted last night, additional anxiolytics added with improvement in symptoms per nursing. REVIEW OF SYSTEMS: The following is a completed review of systems and has been reviewed. PAIN: Is able to tolerate a 7 running from 7-10 at this time, increased greatly during therapy EYES: No recent vision changes. EARS, NOSE, & THROAT: No throat pain, or dysphagia, or rhinorrhea. CARDIOVASCULAR: Denies chest pain or palpitations. PULMONARY: Denies shortness of breath. GASTROINTESTINAL: No severe constipation, requesting enema GENITOURINARY: Continent. MUSCULOSKELETAL: .Occasional mild right shoulder pain NEUROLOGICAL:. History noted for a peripheral neuropathy HEMATOLOGICAL: Easily bruises SKIN: Healing wound, otherwise intact PSYCHIATRIC: Notable for anxiety and depression on long-standing amitriptyline and paroxetine All other review of systems found to be negative. FUNCTIONAL STATUS: Patient discussed in team rounds requiring minimal assistance for sit to stand using walker, has significant complaints of pain during therapy ALLERGIES: See Below MEDICATIONS: Reviewed, see below. OBJECTIVE: VITAL SIGNS: Please see below. PHYSICAL EXAMINATION: VITAL SIGNS: Please see below. GENERAL: Pleasant and cooperative. Mild distress. Alert and oriented times three. HEENT: PERRL. Extraocular movements intact. Clear conjunctiva, no adenopathy or thyromegaly. Full cervical range of motion without tenderness or spasm. Poor dentition. CARDIOVASCULAR: Regular rate and rhythm. No murmurs, rubs, or gallops. LUNGS: Clear to auscultation bilaterally. No wheezes. No rhonchi. ABDOMEN: Soft, nontender, nondistended. Healed midline scar. Healing left inguinal diagonal scar femoral region. Positive bowel sounds. Normal active bowel sounds, no organomegaly. NEUROLOGICAL:. Cranial nerves II through XII intact. Sensation grossly intact. Sensation intact. Both upper extremities, right lower extremity EXTREMITIES: 5/5 fuse maker, elbow flexion, elbow extension, right knee extension, foot dorsiflexion, eversion, plantar flexion. Right lower extremity, dorsalis pedis faint, posterior tibialis, 1+. Toes cool but pink with good capillary refill. Skin intact. SKIN: Healing left above-knee amputation with 11 sutures multiple adali yesterday somewhat swollen, loosely wrapped. .Firm and indurated 4 x 5. Ecchymosis right gluteal region. Tender. LABORATORY DATA: Reviewed. Please see below. MICROBIOLOGY: Please see below. ASSESSMENT: 74-year-old hypertensive diabetic lady with past medical history of severe peripheral vascular disease. Failing conservative therapies who presents status post left above-knee amputation, for wound management, pain control, mobility and self-care skills. She also has grief reaction, pain and will require supportive counseling as well as comprehensive rehabilitative care to achieve goals of resumption of optimal functional capacity. PLAN: Cardio Vascular/Pain Status post right BKA for severe PVD Hypertension hyperlipidemia Important to obtain optimal postoperative and phantom limb pain control with appropriate medications to minimize strain on the cardio vascular system. May be having altered mental status, possibly related to tramadol observed last night and during the day, will change to as needed and put on scheduled Percocet during the first week to optimize ability to participate in therapy with good pain management, adjust medications as healing progresses. Continue antihypertensives adjusted as indicated History of A.fib and prior DVT, now cleared to resume careful anticoagulation while monitoring wound healing. Education and maintenance of optimal dietary strategies for both cardiovascular and diabetic issues Anxiety, Depression Addition to chronic complex medical conditions now grief reaction of loss of limb. Continue with supportive counseling and focus on functional ventilatory strategies. Continue current medications consider change from amitryptilline to 2 different agent due to possible cardiac or other adverse side effects, continue paroxetine, will add low dose Ativan for agitated Depressive features,discussed with pharmacy, will monitor for interactions. Diabetes./Endocrine Monitor BS, low CHO diet, education. Usual med coverage Reassess decision on resuming glipizide based on level of intake, activity, and glucose monitoring . History of prior thyroid procedure. Well monitor GERD Omeprazole Dietary adjustments 1. Rehab- PT/OT pre-prosthetic residual limb care, wrapping, wound management, gait and ADls, strengthen/stretch/maintain ROM all 4 limbs 2. Neuro- History neuropathy, precautions for proprioceptive abnormalities, compensatory strategies 4. Cardiac- hx of PVD,CAD, maintain close observation of RLE, signs/symptoms of CP, or distress, continue medications for -HTN-Enalapril, meds, dietary adjustments -HLD- dietary adjustments 5. Resp -incentive spirometry, monitor for infection or distress as needed 6. Endo- hx of DM c/u insulin and ISS dietary education 7. GI ppx- protonix, Stevie,to help fluid and nutritional supplementation 8. PROJECTED DISCHARGE DESTINATION: Home with family support and any durable medical equipment required to increase functional safety and mobility. Time Spent evaulation, re evaluation, charting 35min Allergies Coded Allergies: Sulfa (Sulfonamide Antibiotics) (Verified Allergy, Unknown, hives, 07/10/19) Vital Signs Vital Signs Date Time Temp Pulse Resp B/P (MAP) Pulse Ox O2 Delivery O2 Flow Rate FiO2 03/25/20 05:49 97.3 70 17 148/70 (96) 97 Room Air Laboratory Data CBC/BMP Laboratory Tests 03/25/20 06:33 Labs 24H Laboratory Tests 2 03/24/20 15:52: Prothrombin Time 24.1H, Prothromb Time International Ratio 2.11 03/24/20 17:49: Bedside Glucose (Misc Panel) 136H 03/24/20 19:35: Bedside Glucose (Misc Panel) 185H 03/25/20 05:38: Bedside Glucose (Misc Panel) 129H 03/25/20 06:33: Immature Granulocyte % (Auto) 0.6, Neutrophils (%) (Auto) 43.0, Lymphocytes (%) (Auto) 39.6, Monocytes (%) (Auto) 6.3H, Eosinophils (%) (Auto) 9.7H, Basophils (%) (Auto) 0.8, Neutrophils # (Auto) 6.2, Lymphocytes # (Auto) 5.7H, Monocytes # (Auto) 0.9H, Eosinophils # (Auto) 1.4H, Basophils # (Auto) 0.1, Nucleated Red Blood Cells % (auto) 0.0, Anion Gap 8, Glomerular Filtration Rate > 60.0, Calcium Level 10.6H, Total Bilirubin 0.2, Aspartate Amino Transf (AST/SGOT) 11, Alanine Aminotransferase (ALT/SGPT) 10L, Alkaline Phosphatase 91, Total Protein 7.2, Albumin 3.0L, Albumin/Globulin Ratio 0.7L Current Medications Current Medications Current Medications Medications (Trade) Dose Ordered Sig/Shankar Route PRN Reason Start Time Stop Time Status Last Admin Dose Admin Acetaminophen (Tylenol Tab) 500 mg Q6H PRN PO PAIN 03/24/20 15:30 03/25/20 02:04 Amitriptyline HCl (Elavil) 25 mg QHS PO 03/24/20 21:00 03/24/20 21:43 Amlodipine Besylate (Norvasc) 10 mg DAILY PO 03/25/20 09:00 Clonazepam (KlonoPIN) 0.25 mg Q8H PRN PO ANXIETY/AGITATION 03/24/20 17:45 03/25/20 04:44 Clopidogrel Bisulfate (PLAVix) 75 mg DAILY PO 03/25/20 09:00 Enalapril Maleate (Vasotec) 10 mg BID PO 03/24/20 21:00 03/24/20 21:43 Glipizide (Glucotrol) 5 mg DAILY@0730 PO 03/25/20 07:30 Home Med (Med Rec Complete!) ASDIRECTED XX 03/24/20 11:30 03/24/20 15:19 DC Insulin Detemir (Levemir Insulin) 10 units BID SC 03/24/20 21:00 03/24/20 21:42 Loratadine (Claritin) 10 mg DAILY PO 03/25/20 09:00 Metformin HCl (Glucophage) 500 mg DAILY@08 PO 03/25/20 08:00 03/24/20 17:08 DC Metoprolol Tartrate (Lopressor) 50 mg BID PO 03/24/20 21:00 03/24/20 21:43 Mineral Oil (Fleet Oil Retention Enema) IF NO BM IN THREE DAYS DAILYPRN PRN NM CONSTIPATION 03/24/20 18:15 Omeprazole (PriLOSEC) 40 mg DAILY PO 03/25/20 09:00 Omeprazole (PriLOSEC) 40 mg DAILY PO 03/25/20 09:00 UNV Ondansetron HCl (Zofran) 4 mg Q6HP PRN PO NAUSEA 03/24/20 11:30 Oxycodone/ Acetaminophen (Percocet 5mg/ 325mg Tablet) 1 tab Q4HP PRN PO MILD/MODERATE PAIN (PS 1-7) 03/24/20 15:30 03/25/20 04:42 Paroxetine HCl (PAXil) 10 mg DAILY PO 03/25/20 09:00 Polyethylene Glycol (Miralax) 1 pkt DAILY PO 03/25/20 09:00 Senna (Senokot) 1 tab BID PRN PO CONSTIPATION 03/24/20 15:30 Tramadol HCl (Ultram) 50 mg BID PO 03/24/20 21:00 03/24/20 21:44 Warfarin Sodium (Coumadin) 3.5 mg DAILY@1700 PO 03/24/20 17:00 03/24/20 18:50 OUMAR PEDRO MD Mar 25, 2020 08:47
[2020-03-25] MEDS ORDERED: OMEPRAZOLE 20 MG CAP PO SCH (09:00)
[2020-03-25] MEDS ORDERED: FLUBLOK(EGG FREE)(QUAD)INFLUENZA VACC 0.5ML SYRINGE 18YRS & OLDER IM ONE (09:00)
[2020-03-25] MEDS ORDERED: PREVNAR 13 VACCINE SYRINGE IM ONE (09:00)
[2020-03-25] MEDS: MIRALAX *UNIT DOSE* 17GM PACKET PO SCH (09:17)
[2020-03-25] MEDS: OMEPRAZOLE 20 MG CAP PO SCH (09:17)
[2020-03-25] MEDS: PARoxetine 10MG TABLET PO SCH (09:17)
[2020-03-25] MEDS: LEVEMIR (INSULIN DETEMIR) 1 UNITS/0.01ML SC SCH ×2 (09:18→20:35)
[2020-03-25] MEDS: glipiZIDE (GLUCOTROL) 5 MG TAB PO SCH (09:18)
[2020-03-25] MEDS: amLODIPine 10 MG TAB PO SCH (09:20)
[2020-03-25] MEDS: LORATADINE 10 MG TAB PO SCH (09:21)
[2020-03-25] MEDS: ENALAPRIL MALEATE 10 MG TAB PO SCH ×2 (09:21→20:36)
[2020-03-25] MEDS: METOPROLOL TART 50 MG TAB PO SCH ×2 (09:21→20:37)
[2020-03-25] MEDS: traMADol 50 MG TAB PO SCH (09:22)
[2020-03-25] MEDS: CLOPIDOGREL 75 MG TAB PO SCH (09:22)
[2020-03-25] MEDS ORDERED: PERCOCET 5MG/325MG TAB PO ONE (10:45)
[2020-03-25 14:00] VITALS: BP 150/79
[2020-03-25] MEDS: WARFARIN SOD 1MG TAB PO SCH (17:23)
--- NOTE | 2020-03-25 18:44 | IPNPDOC ---
Text Note Date of Service The patient was seen on 03/25/20. NOTE Subjective: No any acute events overnight. Patient denied fever, chills, nausea, vomiting, diarrhea or dysuria Objective: GENERAL APPEARANCE: NAD HEENT: no scleral icterus, no JVD, EOMI CARDIOVASCULAR: S1S2 LUNGS: CTA ABDOMEN: soft & not tender w palpitation MUSCULOSKELETAL: no cyanosis, no swelling INTEGUMENT: no generalized palor NEUROLOGICAL: cranial nerve function from 2-12 intact intact, follows commands, speech not dysarthric Assessment and plan Patient is 74 years old female with past mental history of diabetes, hypertension, peripheral vascular diseases therapies who presents status post left above-knee amputation, for wound management, pain control, mobility and self-care skills Status post right BKA for severe PVD Pain management Continue sliding, continue Plavix Hypertension Blood pressure under control Continue home cardioprotective medications Hyperlipidemia Continue statin Anxiety/depression Continue home meds Follow-up with psychiatrist in the outpatient settings Diabetes type 2 Diabetes diet Glucose level under control Continue glipizide GERD Continue PPI Chronic Atrial Fibrillation/History of DVT and Pulmonary Embolism on coumadin INR therapeutic Heart rate under control Continue Coumadin Monitor INR VS,Fishbone, I+O VS, Fishbone, I+O Laboratory Tests 03/25/20 06:33 Vital Signs Date Time Temp Pulse Resp B/P (MAP) Pulse Ox O2 Delivery O2 Flow Rate FiO2 03/25/20 14:58 20 03/25/20 14:00 97.0 78 150/79 (102) 96 Room Air I&O- Last 24 Hours up to 6 AM 03/25/20 06:00 Intake Total 490 ml Output Total 275 ml Balance 215 ml LINDA GOODMAN DO Mar 25, 2020 18:44
[2020-03-25 20:00] VITALS: BP 140/70
[2020-03-25] MEDS: AMITRIPTYLINE 25 MG TAB PO SCH (20:35)
[2020-03-25] MEDS: PERCOCET 5MG/325MG TAB PO SCH (20:36)
[2020-03-26] MEDS: clonazePAM 0.5 MG TAB PO PRN (01:03)
[2020-03-26] MEDS: traMADol 50 MG TAB PO PRN (01:03)
[2020-03-26] MEDS: PERCOCET 5MG/325MG TAB PO SCH ×3 (05:38→20:16)
[2020-03-26 06:00] VITALS: BP 130/60
[2020-03-26] MEDS: PARoxetine 10MG TABLET PO SCH (07:45)
[2020-03-26] MEDS: LORATADINE 10 MG TAB PO SCH (07:45)
[2020-03-26] MEDS: CLOPIDOGREL 75 MG TAB PO SCH (07:45)
[2020-03-26] MEDS: OMEPRAZOLE 20 MG CAP PO SCH (07:45)
[2020-03-26] MEDS: glipiZIDE (GLUCOTROL) 5 MG TAB PO SCH (07:45)
[2020-03-26] MEDS: MIRALAX *UNIT DOSE* 17GM PACKET PO SCH (07:46)
[2020-03-26] MEDS: LEVEMIR (INSULIN DETEMIR) 1 UNITS/0.01ML SC SCH ×2 (07:46→20:15)
[2020-03-26] MEDS: ENALAPRIL MALEATE 10 MG TAB PO SCH ×2 (07:50→20:18)
[2020-03-26] MEDS: amLODIPine 10 MG TAB PO SCH (07:50)
[2020-03-26] MEDS: METOPROLOL TART 50 MG TAB PO SCH ×2 (07:51→20:18)
[2020-03-26] MEDS: PERCOCET 5MG/325MG TAB PO PRN ×3 (07:58→23:21)
--- NOTE | 2020-03-26 09:27 | IPNPDOC ---
PM&R Progress Note DATE OF SERVICE: Mar 26, 2020 Pharmacist Aide Progress Note DATE OF ADMISSION: Mar 24, 2020 at 15:00 INPATIENT REHABILITATION ADMISSION DAY: #2 CHIEF COMPLAINT: Left AKA, postoperative pain, right hip pain, generalized weakness. HISTORY OF PRESENT ILLNESS: This is a 74-year-old patient with history of severe peripheral vascular disease, end-stage, status post multiple failed revascularizations including left leg bypass in Jan 2020, who was admitted for severe ischemic lower extremity pain at rest and no evidence of circulation in the distal extremity, noted during an outpatient evaluation. Patient had failed conservative measures and had recently fallen due to the increasing pain and inability to weight bear on the affected extremity. Due to severe compromise of circulation despite attempts to revascularize the limb, aggressive treatment in the form of left above knee amputation ensued, 03/19/2020. Postoperatively, she has remained stable bridging from Lovenox to Coumadin underway as well as coordination of her complex medical care including diabetes, hyperlipidemia, hypertension, chronic A. fib, GERD and anxiety and depression. She has some grief over loss of her limb, coupled with recent loss of her of 55 years earlier this year, but is resigned to proceed as best she can to regain as much function as she can. Some evening altered mental status, pulling at dressings, general anxiety noted last night, additional anxiolytics added with improvement in symptoms per nursing. This morning notes difficult night with pain, will continue to adjust regimen balancing optimal pain control while attempting to minimize adverse side effects. REVIEW OF SYSTEMS: The following is a completed review of systems and has been reviewed. PAIN: Is able to tolerate a 7 running from 6-10 at this time, increased greatly during therapy EYES: No recent vision changes. EARS, NOSE, & THROAT: No throat pain, or dysphagia, or rhinorrhea. CARDIOVASCULAR: Denies chest pain or palpitations. PULMONARY: Denies shortness of breath. GASTROINTESTINAL: No severe constipation, requesting enema GENITOURINARY: Continent. MUSCULOSKELETAL: .Occasional mild right shoulder pain NEUROLOGICAL:. History noted for a peripheral neuropathy HEMATOLOGICAL: Easily bruises SKIN: Healing wound, otherwise intact PSYCHIATRIC: Notable for anxiety and depression on long-standing amitriptyline and paroxetine All other review of systems found to be negative. FUNCTIONAL STATUS: Gait training with RW x 11", Min to CGA, working on sidelying exercises, no complaints of chest pain, shortness of breath. Patient discussed yesterday in team rounds requiring minimal assistance for sit to stand using walker, has significant complaints of pain during therapy. ALLERGIES: See Below MEDICATIONS: Reviewed, see below. OBJECTIVE: VITAL SIGNS: Please see below. PHYSICAL EXAMINATION: VITAL SIGNS: Please see below. GENERAL: Pleasant and cooperative. Mild distress. Alert and oriented times thre e. HEENT: PERRL. Extraocular movements intact. Clear conjunctiva, no adenopathy or thyromegaly. Full cervical range of motion without tenderness or spasm. Poor dentition. CARDIOVASCULAR: Regular rate and rhythm. No murmurs, rubs, or gallops. LUNGS: Clear to auscultation bilaterally. No wheezes. No rhonchi. ABDOMEN: Soft, nontender, nondistended. Healed midline scar. Healing left i nguinal diagonal scar femoral region. Positive bowel sounds. Normal active bowel sounds, no organomegaly. NEUROLOGICAL:. Cranial nerves II through XII intact. Sensation grossly intact. Sensation intact. Both upper extremities, right lower extremity EXTREMITIES: 5/5 drill bit sharpener, elbow flexion, elbow extension, right knee extension, foot dorsiflexion, eversion, plantar flexion. Right lower extremity, dorsalis pedis faint, posterior tibialis, 1+. Toes cool but pink with good capillary refill. Skin intact. SKIN: Healing left above-knee amputation, wrapped. .Firm and indurated 4 x 5. Ecchymosis right gluteal region. Tender. LABORATORY DATA: Reviewed. Please see below. MICROBIOLOGY: Please see below. ASSESSMENT: 74-year-old hypertensive diabetic lady with past medical history of severe peripheral vascular disease. Failing conservative therapies who presents status post left above-knee amputation, for wound management, pain control, mobility and self-care skills. She also has grief reaction, pain and will require supportive counseling as well as comprehensive rehabilitative care to achieve goals of resumption of optimal functional capacity. PLAN: Cardio Vascular/Pain Status post right BKA for severe PVD Hypertension hyperlipidemia Important to obtain optimal postoperative and phantom limb pain control with appropriate medications to minimize strain on the cardio vascular system. May be having altered mental status, possibly related to tramadol observed last night and during the day, will change from as needed and put on scheduled Percocet during the first week with breakthrough doses of Tramadol/Additional percocet to optimize ability to participate in therapy with good pain management, adjust medications as healing progresses. Continue antihypertensives adjusted as indicated History of A.fib and prior DVT, now cleared to resume careful anticoagulation while monitoring wound healing. Education and maintenance of optimal dietary strategies for both cardiovascular and diabetic issues Anxiety, Depression Addition to chronic complex medical conditions now grief reaction of loss of limb. Continue with supportive counseling and focus on functional ventilatory strategies. Continue current medications consider change from amitryptilline to 2 different agent due to possible cardiac or other adverse side effects, continue paroxetine, will add low dose Ativan for agitated Depressive features,discussed with pharmacy, will monitor for interactions. Diabetes./Endocrine Monitor BS, low CHO diet, education. Usual med coverage Reassess decision on resuming glipizide based on level of intake, activity, and glucose monitoring . History of prior thyroid procedure. Well monitor GERD Omeprazole Dietary adjustments 1. Rehab- PT/OT pre-prosthetic residual limb care, wrapping, wound management, gait and ADls, strengthen/stretch/maintain ROM all 4 limbs 2. Neuro- History neuropathy, precautions for proprioceptive abnormalities, compensatory strategies 4. Cardiac- hx of PVD,CAD, maintain close observation of RLE, signs/symptoms of CP, or distress, continue medications for -HTN-Enalapril, meds, dietary adjustments -HLD- dietary adjustments 5. Resp -incentive spirometry, monitor for infection or distress as needed 6. Endo- hx of DM c/u insulin and ISS dietary education 7. GI ppx- protonix, Stevie,to help fluid and nutritional supplementation 8. PROJECTED DISCHARGE DESTINATION: Home with family support and any durable m edical equipment required to increase functional safety and mobility. Time Spent evaluation, re evaluation, charting 35min OBJECTIVE: VITAL SIGNS: Please see below. PHYSICAL EXAMINATION: GENERAL: [Cachectic, well developed, sitting up in bed, no acute distress]. HEENT: [Normocephalic, atraumatic]. [No facial droop]. [Poor dentition, missing teeth. PERRL, EOMI]. CARDIOVASCULAR: [S1, S2, irregular rate]. [No lower limb edema or calf tenderness]. LUNGS: [Decreased breath sounds, coarse throughout]. ABDOMEN: [Soft, nontender, nondistended. Normoactive bowel sounds throughout]. MUSCULOSKELETAL: MMT: /5 strength proximally bilateral shoulder abduction, forward flexion and bilateral hip flexion. /5 strength bilateral elbow flexion, knee flexion, /5 bilateral elbow extension and knee extension. /5 drill bit sharpener, dorsiflexion, plantar flexion. NEUROLOGICAL: [Alert and oriented times three]. [Answers all question appropriately]. SKIN: . LABORATORY DATA: Reviewed. Please see below. MICROBIOLOGY: Please see below. IMAGING: ASSESSMENT AND PLAN: 1. . 2. . 3. . TIME SPENT: Chart Review, examination and documentation minutes. Allergies Coded Allergies: Sulfa (Sulfonamide Antibiotics) (Verified Allergy, Unknown, hives, 07/10/19) Vital Signs Vital Signs Date Time Temp Pulse Resp B/P (MAP) Pulse Ox O2 Delivery O2 Flow Rate FiO2 03/26/20 08:46 20 03/26/20 07:51 76 140/80 03/26/20 06:00 96.1 98 Room Air Laboratory Data Labs 24H Laboratory Tests 2 03/25/20 11:16: Bedside Glucose (Misc Panel) 198H 03/25/20 16:19: Bedside Glucose (Misc Panel) 134H 03/25/20 20:14: Bedside Glucose (Misc Panel) 168H 03/26/20 06:34: Bedside Glucose (Misc Panel) 146H Current Medications Current Medications Current Medications Medications (Trade) Dose Ordered Sig/Shankar Route PRN Reason Start Time Stop Time Status Last Admin Dose Admin Acetaminophen (Tylenol Tab) 500 mg Q6H PRN PO PAIN 03/24/20 15:30 03/25/20 02:04 Amitriptyline HCl (Elavil) 25 mg QHS PO 03/24/20 21:00 03/25/20 20:35 Amlodipine Besylate (Norvasc) 10 mg DAILY PO 03/25/20 09:00 03/26/20 07:50 Clonazepam (KlonoPIN) 0.25 mg Q8H PRN PO ANXIETY/AGITATION 03/24/20 17:45 03/26/20 01:03 Clopidogrel Bisulfate (PLAVix) 75 mg DAILY PO 03/25/20 09:00 03/26/20 07:45 Enalapril Maleate (Vasotec) 10 mg BID PO 03/24/20 21:00 03/26/20 07:50 Glipizide (Glucotrol) 5 mg DAILY@0730 PO 03/25/20 07:30 03/26/20 07:45 Home Med (Med Rec Complete!) ASDIRECTED XX 03/24/20 11:30 03/24/20 15:19 DC Insulin Detemir (Levemir Insulin) 10 units BID SC 03/24/20 21:00 03/26/20 07:46 Loratadine (Claritin) 10 mg DAILY PO 03/25/20 09:00 03/26/20 07:45 Metformin HCl (Glucophage) 500 mg DAILY@08 PO 03/25/20 08:00 03/24/20 17:08 DC Metoprolol Tartrate (Lopressor) 50 mg BID PO 03/24/20 21:00 03/26/20 07:51 Mineral Oil (Fleet Oil Retention Enema) IF NO BM IN THREE DAYS DAILYPRN PRN [place] CONSTIPATION 03/24/20 18:15 Omeprazole (PriLOSEC) 40 mg DAILY PO 03/25/20 09:00 03/26/20 07:45 Omeprazole (PriLOSEC) 40 mg DAILY PO 03/25/20 09:00 UNV Ondansetron HCl (Zofran) 4 mg Q6HP PRN PO NAUSEA 03/24/20 11:30 Oxycodone/ Acetaminophen (Percocet 5mg/ 325mg Tablet) 1 tab Q4HP PRN PO MILD/MODERATE PAIN (PS 1-7) 03/24/20 15:30 03/26/20 07:58 Oxycodone/ Acetaminophen (Percocet 5mg/ 325mg Tablet) 2 tab TID@0600,1200,2000 PO 03/25/20 20:00 03/26/20 05:38 Paroxetine HCl (PAXil) 10 mg DAILY PO 03/25/20 09:00 03/26/20 07:45 Polyethylene Glycol (Miralax) 1 pkt DAILY PO 03/25/20 09:00 03/26/20 07:46 Senna (Senokot) 1 tab BID PRN PO CONSTIPATION 03/24/20 15:30 Tramadol HCl (Ultram) 50 mg BID PO 03/24/20 21:00 03/25/20 10:45 DC 03/25/20 09:22 Tramadol HCl (Ultram) 50 mg BID PRN PO PAIN LEVEL 4-7 03/25/20 21:00 04/02/20 20:59 03/26/20 01:03 Warfarin Sodium (Coumadin) 3.5 mg DAILY@1700 PO 03/24/20 17:00 03/25/20 17:23 OUMAR PEDRO MD Mar 26, 2020 09:27
--- NOTE | 2020-03-26 12:42 | IPNPDOC ---
Date Seen The patient was seen on 03/26/20. Progress Note Patient seen and examined. Doing well today. Says her stump is healing well and she is getting around pretty well with physical therapy and that they are treating her like a Ahn. She says her dressings on her left stump have been a little tight at times, including today. I removed the dressing, clean the incision with alcohol prep pad, and replaced Kerlix and Ranjan wrap. At this point, I think we can forego the Xeroform. I recommend cleaning the incision daily with wound aircraft cabin cleaner or alcohol prep pad, and placing dry gauze Kerlix and Ranjan wrap not too tight. Okay for paper tape to help hold on the Ranjan wrap if it falls off easily during therapy. It is also okay for the patient to shower with her dressing off, soap and water is okay, but no tub baths or swimming. Just replace the dry dressing following the shower. We appreciate the opportunity to participate in the care of this patient. VS, I&O, 24H, Fishbone Vital Signs/I&O Vital Signs Date Time Temp Pulse Resp B/P (MAP) Pulse Ox O2 Delivery O2 Flow Rate FiO2 03/26/20 11:49 16 03/26/20 07:51 76 140/80 03/26/20 06:00 96.1 98 Room Air I&O- Last 24 Hours up to 6 AM 03/26/20 06:00 Intake Total 950 ml Output Total 665 ml Balance 285 ml Laboratory Data 24H LABS Laboratory Tests 2 03/25/20 16:19: Bedside Glucose (Misc Panel) 134H 03/25/20 20:14: Bedside Glucose (Misc Panel) 168H 03/26/20 06:34: Bedside Glucose (Misc Panel) 146H 03/26/20 12:29: Bedside Glucose (Misc Panel) 103 HORTENCIA GREENBERG MD Mar 26, 2020 12:42
[2020-03-26 14:00] VITALS: BP 134/72
[2020-03-26] MEDS: WARFARIN SOD 1MG TAB PO SCH (17:27)
[2020-03-26 20:00] VITALS: BP 131/71
[2020-03-26] MEDS: AMITRIPTYLINE 25 MG TAB PO SCH (20:18)
[2020-03-26 20:20] VITALS: BP 150/70
[2020-03-27] MEDS: clonazePAM 0.5 MG TAB PO PRN (02:07)
[2020-03-27 06:00] VITALS: BP 144/72
[2020-03-27] MEDS: PERCOCET 5MG/325MG TAB PO SCH ×3 (06:08→20:23)
[2020-03-27] MEDS: MIRALAX *UNIT DOSE* 17GM PACKET PO SCH (08:11)
[2020-03-27] MEDS: glipiZIDE (GLUCOTROL) 5 MG TAB PO SCH (08:11)
[2020-03-27] MEDS: OMEPRAZOLE 20 MG CAP PO SCH (08:11)
[2020-03-27] MEDS: LEVEMIR (INSULIN DETEMIR) 1 UNITS/0.01ML SC SCH ×2 (08:11→20:21)
[2020-03-27] MEDS: amLODIPine 10 MG TAB PO SCH (08:12)
[2020-03-27] MEDS: PARoxetine 10MG TABLET PO SCH (08:12)
[2020-03-27] MEDS: ENALAPRIL MALEATE 10 MG TAB PO SCH ×2 (08:12→20:24)
[2020-03-27] MEDS: LORATADINE 10 MG TAB PO SCH (08:13)
[2020-03-27] MEDS: METOPROLOL TART 50 MG TAB PO SCH ×2 (08:13→20:22)
[2020-03-27] MEDS: ACETAMINOPHEN 500 MG TAB PO PRN (08:13)
[2020-03-27] MEDS: CLOPIDOGREL 75 MG TAB PO SCH (08:13)
--- NOTE | 2020-03-27 08:54 | IPNPDOC ---
PM&R Progress Note DATE OF SERVICE: Mar 27, 2020 Solidworks Mechanical Designer Progress Note DATE OF ADMISSION: Mar 24, 2020 at 15:00 DATE OF ADMISSION: Mar 24, 2020 at 15:00 INPATIENT REHABILITATION ADMISSION DAY: #3 CHIEF COMPLAINT: Left AKA, postoperative pain, right hip pain, generalized weakness. HISTORY OF PRESENT ILLNESS: This is a 74-year-old patient with history of severe peripheral vascular disease, end-stage, status post multiple failed revascularizations including left leg bypass in Jan 2020, who was admitted for severe ischemic lower extremity pain at rest and no evidence of circulation in the distal extremity, noted during an outpatient evaluation. Patient had failed conservative measures and had recently fallen due to the increasing pain and inability to weight bear on the affected extremity. Due to severe compromise of circulation despite attempts to revascularize the limb, aggressive treatment in the form of left above knee amputation ensued, 03/19/2020. Postoperatively, she has remained stable requiring coordination of her complex medical care including diabetes, hyperlipidemia, hypertension, chronic A. fib, GERD and anxiety and depression. She has some grief over loss of her limb, coupled with recent loss of her of 55 years earlier this year, but is resigned to proceed as best she can to regain as much function as she can. Still with general anxiety noted last night, additional anxiolytics added with slight improvement in symptoms per nursing. Scheduled pain medication yesterday permitted better control with pain, will continue to adjust regimen balancing optimal pain control while attempting to minimize adverse side effects. REVIEW OF SYSTEMS: The following is a completed review of systems and has been reviewed. PAIN: Is able to tolerate a 7 running from 6-10 at this time, increased greatly during therapy EYES: No recent vision changes. EARS, NOSE, & THROAT: No throat pain, or dysphagia, or rhinorrhea. CARDIOVASCULAR: Denies chest pain or palpitations. PULMONARY: Denies shortness of breath. GASTROINTESTINAL: No severe constipation, requesting enema GENITOURINARY: Continent. MUSCULOSKELETAL: .Occasional mild right shoulder pain NEUROLOGICAL:. History noted for a peripheral neuropathy HEMATOLOGICAL: Easily bruises SKIN: Healing wound, otherwise intact PSYCHIATRIC: Notable for anxiety and depression on long-standing amitriptyline and paroxetine All other review of systems found to be negative. FUNCTIONAL STATUS: Gait training with RW x 11", Min to CGA, working on sidelying exercises, no complaints of chest pain, shortness of breath. Patient discussed yesterday in team rounds requiring minimal assistance for sit to stand using walker, has significant complaints of pain during therapy. ALLERGIES: See Below MEDICATIONS: Reviewed, see below. OBJECTIVE: VITAL SIGNS: Please see below. PHYSICAL EXAMINATION: VITAL SIGNS: Please see below. GENERAL: Pleasant and cooperative. Mild distress. Alert and oriented times three. HEENT: PERRL. Extraocular movements intact. Clear conjunctiva, no adenopathy or thyromegaly. Full cervical range of motion without tenderness or spasm. Poor dentition. CARDIOVASCULAR: Regular rate and rhythm. No murmurs, rubs, or gallops. LUNGS: Clear to auscultation bilaterally. No wheezes. No rhonchi. ABDOMEN: Soft, nontender, nondistended. Healed midline scar. Healing left inguinal diagonal scar femoral region. Positive bowel sounds. Normal active bowel sounds, no organomegaly. NEUROLOGICAL:. Cranial nerves II through XII intact. Sensation grossly intact. Sensation intact. Both upper extremities, right lower extremity EXTREMITIES: 5/5 video game engineer, elbow flexion, elbow extension, right knee extension, foot dorsiflexion, eversion, plantar flexion. Right lower extremity, dorsalis pedis faint, posterior tibialis, 1+. Toes cool but pink with good capillary refill. Skin intact. SKIN: Healing left above-knee amputation, wrapped. .Firm and indurated 3 x 4. ecchymosis right gluteal region. Tender. LABORATORY DATA: Reviewed. Please see below. MICROBIOLOGY: Please see below. ASSESSMENT: 74-year-old hypertensive diabetic lady with past medical history of severe peripheral vascular disease. Failing conservative therapies who presents status post left above-knee amputation, for wound management, pain control, mobility and self-care skills. She also has grief reaction, pain and will require supportive counseling as well as comprehensive rehabilitative care to achieve goals of resumption of optimal functional capacity. PLAN: Cardio Vascular/Pain Status post right BKA for severe PVD Hypertension hyperlipidemia Important to obtain optimal postoperative and phantom limb pain control with appropriate medications to minimize strain on the cardio vascular system. May be having altered mental status, possibly related to tramadol observed last night and during the day, have changed to as needed. Now on scheduled Percocet during the first week with breakthrough doses of Tylenol, Tramadol/Additional percocet to optimize ability to participate in therapy with good pain management, adjust medications as healing progresses. Continue antihypertensives adjusted as indicated History of A.fib, NSR clinically, history prior DVT, now cleared to resume careful anticoagulation while monitoring wound healing. Education and maintenance of optimal dietary strategies for both cardiovascular and diabetic issues Anxiety, Depression Addition to chronic complex medical conditions now grief reaction of loss of limb. Continue with supportive counseling and focus on functional mobility strategies. Continue current medications consider change from amitryptilline to 2 different agent due to possible cardiac or other adverse side effects, continue paroxetine. Low dose Klonopin not as helpful, will try Buspar for anxiety and dc Amitryptiline, switch to Pamelor which sometimes has better effect, will monitor for interactions, add TraZOdone to see if we can get her sleeping better at night and then probably DC Pamelor and Buspar as pain management, functional improvement progresses. Diabetes./Endocrine Monitor BS, low CHO diet, education. Usual med coverage Reassess decision on resuming glipizide based on level of intake, activity, and glucose monitoring . History of prior thyroid procedure. Well monitor GERD Omeprazole Dietary adjustments 1. Rehab- PT/OT pre-prosthetic residual limb care, wrapping, wound management, gait and ADls, strengthen/stretch/maintain ROM all 4 limbs 2. Neuro- History neuropathy, precautions for proprioceptive abnormalities, c ompensatory strategies 4. Cardiac- hx of PVD,CAD, maintain close observation of RLE, signs/symptoms of CP, or distress, continue medications for -HTN-Enalapril, meds, dietary adjustments -HLD- dietary adjustments 5. Resp -incentive spirometry, monitor for infection or distress as needed 6. Endo- hx of DM c/u insulin and ISS dietary education 7. GI ppx- protonix, Stevie,to help fluid and nutritional supplementation 8. PROJECTED DISCHARGE DESTINATION: Home with family support and any durable medical equipment required to increase functional safety and mobility. Time Spent evaluation, re evaluation, charting 35min Allergies Coded Allergies: Sulfa (Sulfonamide Antibiotics) (Verified Allergy, Unknown, hives, 07/10/19) Vital Signs Vital Signs Date Time Temp Pulse Resp B/P (MAP) Pulse Ox O2 Delivery O2 Flow Rate FiO2 03/27/20 08:13 76 144/72 03/27/20 06:08 17 03/27/20 06:00 98.3 97 Room Air Laboratory Data Labs 24H Laboratory Tests 2 03/26/20 12:29: Bedside Glucose (Misc Panel) 103 03/26/20 16:45: Bedside Glucose (Misc Panel) 154H 03/26/20 19:43: Bedside Glucose (Misc Panel) 191H 03/27/20 07:06: Bedside Glucose (Misc Panel) 154H Current Medications Current Medications Current Medications Medications (Trade) Dose Ordered Sig/Shankar Route PRN Reason Start Time Stop Time Status Last Admin Dose Admin Acetaminophen (Tylenol Tab) 500 mg Q6H PRN PO PAIN 03/24/20 15:30 03/27/20 08:13 Amitriptyline HCl (Elavil) 25 mg QHS PO 03/24/20 21:00 03/26/20 20:18 Amlodipine Besylate (Norvasc) 10 mg DAILY PO 03/25/20 09:00 03/27/20 08:12 Clonazepam (KlonoPIN) 0.25 mg Q8H PRN PO ANXIETY/AGITATION 03/24/20 17:45 03/27/20 02:07 Clopidogrel Bisulfate (PLAVix) 75 mg DAILY PO 03/25/20 09:00 03/27/20 08:13 Enalapril Maleate (Vasotec) 10 mg BID PO 03/24/20 21:00 03/27/20 08:12 Glipizide (Glucotrol) 5 mg DAILY@0730 PO 03/25/20 07:30 03/27/20 08:11 Home Med (Med Rec Complete!) ASDIRECTED XX 03/24/20 11:30 03/24/20 15:19 DC Insulin Detemir (Levemir Insulin) 10 units BID SC 03/24/20 21:00 03/27/20 08:11 Loratadine (Claritin) 10 mg DAILY PO 03/25/20 09:00 03/27/20 08:13 Metformin HCl (Glucophage) 500 mg DAILY@08 PO 03/25/20 08:00 03/24/20 17:08 DC Metoprolol Tartrate (Lopressor) 50 mg BID PO 03/24/20 21:00 03/27/20 08:13 Mineral Oil (Fleet Oil Retention Enema) IF NO BM IN THREE DAYS DAILYPRN PRN [place] CONSTIPATION 03/24/20 18:15 Omeprazole (PriLOSEC) 40 mg DAILY PO 03/25/20 09:00 03/27/20 08:11 Omeprazole (PriLOSEC) 40 mg DAILY PO 03/25/20 09:00 UNV Ondansetron HCl (Zofran) 4 mg Q6HP PRN PO NAUSEA 03/24/20 11:30 Oxycodone/ Acetaminophen (Percocet 5mg/ 325mg Tablet) 1 tab Q4HP PRN PO MILD/MODERATE PAIN (PS 1-7) 03/24/20 15:30 03/26/20 23:21 Oxycodone/ Acetaminophen (Percocet 5mg/ 325mg Tablet) 2 tab TID@0600,1200,2000 PO 03/25/20 20:00 03/27/20 06:08 Paroxetine HCl (PAXil) 10 mg DAILY PO 03/25/20 09:00 03/27/20 08:12 Polyethylene Glycol (Miralax) 1 pkt DAILY PO 03/25/20 09:00 03/27/20 08:11 Senna (Senokot) 1 tab BID PRN PO CONSTIPATION 03/24/20 15:30 Tramadol HCl (Ultram) 50 mg BID PO 03/24/20 21:00 03/25/20 10:45 DC 03/25/20 09:22 Tramadol HCl (Ultram) 50 mg BID PRN PO PAIN LEVEL 4-7 03/25/20 21:00 04/02/20 20:59 03/26/20 01:03 Warfarin Sodium (Coumadin) 3.5 mg DAILY@1700 PO 03/24/20 17:00 03/26/20 17:27 OUMAR PEDRO MD Mar 27, 2020 08:54
[2020-03-27] MEDS ORDERED: clonazePAM 0.5 MG TAB PO PRN (11:00)
[2020-03-27] MEDS: busPIRone 5 MG TAB PO SCH ×2 (11:08→20:22)
[2020-03-27 11:35] LABS: INR 2.13; PROTHROMBIN TIME 24.3 SECONDS (12.5-14.3)
[2020-03-27] MEDS: ONDANSETRON 4 MG TAB PO PRN (11:52)
[2020-03-27 14:00] VITALS: BP 126/57
[2020-03-27] MEDS: WARFARIN SOD 1MG TAB PO SCH (17:20)
[2020-03-27] MEDS: PERCOCET 5MG/325MG TAB PO PRN (17:20)
[2020-03-27 20:00] VITALS: BP 144/80
[2020-03-27] MEDS: traZODone 25MG PER 1/2 TABLET PO SCH (20:22)
[2020-03-27] MEDS: NORTRIPTYLINE 10 MG CAP PO SCH (20:24)
[2020-03-28] MEDS: PERCOCET 5MG/325MG TAB PO SCH ×3 (05:15→20:46)
[2020-03-28 05:53] VITALS: BP 130/69
[2020-03-28] MEDS: MIRALAX *UNIT DOSE* 17GM PACKET PO SCH (09:15)
[2020-03-28] MEDS: LEVEMIR (INSULIN DETEMIR) 1 UNITS/0.01ML SC SCH ×2 (09:15→20:45)
[2020-03-28] MEDS: PARoxetine 10MG TABLET PO SCH (09:15)
[2020-03-28] MEDS: busPIRone 5 MG TAB PO SCH (09:16)
[2020-03-28] MEDS: OMEPRAZOLE 20 MG CAP PO SCH (09:16)
[2020-03-28] MEDS: METOPROLOL TART 50 MG TAB PO SCH ×2 (09:16→20:44)
[2020-03-28] MEDS: LORATADINE 10 MG TAB PO SCH (09:16)
[2020-03-28] MEDS: ENALAPRIL MALEATE 10 MG TAB PO SCH ×2 (09:16→20:44)
[2020-03-28] MEDS: amLODIPine 10 MG TAB PO SCH (09:17)
[2020-03-28] MEDS: CLOPIDOGREL 75 MG TAB PO SCH (09:17)
[2020-03-28] MEDS: glipiZIDE (GLUCOTROL) 5 MG TAB PO SCH (09:17)
[2020-03-28] MEDS: PERCOCET 5MG/325MG TAB PO PRN (10:09)
--- NOTE | 2020-03-28 11:11 | IPNPDOC ---
Text Note Date of Service The patient was seen on 03/28/20. NOTE Subjective: No any acute events overnight. Patient denied fever, chills, nausea, vomiting, diarrhea or dysuria. Pt is doing well with PT Objective: GENERAL APPEARANCE: NAD HEENT: no scleral icterus, no JVD, EOMI CARDIOVASCULAR: S1S2 LUNGS: CTA ABDOMEN: soft & not tender w palpitation MUSCULOSKELETAL: no cyanosis, no swelling INTEGUMENT: no generalized palor NEUROLOGICAL: cranial nerve function from 2-12 intact intact, follows commands, speech not dysarthric Assessment and plan Patient is 74 years old female with past mental history of diabetes, hypertension, peripheral vascular diseases therapies who presents status post left above-knee amputation, for wound management, pain control, mobility and self-care skills Status post right BKA for severe PVD Pain management Continue sliding, continue Plavix Hypertension Blood pressure under control Continue home cardioprotective medications Hyperlipidemia Continue statin Anxiety/depression Continue home meds Follow-up with psychiatrist in the outpatient settings Diabetes type 2 Diabetes diet Glucose level under control Continue glipizide GERD Continue PPI Chronic Atrial Fibrillation/History of DVT and Pulmonary Embolism on coumadin INR therapeutic Heart rate under control Continue Coumadin Monitor INR VS,Fishbone, I+O VS, Fishbone, I+O Vital Signs Date Time Temp Pulse Resp B/P (MAP) Pulse Ox O2 Delivery O2 Flow Rate FiO2 03/28/20 10:09 20 Room Air 03/28/20 09:17 82 130/69 03/28/20 05:53 96.9 99 I&O- Last 24 Hours up to 6 AM 03/28/20 06:00 Intake Total 580 ml Output Total 0 ml Balance 580 ml LINDA GOODMAN DO Mar 28, 2020 11:11
--- NOTE | 2020-03-28 11:44 | IPNPDOC ---
PM&R Progress Note DATE OF SERVICE: Mar 28, 2020 [employer] Progress Note DATE OF ADMISSION: Mar 24, 2020 at 15:00 INPATIENT REHABILITATION ADMISSION DAY: #4 CHIEF COMPLAINT: Left AKA, postoperative pain, right hip pain, generalized weakness. HISTORY OF PRESENT ILLNESS: This is a 74-year-old patient with history of severe peripheral vascular disease, end-stage, status post multiple failed revascularizations including left leg bypass in Jan 2020, who was admitted for severe ischemic lower extremity pain at rest and no evidence of circulation in the distal extremity, noted during an outpatient evaluation. Patient had failed conservative measures and had recently fallen due to the increasing pain and inability to weight bear on the affected extremity. Due to severe compromise of circulation despite attempts to revascularize the limb, aggressive treatment in the form of left above knee amputation ensued, 03/19/2020. Postoperatively, she has remained stable requiring coordination of her complex medical care including diabetes, hyperlipidemia, hypertension, chronic A. fib, GERD and anxiety and depression. She is on Coumadin. INR is therapeutic. She has some grief over loss of her limb, coupled with recent loss of her of 55 years earlier this year, but is resigned to proceed as best she can to regain as much function as she can. Still sundowns with general anxiety noted last night, additional anxiolytics added with slight improvement in symptoms per nursing. Scheduled pain medication permits better control with pain, will continue to adjust regimen balancing optimal pain control while attempting to minimize adverse side effects. Last night, internal routine stand pivot transfer . The patient impulsively though for the bed, and the nurse following usual precautions had her by the gait belt. Patient landed on her belly. No injuries sustained. No new complaints this morning. REVIEW OF SYSTEMS: The following is a completed review of systems and has been reviewed. PAIN: Is able to tolerate a 7 running from 6-9 at this time, increased greatly during therapy EYES: No recent vision changes. EARS, NOSE, & THROAT: No throat pain, or dysphagia, or rhinorrhea. CARDIOVASCULAR: Denies chest pain or palpitations. PULMONARY: Denies shortness of breath. GASTROINTESTINAL: No severe constipation, requesting enema GENITOURINARY: Continent. MUSCULOSKELETAL: .Occasional mild right shoulder pain NEUROLOGICAL:. History noted for a peripheral neuropathy HEMATOLOGICAL: Easily bruises SKIN: Healing wound, otherwise intact PSYCHIATRIC: Notable for anxiety and depression on long-standing amitriptyline and paroxetine All other review of systems found to be negative. FUNCTIONAL STATUS: Continues to have complaints of pain at times during therapy. Patient is contact-guard assist for sit to stand, bed to chair and performs stand pivot transfers from wheelchair to bed with contact guard assistance. ALLERGIES: See Below MEDICATIONS: Reviewed, see below. OBJECTIVE: VITAL SIGNS: Please see below. PHYSICAL EXAMINATION: VITAL SIGNS: Please see below. GENERAL: Pleasant and cooperative. Mild distress. Alert and oriented times three. HEENT: PERRL. Extraocular movements intact. Clear conjunctiva, no adenopathy or thyromegaly. Full cervical range of motion without tenderness or spasm. Poor dentition. CARDIOVASCULAR: Regular rate and rhythm. No murmurs, rubs, or gallops. LUNGS: Clear to auscultation bilaterally. No wheezes. No rhonchi. ABDOMEN: Soft, nontender, nondistended. Healed midline scar. Healing left inguinal diagonal scar femoral region. Positive bowel sounds. Normal active bowel sounds, no organomegaly. NEUROLOGICAL:. Cranial nerves II through XII intact. Sensation grossly intact. Sensation intact. 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 SKIN: Healing left above-knee amputation, wrapped. Firm and indurated 3 x 4. ecchymosis right gluteal region. Tender. LABORATORY DATA: Reviewed. Please see below. FBS 144 MICROBIOLOGY: Please see below. ASSESSMENT: Left AKA. Right hip pain. Diabetes. HLD. Hypertension. A. fib. GERD. Anxiety/depression 74-year-old hypertensive diabetic lady with past medical history of severe peripheral vascular disease. Failing conservative therapies who presents status post left above-knee amputation, for wound management, pain control, mobility and self-care skills. She also has grief reaction, pain and will require supportive counseling as well as comprehensive rehabilitative care to achieve goals of resumption of optimal functional capacity. PLAN: Cardio Vascular/Pain Status post right BKA for severe PVD Hypertension hyperlipidemia Important to obtain optimal postoperative and phantom limb pain control with appropriate medications to minimize strain on the cardio vascular system. May be having altered mental status, possibly related to tramadol observed last night and during the day, have changed to as needed. Now on scheduled Percocet during the first week with breakthrough doses of Tylenol, Tramadol/Additional percocet to optimize ability to participate in therapy with good pain management, adjust medications as healing progresses. Continue antihypertensives adjusted as indicated History of A.fib, NSR clinically, history prior DVT, now cleared to resume careful anticoagulation while monitoring wound healing. On Coumadin, to check INR Education and maintenance of optimal dietary strategies for both cardiovascular and diabetic issues Anxiety, Depression Addition to chronic complex medical conditions now grief reaction of loss of limb. Continue with supportive counseling and focus on functional mobility strategies. Continue current medications with change from amitryptiline continue paroxetine. Low dose Klonopin not as helpful, will dc Buspar and add Vistaril for anxiety and dc Amitryptiline, switch to Pamelor which sometimes has better effect, will monitor for interactions, added TraZOdone and she was sleeping better, may also help some mild depression/anxiety issues, if we can get her consistently sleeping better through the night and then probably DC Pamelor as pain management, functional improvement progresses. Diabetes./Endocrine Monitor BS, low CHO diet, education. FBS reasonable Usual med coverage Reassess decision on resuming glipizide based on level of intake, activity, and glucose monitoring . History of prior thyroid procedure. Well monitor GERD Omeprazole Dietary adjustments 1. Rehab- PT/OT pre-prosthetic residual limb care, wrapping, wound management, gait and ADls, strengthen/stretch/maintain ROM all 4 limbs 2. Neuro- History neuropathy, precautions for proprioceptive abnormalities, compensatory strategies 4. Cardiac- hx of PVD,CAD, maintain close observation of RLE, signs/symptoms of CP, or distress, continue medications for -HTN-Enalapril, meds, dietary adjustments -HLD- dietary adjustments 5. Resp -incentive spirometry, monitor for infection or distress as needed 6. Endo- hx of DM c/u insulin and ISS dietary education 7. GI ppx- protonix, Stevie,to help fluid and nutritional supplementation 8. PROJECTED DISCHARGE DESTINATION: Home with family support and any durable medical equipment required to increase functional safety and mobility. Time Spent evaluation, re evaluation, charting 35min Allergies Coded Allergies: Sulfa (Sulfonamide Antibiotics) (Verified Allergy, Unknown, hives, 07/10/19) Vital Signs Vital Signs Date Time Temp Pulse Resp B/P (MAP) Pulse Ox O2 Delivery O2 Flow Rate FiO2 03/28/20 10:09 20 Room Air 03/28/20 09:17 82 130/69 03/28/20 05:53 96.9 99 Laboratory Data Labs 24H Laboratory Tests 2 03/27/20 16:54: Bedside Glucose (Misc Panel) 129H 03/27/20 19:26: Bedside Glucose (Misc Panel) 187H 03/28/20 05:06: Bedside Glucose (Misc Panel) 158H 03/28/20 11:35: Bedside Glucose (Misc Panel) 144H Current Medications Current Medications Current Medications Medications (Trade) Dose Ordered Sig/Shankar Route PRN Reason Start Time Stop Time Status Last Admin Dose Admin Acetaminophen (Tylenol Tab) 500 mg Q6H PRN PO PAIN 03/24/20 15:30 03/27/20 08:13 Amitriptyline HCl (Elavil) 25 mg QHS PO 03/24/20 21:00 03/27/20 10:37 DC 03/26/20 20:18 Amlodipine Besylate (Norvasc) 10 mg DAILY PO 03/25/20 09:00 03/28/20 09:17 Buspirone HCl (Buspar) 5 mg BID PO 03/27/20 09:00 03/28/20 09:16 Clonazepam (KlonoPIN) 0.25 mg Q8H PRN PO ANXIETY/AGITATION 03/24/20 17:45 03/27/20 10:37 DC 03/27/20 02:07 Clonazepam (KlonoPIN) 0.25 mg RQ12H PRN PO ANXIETY/AGITATION 03/27/20 11:00 Clopidogrel Bisulfate (PLAVix) 75 mg DAILY PO 03/25/20 09:00 03/28/20 09:17 Enalapril Maleate (Vasotec) 10 mg BID PO 03/24/20 21:00 03/28/20 09:16 Glipizide (Glucotrol) 5 mg DAILY@0730 PO 03/25/20 07:30 03/28/20 09:17 Home Med (Med Rec Complete!) ASDIRECTED XX 03/24/20 11:30 03/24/20 15:19 DC Insulin Detemir (Levemir Insulin) 10 units BID SC 03/24/20 21:00 03/28/20 09:15 Loratadine (Claritin) 10 mg DAILY PO 03/25/20 09:00 03/28/20 09:16 Metformin HCl (Glucophage) 500 mg DAILY@08 PO 03/25/20 08:00 03/24/20 17:08 DC Metoprolol Tartrate (Lopressor) 50 mg BID PO 03/24/20 21:00 03/28/20 09:16 Mineral Oil (Fleet Oil Retention Enema) IF NO BM IN THREE DAYS DAILYPRN PRN ME CONSTIPATION 03/24/20 18:15 Nortriptyline HCl (Pamelor) 10 mg QHS PO 03/27/20 21:00 03/27/20 20:24 Omeprazole (PriLOSEC) 40 mg DAILY PO 03/25/20 09:00 03/28/20 09:16 Omeprazole (PriLOSEC) 40 mg DAILY PO 03/25/20 09:00 UNV Ondansetron HCl (Zofran) 4 mg Q6HP PRN PO NAUSEA 03/24/20 11:30 03/27/20 11:52 Oxycodone/ Acetaminophen (Percocet 5mg/ 325mg Tablet) 1 tab Q4HP PRN PO MILD/MODERATE PAIN (PS 1-7) 03/24/20 15:30 03/28/20 10:09 Oxycodone/ Acetaminophen (Percocet 5mg/ 325mg Tablet) 2 tab TID@0600,1200,2000 PO 03/25/20 20:00 03/28/20 05:15 Paroxetine HCl (PAXil) 10 mg DAILY PO 03/25/20 09:00 03/28/20 09:15 Polyethylene Glycol (Miralax) 1 pkt DAILY PO 03/25/20 09:00 03/28/20 09:15 Senna (Senokot) 1 tab BID PRN PO CONSTIPATION 03/24/20 15:30 Tramadol HCl (Ultram) 50 mg BID PO 03/24/20 21:00 03/25/20 10:45 DC 03/25/20 09:22 Tramadol HCl (Ultram) 50 mg BID PRN PO PAIN LEVEL 4-7 03/25/20 21:00 04/02/20 20:59 03/26/20 01:03 Trazodone HCl (Desyrel) 25 mg QHS PO 03/27/20 21:00 03/27/20 20:22 Warfarin Sodium (Coumadin) 3.5 mg DAILY@1700 PO 03/24/20 17:00 03/27/20 17:20 OUMAR PEDRO MD Mar 28, 2020 11:44
[2020-03-28 13:08] LABS: INR 2.25; PROTHROMBIN TIME 25.4 SECONDS (12.5-14.3)
[2020-03-28 14:00] VITALS: BP 132/87
[2020-03-28] MEDS: WARFARIN SOD 1MG TAB PO SCH (16:57)
[2020-03-28 20:00] VITALS: BP 132/55
[2020-03-28] MEDS: traZODone 25MG PER 1/2 TABLET PO SCH (20:44)
[2020-03-28] MEDS: NORTRIPTYLINE 10 MG CAP PO SCH (20:44)
[2020-03-28] MEDS: SENNA 8.6 MG TAB (SENOKOT) PO PRN (20:47)
[2020-03-28] MEDS: hydrOXYzine 10 MG TAB PO PRN (20:47)
[2020-03-28] MEDS: traMADol 50 MG TAB PO PRN (23:25)
[2020-03-29 05:55] VITALS: BP 140/73
[2020-03-29] MEDS: glipiZIDE (GLUCOTROL) 5 MG TAB PO SCH (06:31)
[2020-03-29] MEDS: PERCOCET 5MG/325MG TAB PO SCH ×3 (06:31→20:54)
[2020-03-29] MEDS: MIRALAX *UNIT DOSE* 17GM PACKET PO SCH (08:37)
[2020-03-29] MEDS: LORATADINE 10 MG TAB PO SCH (08:38)
[2020-03-29] MEDS: CLOPIDOGREL 75 MG TAB PO SCH (08:38)
[2020-03-29] MEDS: PARoxetine 10MG TABLET PO SCH (08:38)
[2020-03-29] MEDS: OMEPRAZOLE 20 MG CAP PO SCH (08:38)
[2020-03-29] MEDS: METOPROLOL TART 50 MG TAB PO SCH ×2 (08:39→20:52)
[2020-03-29] MEDS: amLODIPine 10 MG TAB PO SCH (08:39)
[2020-03-29] MEDS: LEVEMIR (INSULIN DETEMIR) 1 UNITS/0.01ML SC SCH ×2 (08:40→20:53)
[2020-03-29] MEDS: ENALAPRIL MALEATE 10 MG TAB PO SCH ×2 (08:40→20:53)
--- NOTE | 2020-03-29 11:23 | IPNPDOC ---
Text Note Date of Service The patient was seen on 03/29/20. NOTE ubjective: No any acute events overnight. Patient is resting comfortably on the bed Objective: GENERAL APPEARANCE: NAD HEENT: no scleral icterus, no JVD, EOMI CARDIOVASCULAR: S1S2 LUNGS: CTA ABDOMEN: soft & not tender w palpitation MUSCULOSKELETAL: no cyanosis, no swelling INTEGUMENT: no generalized palor NEUROLOGICAL: cranial nerve function from 2-12 intact intact, follows commands, speech not dysarthric Assessment and plan Patient is 74 years old female with past mental history of diabetes, hypertension, peripheral vascular diseases therapies who presents status post left above-knee amputation, for wound management, pain control, mobility and self-care skills Status post right BKA for severe PVD Pain management Continue sliding, continue Plavix Hypertension Blood pressure under control Continue home cardioprotective medications Hyperlipidemia Continue statin Anxiety/depression Continue home meds Follow-up with psychiatrist in the outpatient settings Diabetes type 2 Diabetes diet Glucose level under control Continue glipizide GERD Continue PPI Chronic Atrial Fibrillation/History of DVT and Pulmonary Embolism on coumadin INR therapeutic Heart rate under control Continue Coumadin Monitor INR VS,Fishbone, I+O VS, Fishbone, I+O Vital Signs Date Time Temp Pulse Resp B/P (MAP) Pulse Ox O2 Delivery O2 Flow Rate FiO2 03/29/20 08:39 78 130/70 03/29/20 07:20 18 03/29/20 05:55 97.0 99 Room Air I&O- Last 24 Hours up to 6 AM 03/29/20 06:00 Intake Total 1080 ml Output Total 0 ml Balance 1080 ml LINDA GOODMAN DO Mar 29, 2020 11:23
[2020-03-29] MEDS: SENNA 8.6 MG TAB (SENOKOT) PO PRN (12:54)
[2020-03-29 14:00] VITALS: BP 145/70
[2020-03-29] MEDS: WARFARIN SOD 1MG TAB PO SCH (17:29)
[2020-03-29 20:00] VITALS: BP 138/67
[2020-03-29] MEDS: traZODone 25MG PER 1/2 TABLET PO SCH (20:52)
[2020-03-29] MEDS: NORTRIPTYLINE 10 MG CAP PO SCH (20:53)
[2020-03-29] MEDS: hydrOXYzine 10 MG TAB PO PRN (20:53)
[2020-03-29] MEDS: traMADol 50 MG TAB PO PRN (23:49)
[2020-03-30 03:30] VITALS: BP 127/81
[2020-03-30] MEDS: PERCOCET 5MG/325MG TAB PO SCH ×3 (05:47→21:00)
[2020-03-30 06:00] VITALS: BP 126/80
[2020-03-30] MEDS: glipiZIDE (GLUCOTROL) 5 MG TAB PO SCH (08:17)
[2020-03-30] MEDS: METOPROLOL TART 50 MG TAB PO SCH ×2 (08:17→21:02)
[2020-03-30] MEDS: OMEPRAZOLE 20 MG CAP PO SCH (08:17)
[2020-03-30] MEDS: LEVEMIR (INSULIN DETEMIR) 1 UNITS/0.01ML SC SCH ×2 (08:18→21:01)
[2020-03-30] MEDS: PARoxetine 10MG TABLET PO SCH (08:18)
[2020-03-30] MEDS: amLODIPine 10 MG TAB PO SCH (08:18)
[2020-03-30] MEDS: LORATADINE 10 MG TAB PO SCH (08:18)
[2020-03-30] MEDS: ENALAPRIL MALEATE 10 MG TAB PO SCH ×2 (08:18→21:01)
[2020-03-30] MEDS: CLOPIDOGREL 75 MG TAB PO SCH (08:18)
[2020-03-30] MEDS: SENNA 8.6 MG TAB (SENOKOT) PO PRN (08:21)
[2020-03-30] MEDS: MIRALAX *UNIT DOSE* 17GM PACKET PO SCH (08:21)
[2020-03-30 10:47] LABS: APPEARANCE, URINE HAZY (CLEAR); BACTERIA, URINE AUTO 2+ (NEGATIVE); BILIRUBIN, URINE AUTO NEGATIVE (NEGATIVE); BLOOD, URINE BLOOD NEGATIVE (NEGATIVE); COLOR, URINE YELLOW (YELLOW); GLUCOSE, URINE (UA) AUTO NEGATIVE (NEGATIVE); KETONE, URINE AUTO NEGATIVE (NEGATIVE); LEUKOCYTE ESTERASE, URINE AUTO 2+ (NEGATIVE); MUCUS, URINE SMALL (NEGATIVE); NITRITE, URINE AUTO NEGATIVE (NEGATIVE); PROTEIN, URINE AUTO NEGATIVE (NEGATIVE); RBC, URINE AUTO 3 /HPF (0-3); SPECIFIC GRAVITY URINE AUTO 1.011 (1.002-1.035); SQUAMOUS EPITHELIAL CELL UR AU 0 /HPF (0-6); UROBILINOGEN, URINE AUTO 0.2 mg/dL (0.0-2.0); WBC, URINE AUTO 33 /HPF (0-3)
--- NOTE | 2020-03-30 13:58 | IPNPDOC ---
Text Note Date of Service The patient was seen on 03/30/20. NOTE Subjective: No any acute events overnight. Patient denies any fever, chills , n/v, diarrhea or dysuria Objective: GENERAL APPEARANCE: NAD HEENT: no scleral icterus, no JVD, EOMI CARDIOVASCULAR: S1S2 LUNGS: CTA ABDOMEN: soft & not tender w palpitation MUSCULOSKELETAL: no cyanosis, no swelling INTEGUMENT: no generalized palor NEUROLOGICAL: cranial nerve function from 2-12 intact intact, follows commands, speech not dysarthric Assessment and plan Patient is 74 years old female with past mental history of diabetes, hypertension, peripheral vascular diseases therapies who presents status post left above-knee amputation, for wound management, pain control, mobility and self-care skills Status post right BKA for severe PVD Pain management Continue sliding, continue Plavix Hypertension Blood pressure under control Continue home cardioprotective medications Hyperlipidemia Continue statin Anxiety/depression Continue home meds Follow-up with psychiatrist in the outpatient settings Diabetes type 2 Diabetes diet Glucose level under control Continue glipizide GERD Continue PPI Chronic Atrial Fibrillation/History of DVT and Pulmonary Embolism on coumadin INR therapeutic Heart rate under control Continue Coumadin Monitor INR VS,Fishbone, I+O VS, Fishbone, I+O Vital Signs Date Time Temp Pulse Resp B/P (MAP) Pulse Ox O2 Delivery O2 Flow Rate FiO2 03/30/20 11:52 18 Room Air 03/30/20 08:17 75 128/80 03/30/20 06:00 97.2 99 I&O- Last 24 Hours up to 6 AM 03/30/20 06:00 Intake Total 720 ml Balance 720 ml LINDA GOODMAN DO Mar 30, 2020 13:58
[2020-03-30 14:00] VITALS: BP 128/60
[2020-03-30] MEDS: WARFARIN SOD 1MG TAB PO SCH (17:37)
[2020-03-30 20:06] VITALS: BP 151/81
[2020-03-30] MEDS: NORTRIPTYLINE 10 MG CAP PO SCH (21:01)
[2020-03-30] MEDS: traZODone 25MG PER 1/2 TABLET PO SCH (21:02)
[2020-03-31 05:53] VITALS: BP 139/80
[2020-03-31] MEDS: PERCOCET 5MG/325MG TAB PO SCH ×3 (06:28→20:21)
[2020-03-31 07:26] LABS: INR 2.51; PROTHROMBIN TIME 27.7 SECONDS (12.5-14.3)
[2020-03-31] MEDS: PARoxetine 10MG TABLET PO SCH (08:25)
[2020-03-31] MEDS: CLOPIDOGREL 75 MG TAB PO SCH (08:25)
[2020-03-31] MEDS: amLODIPine 10 MG TAB PO SCH (08:25)
[2020-03-31] MEDS: glipiZIDE (GLUCOTROL) 5 MG TAB PO SCH (08:25)
[2020-03-31] MEDS: LORATADINE 10 MG TAB PO SCH (08:26)
[2020-03-31] MEDS: OMEPRAZOLE 20 MG CAP PO SCH (08:26)
[2020-03-31] MEDS: MIRALAX *UNIT DOSE* 17GM PACKET PO SCH (08:26)
[2020-03-31] MEDS: METOPROLOL TART 50 MG TAB PO SCH ×2 (08:26→20:24)
[2020-03-31] MEDS: ENALAPRIL MALEATE 10 MG TAB PO SCH ×2 (08:26→20:23)
[2020-03-31] MEDS: LEVEMIR (INSULIN DETEMIR) 1 UNITS/0.01ML SC SCH ×2 (08:27→20:20)
[2020-03-31] MEDS: traMADol 50 MG TAB PO PRN (10:05)
--- NOTE | 2020-03-31 12:19 | IPNPDOC ---
PM&R Progress Note DATE OF SERVICE: Mar 31, 2020 [employer] Progress Note DATE OF ADMISSION: Mar 24, 2020 at 15:00 INPATIENT REHABILITATION ADMISSION DAY: #[7] CHIEF COMPLAINT: Left AKA, postoperative pain, right hip pain, generalized weakness. HISTORY OF PRESENT ILLNESS: This is a 74-year-old patient with history of severe peripheral vascular disease, end-stage, status post multiple failed revascularizations including left leg bypass in Jan 2020, who was admitted for severe ischemic lower extremity pain at rest and no evidence of circulation in the distal extremity, noted during an outpatient evaluation. Patient had failed conservative measures and had recently fallen due to the increasing pain and inability to weight bear on the affected extremity. Due to severe compromise of circulation despite attempts to revascularize the limb, aggressive treatment in the form of left above knee amputation ensued, 03/19/2020. Postoperatively, she has remained stable requiring coordination of her complex medical care including diabetes, hyperlipidemia, hypertension, chronic A. fib, GERD and anxiety and depression. She is on Coumadin. INR is therapeutic. She has some grief over loss of her limb, coupled with recent loss of her of 55 years earlier this year, but is resigned to proceed as best she can to regain as much function as she can. Still sundowns with general anxiety noted several nights last week, medication adjustments noted better sleep, fewer incidents although has had 2 near falls during transfers due to impulsive maneuvers. Scheduled pain medication permits better control with pain, will continue to adjust regimen balancing optimal pain control while attempting to minimize adverse side effects. Notes good pain control this morning, still has some phantom limb discomfort, but tolerable. Less agitation and anxiety per nursing. REVIEW OF SYSTEMS: The following is a completed review of systems and has been reviewed. PAIN: Is able to tolerate a 7 running from 6-9 at this time, increased greatly during therapy EYES: No recent vision changes. EARS, NOSE, & THROAT: No throat pain, or dysphagia, or rhinorrhea. CARDIOVASCULAR: Denies chest pain or palpitations. PULMONARY: Denies shortness of breath. GASTROINTESTINAL: No severe constipation, requesting enema GENITOURINARY: Continent. MUSCULOSKELETAL: .Occasional mild right shoulder pain NEUROLOGICAL:. History noted for a peripheral neuropathy HEMATOLOGICAL: Easily bruises SKIN: Healing wound, otherwise intact PSYCHIATRIC: Notable for anxiety and depression on long-standing amitriptyline and paroxetine All other review of systems found to be negative. FUNCTIONAL STATUS: Patient is contact-guard assist for sit to stand, bed to chair and performs stand pivot transfers from wheelchair to bed with contact guard assistance. ALLERGIES: See Below MEDICATIONS: Reviewed, see below. OBJECTIVE: VITAL SIGNS: Please see below. PHYSICAL EXAMINATION: VITAL SIGNS: Please see below. GENERAL: Pleasant and cooperative. Mild distress. Alert and oriented times three. HEENT: PERRL. Extraocular movements intact. Clear conjunctiva, no adenopathy or thyromegaly. Full cervical range of motion without tenderness or spasm. Poor dentition. CARDIOVASCULAR: Regular rate and rhythm. No murmurs, rubs, or gallops. LUNGS: Clear to auscultation bilaterally. No wheezes. No rhonchi. ABDOMEN: Soft, nontender, nondistended. Healed midline scar. Healing left inguinal diagonal scar femoral region, completely closed, no tenderness, resi dual eschar, no drainage. Positive bowel sounds. Normal active bowel sounds, no organomegaly. NEUROLOGICAL:. Cranial nerves II through XII intact. Sensation grossly intact. Sensation intact. 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 SKIN: Healing left above-knee amputation, less swelling no redness no drainage. LABORATORY DATA: Reviewed. Please see below. MICROBIOLOGY: Please see below. ASSESSMENT: Left AKA. Right hip pain. Diabetes. HLD. Hypertension. A. fib. GERD. Anxiety/depression 74-year-old hypertensive diabetic lady with past medical history of severe peripheral vascular disease. Who presents status post left above-knee amputation, for wound management, pain control, mobility and self-care skills. She also has grief reaction, pain and will require supportive counseling as well as comprehensive rehabilitative care to achieve goals of resumption of optimal functional capacity. PLAN: Cardio Vascular/Pain Status post right BKA for severe PVD Hypertension hyperlipidemia Important to obtain optimal postoperative and phantom limb pain control with appropriate medications to minimize strain on the cardio vascular system. May be having altered mental status, possibly related to tramadol observed last night and during the day, have changed to as needed. Now on scheduled Percocet during the first week with breakthrough doses of Tylenol, Tramadol/Additional percocet to optimize ability to participate in therapy with good pain management, adjusting medications as healing progresses. Continue antihypertensives adjusted as indicated History of A.fib, NSR clinically, history prior DVT, now cleared to resume careful anticoagulation while monitoring wound healing. On Coumadin, INR 2.51 Education and maintenance of optimal dietary strategies for both cardiovascular and diabetic issues Anxiety, Depression Addition to chronic complex medical conditions now grief reaction of loss of limb. Continue with supportive counseling and focus on functional mobility strategies. Continue current medications including paroxetine. Low dose Klonopin not as helpful, dcd Buspar and added Vistaril for anxiety and dc Amitryptiline, subsequent Pamelor. Added TraZOdone and she is sleeping better, seems to help some mild depression/anxiety issues, hopefully we can keep her consistently sl eeping better through the night. 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 UA came back abnormal, will send reflex for culture, possible UTI contributing to events and repeated controlled falls, inconsistency to follow through with safety measures. Diabetes./Endocrine Monitor BS, low CHO diet, education. FBS reasonable Usual med coverage Resumption of glipizide based on level of intake, activity, and glucose monitoring seems adequate, FBS 120s good . History of prior thyroid procedure. Well monitor. GERD Omeprazole Dietary adjustments 1. Rehab- PT/OT pre-prosthetic residual limb care, wrapping, wound management, gait and ADls, strengthen/stretch/maintain ROM all 4 limbs, major emphasis on safety, sequencing, judgement as part of overall assessment for candidacy as a prosthetic wearer. 2. Neuro- History neuropathy, precautions for proprioceptive abnormalities, compensatory strategies 4. Cardiac- hx of PVD,CAD, maintain close observation of RLE, signs/symptoms of CP, or distress, continue medications for -HTN-Enalapril, meds, dietary adjustments -HLD- dietary adjustments -INR stable 5. Resp -incentive spirometry, monitor for infection or distress as needed 6. Endo- hx of DM c/u insulin and ISS dietary education 7. GI ppx- protonix, Stevie,to help fluid and nutritional supplementation 8. PROJECTED DISCHARGE DESTINATION: Home with family support and any durable medical equipment required to increase functional safety and mobility. Time Spent evaluation, re evaluation, charting 35min Allergies Coded Allergies: Sulfa (Sulfonamide Antibiotics) (Verified Allergy, Unknown, hives, 07/10/19) Vital Signs Vital Signs Date Time Temp Pulse Resp B/P (MAP) Pulse Ox O2 Delivery O2 Flow Rate FiO2 03/31/20 10:35 18 03/31/20 10:05 Room Air 03/31/20 08:26 71 139/80 03/31/20 05:53 97.8 96 Laboratory Data Labs 24H Laboratory Tests 2 03/30/20 16:48: Bedside Glucose (Misc Panel) 115H 03/30/20 20:33: Bedside Glucose (Misc Panel) 192H 03/31/20 06:25: Bedside Glucose (Misc Panel) 139H 03/31/20 07:00: Prothrombin Time 27.7H, Prothromb Time International Ratio 2.51 03/31/20 11:45: Bedside Glucose (Misc Panel) 120H Current Medications Current Medications Current Medications Medications (Trade) Dose Ordered Sig/Shankar Route PRN Reason Start Time Stop Time Status Last Admin Dose Admin Acetaminophen (Tylenol Tab) 500 mg Q6H PRN PO PAIN 03/24/20 15:30 03/27/20 08:13 Amitriptyline HCl (Elavil) 25 mg QHS PO 03/24/20 21:00 03/27/20 10:37 DC 03/26/20 20:18 Amlodipine Besylate (Norvasc) 10 mg DAILY PO 03/25/20 09:00 03/31/20 08:25 Buspirone HCl (Buspar) 5 mg BID PO 03/27/20 09:00 03/28/20 11:58 DC 03/28/20 09:16 Clonazepam (KlonoPIN) 0.25 mg Q8H PRN PO ANXIETY/AGITATION 03/24/20 17:45 03/27/20 10:37 DC 03/27/20 02:07 Clonazepam (KlonoPIN) 0.25 mg RQ12H PRN PO ANXIETY/AGITATION 03/27/20 11:00 03/28/20 11:58 DC Clopidogrel Bisulfate (PLAVix) 75 mg DAILY PO 03/25/20 09:00 03/31/20 08:25 Enalapril Maleate (Vasotec) 10 mg BID PO 03/24/20 21:00 03/31/20 08:26 Glipizide (Glucotrol) 5 mg DAILY@0730 PO 03/25/20 07:30 03/31/20 08:25 Home Med (Med Rec Complete!) ASDIRECTED XX 03/24/20 11:30 03/24/20 15:19 DC Hydroxyzine HCl (Atarax) 10 mg Q6HP PRN PO ANXIETY/AGITATION 03/28/20 12:00 03/29/20 20:53 Insulin Detemir (Levemir Insulin) 10 units BID SC 03/24/20 21:00 03/31/20 08:27 Loratadine (Claritin) 10 mg DAILY PO 03/25/20 09:00 03/31/20 08:26 Metformin HCl (Glucophage) 500 mg DAILY@08 PO 03/25/20 08:00 03/24/20 17:08 DC Metoprolol Tartrate (Lopressor) 50 mg BID PO 03/24/20 21:00 03/31/20 08:26 Mineral Oil (Fleet Oil Retention Enema) IF NO BM IN THREE DAYS DAILYPRN PRN [place] CONSTIPATION 03/24/20 18:15 03/30/20 13:49 Miscellaneous (Unresolved Clarification Entry) SEE LABEL COMMENTS DAILY XX 03/31/20 09:00 03/31/20 08:55 DC Nortriptyline HCl (Pamelor) 10 mg QHS PO 03/27/20 21:00 03/30/20 21:01 Omeprazole (PriLOSEC) 40 mg DAILY PO 03/25/20 09:00 03/31/20 08:26 Omeprazole (PriLOSEC) 40 mg DAILY PO 03/25/20 09:00 UNV Ondansetron HCl (Zofran) 4 mg Q6HP PRN PO NAUSEA 03/24/20 11:30 03/27/20 11:52 Oxycodone/ Acetaminophen (Percocet 5mg/ 325mg Tablet) 1 tab Q4HP PRN PO MILD/MODERATE PAIN (PS 1-7) 03/24/20 15:30 03/28/20 10:09 Oxycodone/ Acetaminophen (Percocet 5mg/ 325mg Tablet) 1 tab TID@0600,1200,2000 PO 03/31/20 12:00 Oxycodone/ Acetaminophen (Percocet 5mg/ 325mg Tablet) 2 tab TID@0600,1200,2000 PO 03/25/20 20:00 03/31/20 09:02 DC 03/31/20 06:28 Paroxetine HCl (PAXil) 10 mg DAILY PO 03/25/20 09:00 03/31/20 08:25 Polyethylene Glycol (Miralax) 1 pkt DAILY PO 03/25/20 09:00 03/31/20 08:26 Senna (Senokot) 1 tab BID PRN PO CONSTIPATION 03/24/20 15:30 03/30/20 08:21 Tramadol HCl (Ultram) 50 mg BID PO 03/24/20 21:00 03/25/20 10:45 DC 03/25/20 09:22 Tramadol HCl (Ultram) 50 mg BID PRN PO PAIN LEVEL 4-7 03/25/20 21:00 04/02/20 20:59 03/31/20 10:05 Trazodone HCl (Desyrel) 25 mg QHS PO 03/27/20 21:00 03/30/20 21:02 Warfarin Sodium (Coumadin) 3.5 mg DAILY@1700 PO 03/24/20 17:00 03/30/20 17:37 OUMAR PEDRO MD Mar 31, 2020 12:19
--- NOTE | 2020-03-31 13:00 | IPNPDOC ---
Text Note Date of Service The patient was seen on 03/31/20. NOTE Subjective: No any acute events overnight. Objective: GENERAL APPEARANCE: NAD HEENT: no scleral icterus, no JVD, EOMI CARDIOVASCULAR: S1S2 LUNGS: CTA ABDOMEN: soft & not tender w palpitation MUSCULOSKELETAL: no cyanosis, no swelling INTEGUMENT: no generalized palor NEUROLOGICAL: cranial nerve function from 2-12 intact intact, follows commands, speech not dysarthric Assessment and plan Patient is 74 years old female with past mental history of diabetes, hypertension, peripheral vascular diseases therapies who presents status post left above-knee amputation, for wound management, pain control, mobility and self-care skills Status post right BKA for severe PVD Pain management Continue sliding, continue Plavix Hypertension Blood pressure under control Continue home cardioprotective medications Hyperlipidemia Continue statin Anxiety/depression Continue home meds Follow-up with psychiatrist in the outpatient settings Diabetes type 2 Diabetes diet Glucose level under control Continue glipizide GERD Continue PPI Chronic Atrial Fibrillation/History of DVT and Pulmonary Embolism on coumadin INR therapeutic, 2.5 Heart rate under control Continue Coumadin Monitor INR VS,Fishbone, I+O VS, Fishbone, I+O Vital Signs Date Time Temp Pulse Resp B/P (MAP) Pulse Ox O2 Delivery O2 Flow Rate FiO2 03/31/20 12:35 18 03/31/20 10:05 Room Air 03/31/20 08:26 71 139/80 03/31/20 05:53 97.8 96 I&O- Last 24 Hours up to 6 AM 03/31/20 06:00 Intake Total 960 ml Output Total 350 ml Balance 610 ml LINDA GOODMAN DO Mar 31, 2020 13:00
[2020-03-31 14:00] VITALS: BP 122/57
[2020-03-31] MEDS: WARFARIN SOD 1MG TAB PO SCH (17:14)
[2020-03-31 20:00] VITALS: BP 133/69
[2020-03-31] MEDS: traZODone 25MG PER 1/2 TABLET PO SCH (20:20)
[2020-04-01 06:00] VITALS: BP 134/74
[2020-04-01] MEDS: PERCOCET 5MG/325MG TAB PO SCH (06:00)
[2020-04-01 06:12] LABS: INR 2.6; PROTHROMBIN TIME 28.4 SECONDS (12.5-14.3)
[2020-04-01] MEDS: OMEPRAZOLE 20 MG CAP PO SCH (08:40)
[2020-04-01] MEDS: METOPROLOL TART 50 MG TAB PO SCH ×2 (08:40→21:32)
[2020-04-01] MEDS: PARoxetine 10MG TABLET PO SCH (08:41)
[2020-04-01] MEDS: ENALAPRIL MALEATE 10 MG TAB PO SCH ×2 (08:41→21:32)
[2020-04-01] MEDS: ACETAMINOPHEN 500 MG TAB PO PRN (08:41)
[2020-04-01] MEDS: glipiZIDE (GLUCOTROL) 5 MG TAB PO SCH (08:41)
[2020-04-01] MEDS: CLOPIDOGREL 75 MG TAB PO SCH (08:42)
[2020-04-01] MEDS: LEVEMIR (INSULIN DETEMIR) 1 UNITS/0.01ML SC SCH ×2 (08:42→21:31)
[2020-04-01] MEDS: MIRALAX *UNIT DOSE* 17GM PACKET PO SCH (08:42)
[2020-04-01] MEDS: amLODIPine 10 MG TAB PO SCH (08:42)
[2020-04-01] MEDS: LORATADINE 10 MG TAB PO SCH (08:42)
[2020-04-01] MEDS ORDERED: PERCOCET 5MG/325MG TAB PO PRN ×2 (09:00)
--- NOTE | 2020-04-01 12:35 | IPNPDOC ---
PM&R Progress Note DATE OF SERVICE: Apr 01, 2020 [employer] Progress Note DATE OF ADMISSION: Mar 24, 2020 at 15:00 INPATIENT REHABILITATION ADMISSION DAY: #[7] CHIEF COMPLAINT: Left AKA, postoperative pain, right hip pain, generalized weakness. HISTORY OF PRESENT ILLNESS: This is a 74-year-old patient with history of severe peripheral vascular disease, end-stage, status post multiple failed revascularizations including left leg bypass in Jan 2020, who was admitted for severe ischemic lower extremity pain at rest and no evidence of circulation in the distal extremity, noted during an outpatient evaluation. Patient had failed conservative measures and had recently fallen due to the increasing pain and inability to weight bear on the affected extremity. Due to severe compromise of circulation despite attempts to revascularize the limb, aggressive treatment in the form of left above knee amputation ensued, 03/19/2020. Postoperatively, she has remained stable requiring coordination of her complex medical care including diabetes, hyperlipidemia, hypertension, chronic A. fib, GERD and anxiety and depression. She is on Coumadin. INR is therapeutic. She has some grief over loss of her limb, coupled with recent loss of her of 55 years earlier this year,fewer episodes of sundowning and less anxiety than noted several nights last week, medication adjustments noted better sleep, fewer incidents although has had 2 near falls during transfers due to impulsive maneuvers. Improving and defers scheduled pain medication permits have adjusted regimen balancing optimal pain control while attempting to minimize adverse side effects. Notes good pain control this morning, still has some phantom limb discomfort, but tolerable. Less agitation and anxiety per nursing. Bowels regular. REVIEW OF SYSTEMS: The following is a completed review of systems and has been reviewed. PAIN: Is able to tolerate a 7 running from 2-7 at this time, increased greatly during therapy EYES: No recent vision changes. EARS, NOSE, & THROAT: No throat pain, or dysphagia, or rhinorrhea. CARDIOVASCULAR: Denies chest pain or palpitations. PULMONARY: Denies shortness of breath. GASTROINTESTINAL: No severe constipation, requesting enema GENITOURINARY: Continent. MUSCULOSKELETAL: .Occasional mild right shoulder pain NEUROLOGICAL:. History noted for a peripheral neuropathy HEMATOLOGICAL: Easily bruises SKIN: Healing wound, otherwise intact PSYCHIATRIC: Notable for anxiety and depression on long-standing amitriptyline and paroxetine All other review of systems found to be negative. FUNCTIONAL STATUS: Patient is contact-guard assist for sit to stand, bed to chair and performs stand pivot transfers from wheelchair to bed with contact guard assistance. ALLERGIES: See Below MEDICATIONS: Reviewed, see below. OBJECTIVE: VITAL SIGNS: Please see below. PHYSICAL EXAMINATION: VITAL SIGNS: Please see below. GENERAL: Pleasant and cooperative. Mild distress. Alert and oriented times three. HEENT: PERRL. Extraocular movements intact. Clear conjunctiva, no adenopathy or thyromegaly. Full cervical range of motion without tenderness or spasm. Poor dentition. CARDIOVASCULAR: Regular rate and rhythm. No murmurs, rubs, or gallops. LUNGS: Clear to auscultation bilaterally. No wheezes. No rhonchi. ABDOMEN: Soft, nontender, nondistended. Healed midline scar. Healing left inguinal diagonal scar femoral region, completely closed, no tenderness, residual eschar, no drainage. Positive bowel sounds. Normal active bowel sounds, no organomegaly. NEUROLOGICAL:. Cranial nerves II through XII intact. Sensation grossly intact. Sensation intact. 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 SKIN: Healing left above-knee amputation, much less swelling no redness no drainage. LABORATORY DATA: Reviewed. Please see below. MICROBIOLOGY: Please see below. ASSESSMENT: Left AKA. Right hip pain. Diabetes. HLD. Hypertension. A. fib. GERD. Anxiety/depression 74-year-old hypertensive diabetic lady with past medical history of severe perip heral vascular disease. She presents status post left above-knee amputation, for wound management, pain control, mobility and self-care skills. She also has grief reaction, pain and will require supportive counseling as well as comprehensive rehabilitative care to achieve goals of resumption of optimal functional capacity. PLAN: Cardio Vascular/Pain Status post right BKA for severe PVD Hypertension hyperlipidemia Important to obtain optimal postoperative and phantom limb pain control with appropriate medications to minimize strain on the cardio vascular system. Was having altered mental status, possibly related to meds, improving with changes to as needed and widening dose range. Encouraging Tylenol as 1st line for pain control.Will continue adjusting medications as healing progresses. Continue antihypertensives adjusted as indicated History of A.fib, NSR clinically, history prior DVT, now cleared to resume careful anticoagulation while monitoring wound healing. On Coumadin, INR 2.6 Education and maintenance of optimal dietary strategies for both cardiovascular and diabetic issues Anxiety, Depression Addition to chronic complex medical conditions now grief reaction of loss of limb. Continue with supportive counseling and focus on functional mobility stra tegies. Continue current medications including paroxetine. Low dose Klonopin not as helpful, dcd Buspar and added Vistaril for anxiety and dc Amitryptiline, subsequent Pamelor. Added TraZOdone and she is sleeping better, seems to help some mild depression/anxiety issues, hopefully we can keep her consistently sleeping better through the night. 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 UA came back abnormal, will send reflex for culture, possible UTI contributing to events and repeated controlled falls, inconsistency to follow through with safety measures. Diabetes./Endocrine Monitor BS, low CHO diet, education. FBS reasonable Usual med coverage Resumption of glipizide based on level of intake, activity, and glucose monitoring seems adequate, FBS 120s good . History of prior thyroid procedure. Well monitor. GERD Omeprazole Dietary adjustments abnl UA, frequency, malodor, again requesting C&S 1. Rehab- PT/OT pre-prosthetic residual limb care, wrapping, wound management, gait and ADls, strengthen/stretch/maintain ROM all 4 limbs, major emphasis on safety, sequencing, judgement as part of overall assessment for candidacy as a prosthetic wearer. 2. Neuro- History neuropathy, precautions for proprioceptive abnormalities, compensatory strategies 4. Cardiac- hx of PVD,CAD, maintain close observation of RLE, signs/symptoms of CP, or distress, continue medications for -HTN-Enalapril, meds, dietary adjustments -HLD- dietary adjustments -INR stable 5. Resp -incentive spirometry, monitor for infection or distress as needed 6. Endo- hx of DM c/u insulin and ISS dietary education 7. GI ppx- protonix, Stevie,to help fluid and nutritional supplementation 8. PROJECTED DISCHARGE DESTINATION: Home with family support and any durable medical equipment required to increase functional safety and mobility. Time Spent evaluation, re evaluation, charting 35min Allergies Coded Allergies: Sulfa (Sulfonamide Antibiotics) (Verified Allergy, Unknown, hives, 07/10/19) Vital Signs Vital Signs Date Time Temp Pulse Resp B/P (MAP) Pulse Ox O2 Delivery O2 Flow Rate FiO2 04/01/20 08:40 78 134/74 04/01/20 06:00 97.6 16 97 Room Air Laboratory Data Labs 24H Laboratory Tests 2 03/31/20 16:46: Bedside Glucose (Misc Panel) 122H 03/31/20 20:20: Bedside Glucose (Misc Panel) 171H 04/01/20 05:29: Prothrombin Time 28.4H, Prothromb Time International Ratio 2.60 04/01/20 06:54: Bedside Glucose (Misc Panel) 133H 04/01/20 12:03: Bedside Glucose (Misc Panel) 93 Current Medications Current Medications Current Medications Medications (Trade) Dose Ordered Sig/Shankar Route PRN Reason Start Time Stop Time Status Last Admin Dose Admin Acetaminophen (Tylenol Tab) 500 mg Q6H PRN PO PAIN 03/24/20 15:30 04/01/20 08:41 Amitriptyline HCl (Elavil) 25 mg QHS PO 03/24/20 21:00 03/27/20 10:37 DC 03/26/20 20:18 Amlodipine Besylate (Norvasc) 10 mg DAILY PO 03/25/20 09:00 04/01/20 08:42 Buspirone HCl (Buspar) 5 mg BID PO 03/27/20 09:00 03/28/20 11:58 DC 03/28/20 09:16 Clonazepam (KlonoPIN) 0.25 mg Q8H PRN PO ANXIETY/AGITATION 03/24/20 17:45 03/27/20 10:37 DC 03/27/20 02:07 Clonazepam (KlonoPIN) 0.25 mg RQ12H PRN PO ANXIETY/AGITATION 03/27/20 11:00 03/28/20 11:58 DC Clopidogrel Bisulfate (PLAVix) 75 mg DAILY PO 03/25/20 09:00 04/01/20 08:42 Enalapril Maleate (Vasotec) 10 mg BID PO 03/24/20 21:00 04/01/20 08:41 Glipizide (Glucotrol) 5 mg DAILY@0730 PO 03/25/20 07:30 04/01/20 08:41 Home Med (Med Rec Complete!) ASDIRECTED XX 03/24/20 11:30 03/24/20 15:19 DC Hydroxyzine HCl (Atarax) 10 mg Q6HP PRN PO ANXIETY/AGITATION 03/28/20 12:00 03/29/20 20:53 Insulin Detemir (Levemir Insulin) 10 units BID SC 03/24/20 21:00 04/01/20 08:42 Loratadine (Claritin) 10 mg DAILY PO 03/25/20 09:00 04/01/20 08:42 Metformin HCl (Glucophage) 500 mg DAILY@08 PO 03/25/20 08:00 03/24/20 17:08 DC Metoprolol Tartrate (Lopressor) 50 mg BID PO 03/24/20 21:00 04/01/20 08:40 Mineral Oil (Fleet Oil Retention Enema) IF NO BM IN THREE DAYS DAILYPRN PRN [place] CONSTIPATION 03/24/20 18:15 03/30/20 13:49 Miscellaneous (Unresolved Clarification Entry) SEE LABEL COMMENTS DAILY XX 03/31/20 09:00 03/31/20 08:55 DC Nortriptyline HCl (Pamelor) 10 mg QHS PO 03/27/20 21:00 03/31/20 12:27 DC 03/30/20 21:01 Omeprazole (PriLOSEC) 40 mg DAILY PO 03/25/20 09:00 04/01/20 08:40 Omeprazole (PriLOSEC) 40 mg DAILY PO 03/25/20 09:00 UNV Ondansetron HCl (Zofran) 4 mg Q6HP PRN PO NAUSEA 03/24/20 11:30 03/27/20 11:52 Oxycodone/ Acetaminophen (Percocet 5mg/ 325mg Tablet) 1 tab Q4HP PRN PO MILD/MODERATE PAIN (PS 1-7) 03/24/20 15:30 04/01/20 08:56 DC 03/28/20 10:09 Oxycodone/ Acetaminophen (Percocet 5mg/ 325mg Tablet) 1 tab RQ8H PRN PO PAIN LEVEL 7-10 04/01/20 09:00 Oxycodone/ Acetaminophen (Percocet 5mg/ 325mg Tablet) 1 tab TID@0600,1200,2000 PO 03/31/20 12:00 04/01/20 08:56 DC 03/31/20 20:21 Oxycodone/ Acetaminophen (Percocet 5mg/ 325mg Tablet) 1 tab TID@0600,1200,2000 PRN PO PAIN LEVEL 5-10 04/01/20 09:00 Oxycodone/ Acetaminophen (Percocet 5mg/ 325mg Tablet) 2 tab TID@0600,1200,2000 PO 03/25/20 20:00 03/31/20 09:02 DC 03/31/20 06:28 Paroxetine HCl (PAXil) 10 mg DAILY PO 03/25/20 09:00 04/01/20 08:41 Polyethylene Glycol (Miralax) 1 pkt DAILY PO 03/25/20 09:00 04/01/20 08:42 Senna (Senokot) 1 tab BID PRN PO CONSTIPATION 03/24/20 15:30 03/30/20 08:21 Tramadol HCl (Ultram) 50 mg BID PO 03/24/20 21:00 03/25/20 10:45 DC 03/25/20 09:22 Tramadol HCl (Ultram) 50 mg BID PRN PO PAIN LEVEL 4-7 03/25/20 21:00 04/02/20 20:59 03/31/20 10:05 Trazodone HCl (Desyrel) 25 mg QHS PO 03/27/20 21:00 03/31/20 20:20 Warfarin Sodium (Coumadin) 3.5 mg DAILY@1700 PO 03/24/20 17:00 03/31/20 17:14 OUMAR PEDRO MD Apr 01, 2020 12:35
[2020-04-01 14:00] VITALS: BP 130/74
[2020-04-01] MEDS: WARFARIN SOD 1MG TAB PO SCH (18:17)
[2020-04-01] MEDS: PERCOCET 5MG/325MG TAB PO PRN (18:18)
[2020-04-01 20:00] VITALS: BP 168/75
[2020-04-01] MEDS: traZODone 25MG PER 1/2 TABLET PO SCH (21:31)
[2020-04-02] MEDS: PERCOCET 5MG/325MG TAB PO PRN ×2 (05:11→16:49)
[2020-04-02 06:01] VITALS: BP 165/74
[2020-04-02 06:38] LABS: INR 2.45; PROTHROMBIN TIME 27.1 SECONDS (12.5-14.3)
[2020-04-02] MEDS: MIRALAX *UNIT DOSE* 17GM PACKET PO SCH (09:00)
[2020-04-02] MEDS: glipiZIDE (GLUCOTROL) 5 MG TAB PO SCH (09:09)
[2020-04-02] MEDS: LEVEMIR (INSULIN DETEMIR) 1 UNITS/0.01ML SC SCH ×2 (09:09→21:23)
[2020-04-02] MEDS: OMEPRAZOLE 20 MG CAP PO SCH (09:09)
[2020-04-02] MEDS: PARoxetine 10MG TABLET PO SCH (09:10)
[2020-04-02] MEDS: amLODIPine 10 MG TAB PO SCH (09:10)
[2020-04-02] MEDS: METOPROLOL TART 50 MG TAB PO SCH ×2 (09:10→21:22)
[2020-04-02] MEDS: ENALAPRIL MALEATE 10 MG TAB PO SCH ×2 (09:10→21:22)
[2020-04-02] MEDS: CLOPIDOGREL 75 MG TAB PO SCH (09:10)
[2020-04-02] MEDS: ACETAMINOPHEN 500 MG TAB PO PRN ×2 (09:10→23:46)
[2020-04-02] MEDS: LORATADINE 10 MG TAB PO SCH (09:10)
--- NOTE | 2020-04-02 09:17 | IPNPDOC ---
PM&R Progress Note DATE OF SERVICE: Apr 02, 2020 Log Check Scaler Progress Note DATE OF ADMISSION: Mar 24, 2020 at 15:00 INPATIENT REHABILITATION ADMISSION DAY: #[8] CHIEF COMPLAINT: Left AKA, postoperative pain, right hip pain, generalized weakness. HISTORY OF PRESENT ILLNESS: This is a 74-year-old patient with history of severe peripheral vascular disease, end-stage, status post multiple failed revascularizations including left leg bypass in Jan 2020, who was admitted for severe ischemic lower extremity pain at rest and no evidence of circulation in the distal extremity, noted during an outpatient evaluation. Patient had failed conservative measures and had recently fallen due to the increasing pain and inability to weight bear on the affected extremity. Due to severe compromise of circulation despite attempts to revascularize the limb, aggressive treatment in the form of left above knee amputation ensued, 03/19/2020. Postoperatively, she has remained stable requiring coordination of her complex medical care including diabetes, hyperlipidemia, hypertension, chronic A. fib, GERD and anxiety and depression. She is on Coumadin. INR is therapeutic. She has some grief over loss of her limb, coupled with recent loss of her of 55 years earlier this year,fewer episodes of sundowning and less anxiety than noted several nights last week, medication adjustments noted better sleep, no further incidents this week. 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 Last week had 2 near falls during transfers due to impulsive maneuvers. Improving and defers scheduled pain medication permits have adjusted regimen balancing optimal pain control while attempting to minimize adverse side effects. Notes good pain control this morning, sleeping well, still has some phantom limb discomfort, but tolerable. Less agitation and anxiety per nursing. Bowels regular. REVIEW OF SYSTEMS: The following is a completed review of systems and has been reviewed. PAIN: Is able to tolerate a 7 running from 2-7 at this time, increased greatly during therapy EYES: No recent vision changes. EARS, NOSE, & THROAT: No throat pain, or dysphagia, or rhinorrhea. CARDIOVASCULAR: Denies chest pain or palpitations. PULMONARY: Denies shortness of breath. GASTROINTESTINAL: No severe constipation, requesting enema GENITOURINARY: Continent. MUSCULOSKELETAL: .Occasional mild right shoulder pain NEUROLOGICAL:. History noted for a peripheral neuropathy HEMATOLOGICAL: Easily bruises SKIN: Healing wound, otherwise intact PSYCHIATRIC: Notable for anxiety and depression currently stable All other review of systems found to be negative. FUNCTIONAL STATUS: Patient is contact-guard assist for sit to stand, bed to chair and performs stand pivot transfers from wheelchair to bed with contact guard assistance. Working on sequencing and consistency in adhering to safety meaures, balancing pain control. Ambulating CTG 10' with walker, gaining confidence. ALLERGIES: See Below MEDICATIONS: Reviewed, see below. OBJECTIVE: VITAL SIGNS: Please see below. PHYSICAL EXAMINATION: VITAL SIGNS: Please see below. GENERAL: Pleasant and cooperative. Mild distress. Alert and oriented times three. HEENT: PERRL. Extraocular movements intact. Clear conjunctiva, no adenopathy or thyromegaly. CARDIOVASCULAR: Regular rate and rhythm. No murmurs, rubs, or gallops. LUNGS: Clear to auscultation bilaterally. No wheezes. No rhonchi. ABDOMEN: Soft, nontender, nondistended. Healed midline scar. Healing left inguinal diagonal scar femoral region, completely closed, no tenderness, residual eschar, no drainage. Positive normal active bowel sounds, no organomegaly. NEUROLOGICAL:. Cranial nerves II through XII intact. Sensation grossly intact. Sensation intact. 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 SKIN: Healing left above-knee amputation, much less swelling no redness no drainage. LABORATORY DATA: Reviewed. Please see below. FBS well controlled 124 MICROBIOLOGY: Please see below. ASSESSMENT: Left AKA. Right hip pain. Diabetes. HLD. Hypertension. A. fib. GERD. Anxiety/depression 74-year-old hypertensive diabetic lady with past medical history of severe peripheral vascular disease. She presents status post left above-knee amputation, for wound management, pain control, mobility and self-care skills. She also has grief reaction, pain and will require supportive counseling as well as comprehensive rehabilitative care to achieve goals of resumption of optimal functional capacity. PLAN: Cardio Vascular/Pain Status post right BKA for severe PVD Hypertension hyperlipidemia Important to obtain optimal postoperative and phantom limb pain control with appropriate medications to minimize strain on the cardio vascular system. Was having altered mental status, possibly related to meds, improving with changes to as needed and widening dose range. Encouraging Tylenol as 1st line for pain control.Will continue adjusting medications as healing progresses. Continue antihypertensives adjusted as indicated History of A.fib, NSR clinically, history prior DVT, now cleared to resume careful anticoagulation while monitoring wound healing. On Coumadin, INR stable Education and maintenance of optimal dietary strategies for both cardiovascular and diabetic issues Anxiety, Depression Addition to chronic complex medical conditions now grief reaction of loss of limb. Continue with supportive counseling and focus on functional mobility strategies. Continue current medications including paroxetine. Low dose Klonopin not as helpful, dcd Buspar and added Vistaril for anxiety and dc Amitryptiline, subsequent Pamelor. Added TraZOdone and she is sleeping better, seems to help some mild depression/anxiety issues, hopefully we can keep her consistently sleeping better through the night. 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 UA came back abnormal, will send reflex for culture, possible UTI contributing to events and repeated controlled falls, inconsistency to follow through with safety measures. Diabetes./Endocrine Monitor BS, low CHO diet, education. FBS reasonable Usual med coverage Resumption of glipizide based on level of intake, activity, and glucose monitoring seems adequate, FBS 120s good . History of prior thyroid procedure. Well monitor. GERD Omeprazole Dietary adjustments abnl UA, frequency, malodor, again requesting C&S 1. Rehab- PT/OT pre-prosthetic residual limb care, wrapping, wound management, gait and ADls, strengthen/stretch/maintain ROM all 4 limbs, major emphasis on safety, sequencing, judgement as part of overall assessment for candidacy as a prosthetic wearer. Dr. Castro to confirm removal of adali, probably this week, Sutures probably next week. 2. Neuro- History neuropathy, precautions for proprioceptive abnormalities, compensatory strategies 4. Cardiac- hx of PVD,CAD, maintain close observation of RLE, signs/symptoms of CP, or distress, continue medications for -HTN-Enalapril, meds, dietary adjustments -HLD- dietary adjustments -INR stable 2.45 5. Resp -incentive spirometry, monitor for infection or distress as needed 6. Endo- hx of DM c/u insulin and ISS dietary education 7. GI ppx- protonix, Stevie,to help fluid and nutritional supplementation 8. PROJECTED DISCHARGE DESTINATION: Home with family support and any durable medical equipment required to increase functional safety and mobility. Time Spent evaluation, re evaluation, charting 15min Allergies Coded Allergies: Sulfa (Sulfonamide Antibiotics) (Verified Allergy, Unknown, hives, 07/10/19) Vital Signs Vital Signs Date Time Temp Pulse Resp B/P (MAP) Pulse Ox O2 Delivery O2 Flow Rate FiO2 04/02/20 06:11 18 04/02/20 06:01 97.3 66 165/74 (104) 100 Room Air Laboratory Data Labs 24H Laboratory Tests 2 04/01/20 12:03: Bedside Glucose (Misc Panel) 93 04/01/20 16:38: Bedside Glucose (Misc Panel) 113H 04/01/20 20:38: Bedside Glucose (Misc Panel) 207H 04/02/20 05:15: Bedside Glucose (Misc Panel) 124H 04/02/20 06:11: Prothrombin Time 27.1H, Prothromb Time International Ratio 2.45 Microbiology Microbiology 04/02/20 Urine Culture, Received Pending Current Medications Current Medications Current Medications Medications (Trade) Dose Ordered Sig/Shankar Route PRN Reason Start Time Stop Time Status Last Admin Dose Admin Acetaminophen (Tylenol Tab) 500 mg Q6H PRN PO PAIN 03/24/20 15:30 04/01/20 17:58 DC 04/01/20 08:41 Acetaminophen (Tylenol Tab) 500 mg Q6HP PRN PO MILD PAIN (PS 1-4) OR FEVER 04/01/20 17:58 Acetaminophen (Tylenol Tab) 1,000 mg Q6HP PRN PO MODERATE PAIN (PS 5-7) 04/01/20 18:15 Amitriptyline HCl (Elavil) 25 mg QHS PO 03/24/20 21:00 03/27/20 10:37 DC 03/26/20 20:18 Amlodipine Besylate (Norvasc) 10 mg DAILY PO 03/25/20 09:00 04/01/20 08:42 Buspirone HCl (Buspar) 5 mg BID PO 03/27/20 09:00 03/28/20 11:58 DC 03/28/20 09:16 Clonazepam (KlonoPIN) 0.25 mg Q8H PRN PO ANXIETY/AGITATION 03/24/20 17:45 03/27/20 10:37 DC 03/27/20 02:07 Clonazepam (KlonoPIN) 0.25 mg RQ12H PRN PO ANXIETY/AGITATION 03/27/20 11:00 03/28/20 11:58 DC Clopidogrel Bisulfate (PLAVix) 75 mg DAILY PO 03/25/20 09:00 04/01/20 08:42 Enalapril Maleate (Vasotec) 10 mg BID PO 03/24/20 21:00 04/01/20 21:32 Glipizide (Glucotrol) 5 mg DAILY@0730 PO 03/25/20 07:30 04/01/20 08:41 Home Med (Med Rec Complete!) ASDIRECTED XX 03/24/20 11:30 03/24/20 15:19 DC Hydroxyzine HCl (Atarax) 10 mg Q6HP PRN PO ANXIETY/AGITATION 03/28/20 12:00 03/29/20 20:53 Insulin Detemir (Levemir Insulin) 10 units BID SC 03/24/20 21:00 04/01/20 21:31 Loratadine (Claritin) 10 mg DAILY PO 03/25/20 09:00 04/01/20 08:42 Metformin HCl (Glucophage) 500 mg DAILY@08 PO 03/25/20 08:00 03/24/20 17:08 DC Metoprolol Tartrate (Lopressor) 50 mg BID PO 03/24/20 21:00 04/01/20 21:32 Mineral Oil (Fleet Oil Retention Enema) IF NO BM IN THREE DAYS DAILYPRN PRN [place] CONSTIPATION 03/24/20 18:15 03/30/20 13:49 Miscellaneous (Unresolved Clarification Entry) SEE LABEL COMMENTS DAILY XX 03/31/20 09:00 03/31/20 08:55 DC Miscellaneous (Unresolved Clarification Entry) SEE LABEL COMMENTS DAILY XX 04/01/20 09:00 04/01/20 17:58 DC Nortriptyline HCl (Pamelor) 10 mg QHS PO 03/27/20 21:00 03/31/20 12:27 DC 03/30/20 21:01 Omeprazole (PriLOSEC) 40 mg DAILY PO 03/25/20 09:00 04/01/20 08:40 Omeprazole (PriLOSEC) 40 mg DAILY PO 03/25/20 09:00 UNV Ondansetron HCl (Zofran) 4 mg Q6HP PRN PO NAUSEA 03/24/20 11:30 03/27/20 11:52 Oxycodone/ Acetaminophen (Percocet 5mg/ 325mg Tablet) 1 tab Q4HP PRN PO MILD/MODERATE PAIN (PS 1-7) 03/24/20 15:30 04/01/20 08:56 DC 03/28/20 10:09 Oxycodone/ Acetaminophen (Percocet 5mg/ 325mg Tablet) 1 tab Q8HP PRN PO SEVERE PAIN (PS 8-10) 04/01/20 18:15 04/02/20 05:11 Oxycodone/ Acetaminophen (Percocet 5mg/ 325mg Tablet) 1 tab RQ8H PRN PO PAIN LEVEL 7-10 04/01/20 09:00 04/01/20 18:10 DC Oxycodone/ Acetaminophen (Percocet 5mg/ 325mg Tablet) 1 tab TID@0600,1200,2000 PO 03/31/20 12:00 04/01/20 08:56 DC 03/31/20 20:21 Oxycodone/ Acetaminophen (Percocet 5mg/ 325mg Tablet) 1 tab TID@0600,1200,2000 PRN PO PAIN LEVEL 5-10 04/01/20 09:00 Cancel Oxycodone/ Acetaminophen (Percocet 5mg/ 325mg Tablet) 2 tab TID@0600,1200,2000 PO 03/25/20 20:00 03/31/20 09:02 DC 03/31/20 06:28 Paroxetine HCl (PAXil) 10 mg DAILY PO 03/25/20 09:00 04/01/20 08:41 Polyethylene Glycol (Miralax) 1 pkt DAILY PO 03/25/20 09:00 04/01/20 08:42 Senna (Senokot) 1 tab BID PRN PO CONSTIPATION 03/24/20 15:30 03/30/20 08:21 Tramadol HCl (Ultram) 50 mg BID PO 03/24/20 21:00 03/25/20 10:45 DC 03/25/20 09:22 Tramadol HCl (Ultram) 50 mg BID PRN PO PAIN LEVEL 4-7 03/25/20 21:00 04/02/20 20:59 03/31/20 10:05 Trazodone HCl (Desyrel) 25 mg QHS PO 03/27/20 21:00 04/01/20 21:31 Warfarin Sodium (Coumadin) 3.5 mg DAILY@1700 PO 03/24/20 17:00 04/01/20 18:17 OUMAR PEDRO MD Apr 02, 2020 09:12
[2020-04-02] MEDS: ONDANSETRON 4 MG TAB PO PRN (11:13)
[2020-04-02 14:00] VITALS: BP 130/76
[2020-04-02] MEDS: WARFARIN SOD 1MG TAB PO SCH (16:48)
[2020-04-02 20:00] VITALS: BP 126/63
[2020-04-02] MEDS: traZODone 25MG PER 1/2 TABLET PO SCH (21:21)
[2020-04-02] MEDS: hydrOXYzine 10 MG TAB PO PRN (23:45)
[2020-04-03 06:53] LABS: HEMATOCRIT 38.2 % (36.0-47.0); HEMOGLOBIN 11.9 g/dl (12.0-15.5); MEAN CORPUSCULAR HGB CONC 31.2 g/dl (32.0-36.5); MEAN CORPUSCULAR VOLUME 86.8 fl (80.0-96.0); PLATELET COUNT, AUTOMATED 562 10^3/uL (150-450); WHITE BLOOD COUNT 14.3 10^3/uL (4.0-10.0)
[2020-04-03 07:03] LABS: INR 2.53; PROTHROMBIN TIME 27.8 SECONDS (12.5-14.3)
[2020-04-03 07:36] LABS: CALCIUM LEVEL 10.9 MG/DL (8.8-10.2); CREATININE FOR GFR 1.2 MG/DL (0.55-1.30); GLOMERULAR FILTRATION RATE 46.9 (>39); POTASSIUM SERUM 4.3 MEQ/L (3.5-5.1)
[2020-04-03] MEDS: ENALAPRIL MALEATE 10 MG TAB PO SCH ×2 (09:16→20:44)
[2020-04-03] MEDS: amLODIPine 10 MG TAB PO SCH (09:16)
[2020-04-03] MEDS: CLOPIDOGREL 75 MG TAB PO SCH (09:16)
[2020-04-03] MEDS: LORATADINE 10 MG TAB PO SCH (09:17)
[2020-04-03] MEDS: METOPROLOL TART 50 MG TAB PO SCH ×2 (09:17→20:45)
[2020-04-03] MEDS: PARoxetine 10MG TABLET PO SCH (09:17)
[2020-04-03] MEDS: OMEPRAZOLE 20 MG CAP PO SCH (09:17)
[2020-04-03] MEDS: MIRALAX *UNIT DOSE* 17GM PACKET PO SCH (09:18)
[2020-04-03] MEDS: glipiZIDE (GLUCOTROL) 5 MG TAB PO SCH (09:18)
[2020-04-03] MEDS: LEVEMIR (INSULIN DETEMIR) 1 UNITS/0.01ML SC SCH ×2 (09:19→20:45)
[2020-04-03] MEDS: PERCOCET 5MG/325MG TAB PO PRN ×2 (13:51→23:51)
[2020-04-03 14:00] VITALS: BP 151/69
--- NOTE | 2020-04-03 14:41 | IPNPDOC ---
Text Note Date of Service The patient was seen on 04/03/20. NOTE Vascular surgery. Dr. Castro Patient seen and examined status post left above-knee amputation. Her incision is clean dry and intact. Appears to be healing well. No erythema, drainage, edema. Continue PT/OT Discussed with nursing and rehabilitation attending that it would be okay to remove adali at this time. Leave sutures intact for an additional week. Plan for outpatient follow-up in the office. We appreciate the opportunity to participate in the care of this patient. VS,Fishbone, I+O VS, Fishbone, I+O Laboratory Tests 04/03/20 06:32 04/03/20 06:33 Vital Signs Date Time Temp Pulse Resp B/P (MAP) Pulse Ox O2 Delivery O2 Flow Rate FiO2 04/03/20 14:00 98.3 67 18 151/69 (96) 98 Room Air I&O- Last 24 Hours up to 6 AM 04/03/20 06:00 Intake Total 820 ml Balance 820 ml Angelina Baumann Apr 03, 2020 14:41
--- NOTE | 2020-04-03 17:07 | IPNPDOC ---
PM&R Progress Note DATE OF SERVICE: Apr 03, 2020 Senior Software Tester Progress Note DATE OF ADMISSION: Mar 24, 2020 at 15:00 INPATIENT REHABILITATION ADMISSION DAY: #[8] CHIEF COMPLAINT: Left AKA, postoperative pain, right hip pain, generalized weakness. HISTORY OF PRESENT ILLNESS: This is a 74-year-old patient with history of severe peripheral vascular disease, end-stage, status post multiple failed revascularizations including le ft leg bypass in Jan 2020, who was admitted for severe ischemic lower extremity pain at rest and no evidence of circulation in the distal extremity, noted during an outpatient evaluation. Patient had failed conservative measures and had recently fallen due to the increasing pain and inability to weight bear on the affected extremity. Due to severe compromise of circulation despite attempts to revascularize the limb, aggressive treatment in the form of left above knee amputation ensued, 03/19/2020. Postoperatively, she has remained stable requiring coordination of her complex medical care including diabetes, hyperlipidemia, hypertension, chronic A. fib, GERD and anxiety and depression. She is on Coumadin. INR is therapeutic. 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 Improving and defers scheduled pain medication permits have adjusted regimen balancing optimal pain control while attempting to minimize adverse side effects. Still has some phantom limb discomfort, but tolerable, Dr. Castro pleased with healing, gave ok for removing adali today. Less agitation and anxiety per nursing. Bowels regular. REVIEW OF SYSTEMS: The following is a completed review of systems and has been reviewed. PAIN: Is able to tolerate a 7 running from 2-7 at this time, increased greatly during therapy EYES: No recent vision changes. EARS, NOSE, & THROAT: No throat pain, or dysphagia, or rhinorrhea. CARDIOVASCULAR: Denies chest pain or palpitations. PULMONARY: Denies shortness of breath. GASTROINTESTINAL: No severe constipation, requesting enema GENITOURINARY: Continent. MUSCULOSKELETAL: .Occasional mild right shoulder pain NEUROLOGICAL:. History noted for a peripheral neuropathy HEMATOLOGICAL: Easily bruises SKIN: Healing wound, otherwise intact PSYCHIATRIC: Notable for anxiety and depression currently stable All other review of systems found to be negative. FUNCTIONAL STATUS: ALLERGIES: See Below MEDICATIONS: Reviewed, see below. OBJECTIVE: VITAL SIGNS: Please see below. PHYSICAL EXAMINATION: VITAL SIGNS: Please see below. GENERAL: Pleasant and cooperative. Mild distress. Alert and oriented times three. HEENT: Extraocular movements intact. CARDIOVASCULAR: Regular rate and rhythm. No murmurs, rubs, or gallops. LUNGS: Clear to auscultation bilaterally. No wheezes. No rhonchi. ABDOMEN: Soft, nontender, nondistended. Healed midline scar. Healing left inguinal diagonal scar femoral region, completely closed, no tenderness. Positive normal active bowel sounds, no organomegaly. NEUROLOGICAL:. Cranial nerves II through XII grossly intact. Sensation grossly intact. Both upper extremities, right lower extremity EXTREMITIES: 5/5 eye physician, elbow flexion, elbow extension, right knee extension, foot dorsiflexion, eversion, plantar flexion. SKIN: Healing left above-knee amputation, much less swelling no redness no drainage. LABORATORY DATA: Reviewed. Please see below. FBS well controlled MICROBIOLOGY: Please see below. ASSESSMENT: Left AKA. Right hip pain. Diabetes. HLD. Hypertension. A. fib. GERD. Anxiety/depression 74-year-old hypertensive diabetic lady with past medical history of severe peripheral vascular disease. She presents status post left above-knee amputation, for wound management, pain control, mobility and self-care skills. She also has grief reaction, pain and will require supportive counseling as well as comprehensive rehabilitative care to achieve goals of resumption of optimal functional capacity. PLAN: Cardio Vascular/Pain Status post right BKA for severe PVD Hypertension hyperlipidemia Important to obtain optimal postoperative and phantom limb pain control with appropriate medications to minimize strain on the cardio vascular system. Was having altered mental status, possibly related to meds, improving with ch anges to as needed and widening dose range. Encouraging Tylenol as 1st line for pain control. Working better. Will continue adjusting medications as healing progresses. Continue antihypertensives adjusted as indicated History of A.fib, NSR clinically, history prior DVT, now cleared to resume careful anticoagulation while monitoring wound healing. On Coumadin, INR stable Education and maintenance of optimal dietary strategies for both cardiovascular and diabetic issues Anxiety, Depression Addition to chronic complex medical conditions now grief reaction of loss of limb. Continue with supportive counseling and focus on functional mobility strategies. Continue current medications including paroxetine. Low dose Klonopin not as helpful, dcd Buspar and added Vistaril for anxiety and dc Amitryptiline, subsequent Pamelor. Added TraZOdone and she is sleeping better, seems to help some mild depression/anxiety issues, hopefully we can keep her consistently sleeping better through the night. CHUTE LOADER also checking cognitive eval for waxing and waning MS/anxiety issues. CM to work on linkage to supportive care and grief counselling, family encouraging this as well. UA came back abnormal, will send reflex for culture, possible UTI contributing to sundowning events and repeated controlled falls, inconsistency to follow through with safety measures. Diabetes./Endocrine Monitor BS, low CHO diet, education. FBS reasonable, a bit low w/ increased activity levels Usual med coverage Resumption of glipizide based on level of intake, activity, and glucose monitoring seems adequate . History of prior thyroid procedure. Well monitor. GERD Omeprazole Dietary adjustments 1. Rehab- PT/OT pre-prosthetic residual limb care, wrapping, wound management, gait and ADls, strengthen/stretch/maintain ROM all 4 limbs, major emphasis on safety, sequencing, judgement as part of overall assessment for candidacy as a prosthetic wearer. Dr. Castro to confirm removal of adali, probably this week, Sutures probably next week. 2. Neuro- History neuropathy, precautions for proprioceptive abnormalities, compensatory strategies 4. Cardiac- hx of PVD,CAD, maintain close observation of RLE, signs/symptoms of CP, or distress, continue medications for -HTN-Enalapril, meds, dietary adjustments -HLD- dietary adjustments -INR stable 5. Resp -incentive spirometry, monitor for infection or distress as needed 6. Endo- hx of DM c/u insulin and ISS dietary education 7. GI ppx- protonix, Stevie,to help fluid and nutritional supplementation 8. Grief counselling 9. PROJECTED DISCHARGE DESTINATION: Home with family support and any durable medical equipment required to increase functional safety and mobility. Time Spent evaluation, re evaluation, charting 15min Allergies Coded Allergies: Sulfa (Sulfonamide Antibiotics) (Verified Allergy, Unknown, hives, 07/10/19) Vital Signs Vital Signs Date Time Temp Pulse Resp B/P (MAP) Pulse Ox O2 Delivery O2 Flow Rate FiO2 04/03/20 14:00 98.3 67 18 151/69 (96) 98 Room Air Laboratory Data CBC/BMP Laboratory Tests 04/03/20 06:32 04/03/20 06:33 Labs 24H Laboratory Tests 2 04/02/20 21:13: Bedside Glucose (Misc Panel) 234H 04/03/20 06:29: Bedside Glucose (Misc Panel) 159H 04/03/20 06:32: Nucleated Red Blood Cells % (auto) 0.0 04/03/20 06:33: Prothrombin Time 27.8H, Prothromb Time International Ratio 2.53, Anion Gap 10, Glomerular Filtration Rate 46.9, Calcium Level 10.9H 04/03/20 11:48: Bedside Glucose (Misc Panel) 246H 04/03/20 16:15: Bedside Glucose (Misc Panel) 91 Microbiology Microbiology 04/02/20 Urine Culture, Received Pending Current Medications Current Medications Current Medications Medications (Trade) Dose Ordered Sig/Shankar Route PRN Reason Start Time Stop Time Status Last Admin Dose Admin Acetaminophen (Tylenol Tab) 500 mg Q6H PRN PO PAIN 03/24/20 15:30 04/01/20 17:58 DC 04/01/20 08:41 Acetaminophen (Tylenol Tab) 500 mg Q6HP PRN PO MILD PAIN (PS 1-4) OR FEVER 04/01/20 17:58 04/02/20 23:46 Acetaminophen (Tylenol Tab) 1,000 mg Q6HP PRN PO MODERATE PAIN (PS 5-7) 04/01/20 18:15 04/02/20 09:10 Amitriptyline HCl (Elavil) 25 mg QHS PO 03/24/20 21:00 03/27/20 10:37 DC 03/26/20 20:18 Amlodipine Besylate (Norvasc) 10 mg DAILY PO 03/25/20 09:00 04/03/20 09:16 Buspirone HCl (Buspar) 5 mg BID PO 03/27/20 09:00 03/28/20 11:58 DC 03/28/20 09:16 Clonazepam (KlonoPIN) 0.25 mg Q8H PRN PO ANXIETY/AGITATION 03/24/20 17:45 03/27/20 10:37 DC 03/27/20 02:07 Clonazepam (KlonoPIN) 0.25 mg RQ12H PRN PO ANXIETY/AGITATION 03/27/20 11:00 03/28/20 11:58 DC Clopidogrel Bisulfate (PLAVix) 75 mg DAILY PO 03/25/20 09:00 04/03/20 09:16 Enalapril Maleate (Vasotec) 10 mg BID PO 03/24/20 21:00 04/03/20 09:16 Glipizide (Glucotrol) 5 mg DAILY@0730 PO 03/25/20 07:30 04/03/20 09:18 Home Med (Med Rec Complete!) ASDIRECTED XX 03/24/20 11:30 03/24/20 15:19 DC Hydroxyzine HCl (Atarax) 10 mg Q6HP PRN PO ANXIETY/AGITATION 03/28/20 12:00 04/02/20 23:45 Insulin Detemir (Levemir Insulin) 10 units BID SC 03/24/20 21:00 04/03/20 09:19 Loratadine (Claritin) 10 mg DAILY PO 03/25/20 09:00 04/03/20 09:17 Metformin HCl (Glucophage) 500 mg DAILY@08 PO 03/25/20 08:00 03/24/20 17:08 DC Metoprolol Tartrate (Lopressor) 50 mg BID PO 03/24/20 21:00 04/03/20 09:17 Mineral Oil (Fleet Oil Retention Enema) IF NO BM IN THREE DAYS DAILYPRN PRN [place] CONSTIPATION 03/24/20 18:15 03/30/20 13:49 Miscellaneous (Unresolved Clarification Entry) SEE LABEL COMMENTS DAILY XX 03/31/20 09:00 03/31/20 08:55 DC Miscellaneous (Unresolved Clarification Entry) SEE LABEL COMMENTS DAILY XX 04/01/20 09:00 04/01/20 17:58 DC Nortriptyline HCl (Pamelor) 10 mg QHS PO 03/27/20 21:00 03/31/20 12:27 DC 03/30/20 21:01 Omeprazole (PriLOSEC) 40 mg DAILY PO 03/25/20 09:00 04/03/20 09:17 Omeprazole (PriLOSEC) 40 mg DAILY PO 03/25/20 09:00 UNV Ondansetron HCl (Zofran) 4 mg Q6HP PRN PO NAUSEA 03/24/20 11:30 04/02/20 11:13 Oxycodone/ Acetaminophen (Percocet 5mg/ 325mg Tablet) 1 tab Q4HP PRN PO MILD/MODERATE PAIN (PS 1-7) 03/24/20 15:30 04/01/20 08:56 DC 03/28/20 10:09 Oxycodone/ Acetaminophen (Percocet 5mg/ 325mg Tablet) 1 tab Q8HP PRN PO SEVERE PAIN (PS 8-10) 04/01/20 18:15 04/03/20 13:51 Oxycodone/ Acetaminophen (Percocet 5mg/ 325mg Tablet) 1 tab RQ8H PRN PO PAIN LEVEL 7-10 04/01/20 09:00 04/01/20 18:10 DC Oxycodone/ Acetaminophen (Percocet 5mg/ 325mg Tablet) 1 tab TID@0600,1200,2000 PO 03/31/20 12:00 04/01/20 08:56 DC 03/31/20 20:21 Oxycodone/ Acetaminophen (Percocet 5mg/ 325mg Tablet) 1 tab TID@0600,1200,2000 PRN PO PAIN LEVEL 5-10 04/01/20 09:00 Cancel Oxycodone/ Acetaminophen (Percocet 5mg/ 325mg Tablet) 2 tab TID@0600,1200,2000 PO 03/25/20 20:00 03/31/20 09:02 DC 03/31/20 06:28 Paroxetine HCl (PAXil) 10 mg DAILY PO 03/25/20 09:00 04/03/20 09:17 Polyethylene Glycol (Miralax) 1 pkt DAILY PO 03/25/20 09:00 04/03/20 09:18 Senna (Senokot) 1 tab BID PRN PO CONSTIPATION 03/24/20 15:30 03/30/20 08:21 Tramadol HCl (Ultram) 50 mg BID PO 03/24/20 21:00 03/25/20 10:45 DC 03/25/20 09:22 Tramadol HCl (Ultram) 50 mg BID PRN PO PAIN LEVEL 4-7 03/25/20 21:00 04/02/20 20:59 DC 03/31/20 10:05 Trazodone HCl (Desyrel) 25 mg QHS PO 03/27/20 21:00 04/02/20 21:21 Warfarin Sodium (Coumadin) 3.5 mg DAILY@1700 PO 03/24/20 17:00 11/4/20 16:48 OUMAR PEDRO MD Apr 03, 2020 17:07
[2020-04-03] MEDS: WARFARIN SOD 1MG TAB PO SCH (17:14)
[2020-04-03] MEDS: ACETAMINOPHEN 500 MG TAB PO PRN (17:34)
[2020-04-03 20:15] VITALS: BP 145/79
[2020-04-03] MEDS: traZODone 25MG PER 1/2 TABLET PO SCH (20:44)
[2020-04-03] MEDS: hydrOXYzine 10 MG TAB PO PRN (23:50)
[2020-04-04 05:46] VITALS: BP 139/75
[2020-04-04] MEDS: LORATADINE 10 MG TAB PO SCH (08:01)
[2020-04-04] MEDS: PARoxetine 10MG TABLET PO SCH (08:02)
[2020-04-04] MEDS: glipiZIDE (GLUCOTROL) 5 MG TAB PO SCH (08:02)
[2020-04-04] MEDS: OMEPRAZOLE 20 MG CAP PO SCH (08:02)
[2020-04-04] MEDS: CLOPIDOGREL 75 MG TAB PO SCH (08:02)
[2020-04-04] MEDS: MIRALAX *UNIT DOSE* 17GM PACKET PO SCH ×2 (08:05→08:28)
[2020-04-04] MEDS: ENALAPRIL MALEATE 10 MG TAB PO SCH ×2 (08:05→21:26)
[2020-04-04] MEDS: METOPROLOL TART 50 MG TAB PO SCH ×2 (08:06→21:26)
[2020-04-04] MEDS: amLODIPine 10 MG TAB PO SCH (08:06)
[2020-04-04] MEDS: LEVEMIR (INSULIN DETEMIR) 1 UNITS/0.01ML SC SCH ×2 (08:07→21:26)
[2020-04-04] MEDS: PERCOCET 5MG/325MG TAB PO PRN ×2 (08:12→16:23)
[2020-04-04 08:13] LABS: INR 2.58; PROTHROMBIN TIME 28.3 SECONDS (12.5-14.3)
[2020-04-04 12:00] VITALS: BP 129/65
[2020-04-04] MEDS: ACETAMINOPHEN 500 MG TAB PO PRN (13:09)
[2020-04-04] MEDS: WARFARIN SOD 1MG TAB PO SCH (16:23)
[2020-04-04] MEDS: traZODone 25MG PER 1/2 TABLET PO SCH (21:25)
[2020-04-04 21:30] VITALS: BP 145/69
[2020-04-05] MEDS: PERCOCET 5MG/325MG TAB PO PRN ×3 (01:00→21:29)
[2020-04-05 06:50] VITALS: BP 152/64
[2020-04-05 07:25] LABS: INR 2.6; PROTHROMBIN TIME 28.4 SECONDS (12.5-14.3)
[2020-04-05] MEDS: ENALAPRIL MALEATE 10 MG TAB PO SCH ×2 (08:44→21:30)
[2020-04-05] MEDS: OMEPRAZOLE 20 MG CAP PO SCH (08:44)
[2020-04-05] MEDS: amLODIPine 10 MG TAB PO SCH (08:45)
[2020-04-05] MEDS: CLOPIDOGREL 75 MG TAB PO SCH (08:45)
[2020-04-05] MEDS: glipiZIDE (GLUCOTROL) 5 MG TAB PO SCH (08:45)
[2020-04-05] MEDS: PARoxetine 10MG TABLET PO SCH (08:45)
[2020-04-05] MEDS: METOPROLOL TART 50 MG TAB PO SCH ×2 (08:45→21:30)
[2020-04-05] MEDS: LORATADINE 10 MG TAB PO SCH (08:45)
[2020-04-05] MEDS: LEVEMIR (INSULIN DETEMIR) 1 UNITS/0.01ML SC SCH ×2 (08:46→21:29)
[2020-04-05] MEDS: MIRALAX *UNIT DOSE* 17GM PACKET PO SCH (08:46)
[2020-04-05 14:00] VITALS: BP 151/84
[2020-04-05] MEDS: ACETAMINOPHEN 500 MG TAB PO PRN (17:39)
[2020-04-05] MEDS: WARFARIN SOD 1MG TAB PO SCH (17:40)
[2020-04-05 19:42] VITALS: BP 141/74
[2020-04-05] MEDS: traZODone 25MG PER 1/2 TABLET PO SCH (21:29)
[2020-04-06 05:59] VITALS: BP 140/71
[2020-04-06 07:32] LABS: INR 2.43
[2020-04-06] MEDS: MIRALAX *UNIT DOSE* 17GM PACKET PO SCH (08:24)
[2020-04-06] MEDS: LEVEMIR (INSULIN DETEMIR) 1 UNITS/0.01ML SC SCH ×2 (08:24→21:19)
[2020-04-06] MEDS: ENALAPRIL MALEATE 10 MG TAB PO SCH ×2 (08:28→21:18)
[2020-04-06] MEDS: CLOPIDOGREL 75 MG TAB PO SCH (08:29)
[2020-04-06] MEDS: OMEPRAZOLE 20 MG CAP PO SCH (08:29)
[2020-04-06] MEDS: LORATADINE 10 MG TAB PO SCH (08:29)
[2020-04-06] MEDS: amLODIPine 10 MG TAB PO SCH (08:29)
[2020-04-06] MEDS: METOPROLOL TART 50 MG TAB PO SCH ×2 (08:29→21:19)
[2020-04-06] MEDS: glipiZIDE (GLUCOTROL) 5 MG TAB PO SCH (08:30)
[2020-04-06] MEDS: PARoxetine 10MG TABLET PO SCH (08:30)
[2020-04-06] MEDS: PERCOCET 5MG/325MG TAB PO PRN ×2 (08:33→21:18)
[2020-04-06 14:00] VITALS: BP 136/82
[2020-04-06] MEDS: ACETAMINOPHEN 500 MG TAB PO PRN ×2 (14:34→22:59)
[2020-04-06] MEDS: WARFARIN SOD 1MG TAB PO SCH (18:13)
[2020-04-06 20:00] VITALS: BP 134/82
[2020-04-06] MEDS: traZODone 25MG PER 1/2 TABLET PO SCH (21:17)
[2020-04-06] MEDS: hydrOXYzine 10 MG TAB PO PRN (22:59)
[2020-04-07 06:00] VITALS: BP 129/86
[2020-04-07] MEDS: CLOPIDOGREL 75 MG TAB PO SCH (09:14)
[2020-04-07] MEDS: LORATADINE 10 MG TAB PO SCH (09:14)
[2020-04-07] MEDS: MIRALAX *UNIT DOSE* 17GM PACKET PO SCH (09:14)
[2020-04-07] MEDS: PARoxetine 10MG TABLET PO SCH (09:17)
[2020-04-07] MEDS: ENALAPRIL MALEATE 10 MG TAB PO SCH ×2 (09:17→21:04)
[2020-04-07] MEDS: METOPROLOL TART 50 MG TAB PO SCH ×2 (09:17→21:04)
[2020-04-07] MEDS: amLODIPine 10 MG TAB PO SCH (09:17)
[2020-04-07] MEDS: OMEPRAZOLE 20 MG CAP PO SCH (09:18)
[2020-04-07] MEDS: glipiZIDE (GLUCOTROL) 5 MG TAB PO SCH (09:18)
[2020-04-07] MEDS: LEVEMIR (INSULIN DETEMIR) 1 UNITS/0.01ML SC SCH ×2 (09:19→21:05)
[2020-04-07 10:05] LABS: INR 2.41; PROTHROMBIN TIME 26.8 SECONDS (12.5-14.3)
[2020-04-07 14:00] VITALS: BP 143/67
--- NOTE | 2020-04-07 14:21 | IPNPDOC ---
Text Note Date of Service The patient was seen on 04/07/20. NOTE Patient was seen and examined. The wound is healing well and the patient has no overnight events Physical examination GENERAL APPEARANCE: NAD HEENT: no scleral icterus, no JVD, EOMI CARDIOVASCULAR: S1S2 LUNGS: CTA ABDOMEN: soft & not tender w palpitation MUSCULOSKELETAL: no cyanosis, no swelling INTEGUMENT: no generalized palor NEUROLOGICAL: cranial nerve function from 2-12 intact intact, follows commands, speech not dysarthric Assessment and plan This is a 74-year-old patient with history of severe peripheral vascular disease status post multiple failed revascularizations including left leg bypass in Jan 2020, who was admitted for severe ischemic lower extremity pain at rest and underwent left above knee amputation ensued, 03/19/2020. She has a a complex me dical history of diabetes, hyperlipidemia, hypertension, chronic A. fib on coumadin , GERD and anxiety and depression. She has some phantom limb discomfort, but tolerable. Vascular has been following and Dr. Castro pleased with healing, adali have been already removed. Currently the patient is in ARU for therapy. 1: Status post right BKA for severe PVD . Pain management as per primary. Vascular has been following and Dr. Castro pleased with healing, adali have been already removed. continue Plavix which has been resumed as patinet has severe PAD. 2: Hypertension. Blood pressure under control. Continue home cardioprotective medications with metaprolol, enalapril and amlo. BP round 130/80. Stable. 3: Hyperlipidemia. Continue statin 4: Anxiety/depression Continue home meds 5: Diabetes type 2: Diabetes diet, Continue glipizide 6: GERD: Continue PPI 7: Chronic Atrial Fibrillation/History of DVT and Pulmonary Embolism on coumadin INR therapeutic, Heart rate under control with metoprolol, Continue Coumadin . Monitor INR 8: UTI. The patient has had a positive urine culture with Escherichia coli which is pansensitive and the patient had more than her thousand colonies. As the patient has sulfa allergy. The patient will be started on Levaquin 250 mg for 5 days. Disposition as per primary. VS,Fishbone, I+O VS, Fishbone, I+O Vital Signs Date Time Temp Pulse Resp B/P (MAP) Pulse Ox O2 Delivery O2 Flow Rate FiO2 04/07/20 09:17 130/82 04/07/20 06:00 99.9 101 20 98 Room Air I&O- Last 24 Hours up to 6 AM 04/07/20 05:59 Intake Total 960 ml Balance 960 ml PEPITO SANFORD MD Apr 07, 2020 14:08
--- NOTE | 2020-04-07 16:01 | IPNPDOC ---
PM&R Progress Note DATE OF SERVICE: Apr 07, 2020 [employer] Progress Note DATE OF SERVICE: Apr 08, 2020 [employer] Progress Note DATE OF ADMISSION: Mar 24, 2020 at 15:00 INPATIENT REHABILITATION ADMISSION DAY: #14 CHIEF COMPLAINT: Left AKA, postoperative pain, right hip pain, generalized weakness. HISTORY OF PRESENT ILLNESS: This is a 74-year-old patient with history of severe peripheral vascular disease, end-stage, status post multiple failed revascularizations including left leg bypass in Jan 2020, who was admitted for severe ischemic lower extremity pain at rest and no evidence of circulation in the distal extremity, noted during an outpatient evaluation. Patient had failed conservative measures and had recently fallen due to the increasing pain and inability to weight bear on the affected extremity. Due to severe compromise of circulation despite attempts to revascularize the limb, aggressive treatment in the form of left above knee amputation ensued, 03/19/2020. Postoperatively, she has remained stable requiring coordination of her complex medical care including diabetes, hyperlipidemia, hypertension, chronic A. fib, GERD and anxiety and depression. She is on Coumadin. INR is therapeutic. She has some grief over loss of her limb, coupled with recent loss of her of 55 years earlier this year, working on grief counselling options for her. She has been on isolation precautions and a bit discouraged with increased pain levels this morning. AMPOULE FILLER evaluation and orientation strategies implemented. No falls recently during transfers, absorbing learning and fewer impulsive maneuvers. Has some phantom limb and increased discomfort, interfering with sleep, doing self wrapping, adali removed late last week. Bowels regular. REVIEW OF SYSTEMS: The following is a completed review of systems and has been reviewed. PAIN: Is able to tolerate a 7 running from 2-8 at this time, increased greatly during therapy EYES: No recent vision changes. EARS, NOSE, & THROAT: No throat pain, or dysphagia, or rhinorrhea. CARDIOVASCULAR: Denies chest pain or palpitations. PULMONARY: Denies shortness of breath. GASTROINTESTINAL: No severe constipation, requesting enema GENITOURINARY: Continent. MUSCULOSKELETAL: .Occasional mild right shoulder pain NEUROLOGICAL:. History noted for a peripheral neuropathy HEMATOLOGICAL: Easily bruises SKIN: Healing wound, otherwise intact PSYCHIATRIC: Notable for anxiety and depression currently stable All other review of systems found to be negative. FUNCTIONAL STATUS: Over weekend, noted, Pt performed sitting and supine exercises. Continues to pe rform bed mobility with [place]. Pt requires SBA with bed<>chair transfers with and without using RW. Required Jeremy toilet transfer. Pt attempted transfer with SPT without RW, but had difficulty. Demonstrated safe technique, but not with wc<>toilet transfer, needs further practice for this essential function. ALLERGIES: See Below MEDICATIONS: Reviewed, see below. OBJECTIVE: VITAL SIGNS: Please see below. PHYSICAL EXAMINATION: VITAL SIGNS: Please see below. GENERAL: Pleasant and cooperative. Mild distress. Alert and oriented times three. Malodorous ammonia smell noted. HEENT: Extraocular movements intact. CARDIOVASCULAR: Regular rate and rhythm. No murmurs, rubs, or gallops. LUNGS: Clear to auscultation bilaterally. No wheezes. No rhonchi. ABDOMEN: Soft, nontender, nondistended. Healed midline scar. Healing left inguinal diagonal scar femoral region, completely closed, no tenderness. Positive normal active bowel sounds, no organomegaly. NEUROLOGICAL:. Cranial nerves II through XII grossly intact. Sensation grossly intact. Both upper extremities, right lower extremity, pulses 1+ RLE, no edema or tenderness. EXTREMITIES: 5/5 auto slip cover installer, elbow flexion, elbow extension, right knee extension, foot dorsiflexion, eversion, plantar flexion. SKIN: Healing left above-knee amputation, scant bloody drainage on pad, adali out, sutures remain. LABORATORY DATA: Reviewed. Please see below. FBS 185 MICROBIOLOGY: Please see below. Abnl UA ASSESSMENT: Left AKA. Right hip pain. Diabetes. HLD. Hypertension. A. fib. GERD. Anxiety/depression UTI 74-year-old hypertensive diabetic lady with past medical history of severe peripheral vascular disease. She presents status post left above-knee amputation, for wound management, pain control, mobility and self-care skills. She also has grief reaction, pain and will require supportive counseling as well as comprehensive rehabilitative care to achieve goals of resumption of optimal functional capacity. PLAN: Cardio Vascular/Pain Status post right BKA for severe PVD Hypertension hyperlipidemia Important to obtain optimal postoperative and phantom limb pain control with appropriate medications to minimize strain on the cardio vascular system. Was having altered mental status, possibly related to meds, improving with changes to as needed and widening dose range. Encouraging Tylenol as 1st line for pain control. Working better. Will continue adjusting medications as healing progresses. Continue antihypertensives adjusted as indicated History of A.fib, history prior DVT, now cleared to resume careful anticoagulation while monitoring wound healing. On Coumadin, INR stable 2.43 11.8 Education and maintenance of optimal dietary strategies for both cardiovascular and diabetic issues Anxiety, Depression Addition to chronic complex medical conditions now grief reaction of loss of limb. Continue with supportive counseling and focus on functional mobility strategies. Continue current medications including paroxetine. Low dose Klonopin not as helpful, dcd Buspar and added Vistaril for anxiety and dc Amitryptiline, subsequent Pamelor. Added TraZOdone and she was sleeping better until pain escalated over weekend, seems to help some mild depression/anxiety issues, hopefully we can keep her consistently sleeping better through the night. AMPOULE FILLER also checking cognitive eval for waxing and waning MS/anxiety issues. CM to work on linkage to supportive care and grief counselling, family encouraging this as well. Diabetes./Endocrine Monitor BS, low CHO diet, education. FBS reasonable, a bit low w/ increased activity levels Usual med coverage Resumption of glipizide based on level of intake, activity, and glucose monitoring seems adequate . History of prior thyroid procedure. Well monitor. GERD Omeprazole Dietary adjustments UA came back abnormal for UTI >100k E Coli, possibly contributing to sunding events and repeated controlled falls, inconsistency to follow through with safety measures. S to Bactrim/Levaquin, but inc risk of neurogenic pain with Levoquin, will discuss with hospitalist. 1. Rehab- PT/OT pre-prosthetic residual limb care, wrapping, wound management, gait and ADls, strengthen/stretch/maintain ROM all 4 limbs, major emphasis on safety, sequencing, judgement as part of overall assessment for candidacy as a prosthetic wearer. Dr. Castro to confirm removal of Sutures this week. Will need specially sized standard wheelchair due to stature, potential imbalance from AKA and inability to ambulate long distances with AD safely. 2. Neuro- History neuropathy, precautions for proprioceptive abnormalities, compensatory strategies 4. Cardiac- hx of PVD,CAD, maintain close observation of RLE, signs/symptoms of CP, or distress, continue medications for -HTN-Enalapril, meds, dietary adjustments -HLD- dietary adjustments -INR stable 5. Resp -incentive spirometry, monitor for infection or distress as needed 6. Endo- hx of DM c/u insulin and ISS dietary education 7. GI ppx- protonix, Stevie,to help fluid and nutritional supplementation 8. Grief counselling 9. PROJECTED DISCHARGE DESTINATION: Home with family support and any durable medical equipment required to increase functional safety and mobility. Time Spent evaluation, re evaluation, charting 25min Allergies Coded Allergies: Sulfa (Sulfonamide Antibiotics) (Verified Allergy, Unknown, hives, 07/10/19) Vital Signs Vital Signs Date Time Temp Pulse Resp B/P (MAP) Pulse Ox O2 Delivery O2 Flow Rate FiO2 04/07/20 06:00 99.9 101 20 129/86 (100) 98 Room Air Laboratory Data Labs 24H Laboratory Tests 2 04/06/20 12:32: Bedside Glucose (Misc Panel) 181H 04/06/20 16:43: Bedside Glucose (Misc Panel) 199H 04/06/20 21:16: Bedside Glucose (Misc Panel) 200H 04/07/20 05:47: Bedside Glucose (Misc Panel) 185H Microbiology Microbiology 04/02/20 Urine Culture - Final, Complete Escherichia Coli Current Medications Current Medications Current Medications Medications (Trade) Dose Ordered Sig/Shankar Route PRN Reason Start Time Stop Time Status Last Admin Dose Admin Acetaminophen (Tylenol Tab) 500 mg Q6H PRN PO PAIN 03/24/20 15:30 04/01/20 17:58 DC 04/01/20 08:41 Acetaminophen (Tylenol Tab) 500 mg Q6HP PRN PO MILD PAIN (PS 1-4) OR FEVER 04/01/20 17:58 04/06/20 22:59 Acetaminophen (Tylenol Tab) 1,000 mg Q6HP PRN PO MODERATE PAIN (PS 5-7) 04/01/20 18:15 04/06/20 14:34 Amitriptyline HCl (Elavil) 25 mg QHS PO 03/24/20 21:00 03/27/20 10:37 DC 03/26/20 20:18 Amlodipine Besylate (Norvasc) 10 mg DAILY PO 03/25/20 09:00 04/06/20 08:29 Buspirone HCl (Buspar) 5 mg BID PO 03/27/20 09:00 03/28/20 11:58 DC 03/28/20 09:16 Clonazepam (KlonoPIN) 0.25 mg Q8H PRN PO ANXIETY/AGITATION 03/24/20 17:45 03/27/20 10:37 DC 03/27/20 02:07 Clonazepam (KlonoPIN) 0.25 mg RQ12H PRN PO ANXIETY/AGITATION 03/27/20 11:00 03/28/20 11:58 DC Clopidogrel Bisulfate (PLAVix) 75 mg DAILY PO 03/25/20 09:00 04/06/20 08:29 Enalapril Maleate (Vasotec) 10 mg BID PO 03/24/20 21:00 04/06/20 21:18 Glipizide (Glucotrol) 5 mg DAILY@0730 PO 03/25/20 07:30 04/06/20 08:30 Home Med (Med Rec Complete!) ASDIRECTED XX 03/24/20 11:30 03/24/20 15:19 DC Hydroxyzine HCl (Atarax) 10 mg Q6HP PRN PO ANXIETY/AGITATION 03/28/20 12:00 04/06/20 22:59 Insulin Detemir (Levemir Insulin) 10 units BID SC 03/24/20 21:00 04/06/20 21:19 Loratadine (Claritin) 10 mg DAILY PO 03/25/20 09:00 04/06/20 08:29 Metformin HCl (Glucophage) 500 mg DAILY@08 PO 03/25/20 08:00 03/24/20 17:08 DC Metoprolol Tartrate (Lopressor) 50 mg BID PO 03/24/20 21:00 04/06/20 21:19 Mineral Oil (Fleet Oil Retention Enema) IF NO BM IN THREE DAYS DAILYPRN PRN [place] CONSTIPATION 03/24/20 18:15 03/30/20 13:49 Miscellaneous (Unresolved Clarification Entry) SEE LABEL COMMENTS DAILY XX 03/31/20 09:00 03/31/20 08:55 DC Miscellaneous (Unresolved Clarification Entry) SEE LABEL COMMENTS DAILY XX 04/01/20 09:00 04/01/20 17:58 DC Miscellaneous (Unresolved Clarification Entry) SEE LABEL COMMENTS DAILY XX 04/05/20 09:00 04/05/20 16:42 DC Nortriptyline HCl (Pamelor) 10 mg QHS PO 03/27/20 21:00 03/31/20 12:27 DC 03/30/20 21:01 Omeprazole (PriLOSEC) 40 mg DAILY PO 03/25/20 09:00 04/06/20 08:29 Omeprazole (PriLOSEC) 40 mg DAILY PO 03/25/20 09:00 UNV Ondansetron HCl (Zofran) 4 mg Q6HP PRN PO NAUSEA 03/24/20 11:30 04/02/20 11:13 Oxycodone/ Acetaminophen (Percocet 5mg/ 325mg Tablet) 1 tab Q4HP PRN PO MILD/MODERATE PAIN (PS 1-7) 03/24/20 15:30 04/01/20 08:56 DC 03/28/20 10:09 Oxycodone/ Acetaminophen (Percocet 5mg/ 325mg Tablet) 1 tab Q8HP PRN PO SEVERE PAIN (PS 8-10) 04/01/20 18:15 04/06/20 21:18 Oxycodone/ Acetaminophen (Percocet 5mg/ 325mg Tablet) 1 tab RQ8H PRN PO PAIN LEVEL 7-10 04/01/20 09:00 04/01/20 18:10 DC Oxycodone/ Acetaminophen (Percocet 5mg/ 325mg Tablet) 1 tab TID@0600,1200,2000 PO 03/31/20 12:00 04/01/20 08:56 DC 03/31/20 20:21 Oxycodone/ Acetaminophen (Percocet 5mg/ 325mg Tablet) 1 tab TID@0600,1200,2000 PRN PO PAIN LEVEL 5-10 04/01/20 09:00 Cancel Oxycodone/ Acetaminophen (Percocet 5mg/ 325mg Tablet) 2 tab TID@0600,1200,2000 PO 03/25/20 20:00 03/31/20 09:02 DC 03/31/20 06:28 Paroxetine HCl (PAXil) 10 mg DAILY PO 03/25/20 09:00 04/06/20 08:30 Polyethylene Glycol (Miralax) 1 pkt DAILY PO 03/25/20 09:00 04/06/20 08:24 Senna (Senokot) 1 tab BID PRN PO CONSTIPATION 03/24/20 15:30 03/30/20 08:21 Tramadol HCl (Ultram) 50 mg BID PO 03/24/20 21:00 03/25/20 10:45 DC 03/25/20 09:22 Tramadol HCl (Ultram) 50 mg BID PRN PO PAIN LEVEL 4-7 03/25/20 21:00 04/02/20 20:59 DC 03/31/20 10:05 Trazodone HCl (Desyrel) 25 mg QHS PO 03/27/20 21:00 04/06/20 21:17 Warfarin Sodium (Coumadin) 3.5 mg DAILY@1700 PO 03/24/20 17:00 04/06/20 18:13 OUMAR PEDRO MD Apr 07, 2020 08:59
[2020-04-07] MEDS: WARFARIN SOD 1MG TAB PO SCH (18:11)
[2020-04-07] MEDS: WARFARIN SOD 2.5MG TAB PO SCH (18:11)
[2020-04-07] MEDS: LevoFLOXacin 250 MG TABLET PO SCH (18:11)
[2020-04-07 20:30] VITALS: BP 144/69
[2020-04-07] MEDS: traZODone 25MG PER 1/2 TABLET PO SCH (21:04)
[2020-04-07] MEDS: ACETAMINOPHEN 500 MG TAB PO PRN (21:06)
[2020-04-08 05:46] VITALS: BP 149/80
[2020-04-08] MEDS: amLODIPine 10 MG TAB PO SCH (08:16)
[2020-04-08] MEDS: LORATADINE 10 MG TAB PO SCH (08:16)
[2020-04-08] MEDS: CLOPIDOGREL 75 MG TAB PO SCH (08:16)
[2020-04-08] MEDS: OMEPRAZOLE 20 MG CAP PO SCH (08:16)
[2020-04-08] MEDS: LEVEMIR (INSULIN DETEMIR) 1 UNITS/0.01ML SC SCH ×2 (08:17→20:54)
[2020-04-08] MEDS: ENALAPRIL MALEATE 10 MG TAB PO SCH ×2 (08:17→20:55)
[2020-04-08] MEDS: MIRALAX *UNIT DOSE* 17GM PACKET PO SCH (08:18)
[2020-04-08] MEDS: PARoxetine 10MG TABLET PO SCH (08:18)
[2020-04-08] MEDS: METOPROLOL TART 50 MG TAB PO SCH ×2 (08:19→20:54)
[2020-04-08] MEDS: glipiZIDE (GLUCOTROL) 5 MG TAB PO SCH (08:23)
--- NOTE | 2020-04-08 09:01 | IPNPDOC ---
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 HISTORY OF PRESENT ILLNESS: This is a 74-year-old patient with history of severe peripheral vascular disease, end-stage, status post multiple failed revascularizations including left leg bypass in Jan 2020, who was admitted for severe ischemic lower extremity pain at rest and no evidence of circulation in the distal extremity, noted during an outpatient evaluation. Patient had failed conservative measures and had recently fallen due to the increasing pain and inability to weight bear on the affected extremity. Due to severe compromise of circulation despite attempts to revascularize the limb, aggressive treatment in the form of left above knee amputation ensued, 03/19/2020. Postoperatively, she has remained stable requiring coordination of her complex medical care including diabetes, hyperlipidemia, hypertension, chronic A. fib, GERD and anxiety and depression. She is on Coumadin. INR is therapeutic. She has some grief over loss of her limb, coupled with recent loss of her of 55 years earlier this year, working on grief counselling options for her. She has been on isolation precautions having decreased pain levels this morning, started abx yesterday for UTI. 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 No falls recently during transfers, absorbing learning and fewer impulsive maneuvers. Doing self wrapp ing, sutures to be removed this week. Bowels regular. REVIEW OF SYSTEMS: The following is a completed review of systems and has been reviewed. PAIN: Is a 2-6 at this time EYES: No recent vision changes. EARS, NOSE, & THROAT: No throat pain, or dysphagia, or rhinorrhea. CARDIOVASCULAR: Denies chest pain or palpitations. PULMONARY: Denies shortness of breath. GASTROINTESTINAL: No severe constipation, requesting enema GENITOURINARY: Continent, less frequency with antibiotics. MUSCULOSKELETAL: .Occasional mild right shoulder pain NEUROLOGICAL:. History noted for a peripheral neuropathy HEMATOLOGICAL: Easily bruises SKIN: Healing wound, otherwise intact PSYCHIATRIC: Notable for anxiety and depression currently stable All other review of systems found to be negative. FUNCTIONAL STATUS: Continues to perform bed mobility with [place]. Practiced family training with daughter, improving confidence and safety awareness. SBA transfers. Will need WC, Drop arm commode. ALLERGIES: See Below MEDICATIONS: Reviewed, see below. OBJECTIVE: VITAL SIGNS: Please see below. PHYSICAL EXAMINATION: VITAL SIGNS: Please see below. GENERAL: Pleasant and cooperative. Mild distress. Alert and oriented times three. Malodorous ammonia smell noted. HEENT: Extraocular movements intact. CARDIOVASCULAR: Regular rate and rhythm. No murmurs, rubs, or gallops. LUNGS: Clear to auscultation bilaterally. No wheezes. No rhonchi. ABDOMEN: Soft, nontender, nondistended. Healed midline scar. Healing left inguinal diagonal scar femoral region, completely closed, no tenderness. Positive normal active bowel sounds, no organomegaly. NEUROLOGICAL:. Cranial nerves II through XII grossly intact. Sensation grossly intact. Both upper extremities, right lower extremity, pulses 1+ RLE, no edema or tenderness. 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 SKIN: Healing left above-knee amputation, no drainage sutures remain. LABORATORY DATA: Reviewed. Please see below. FBS 173 MICROBIOLOGY: Please see below. Abnl UA ASSESSMENT: Left AKA. Right hip pain. Diabetes. HLD. Hypertension. A. fib. GERD. Anxiety/depression UTI 74-year-old hypertensive diabetic lady with past medical history of severe peripheral vascular disease. She presents status post left above-knee amputation, for wound management, pain control, mobility and self-care skills. She also has grief reaction, pain and will require supportive counseling as well as comprehensive rehabilitative care to achieve goals of resumption of optimal functional capacity. PLAN: Cardio Vascular/Pain Status post right BKA for severe PVD Hypertension hyperlipidemia Important to obtain optimal postoperative and phantom limb pain control with appropriate medications to minimize strain on the cardio vascular system. Was having altered mental status, possibly related to meds and or UTI, clearing. Encouraging Tylenol as 1st line for pain control. Working better. Will continue adjusting medications as healing progresses. Continue antihypertensives adjusted as indicated History of A.fib, history prior DVT, now cleared to resume careful anticoagulation while monitoring wound healing. On Coumadin, INR stable 2.41 11.10 Education and maintenance of optimal dietary strategies for both cardiovascular and diabetic issues Anxiety, Depression Addition to chronic complex medical conditions now grief reaction of loss of limb. Continue with supportive counseling and focus on functional mobility strategies. Continue current medications including paroxetine. TraZOdone helping sleeping better seems to help some mild depression/anxiety issues, hopefully we can keep her consistently sleeping better through the night. 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 CM to work on linkage to supporti ve care and grief counselling, family encouraging this as well. Diabetes./Endocrine Monitor BS, low CHO diet, education. FBS reasonable, a bit low w/ increased activity levels Usual med coverage Resumption of glipizide based on level of intake, activity, and glucose monitoring seems adequate . History of prior thyroid procedure. Well monitor. GERD Omeprazole Dietary adjustments UA came back abnormal for UTI >100k E Coli, possibly contributing to sundowning events and repeated controlled falls, inconsistency to follow through with safety measures. S to Bactrim/Levaquin, but inc risk of neurogenic pain with Levoquin, begun with hospitalist. Much clearer cognitively since starting Abx. 1. Rehab- PT/OT pre-prosthetic residual limb care, wrapping, wound management, gait and ADls, strengthen/stretch/maintain ROM all 4 limbs, major emphasis on safety, sequencing, judgement as part of overall assessment for candidacy as a prosthetic wearer. Dr. Castro to confirm removal of Sutures this week. Will need specially sized standard wheelchair due to stature, potential imbalance from AKA and inability to ambulate long distances with AD safely. 2. Neuro- History neuropathy, precautions for proprioceptive abnormalities, compensatory strategies 4. Cardiac- hx of PVD,CAD, maintain close observation of RLE, signs/symptoms of CP, or distress, continue medications for -HTN-Enalapril, meds, dietary adjustments -HLD- dietary adjustments -INR stable 5. Resp -incentive spirometry, monitor for infection or distress as needed 6. Endo- hx of DM c/u insulin and ISS dietary education 7. GI ppx- protonix, Stevie,to help fluid and nutritional supplementation 8. Grief counselling 9. PROJECTED DISCHARGE DESTINATION: Home with family support and any durable medical equipment required to increase functional safety and mobility. Time Spent evaluation, re evaluation, charting 25min Allergies Coded Allergies: Sulfa (Sulfonamide Antibiotics) (Verified Allergy, Unknown, hives, /06/18) Vital Signs Vital Signs Date Time Temp Pulse Resp B/P (MAP) Pulse Ox O2 Delivery O2 Flow Rate FiO2 04/08/20 08:19 103 149/80 04/08/20 05:46 99.0 18 98 Room Air Laboratory Data Labs 24H Laboratory Tests 2 04/07/20 09:27: Coronavirus (COVID-19)(PCR) NEGATIVE 04/07/20 11:29: Bedside Glucose (Misc Panel) 244H 04/07/20 16:58: Bedside Glucose (Misc Panel) 141H 04/07/20 20:02: Bedside Glucose (Misc Panel) 264H 04/08/20 05:54: Bedside Glucose (Misc Panel) 173H Microbiology Microbiology 04/02/20 Urine Culture - Final, Complete Escherichia Coli Current Medications Current Medications Current Medications Medications (Trade) Dose Ordered Sig/Shankar Route PRN Reason Start Time Stop Time Status Last Admin Dose Admin Acetaminophen (Tylenol Tab) 500 mg Q6H PRN PO PAIN 03/24/20 15:30 04/01/20 17:58 DC 04/01/20 08:41 Acetaminophen (Tylenol Tab) 500 mg Q6HP PRN PO MILD PAIN (PS 1-4) OR FEVER 04/01/20 17:58 04/06/20 22:59 Acetaminophen (Tylenol Tab) 1,000 mg Q6HP PRN PO MODERATE PAIN (PS 5-7) 04/01/20 18:15 04/07/20 21:06 Amitriptyline HCl (Elavil) 25 mg QHS PO 03/24/20 21:00 03/27/20 10:37 DC 03/26/20 20:18 Amlodipine Besylate (Norvasc) 10 mg DAILY PO 03/25/20 09:00 04/08/20 08:16 Buspirone HCl (Buspar) 5 mg BID PO 03/27/20 09:00 03/28/20 11:58 DC 03/28/20 09:16 Clonazepam (KlonoPIN) 0.25 mg Q8H PRN PO ANXIETY/AGITATION 03/24/20 17:45 03/27/20 10:37 DC 03/27/20 02:07 Clonazepam (KlonoPIN) 0.25 mg RQ12H PRN PO ANXIETY/AGITATION 03/27/20 11:00 03/28/20 11:58 DC Clopidogrel Bisulfate (PLAVix) 75 mg DAILY PO 03/25/20 09:00 04/08/20 08:16 Enalapril Maleate (Vasotec) 10 mg BID PO 03/24/20 21:00 04/08/20 08:17 Glipizide (Glucotrol) 5 mg DAILY@0730 PO 03/25/20 07:30 04/08/20 08:23 Home Med (Med Rec Complete!) ASDIRECTED XX 03/24/20 11:30 03/24/20 15:19 DC Hydroxyzine HCl (Atarax) 10 mg Q6HP PRN PO ANXIETY/AGITATION 03/28/20 12:00 04/06/20 22:59 Insulin Detemir (Levemir Insulin) 10 units BID SC 03/24/20 21:00 04/08/20 08:17 Levofloxacin (Levaquin) 250 mg DAILY@1800 PO 04/07/20 18:00 04/07/20 18:11 Loratadine (Claritin) 10 mg DAILY PO 03/25/20 09:00 04/08/20 08:16 Metformin HCl (Glucophage) 500 mg DAILY@08 PO 03/25/20 08:00 03/24/20 17:08 DC Metoprolol Tartrate (Lopressor) 50 mg BID PO 03/24/20 21:00 04/08/20 08:19 Mineral Oil (Fleet Oil Retention Enema) IF NO BM IN THREE DAYS DAILYPRN PRN MT CONSTIPATION 03/24/20 18:15 03/30/20 13:49 Miscellaneous (Unresolved Clarification Entry) SEE LABEL COMMENTS DAILY XX 03/31/20 09:00 03/31/20 08:55 DC Miscellaneous (Unresolved Clarification Entry) SEE LABEL COMMENTS DAILY XX 04/01/20 09:00 04/01/20 17:58 DC Miscellaneous (Unresolved Clarification Entry) SEE LABEL COMMENTS DAILY XX 04/05/20 09:00 04/05/20 16:42 DC Nortriptyline HCl (Pamelor) 10 mg QHS PO 03/27/20 21:00 03/31/20 12:27 DC 03/30/20 21:01 Omeprazole (PriLOSEC) 40 mg DAILY PO 03/25/20 09:00 04/08/20 08:16 Omeprazole (PriLOSEC) 40 mg DAILY PO 03/25/20 09:00 UNV Ondansetron HCl (Zofran) 4 mg Q6HP PRN PO NAUSEA 03/24/20 11:30 04/02/20 11:13 Oxycodone/ Acetaminophen (Percocet 5mg/ 325mg Tablet) 1 tab Q4HP PRN PO MILD/MODERATE PAIN (PS 1-7) 03/24/20 15:30 04/01/20 08:56 DC 03/28/20 10:09 Oxycodone/ Acetaminophen (Percocet 5mg/ 325mg Tablet) 1 tab Q8HP PRN PO SEVERE PAIN (PS 8-10) 04/01/20 18:15 04/06/20 21:18 Oxycodone/ Acetaminophen (Percocet 5mg/ 325mg Tablet) 1 tab RQ8H PRN PO PAIN LEVEL 7-10 04/01/20 09:00 04/01/20 18:10 DC Oxycodone/ Acetaminophen (Percocet 5mg/ 325mg Tablet) 1 tab TID@0600,1200,2000 PO 03/31/20 12:00 04/01/20 08:56 DC 03/31/20 20:21 Oxycodone/ Acetaminophen (Percocet 5mg/ 325mg Tablet) 1 tab TID@0600,1200,2000 PRN PO PAIN LEVEL 5-10 04/01/20 09:00 Cancel Oxycodone/ Acetaminophen (Percocet 5mg/ 325mg Tablet) 2 tab TID@0600,1200,2000 PO 03/25/20 20:00 03/31/20 09:02 DC 03/31/20 06:28 Paroxetine HCl (PAXil) 10 mg DAILY PO 03/25/20 09:00 04/08/20 08:18 Polyethylene Glycol (Miralax) 1 pkt DAILY PO 03/25/20 09:00 04/08/20 08:18 Senna (Senokot) 1 tab BID PRN PO CONSTIPATION 03/24/20 15:30 03/30/20 08:21 Tramadol HCl (Ultram) 50 mg BID PO 03/24/20 21:00 03/25/20 10:45 DC 03/25/20 09:22 Tramadol HCl (Ultram) 50 mg BID PRN PO PAIN LEVEL 4-7 03/25/20 21:00 04/02/20 20:59 DC 03/31/20 10:05 Trazodone HCl (Desyrel) 25 mg QHS PO 03/27/20 21:00 04/07/20 21:04 Warfarin Sodium (Coumadin) 1 mg DAILY@1700 PO 04/07/20 17:00 04/07/20 18:11 Warfarin Sodium (Coumadin) 2.5 mg DAILY@1700 PO 04/07/20 17:00 04/07/20 18:11 Warfarin Sodium (Coumadin) 3.5 mg DAILY@1700 PO 03/24/20 17:00 04/07/20 09:17 DC 04/06/20 18:13 OUMAR PEDRO MD Apr 08, 2020 09:01
[2020-04-08] MEDS: PERCOCET 5MG/325MG TAB PO PRN ×2 (10:20→21:27)
[2020-04-08 14:00] VITALS: BP 124/64
--- NOTE | 2020-04-08 15:48 | IPNPDOC ---
Text Note Date of Service The patient was seen on 04/08/20. NOTE Patient was seen and examined. The wound is healing well and the patient has no overnight events Physical examination GENERAL APPEARANCE: NAD HEENT: no scleral icterus, no JVD, EOMI CARDIOVASCULAR: S1S2 LUNGS: CTA ABDOMEN: soft & not tender w palpitation MUSCULOSKELETAL: no cyanosis, no swelling INTEGUMENT: no generalized palor NEUROLOGICAL: cranial nerve function from 2-12 intact intact, follows commands, speech not dysarthric Assessment and plan This is a 74-year-old patient with history of severe peripheral vascular disease status post multiple failed revascularizations including left leg bypass in Jan 2020, who was admitted for severe ischemic lower extremity pain at rest and underwent left above knee amputation ensued, 03/19/2020. She has a a complex m edical history of diabetes, hyperlipidemia, hypertension, chronic A. fib on coumadin , GERD and anxiety and depression. She has some phantom limb discomfort, but tolerable. Vascular has been following and Dr. Castro pleased with healing, adali have been already removed. Currently the patient is in ARU for therapy. 1: Status post right BKA for severe PVD . Pain management as per primary. Vascular has been following and Dr. Castro pleased with healing, adali have been already removed. continue Plavix which has been resumed as nneka has severe PAD. 2: Hypertension. Blood pressure under control. Continue home cardioprotective medications with metaprolol, enalapril and amlo. BP round 130/80. Stable. 3: Hyperlipidemia. Continue statin 4: Anxiety/depression Continue home meds 5: Diabetes type 2: Diabetes diet, Continue glipizide 6: GERD: Continue PPI 7: Chronic Atrial Fibrillation/History of DVT and Pulmonary Embolism on coumadin INR therapeutic, Heart rate under control with metoprolol, Continue Coumadin . Monitor INR 8: UTI. The patient has had a positive urine culture with Escherichia coli which is pansensitive and the patient had more than her thousand colonies. As the patient has sulfa allergy. The patient will be started on Levaquin 250 mg for 5 days. 9: Mild Hypercalcemia : Will get PTH to evaluate for hyperCA, Meds reviewed. Disposition as per primary. VS,Fishbone, I+O VS, Fishbone, I+O Vital Signs Date Time Temp Pulse Resp B/P (MAP) Pulse Ox O2 Delivery O2 Flow Rate FiO2 04/08/20 14:00 97.5 68 18 124/64 (84) 100 Room Air I&O- Last 24 Hours up to 6 AM 04/08/20 05:59 Intake Total 1060 ml Balance 1060 ml PEPITO SANFORD MD Apr 08, 2020 15:47
[2020-04-08] MEDS: WARFARIN SOD 2.5MG TAB PO SCH (17:33)
[2020-04-08] MEDS: LevoFLOXacin 250 MG TABLET PO SCH (17:33)
[2020-04-08] MEDS: WARFARIN SOD 1MG TAB PO SCH (17:34)
[2020-04-08] MEDS: ACETAMINOPHEN 500 MG TAB PO PRN (17:48)
[2020-04-08 20:00] VITALS: BP 142/73
[2020-04-08] MEDS: traZODone 25MG PER 1/2 TABLET PO SCH (20:53)
[2020-04-08] MEDS: hydrOXYzine 10 MG TAB PO PRN (22:06)
[2020-04-09 06:00] VITALS: BP 127/62
[2020-04-09] MEDS: LORATADINE 10 MG TAB PO SCH (08:32)
[2020-04-09] MEDS: ENALAPRIL MALEATE 10 MG TAB PO SCH ×2 (08:32→20:53)
[2020-04-09] MEDS: amLODIPine 10 MG TAB PO SCH (08:33)
[2020-04-09] MEDS: OMEPRAZOLE 20 MG CAP PO SCH (08:33)
[2020-04-09] MEDS: MIRALAX *UNIT DOSE* 17GM PACKET PO SCH (08:33)
[2020-04-09] MEDS: CLOPIDOGREL 75 MG TAB PO SCH (08:33)
[2020-04-09] MEDS: glipiZIDE (GLUCOTROL) 5 MG TAB PO SCH (08:33)
[2020-04-09] MEDS: PARoxetine 10MG TABLET PO SCH (08:33)
[2020-04-09] MEDS: METOPROLOL TART 50 MG TAB PO SCH ×2 (08:33→20:53)
[2020-04-09] MEDS: LEVEMIR (INSULIN DETEMIR) 1 UNITS/0.01ML SC SCH ×2 (08:34→20:54)
[2020-04-09] MEDS: PERCOCET 5MG/325MG TAB PO PRN ×2 (08:37→17:34)
--- NOTE | 2020-04-09 08:57 | IPNPDOC ---
PM&R Progress Note DATE OF SERVICE: Apr 09, 2020 Surveillance Systems Analyst Progress Note DATE OF ADMISSION: Mar 24, 2020 at 15:00 INPATIENT REHABILITATION ADMISSION DAY: #17 CHIEF COMPLAINT: Left AKA, postoperative pain, right hip pain, generalized weakness. HISTORY OF PRESENT ILLNESS: This is a 74-year-old patient with history of severe peripheral vascular disease, end-stage, status post multiple failed revascularizations including left leg bypass in Jan 2020, who was admitted for severe ischemic lower extremity pain at rest and no evidence of circulation in the distal extremity, noted during an outpatient evaluation. Patient had failed conservative measures and had recently fallen due to the increasing pain and inability to weight bear on the affected extremity. Due to severe compromise of circulation despite attempts to revascularize the limb, aggressive treatment in the form of left above knee amputation ensued, 03/19/2020. Postoperatively, she has remained stable requiring coordination of her complex medical care including diabetes, hyperlipidemia, hypertension, chronic A. fib, GERD and anxiety and depression. She is on Coumadin. INR is therapeutic. She has some grief over loss of her limb, coupled with recent loss of her of 55 years earlier this year, working on grief counselling options for her. She has been on isolation precautions due to possible Covid 19 exposure, however therapy program has continued and she is having decreased pain levels and clearer cognition after she was started on abx for UTI. 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 No falls recently during transfers, absorbing learning and fewer impulsive maneuvers. Doing self wrapping, sutures to be removed in office as an outpatient per Vascular. Bowels regular. REVIEW OF SYSTEMS: The following is a completed review of systems and has been reviewed. PAIN: Is a 2-6 at this time EYES: No recent vision changes. EARS, NOSE, & THROAT: No throat pain, or dysphagia, or rhinorrhea. CARDIOVASCULAR: Denies chest pain or palpitations. PULMONARY: Denies shortness of breath. GASTROINTESTINAL: No severe constipation, requesting enema GENITOURINARY: Continent, less frequency with antibiotics. MUSCULOSKELETAL: .Occasional mild right shoulder pain NEUROLOGICAL:. History noted for a peripheral neuropathy HEMATOLOGICAL: Easily bruises SKIN: Healing wound, otherwise intact PSYCHIATRIC: Notable for anxiety and depression currently stable All other review of systems found to be negative. FUNCTIONAL STATUS: Continues to perform bed mobility with [place]. Practiced family training with daughter, improving confidence and safety awareness. SBA transfers. Will need WC, Drop arm commode. Patient engaged in practicing ADLs including shower transfers, having some improvement carryover of safety with positioning wheelchair locking the brakes. However, there are still impulsive attempts to stand without assistive device to perform clothing management repeated verbal cues are required. ALLERGIES: See Below MEDICATIONS: Reviewed, see below. OBJECTIVE: VITAL SIGNS: Please see below. PHYSICAL EXAMINATION: VITAL SIGNS: Please see below. GENERAL: Pleasant and cooperative. Mild distress. Alert and oriented times three. Malodorous ammonia smell noted. HEENT: Extraocular movements intact. CARDIOVASCULAR: Regular rate and rhythm. No murmurs, rubs, or gallops. LUNGS: Clear to auscultation bilaterally. No wheezes. No rhonchi. ABDOMEN: Soft, nontender, nondistended. Healed midline scar. Healing left inguinal diagonal scar femoral region, completely closed, no tenderness. Positive normal active bowel sounds, no organomegaly. NEUROLOGICAL:. Cranial nerves II through XII grossly intact. no edema or tenderness. EXTREMITIES: 5/5 manager park, elbow flexion, elbow extension, right knee extension, foot dorsiflexion, eversion, plantar flexion. SKIN: Healing left above-knee amputation, sutures remain. LABORATORY DATA: Reviewed. Please see below. MICROBIOLOGY: Please see below. Abnl UA ASSESSMENT: Left AKA. Right hip pain. Diabetes. HLD. Hypertension. A. fib. GERD. Anxiety/depression UTI 74-year-old hypertensive diabetic lady with past medical history of severe peripheral vascular disease. She presents status post left above-knee amputation, for wound management, pain control, mobility and self-care skills. She also has grief reaction, pain and will require supportive counseling as well as comprehensive rehabilitative care to achieve goals of resumption of optimal functional capacity. Due to instability and lack of endurance on single stance and safety issues for more than very short distance mobilizing with RW, patient is in need of a wheelchair due to mobility limitations that significantly impair ability to participate in all of the mobility related activities of daily living within the home. As an AKA survivor, a single point cane would not allow her sufficient support for ambulation or transfers. Without the use of the wheelchair this would place the patient at reasonably determined heightened risk of morbidity or mortality due do subsequent falls, particularly while on anticoagulation therapy, skin breakdown or compromise of the intact limb. Due to limitations in endurance that is greatly consumed with the effort of even short distance walking, use of the wheelchair will increase the efficiency and degree of overall mobility capabilities and ultimate independence in self care. PLAN: Cardio Vascular/Pain Status post right BKA for severe PVD Hypertension hyperlipidemia Important to obtain optimal postoperative and phantom limb pain control with appropriate medications to minimize strain on the cardio vascular system. Was having altered mental status, possibly related to meds and or UTI, clearing. Encouraging Tylenol as 1st line for pain control. Working better. Will continue adjusting medications as healing progresses. Continue antihypertensives adjusted as indicated History of A.fib, history prior DVT, now cleared to resume careful anticoagulation while monitoring wound healing. On Coumadin, INR stable 2.41 11.10 Education and maintenance of optimal dietary strategies for both cardiovascular and diabetic issues Anxiety, Depression Addition to chronic complex medical conditions now grief reaction of loss of limb. Continue with supportive counseling and focus on functional mobility strategies. Continue current medications including paroxetine. TraZOdone helping sleeping better seems to help some mild depression/anxiety issues, hopefully we can keep her consistently sleeping better through the night. CREDIT UNION TELLER also checking cognitive eval for waxing and waning MS/anxiety issues. CM to work on linkage to supportive care and grief counselling, family encouraging this as well. Diabetes./Endocrine Monitor BS, low CHO diet, education. FBS reasonable, a bit low w/ increased activity levels Usual med coverage Resumption of glipizide based on level of intake, activity, and glucose m onitoring seems adequate . History of prior thyroid procedure. Well monitor. GERD Omeprazole Dietary adjustments UA came back abnormal for UTI >100k E Coli, possibly contributing to sundowning events and repeated controlled falls, inconsistency to follow through with safety measures. S to Bactrim/Levaquin, but inc risk of neurogenic pain with Levoquin, begun with hospitalist. Much clearer cognitively since starting Abx. 1. Rehab- PT/OT pre-prosthetic residual limb care, wrapping, wound management, gait and ADls, strengthen/stretch/maintain ROM all 4 limbs, major emphasis on safety, sequencing, judgement as part of overall assessment for candidacy as a prosthetic wearer. Dr. Castro confirmed removal of Sutures as an outpatient shortly after discharge. Will need specially sized standard wheelchair due to stature, potential imbalance from AKA and inability to ambulate long distances with AD safely. 2. Neuro- History neuropathy, precautions for proprioceptive abnormalities, compensatory strategies 4. Cardiac- hx of PVD,CAD, maintain close observation of RLE, signs/symptoms of CP, or distress, continue medications for -HTN-Enalapril, meds, dietary adjustments -HLD- dietary adjustments -INR stable 5. Resp -incentive spirometry, monitor for infection or distress as needed 6. Endo- hx of DM c/u insulin and ISS dietary education 7. GI ppx- protonix, Stevie,to help fluid and nutritional supplementation 8. Grief counselling 9. PROJECTED DISCHARGE DESTINATION: Home with family support and any durable med ical equipment required to increase functional safety and mobility. Time Spent evaluation, re evaluation, charting 25min Allergies Coded Allergies: Sulfa (Sulfonamide Antibiotics) (Verified Allergy, Unknown, hives, 07/10/19) Vital Signs Vital Signs Date Time Temp Pulse Resp B/P (MAP) Pulse Ox O2 Delivery O2 Flow Rate FiO2 04/09/20 08:37 18 04/09/20 08:33 89 127/62 04/09/20 06:00 99.6 99 Room Air Laboratory Data Labs 24H Laboratory Tests 2 04/08/20 11:33: Bedside Glucose (Misc Panel) 282H 04/08/20 16:09: Bedside Glucose (Misc Panel) 173H 04/08/20 20:43: Bedside Glucose (Misc Panel) 201H 04/09/20 06:52: Bedside Glucose (Misc Panel) 150H Microbiology Microbiology 04/02/20 Urine Culture - Final, Complete Escherichia Coli Current Medications Current Medications Current Medications Medications (Trade) Dose Ordered Sig/Shankar Route PRN Reason Start Time Stop Time Status Last Admin Dose Admin Acetaminophen (Tylenol Tab) 500 mg Q6H PRN PO PAIN 03/24/20 15:30 04/01/20 17:58 DC 04/01/20 08:41 Acetaminophen (Tylenol Tab) 500 mg Q6HP PRN PO MILD PAIN (PS 1-4) OR FEVER 04/01/20 17:58 04/06/20 22:59 Acetaminophen (Tylenol Tab) 1,000 mg Q6HP PRN PO MODERATE PAIN (PS 5-7) 04/01/20 18:15 04/08/20 17:48 Amitriptyline HCl (Elavil) 25 mg QHS PO 03/24/20 21:00 03/27/20 10:37 DC 03/26/20 20:18 Amlodipine Besylate (Norvasc) 10 mg DAILY PO 03/25/20 09:00 04/09/20 08:33 Buspirone HCl (Buspar) 5 mg BID PO 03/27/20 09:00 03/28/20 11:58 DC 03/28/20 09:16 Clonazepam (KlonoPIN) 0.25 mg Q8H PRN PO ANXIETY/AGITATION 03/24/20 17:45 03/27/20 10:37 DC 03/27/20 02:07 Clonazepam (KlonoPIN) 0.25 mg RQ12H PRN PO ANXIETY/AGITATION 03/27/20 11:00 03/28/20 11:58 DC Clopidogrel Bisulfate (PLAVix) 75 mg DAILY PO 03/25/20 09:00 04/09/20 08:33 Enalapril Maleate (Vasotec) 10 mg BID PO 03/24/20 21:00 04/09/20 08:32 Glipizide (Glucotrol) 5 mg DAILY@0730 PO 03/25/20 07:30 04/09/20 08:33 Home Med (Med Rec Complete!) ASDIRECTED XX 03/24/20 11:30 03/24/20 15:19 DC Hydroxyzine HCl (Atarax) 10 mg Q6HP PRN PO ANXIETY/AGITATION 03/28/20 12:00 04/08/20 22:06 Insulin Detemir (Levemir Insulin) 10 units BID SC 03/24/20 21:00 04/09/20 08:34 Levofloxacin (Levaquin) 250 mg DAILY@1800 PO 04/07/20 18:00 04/08/20 17:33 Loratadine (Claritin) 10 mg DAILY PO 03/25/20 09:00 04/09/20 08:32 Metformin HCl (Glucophage) 500 mg DAILY@08 PO 03/25/20 08:00 03/24/20 17:08 DC Metoprolol Tartrate (Lopressor) 50 mg BID PO 03/24/20 21:00 04/09/20 08:33 Mineral Oil (Fleet Oil Retention Enema) IF NO BM IN THREE DAYS DAILYPRN PRN [place] CONSTIPATION 03/24/20 18:15 03/30/20 13:49 Miscellaneous (Unresolved Clarification Entry) SEE LABEL COMMENTS DAILY XX 03/31/20 09:00 03/31/20 08:55 DC Miscellaneous (Unresolved Clarification Entry) SEE LABEL COMMENTS DAILY XX 04/01/20 09:00 04/01/20 17:58 DC Miscellaneous (Unresolved Clarification Entry) SEE LABEL COMMENTS DAILY XX 04/05/20 09:00 04/05/20 16:42 DC Nortriptyline HCl (Pamelor) 10 mg QHS PO 03/27/20 21:00 03/31/20 12:27 DC 03/30/20 21:01 Omeprazole (PriLOSEC) 40 mg DAILY PO 03/25/20 09:00 04/09/20 08:33 Omeprazole (PriLOSEC) 40 mg DAILY PO 03/25/20 09:00 UNV Ondansetron HCl (Zofran) 4 mg Q6HP PRN PO NAUSEA 03/24/20 11:30 04/02/20 11:13 Oxycodone/ Acetaminophen (Percocet 5mg/ 325mg Tablet) 1 tab Q4HP PRN PO MILD/MODERATE PAIN (PS 1-7) 03/24/20 15:30 04/01/20 08:56 DC 03/28/20 10:09 Oxycodone/ Acetaminophen (Percocet 5mg/ 325mg Tablet) 1 tab Q8HP PRN PO SEVERE PAIN (PS 8-10) 04/01/20 18:15 04/09/20 08:37 Oxycodone/ Acetaminophen (Percocet 5mg/ 325mg Tablet) 1 tab RQ8H PRN PO PAIN LEVEL 7-10 04/01/20 09:00 04/01/20 18:10 DC Oxycodone/ Acetaminophen (Percocet 5mg/ 325mg Tablet) 1 tab TID@0600,1200,2000 PO 03/31/20 12:00 04/01/20 08:56 DC 03/31/20 20:21 Oxycodone/ Acetaminophen (Percocet 5mg/ 325mg Tablet) 1 tab TID@0600,1200,2000 PRN PO PAIN LEVEL 5-10 04/01/20 09:00 Cancel Oxycodone/ Acetaminophen (Percocet 5mg/ 325mg Tablet) 2 tab TID@0600,1200,2000 PO 03/25/20 20:00 03/31/20 09:02 DC 03/31/20 06:28 Paroxetine HCl (PAXil) 10 mg DAILY PO 03/25/20 09:00 04/09/20 08:33 Polyethylene Glycol (Miralax) 1 pkt DAILY PO 03/25/20 09:00 04/09/20 08:33 Senna (Senokot) 1 tab BID PRN PO CONSTIPATION 03/24/20 15:30 03/30/20 08:21 Tramadol HCl (Ultram) 50 mg BID PO 03/24/20 21:00 03/25/20 10:45 DC 03/25/20 09:22 Tramadol HCl (Ultram) 50 mg BID PRN PO PAIN LEVEL 4-7 03/25/20 21:00 04/02/20 20:59 DC 03/31/20 10:05 Trazodone HCl (Desyrel) 25 mg QHS PO 03/27/20 21:00 04/08/20 20:53 Warfarin Sodium (Coumadin) 1 mg DAILY@1700 PO 04/07/20 17:00 04/08/20 17:34 Warfarin Sodium (Coumadin) 2.5 mg DAILY@1700 PO 04/07/20 17:00 04/08/20 17:33 Warfarin Sodium (Coumadin) 3.5 mg DAILY@1700 PO 03/24/20 17:00 04/07/20 09:17 DC 04/06/20 18:13 OUMAR PEDRO MD Apr 09, 2020 08:57
[2020-04-09] MEDS: ACETAMINOPHEN 500 MG TAB PO PRN ×2 (11:16→22:34)
[2020-04-09 14:00] VITALS: BP 114/54
--- NOTE | 2020-04-09 16:42 | IPNPDOC ---
Text Note Date of Service The patient was seen on 04/09/20. NOTE Patient was seen and examined. The wound is healing well and the patient has no overnight events Physical examination GENERAL APPEARANCE: NAD HEENT: no scleral icterus, no JVD, EOMI CARDIOVASCULAR: S1S2 LUNGS: CTA ABDOMEN: soft & not tender w palpitation MUSCULOSKELETAL: no cyanosis, no swelling INTEGUMENT: no generalized palor NEUROLOGICAL: cranial nerve function from 2-12 intact intact, follows commands, speech not dysarthric Assessment and plan This is a 74-year-old patient with history of severe peripheral vascular disease status post multiple failed revascularizations including left leg bypass in Jan 2020, who was admitted for severe ischemic lower extremity pain at rest and underwent left above knee amputation ensued, 03/19/2020. She has a a complex m edical history of diabetes, hyperlipidemia, hypertension, chronic A. fib on coumadin , GERD and anxiety and depression. She has some phantom limb discomfort, but tolerable. Vascular has been following and Dr. Castro pleased with healing, adali have been already removed. Currently the patient is in ARU for therapy. 1: Status post right BKA for severe PVD . Pain management as per primary. Vascular has been following and Dr. Castro pleased with healing, adali have been already removed. continue Plavix which has been resumed as nneka has severe PAD. 2: Hypertension. Blood pressure under control. Continue home cardioprotective medications with metaprolol, enalapril and amlo. BP round 130/80. Stable. 3: Hyperlipidemia. Continue statin 4: Anxiety/depression Continue home meds 5: Diabetes type 2: Diabetes diet, Continue glipizide 6: GERD: Continue PPI 7: Chronic Atrial Fibrillation/History of DVT and Pulmonary Embolism on coumadin INR therapeutic, Heart rate under control with metoprolol, Continue Coumadin . Monitor INR 8: UTI. The patient has had a positive urine culture with Escherichia coli which is pansensitive and the patient had more than her thousand colonies. As the patient has sulfa allergy. The patient will be started on Levaquin 250 mg for 5 days. 9: Mild Hypercalcemia : PTH is normal, will repeat Ca and if still elevated then will get PTH like peptide, Meds reviewed. Disposition as per primary. VS,Fishbone, I+O VS, Fishbone, I+O Vital Signs Date Time Temp Pulse Resp B/P (MAP) Pulse Ox O2 Delivery O2 Flow Rate FiO2 04/09/20 14:00 98.2 68 17 114/54 (74) 100 Room Air I&O- Last 24 Hours up to 6 AM 04/09/20 06:00 Intake Total 720 ml Balance 720 ml PEPITO SANFORD MD Apr 09, 2020 16:42
[2020-04-09] MEDS: WARFARIN SOD 2.5MG TAB PO SCH (17:34)
[2020-04-09] MEDS: LevoFLOXacin 250 MG TABLET PO SCH (17:35)
[2020-04-09] MEDS: WARFARIN SOD 1MG TAB PO SCH (17:35)
[2020-04-09 19:27] VITALS: BP 138/70
[2020-04-09] MEDS: traZODone 25MG PER 1/2 TABLET PO SCH (20:53)
[2020-04-10] MEDS: PERCOCET 5MG/325MG TAB PO PRN ×2 (01:53→12:39)
[2020-04-10 06:00] VITALS: BP 140/72
[2020-04-10 07:28] LABS: ALBUMIN 2.6 GM/DL (3.2-5.2); BILIRUBIN,TOTAL 0.1 MG/DL (0.2-1.0); CALCIUM LEVEL 10.7 MG/DL (8.8-10.2); CREATININE FOR GFR 1.25 MG/DL (0.55-1.30); GLOMERULAR FILTRATION RATE 44.7 (>39); POTASSIUM SERUM 4.1 MEQ/L (3.5-5.1); TOTAL PROTEIN 7.5 GM/DL (6.4-8.2)
[2020-04-10] MEDS: MIRALAX *UNIT DOSE* 17GM PACKET PO SCH (09:00)
[2020-04-10] MEDS: ACETAMINOPHEN 500 MG TAB PO PRN (09:04)
[2020-04-10] MEDS: CLOPIDOGREL 75 MG TAB PO SCH (09:05)
[2020-04-10] MEDS: METOPROLOL TART 50 MG TAB PO SCH (09:05)
[2020-04-10] MEDS: ENALAPRIL MALEATE 10 MG TAB PO SCH (09:05)
[2020-04-10 09:06] VITALS: BP 140/72
[2020-04-10] MEDS: amLODIPine 10 MG TAB PO SCH (09:06)
[2020-04-10] MEDS: glipiZIDE (GLUCOTROL) 5 MG TAB PO SCH (09:06)
[2020-04-10] MEDS: LORATADINE 10 MG TAB PO SCH (09:06)
[2020-04-10] MEDS: OMEPRAZOLE 20 MG CAP PO SCH (09:06)
[2020-04-10] MEDS: LEVEMIR (INSULIN DETEMIR) 1 UNITS/0.01ML SC SCH (09:06)
[2020-04-10] MEDS: PARoxetine 10MG TABLET PO SCH (09:06)
[2020-04-10] MEDS ORDERED: JANT1TAB PO (10:48)
[2020-04-10] MEDS ORDERED: JANT2.5T PO (10:48)
[2020-04-10] MEDS ORDERED: HYDR-643 PO (10:48)
[2020-04-10] MEDS ORDERED: CLOP75TA2 PO (10:48)
[2020-04-10] MEDS ORDERED: ENAL-36 PO (10:48)
[2020-04-10] MEDS ORDERED: PERCOCET PO (10:48)
[2020-04-10] MEDS ORDERED: TRAZ-252 PO (10:48)
[2020-04-10] MEDS ORDERED: ACET-683 PO (10:48)
--- NOTE | 2020-04-10 16:38 | DS.PDOC ---
PM&R Discharge Summary Insurance Counselor Discharge Note DATE OF ADMISSION: Mar 24, 2020 at 15:00 DATE OF DISCHARGE: Apr 10, 2020 at 13:20 DATE OF DISCHARGE: 04.10.2020 DISCHARGE DIAGNOSES: Left AKA. Right hip pain. Diabetes. HLD. Hypertension. A. fib. GERD. Anxiety/depression UTI PAST MEDICAL HISTORY Severe Peripheral Artery Disease with angioplasties and stents in bilateral lower extremities, Persistent Left leg ischemia with failed Bypass leading to left AKA 03.19.2020 Hypertension, hyperlipidemia, Chronic Atrial Fibrillation History of DVT and Pulmonary Embolism on coumadin, Anxiety, Depression, Diabetes, History of Thyroid disorder , status post removal of nodule, nonmalignant PAST SURGICAL HISTORY Cholecystectomy 1999 Total Abdominal Hysterectomy - 1995 Abdominal Hernia Repair 2017 Multiple angiogram procedures, Arterial Stenting Bilateral Lower Extremities Left femoral to below-knee popliteal bypass with cadaver vein January 2020 Partial thyroid resection, 2016 HOSPITAL COURSE: This is a 74-year-old patient with history of severe peripheral vascular disease, end-stage, status post multiple failed revascularizations including left leg bypass in Jan 2020, who was admitted for severe ischemic lower extremity pain at rest and no evidence of circulation in the distal extremity, noted during an outpatient evaluation. Patient had failed conservative measures and had recently fallen due to the increasing pain and inability to weight bear on the affected extremity. Due to severe compromise of circulation despite a ttempts to re-vascularize the limb, aggressive treatment in the form of left above knee amputation ensued, 03/19/2020. Postoperatively, she has remained stable requiring coordination of her complex medical care including diabetes, hyperlipidemia, hypertension, chronic A. fib, GERD and anxiety and depression. She is on Coumadin. INR is therapeutic. She has some grief over loss of her limb, coupled with recent loss of her of 55 years earlier this year, working on grief counselling options for her. She has been on isolation precautions due to possible Covid 19 exposure, however therapy program has continued and she is having decreased pain levels and clearer cognition after she was started on abx for UTI. Subsequent testing found her Covid negative. 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 No falls recently during transfers, absorbing learning and fewer impulsive maneuvers. Doing self wrapping, sutures to be removed in office as an outpatient per Vascular. Stable on discharge. PHYSICAL EXAMINATION: VITAL SIGNS: Please see below. GENERAL: Pleasant and cooperative. Alert and oriented times three. HEENT: Extraocular movements intact. CARDIOVASCULAR: Regular rate and rhythm. No murmurs, rubs, or gallops. LUNGS: Clear to auscultation bilaterally. No wheezes. No rhonchi. ABDOMEN: Soft, nontender, nondistended. Healed midline scar. Healing left inguinal diagonal scar femoral region, completely closed, no tenderness. Positive normal active bowel sounds, no organomegaly. NEUROLOGICAL:. Cranial nerves II through XII grossly intact. no edema or tenderness. 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 SKIN: Healing left above-knee amputation, sutures remain, dry, small area r edness central aspect incision line. Reviewed optimal wrapping technique with nursing. FUNCTIONAL STATUS AT DISCHARGE: Modified Independent with self care, dressing, stand pivot transfers using walker, wheelchair mobility. Ambulates very short distances using walker. LABORATORY DATA: Please see below. ALLERGIES: See below. MEDICATIONS: See Below. DISCHARGE DISPOSITION: Stable discharge to home with assistance of daughter TIME SPENT: Chart Review, examination and documentation 30 minutes. This document is generated using speech recognition software which may result in grammatical, typographical and individual word errors. Vital Signs/I&O Vital Sign - Last 24 Hours 04/09/20 04/09/20 04/09/20 04/09/20 17:34 18:04 19:27 20:53 Temp 97.3 Pulse 84 Resp 16 16 17 B/P (MAP) 138/70 (92) 138/70 Pulse Ox 96 O2 Delivery Room Air 04/09/20 04/10/20 04/10/20 04/10/20 20:53 00:00 01:53 02:30 Pulse 84 Resp 18 18 18 B/P (MAP) 138/70 O2 Delivery Room Air Room Air 04/10/20 04/10/20 04/10/20 04/10/20 06:00 09:05 09:05 09:06 Temp 98.2 Pulse 72 72 72 Resp 18 B/P (MAP) 140/72 (94) 140/72 140/72 140/72 Pulse Ox 97 O2 Delivery Room Air 04/10/20 04/10/20 12:39 13:09 Resp 16 16 I&O- Last 24 Hours up to 6 AM 04/10/20 06:00 Intake Total 620 ml Balance 620 ml Laboratory Data CBC/BMP Laboratory Tests 04/10/20 06:26 Labs 48H Laboratory Tests 04/08/20 20:43: Bedside Glucose (Misc Panel) 201H 04/09/20 06:52: Bedside Glucose (Misc Panel) 150H 04/09/20 11:47: Bedside Glucose (Misc Panel) 135H 04/09/20 16:35: Bedside Glucose (Misc Panel) 164H 04/09/20 19:17: Bedside Glucose (Misc Panel) 252H 04/10/20 06:26: Sodium Level 136, Potassium Level 4.1, Chloride Level 106, Carbon Dioxide Level 23, Anion Gap 7L, Blood Urea Nitrogen 37H, Creatinine 1.25, Glomerular Filtration Rate 44.7, Fasting Glucose 158H, Calcium Level 10.7H, Total Bilirubin 0.1L, Aspartate Amino Transf (AST/SGOT) 13, Alanine Aminotransferase (ALT/SGPT) 10L, Alkaline Phosphatase 86, Total Protein 7.5, Albumin 2.6L, Albumin/Globulin Ratio 0.5L 04/10/20 11:43: Bedside Glucose (Misc Panel) 166H FSBS Laboratory Tests Test 04/09/20 19:17 04/10/20 11:43 Range/Units Bedside Glucose (Misc Panel) 252 166 83-110 MG/DL Microbiology Microbiology 04/02/20 Urine Culture - Final, Complete Escherichia Coli Medications Medications Current Medications Medications (Trade) Dose Ordered Sig/Shankar Route PRN Reason Start Time Stop Time Status Last Admin Dose Admin Acetaminophen (Tylenol Tab) 500 mg Q6H PRN PO PAIN 03/24/20 15:30 04/01/20 17:58 DC 04/01/20 08:41 Acetaminophen (Tylenol Tab) 500 mg Q6HP PRN PO MILD PAIN (PS 1-4) OR FEVER 04/01/20 17:58 04/10/20 15:14 DC 04/10/20 09:04 Acetaminophen (Tylenol Tab) 1,000 mg Q6HP PRN PO MODERATE PAIN (PS 5-7) 04/01/20 18:15 04/10/20 15:14 DC 04/09/20 22:34 Amitriptyline HCl (Elavil) 25 mg QHS PO 03/24/20 21:00 03/27/20 10:37 DC 03/26/20 20:18 Amlodipine Besylate (Norvasc) 10 mg DAILY PO 03/25/20 09:00 04/10/20 15:14 DC 04/10/20 09:06 Buspirone HCl (Buspar) 5 mg BID PO 03/27/20 09:00 03/28/20 11:58 DC 03/28/20 09:16 Clonazepam (KlonoPIN) 0.25 mg Q8H PRN PO ANXIETY/AGITATION 03/24/20 17:45 03/27/20 10:37 DC 03/27/20 02:07 Clonazepam (KlonoPIN) 0.25 mg RQ12H PRN PO ANXIETY/AGITATION 03/27/20 11:00 03/28/20 11:58 DC Clopidogrel Bisulfate (PLAVix) 75 mg DAILY PO 03/25/20 09:00 04/10/20 15:14 DC 04/10/20 09:05 Enalapril Maleate (Vasotec) 10 mg BID PO 03/24/20 21:00 04/10/20 15:14 DC 04/10/20 09:05 Glipizide (Glucotrol) 5 mg DAILY@0730 PO 03/25/20 07:30 04/10/20 15:14 DC 04/10/20 09:06 Home Med (Med Rec Complete!) ASDIRECTED XX 03/24/20 11:30 03/24/20 15:19 DC Hydroxyzine HCl (Atarax) 10 mg Q6HP PRN PO ANXIETY/AGITATION 03/28/20 12:00 04/10/20 15:14 DC 04/08/20 22:06 Insulin Detemir (Levemir Insulin) 10 units BID SC 03/24/20 21:00 04/10/20 15:14 DC 04/10/20 09:06 Levofloxacin (Levaquin) 250 mg DAILY@1800 PO 04/07/20 18:00 04/10/20 15:14 DC 04/09/20 17:35 Loratadine (Claritin) 10 mg DAILY PO 03/25/20 09:00 04/10/20 15:14 DC 04/10/20 09:06 Metformin HCl (Glucophage) 500 mg DAILY@08 PO 03/25/20 08:00 03/24/20 17:08 DC Metoprolol Tartrate (Lopressor) 50 mg BID PO 03/24/20 21:00 04/10/20 15:14 DC 04/10/20 09:05 Mineral Oil (Fleet Oil Retention Enema) IF NO BM IN THREE DAYS DAILYPRN PRN MN CONSTIPATION 03/24/20 18:15 04/10/20 15:14 DC 03/30/20 13:49 Miscellaneous (Unresolved Clarification Entry) SEE LABEL COMMENTS DAILY XX 03/31/20 09:00 03/31/20 08:55 DC Miscellaneous (Unresolved Clarification Entry) SEE LABEL COMMENTS DAILY XX 04/01/20 09:00 04/01/20 17:58 DC Miscellaneous (Unresolved Clarification Entry) SEE LABEL COMMENTS DAILY XX 04/05/20 09:00 04/05/20 16:42 DC Nortriptyline HCl (Pamelor) 10 mg QHS PO 03/27/20 21:00 03/31/20 12:27 DC 03/30/20 21:01 Omeprazole (PriLOSEC) 40 mg DAILY PO 03/25/20 09:00 04/10/20 15:14 DC 04/10/20 09:06 Omeprazole (PriLOSEC) 40 mg DAILY PO 03/25/20 09:00 UNV Ondansetron HCl (Zofran) 4 mg Q6HP PRN PO NAUSEA 03/24/20 11:30 04/10/20 15:14 DC 04/02/20 11:13 Oxycodone/ Acetaminophen (Percocet 5mg/ 325mg Tablet) 1 tab Q4HP PRN PO MILD/MODERATE PAIN (PS 1-7) 03/24/20 15:30 04/01/20 08:56 DC 03/28/20 10:09 Oxycodone/ Acetaminophen (Percocet 5mg/ 325mg Tablet) 1 tab Q8HP PRN PO SEVERE PAIN (PS 8-10) 04/01/20 18:15 04/10/20 15:14 DC 04/10/20 12:39 Oxycodone/ Acetaminophen (Percocet 5mg/ 325mg Tablet) 1 tab RQ8H PRN PO PAIN LEVEL 7-10 04/01/20 09:00 04/01/20 18:10 DC Oxycodone/ Acetaminophen (Percocet 5mg/ 325mg Tablet) 1 tab TID@0600,1200,2000 PO 03/31/20 12:00 04/01/20 08:56 DC 03/31/20 20:21 Oxycodone/ Acetaminophen (Percocet 5mg/ 325mg Tablet) 1 tab TID@0600,1199,1999 PRN PO PAIN LEVEL 5-10 04/01/20 09:00 Cancel Oxycodone/ Acetaminophen (Percocet 5mg/ 325mg Tablet) 2 tab TID@0600,1199,1999 PO 03/25/20 20:00 03/31/20 09:02 DC 03/31/20 06:28 Paroxetine HCl (PAXil) 10 mg DAILY PO 03/25/20 09:00 04/10/20 15:14 DC 04/10/20 09:06 Polyethylene Glycol (Miralax) 1 pkt DAILY PO 03/25/20 09:00 04/10/20 15:14 DC 04/09/20 08:33 Senna (Senokot) 1 tab BID PRN PO CONSTIPATION 03/24/20 15:30 04/10/20 15:14 DC 03/30/20 08:21 Tramadol HCl (Ultram) 50 mg BID PO 03/24/20 21:00 03/25/20 10:45 DC 03/25/20 09:22 Tramadol HCl (Ultram) 50 mg BID PRN PO PAIN LEVEL 4-7 03/25/20 21:00 04/02/20 20:59 DC 03/31/20 10:05 Trazodone HCl (Desyrel) 25 mg QHS PO 03/27/20 21:00 04/10/20 15:14 DC 04/09/20 20:53 Warfarin Sodium (Coumadin) 1 mg DAILY@1700 PO 04/07/20 17:00 04/10/20 15:14 DC 04/09/20 17:35 Warfarin Sodium (Coumadin) 2.5 mg DAILY@1700 PO 04/07/20 17:00 04/10/20 15:14 DC 04/09/20 17:34 Warfarin Sodium (Coumadin) 3.5 mg DAILY@1700 PO 03/24/20 17:00 04/07/20 09:17 DC 04/06/20 18:13 Scheduled Amitriptyline HCl (Amitriptyline HCl) 25 Mg Tablet, 25 MG PO QHS, (Reported) Amlodipine Besylate (Amlodipine Besylate) 10 Mg Tablet, 10 MG PO DAILY, (Reported) Clopidogrel Bisulfate (Clopidogrel) 75 Mg Tablet, 75 MG PO DAILY Dulaglutide (Trulicity) 0.75 Mg/0.5 Ml Pen.injctr, 0.75 MG SC QWEEK, (Reported) TUESDAY Enalapril Maleate (Enalapril Maleate) 10 Mg Tablet, 10 MG PO BID Glipizide (Glipizide) 10 Mg Tablet, 10 MG PO BID, (Reported) Insulin Detemir (Levemir) 100 Unit/1 Ml Vial, 10 UNITS SC BID, (Reported) Loratadine (Loratadine) 10 Mg Tablet, 10 MG PO DAILY, (Reported) Metoprolol Tartrate (Metoprolol Tartrate) 50 Mg Tablet, 50 MG PO BID, (Reported) Omeprazole (Omeprazole) 20 Mg Capsule.dr, 40 MG PO DAILY, (Reported) Paroxetine (Paroxetine HCl) 10 Mg Tablet, 10 MG PO DAILY, (Reported) Trazodone HCl (Trazodone HCl) 50 Mg Tablet, 25 MG PO QHS Warfarin Sodium (Jantoven) 2.5 Mg Tablet, 2.5 MG PO DAILY@1700 Warfarin Sodium (Jantoven) 1 Mg Tablet, 1 MG PO DAILY@1700 Scheduled PRN Acetaminophen (Acetaminophen) 500 Mg Tablet, 1,000 MG PO Q6HP PRN for MODERATE PAIN (PS 5-7) Hydroxyzine HCl (Hydroxyzine HCl) 10 Mg Tablet, 10 MG PO Q6HP PRN for ANXIETY/AGITATION Oxycodone/Acetaminophen (Oxycodone-Acetaminophen 5-325) 1 Each Tablet, 1 TAB PO Q8HP PRN for SEVERE PAIN (PS 8-10) Allergies Coded Allergies: Sulfa (Sulfonamide Antibiotics) (Verified Allergy, Unknown, hives, 07/10/19) OUMAR PEDRO MD Apr 10, 2020 16:38
== END 2020-04-10 13:20 | disposition home health service (06) | DRG 560 ==
LOC: M PM&R 15:00
PROVIDERS: ADMIT Physical Medicine & Rehabilitation; ATTEND Physical Medicine & Rehabilitation
DX: Z47.81 Encounter for orthopedic aftercare following surgical amputation (principal); I48.20 Chronic atrial fibrillation, unspecified; N39.0 Urinary tract infection, site not specified; E11.51 Type 2 diabetes mellitus with diabetic peripheral angiopathy without gangrene; Z89.612 Acquired absence of left leg above knee; E78.5 Hyperlipidemia, unspecified; I10 Essential (primary) hypertension; F41.9 Anxiety disorder, unspecified; F32.9 Major depressive disorder, single episode, unspecified; R53.1 Weakness; Z86.718 Personal history of other venous thrombosis and embolism; K21.9 Gastro-esophageal reflux disease without esophagitis; E11.40 Type 2 diabetes mellitus with diabetic neuropathy, unspecified; Z79.01 Long term (current) use of anticoagulants; Z79.4 Long term (current) use of insulin; Z79.899 Other long term (current) drug therapy; Z88.2 Allergy status to sulfonamides; B96.29 Other Escherichia coli [E. coli] as the cause of diseases classified elsewhere; E83.52 Hypercalcemia

== ENCOUNTER → 2020-04-22 | Outpatient (REF) | payer MEDICARE ==
[~2020-04-22] MED LIST changes: +HYDR-643 PO; +JANT1TAB PO; +JANT2.5T PO; +TRAZ-252 PO
== END ==
LOC: M LAB REF 16:02
PROVIDERS: ATTEND Physician Assistant
DX: Z89.612 Acquired absence of left leg above knee (principal); I70.201 Unspecified atherosclerosis of native arteries of extremities, right leg

== ENCOUNTER → 2020-07-07 | Outpatient (CLI) | payer MEDICARE ==
[~2020-07-07] MED LIST changes: -AMIT25TA PO; +AMIT25TA17 PO
--- NOTE | 2020-07-07 13:07 | REP ---
INDICATION: PAIN IN RIGHT LEG AND LEFT LEG STUMP, PAD COMPARISON: 10/19/2019. TECHNIQUE: Real time davila scale and Duplex Doppler evaluation of the bilateral lower extremity arterial vasculature using linear high frequency transducer. FINDINGS: Davila scale and duplex doppler images demonstrate biphasic waveforms in the bilateral common iliac and external iliac arteries with normal flow velocities. Biphasic waveforms are seen throughout the right lower extremity arterial system. Monophasic waveform is seen in the left common femoral artery. The patient has had a prior left above knee amputation. Moderate scattered plaquing is seen bilaterally. No focal stenosis is seen. There is occlusion of the left superficial femoral artery. Peak systolic velocities (cm/sec) Common iliac artery: Right 103.6; left 175.8 External iliac artery: Right 131.7; left 109.8 Common femoral artery: Right 185; Left 189 Profunda femoris: Right 194; Left 165 SFA (proximal): Right 123; Left occluded SFA (mid): Right 137; Left occluded SFA (distal): Right 140; Left occluded Popliteal artery: Right 173 KT (prox.): Right 72 Tibioperoneal trunk: Right 55 MANAGER HOUSE (prox.): Right 79 MANAGER HOUSE (distal): Right 58 KT (distal): Right 28 IMPRESSION: Moderate diffuse plaquing bilaterally. Prior left above knee amputation. No focal stenosis. Occlusion left superficial femoral artery. <Electronically signed by Master Davila > 07/07/20 [id number]
== END ==
LOC: M RAD 09:57
PROVIDERS: ATTEND Physician Assistant
DX: M79.605 Pain in left leg (principal); I70.201 Unspecified atherosclerosis of native arteries of extremities, right leg; R09.89 Other specified symptoms and signs involving the circulatory and respiratory systems